=== PATIENT | female | born 1955 | race Caucasian/White ===

== ENCOUNTER 2020-01-07 10:27 | Outpatient (REF) | payer MEDICARE, MEDICAID, SELFPAY ==
[2020-01-07 11:53] LABS: Anion Gap 10 (12-20); Blood Urea Nitrogen 17 mg/dL (9-16); Calcium 10.3 mg/dL (8.4-10.2); Carbon Dioxide 28 mmol/L (22-29); Chloride 106 mmol/L (96-108); Estimated Glomerular Filt Rate > 60; Glucose Random 76 mg/dL (60-115); Potassium 4.9 mmol/l (3.3-5.1); Sodium 139 mmol/L (135-145)
== END 2020-01-07 10:28 | disposition home or self-care (01) ==
LOC: HO.HMGCLDS 10:27
PROVIDERS: PCP Internal Medicine; Visit Provider Internal Medicine
DX: R42 Dizziness and giddiness (principal); K59.01 Slow transit constipation; K58.9 Irritable bowel syndrome, unspecified; F66 Other sexual disorders; G71.00 Muscular dystrophy, unspecified; F31.9 Bipolar disorder, unspecified; E78.9 Disorder of lipoprotein metabolism, unspecified; K21.9 Gastro-esophageal reflux disease without esophagitis
CPT/HCPCS: 80048

== ENCOUNTER → 2020-01-15 11:13 | Outpatient (BNVA) | payer MEDICARE, MEDICAID, SELFPAY | PROVIDERS: PCP Internal Medicine; Visit Provider Anesthesiology | DX: M96.1 Postlaminectomy syndrome, not elsewhere classified (principal); M79.7 Fibromyalgia; M47.26 Other spondylosis with radiculopathy, lumbar region; Z96.82 Presence of neurostimulator | CPT/HCPCS: 99212 ==

== ENCOUNTER 2020-03-19 12:45 | Emergency (ER) | payer MEDICARE, MEDICAID, SELFPAY ==
[2020-03-19 12:57] VITALS: BP 101/63; PULSE 85; RESP 18; TEMP 37.1; O2SAT 96; BMI 24.5
--- NOTE | 2020-03-19 14:06 | ED.DENTAL ---
HPI - Dental/Oral General Chief complaint: Dental/Oral Stated complaint: post op inflammation Time Seen by Provider: 03/19/20 14:06 History of Present Illness HPI Narrative: Complains of right-sided dental pain after dental implant procedure 2 days ago, also complains of body aches for 2 days, no fever no chills no difficulty breathing or swallowing Related Data Home Medications Medication Instructions Recorded Confirmed acyclovir 5 % topical ointment TOPICAL 01/07/20 01/07/20 fenofibrate 160 mg tablet 160 mg PO DAILY 01/07/20 01/07/20 fluocinolone 0.025 % topical TOPICAL 01/07/20 01/07/20 ointment lithium carbonate 300 mg 300 mg PO DAILY 01/07/20 01/07/20 tablet,extended release loratadine 10 mg tablet 10 mg PO DAILY 01/07/20 01/07/20 pantoprazole 40 mg tablet,delayed 40 mg PO DAILY 01/07/20 01/07/20 release pregabalin 300 mg capsule 300 mg PO BID 01/07/20 01/07/20 quetiapine 200 mg tablet 200 mg PO BEDTIME 01/07/20 01/07/20 tizanidine 4 mg tablet 6 mg PO TID 01/07/20 01/07/20 Previous Rx's Medication Instructions Recorded linaclotide 290 mcg capsule 290 mcg PO DAILY 90 Days #90 cap 12/29/19 Allergies Allergy/AdvReac Type Severity Reaction Status Date / Time N.K.D.A. Allergy Unknown none Uncoded 02/09/20 09:48 Review of Systems Review of Systems: Positive for dental pain after dental surgery and body aches Negative for fever chills weakness dizziness, no swelling no shortness of breath no chest pain no nausea no vomiting no skin rash, no cough no runny nose no sore throat PMFSH Past Medical History Source: nursing notes reviewed Medical History (Updated 03/20/20 @ 00:00 by Vianca Stevenson) Bipolar 1 disorder Chronic GERD Chronic vertigo Constipation by delayed colonic transit Fibromyalgia IBS (irritable bowel syndrome) Lipid disorder Muscular dystrophy Other sexual disorders Other spondylosis with radiculopathy, lumbar region Postlaminectomy syndrome, not elsewhere classified Social History Social History Advance Directives: No Advance Directives Information Provided: Yes Physical Exam Vital Signs: Vital Signs: Last Vital Signs Temp 98.7 F 03/19/20 12:57 Pulse 85 03/19/20 12:57 Resp 18 03/19/20 12:57 BP 101/63 03/19/20 12:57 Pulse Ox 96 03/19/20 12:57 Body Mass Index 24.5 Comfortable relax cooperative no acute distress A&O x3 The face has very mild erythema over the right side maxillary area with no swelling Intraoral exam shows the pharynx is clear mucous membranes are moist there is no swelling under the tongue no impairment of breathing and swallowing, the area of the dental work shows no fluctuant abscess on the gun in the area of the right upper premolar that was worked on, there is no intraoral abscess visible, the voice is normal The neck is supple without lymphadenopathy Respiratory no distress, lung sounds are clear full and equal bilaterally The heart rate and rhythm is regular and no murmur Abdomen is soft nontender Skin no rashes Course Course Course Narrative: No sign of any acute abscess or severe infection in the area of the dental work, patient is very comfortable and cooperative The mild body aches were evaluated with a COVID test and physical exam did not show any sign of any active upper respiratory infection or any acute emergent infection MDM - Dental/Oral Lab Data Labs: Lab Results 03/19/20 Range/Units 14:23 Coronavirus (PCR) NEGATIVE (Negative) Influenza Type A (PCR) NEGATIVE (Negative) Influenza Type B (PCR) NEGATIVE (Negative) RSV RNA Qual (PCR) NEGATIVE (Negative) Discharge Plan Discharge Clinical Impression: Pain, dental, Body aches Patient Disposition: Home, Self-Care Additional Instructions: COVID testing was done because of her body aches and it was negative, no sign of any dangerous illness now Continue taking her antibiotic, no sign of any serious dental infection at this time and follow with the dentist Return any time any worse condition or concerns Prescriptions: No Action Linzess 290 mcg capsule 290 mcg PO DAILY 90 Days Qty: 90 RF: 0 pregabalin 300 mg capsule 300 mg PO BID RF: 0 quetiapine 200 mg tablet 200 mg PO BEDTIME RF: 0 lithium carbonate 300 mg tablet extended release 300 mg PO DAILY RF: 0 tizanidine 4 mg tablet 6 mg PO TID RF: 0 fluocinolone 0.025 % ointment topical RF: 0 fenofibrate 160 mg tablet 160 mg PO DAILY RF: 0 acyclovir 5 % ointment topical RF: 0 loratadine 10 mg tablet 10 mg PO DAILY RF: 0 pantoprazole 40 mg tablet,delayed release (DR/EC) 40 mg PO DAILY RF: 0 Interventions: ED Discharge Assessment Last Done: 03/19/20 16:23 Discharge Date/Time: 03/19/20 16:24
[2020-03-19 15:25] LABS: Influenza A PCR NEGATIVE (Negative); Influenza B PCR NEGATIVE (Negative); Resp Syncy Virus RNA Qual PCR NEGATIVE (Negative); SARS COV2 PCR INHOUSE NEGATIVE (Negative)
== END 2020-03-19 16:24 | disposition home or self-care (01) ==
PROVIDERS: Physician Assistant Medical; Emergency Provider Emergency Medicine; PCP Internal Medicine
DX: K08.89 Other specified disorders of teeth and supporting structures (principal); M79.10 Myalgia, unspecified site; Z20.828 Contact with and (suspected) exposure to other viral communicable diseases
CPT/HCPCS: 0241U; 99283

== ENCOUNTER → 2020-04-27 11:41 | Outpatient (BNV) | payer MEDICAID, MEDICARE, SELFPAY | PROVIDERS: PCP Internal Medicine; Visit Provider Internal Medicine Medical Oncology | DX: D72.819 Decreased white blood cell count, unspecified (principal) | CPT/HCPCS: 99213; 99214; 99443 ==

== ENCOUNTER → 2020-05-05 14:49 | Outpatient (BNVA) | payer MEDICARE, MEDICAID, SELFPAY | PROVIDERS: PCP Internal Medicine; Visit Provider Anesthesiology | DX: M79.7 Fibromyalgia (principal); M96.1 Postlaminectomy syndrome, not elsewhere classified; M47.26 Other spondylosis with radiculopathy, lumbar region; Z96.89 Presence of other specified functional implants | CPT/HCPCS: 99212 ==

== ENCOUNTER → 2020-05-31 15:53 | Outpatient (BNVA) | payer MEDICARE, MEDICAID, SELFPAY | PROVIDERS: PCP Internal Medicine; Visit Provider Anesthesiology | DX: M79.7 Fibromyalgia (principal); M96.1 Postlaminectomy syndrome, not elsewhere classified; M47.26 Other spondylosis with radiculopathy, lumbar region; Z96.89 Presence of other specified functional implants; Z79.899 Other long term (current) drug therapy | CPT/HCPCS: Q3014 ==

== ENCOUNTER 2020-07-17 14:09 | Emergency (ER) | payer MEDICARE, MEDICAID, SELFPAY ==
--- NOTE | ~2020-07-17 | CT_ITS ---
EXAMINATION: CT ABDOMEN AND PELVIS WITH CONTRAST CLINICAL INFORMATION: Lower abdomen pain. Clinical concern regarding bowel obstruction. COMPARISON: Portions of a CT performed without IV contrast on 05/07/15 TECHNIQUE: Multidetector volumetric images were obtained from the superior aspect of the liver through the pubic symphysis following administration 85 mL of Omnipaque 350 intravenous contrast. Sagittal and coronal reformatted images were obtained on the technologist's workstation. Oral contrast: No This CT examination was performed using dose optimization techniques as appropriate, variously including the following: *Automated exposure control *Adjustment of mA and/or kV according to patient size (this includes techniques or standardized protocols for targeted exams where dose is matched to indication/reason for exam; i.e. extremities or head) *Use of iterative reconstruction technique DLP: 513 mGy-cm FINDINGS: There is motion artifact which limits evaluation. Digital lap layer: Power generator projects over right mid abdomen with leads projecting over the spine. Bilateral hip replacements. Arthritic changes in the spine. Grossly abnormal interspace at L4/L5. LUNG BASES: No suspicious abnormality in the visualized lower chest LIVER, GALLBLADDER, AND BILIARY TREE: No suspicious liver lesion. There is no large opaque gallstone. No pericholecystic fluid. No definite biliary dilation. PANCREAS: Not optimally evaluated. No definite abnormality. SPLEEN: Normal ADRENAL GLANDS: Limited assessment. No definite abnormality. KIDNEYS AND URETERS: No dilation of the urinary collecting system. Limited assessment. No definite mass. BLADDER: Limited by metallic artifact. The urinary bladder is distended. No suspicious mass GASTROINTESTINAL TRACT: Metallic artifact limits assessment of the rectum. There is a large amount fecal residue. There is fluid distending the ascending, splenic flexure, transverse colon and proximal colon. There are some fluid-filled small bowel loops. There is at least a small segment of relative narrowing in the descending junction with sigmoid region. This may be a transient finding. ABDOMINAL WALL: No significant hernia is appreciated. LYMPH NODES: There are no measurably enlarged abdominal or pelvic lymph nodes. No fringe peroneal fluid demonstrated VASCULAR: There is no abdominal aortic aneurysm. The portal vein enhances. PELVIC VISCERA: Mostly obscured. No definite mass. OSSEOUS STRUCTURES: Extensive metallic artifact from previous bilateral hip replacement. Artifact related to a power generator in the right gluteal soft tissues with leads extending into the spinal canal. Severe abnormality at L4/L5 with grossly irregular endplates intravertebral gas and some sclerosis. There is endplate irregularity at multiple additional levels. Canal contents not well evaluated. There is fusion at L1/L2. When compared to parasagittal MRI 06/27/19 is difficult to assess for stability due to differences between modalities. When compared to parasagittal CT 05/07/15 grossly worsened appearance at L4/L5. CT/CT abdomen pelvis w con IMPRESSION: Limited study. Large amount of fluid within the colon which is abnormal. Etiology uncertain. There is a large amount of fecal residue in the rectal vault and sigmoid. No evidence of a high-grade small bowel obstruction. Severe abnormalities in the spine with gross abnormality at L4/L5. Difficult to assess for comparison since previous MRI but gross worsening at L4/L5 when compared to 05/07/15.
[2020-07-17 14:50] VITALS: BP 130/83; PULSE 81; RESP 16; TEMP 36.7; O2SAT 98; BMI 24.5
[2020-07-17 15:54] LABS: MANUAL DIFF FLAG NO
[2020-07-17 16:03] VITALS: BP 142/90; PULSE 89; RESP 16; O2SAT 97
[2020-07-17 16:03] LABS: Basophils Absolute Auto 0.1 X10*3/uL (0.0-0.2); Basophils Percent Auto 0.6 % (0-2); Eosinophils Absolute Auto 0.1 X10*3/uL (0.0-0.4); Eosinophils Percent Auto 0.6 % (0-4); Hematocrit 29.2 % (37-47); Hemoglobin 8.8 g/dl (12.0-16.0); Imm Gran Abs Auto 0.01 X10*3/uL (0.00-0.03); Imm Gran Pct Auto 0.1 % (0.0-0.4); Lymphocytes Percent Auto 23.8 % (20-40); Mean Corpuscular HGB Conc 30.1 g/dl (31.0-35.0); Mean Corpuscular Hemoglobin 21.6 pg (27.0-33.0); Mean Corpuscular Volume 71.6 fL (80-98); Mean Platelet Volume 9.7 fL (9.4-12.3); Monocytes Absolute Auto 0.8 X10*3/uL (0.1-1.2); Monocytes Percent Auto 10.1 % (2-11); Neutrophils Absolute Auto 5.3 X10*3/uL (2.0-8.3); Neutrophils Percent Auto 64.8 % (45-73); Platelet Count 476 X10*3/uL (160-400); Red Blood Count 4.08 X10*6/uL (4.20-5.50); Red Cell Distribution Width 18.3 % (11.0-16.0); White Blood Count 8.2 X10*3/uL (4.8-10.8)
[2020-07-17 16:06] LABS: Prothrombin Time 11.8 SEC (10.8-13.0)
[2020-07-17] MEDS: Ketorolac Tromethamine 30 MG/ML VIAL IVPUSH (16:07)
[2020-07-17] MEDS: ondansetron HCL 4 MG/2 ML VIAL IVPUSH (16:07)
[2020-07-17] MEDS: 0.9 % Sodium Chloride 1,000 ML 999 ML IVCONT (16:07)
[2020-07-17 16:19] LABS: Alanine Aminotransferase 29 U/L (0-31); Albumin Level 4.1 g/dL (3.5-5.0); Alkaline Phosphatase 81 U/L (39-117); Anion Gap 15 (12-20); Aspartate Amino Transferase 44 U/L (5-31); Bilirubin Total 0.3 mg/dL (0.0-1.0); Blood Urea Nitrogen 5 mg/dL (9-16); Calcium 9.7 mg/dL (8.4-10.2); Carbon Dioxide 23 mmol/L (22-29); Chloride 107 mmol/L (96-108); Creatinine Clr Calc Pharmacy 60.9; Estimated Glomerular Filt Rate > 60; Glucose Random 105 mg/dL (60-115); Potassium 4.5 mmol/L (3.3-5.1); Sodium 140 mmol/L (135-145)
--- NOTE | 2020-07-17 16:28 | ED.ABDPAIN ---
HPI - Abdominal Pain General Chief Complaint: Abdominal Pain Stated Complaint: CONSTIPATION Time Seen by Provider: 07/17/20 15:03 Source: patient Mode of arrival: ambulatory Limitations: no limitations History of Present Illness HPI narrative: 64-year-old female with a past medical history of neutropenia, IBS, constipation by delayed colonic transit, muscular dystrophy, fibromyalgia, spondylolysis with radiculopathy, bipolar 1 disorder, chronic vertigo, chronic GERD and lipid disorder presenting to the ED with complaints of constipation with abdominal pain for the past few days worse today. Patient reports she had surgery to her right ankle and she had some leftover oxycodone at her house and due to suffering from spondylolysis with radiculopathy she was taking her oxycodone at home for pain and she noted she was becoming constipated. She reports she has been taking multiple [id number] medication including milk of magnesium and she went to an urgent care and had a KUB at [facility] and they gave her some medications although no symptomatic relief and she has not had a full bowel movement. She denies any dizziness, headaches, changes in vision, chest pain, shortness of breath, dyspnea on exertion, orthopnea, cough, lower extremity edema, palpitations, back pain, black or bloody stools, nausea/vomiting, vomiting blood or black emesis. Denies any other symptoms complaints or concerns at this time. MD elicited complaint: abdominal pain Pertinent past history: constipation Onset (ago): day(s) Pain Consistency: constant Location: LLQ and suprapubic Severity: moderate Quality: cramping Radiation: none Migration to: no migration Exacerbating factors: bowel movement Relieving factors: bowel movement Associated symptoms: denies other symptoms Related Data Home Medications Medication Instructions Recorded Confirmed acyclovir 5 % topical ointment TOPICAL 01/07/20 01/07/20 fluocinolone 0.025 % topical TOPICAL 01/07/20 01/07/20 ointment lithium carbonate 300 mg 300 mg PO DAILY 01/07/20 01/07/20 tablet,extended release loratadine 10 mg tablet 10 mg PO DAILY 01/07/20 01/07/20 pantoprazole 40 mg tablet,delayed 40 mg PO DAILY 01/07/20 01/07/20 release pregabalin 300 mg capsule 300 mg PO BID 01/07/20 01/07/20 quetiapine 200 mg tablet 200 mg PO BEDTIME 01/07/20 01/07/20 tizanidine 4 mg tablet 6 mg PO TID 01/07/20 01/07/20 Previous Rx's Medication Instructions Recorded fenofibrate 160 mg tablet 160 mg PO DAILY 90 Days #90 tab 04/20/20 linaclotide 290 mcg capsule 290 mcg PO DAILY 90 Days #90 cap 04/23/20 tizanidine 4 mg tablet 4 mg PO Q8H PRN 30 Days #90 tab 04/29/20 Allergies Allergy/AdvReac Type Severity Reaction Status Date / Time N.K.D.A. Allergy Unknown none Uncoded 02/09/20 09:48 Review of Systems Review of Systems Constitutional : No Weight loss, No Fever, No Chills, No Night Sweats, No Fatigue, NoMalaise ENT/Mouth: No ear pain, No sore throat, No Difficulty swallowing Cardiovascular : No Chest Pain, No SOB, No Dyspnea on Exertion, No Orthopnea, NoEdema, No Palpitations Respiratory : No Cough, No Sputum, No Wheezing, No Dyspnea Gastrointestinal : + Abdominal pain, + Constipation, No Nausea, No Vomiting, No Diarrhea, No blood streaked emesis, No coffee-ground emesis, No gross hematemesis, No blood streak stool, No gross hematochezia, No Melena Genitourinary : No irregular bleeding, No Dysuria, No Urinary Frequency, No Hematuria,No Urinary Incontinence, No Urgency, No Flank Pain Musculoskeletal : No joint pain, No Myalgias, No Joint Swelling Skin : No Skin Lesions, No rash Neuro : No Weakness, No Numbness, No Paresthesias, No Loss of Consciousness, NoDizziness, No Headache Psych : No Social Issues, Heme/Lymph: No Bruising, No Bleeding,No Lymphadenopathy Endocrine : No Polyuria, No Polydipsia, No Temperature Intolerance Yes all other systems are reviewed and are negative Physical Exam Vital Signs: Vital Signs: Last Vital Signs Temp 98.0 F 07/17/20 14:50 Pulse 89 07/17/20 16:03 Resp 16 07/17/20 16:03 BP 142/90 H 07/17/20 16:03 Pulse Ox 97 07/17/20 16:03 Body Mass Index 24.5 vital signs have been reviewed as normal and appeared to be correct. Blood pressure normal. Heart rate normal. Respiration rate normal. Temperature normal. Oxygen saturation normal. Appearance: Alert. Oriented X3. No acute distress. Head: Normal external exam. Normocephalic. Eyes: PERRLA. EOMI. Conjunctiva and sclera normal. Eyelids normal. ENT: Pharynx normal. Uvula midline. Moist mucous membranes. No trismus noted. No drooling noted. No muffled voice noted. Neck: Normal inspection. Neck supple. FROM. No adenopathy. No meningeal signs. CVS: Normal heart rate and rhythm. Heart sound normal. No murmurs noted. Pulses normal throughout. Respiratory: No respiratory distress. Painless inspiration. Breath sounds normal. No wheezes/rales/rhonchi noted. Chest nontender. No accessory muscle usage noted or decreased air movement noted. Abdomen: Soft and mild suprapubic/left lower quadrant/right lower quadrant tenderness. Nondistended. No guarding. No rigidity. Bowel sounds normal in all 4 quadrants. No distention noted. No organomegaly noted. No visible injury noted. No rebound tenderness. Negative Rovsing sign. Negative obturator's sign. Negative psoas sign. Negative [place] sign. Rectal Exam: Supervised by SOPHIE Flores. Patient has external hemorrhoids not thrombosed. No active bleeding. Internal exam patient has brown colored stool. Normal rectal tone/normal sphincter tone. Back: No CVA tenderness. Full range of motion noted. Skin: Skin warm and dry. Normal skin color. Normal skin turgor. No rashes/lesions/lacerations noted. Extremities: Extremities exhibit normal range of motion. Extremities nontender. Neuro: Oriented X 3. No motor deficit. No sensory deficit. Reflexes normal. Normal steady gait. Course Course Course Narrative: 17pm - patient noted to be anemic at 8.8/29.9 her last hemoglobin and hematocrit in our system was in 10/21/2019 which was 11.98/39.2. - mild elevation AST at 44 otherwise all other labs are within normal limits. - therefore performed a stool occult which was negative for blood. - patient awaiting CT scan of abdomen and pelvis with IV contrast will re-evaluate. MDM - Abdominal Pain MDM Narrative Medical decision making narrative: 15:20pm - 64-year-old female presenting to the ED with complaints of constipation and lower abdominal pain over the past few days worse today. - On exam patient is alert and oriented x3. Not in any acute distress. Vital signs are stable within normal limits. Lungs clear to auscultation. CV RRR. Patient has mild left lower quadrant/suprapubic abdominal pain. No CVA tenderness is noted. - Plan: Labs, CT scan of abd/pelvis with IV contrast. Provide a L of IV fluids, 30 mg of Toradol and 4 mg of Zofran and re-evaluate. Medical Records Attestation: I reviewed the patient's medical records. Lab Data Attestation: I reviewed the patient's lab results. Result diagrams: 07/17/20 15:51 07/17/20 15:51 Labs: Lab Results 07/17/20 07/17/20 07/17/20 Range/Units 15:51 15:51 15:51 WBC 8.2 (4.8-10.8) X10*3/uL RBC 4.08 L (4.20-5.50) X10*6/uL Hgb 8.8 L (12.0-16.0) g/dl Hct 29.2 L (37-47) % MCV 71.6 L (80-98) fL MCH 21.6 L (27.0-33.0) pg MCHC 30.1 L (31.0-35.0) g/dl RDW 18.3 H (11.0-16.0) % Plt Count 476 H (160-400) X10*3/uL MPV 9.7 (9.4-12.3) fL Immature Gran % (Auto) 0.1 (0.0-0.4) % Neut % (Auto) 64.8 (45-73) % Lymph % (Auto) 23.8 (20-40) % [place] % (Auto) 10.1 (2-11) % Eos % (Auto) 0.6 (0-4) % Baso % (Auto) 0.6 (0-2) % Lymph # (Auto) 2.0 (1.2-4.9) X10*3/uL [place] # (Auto) 0.8 (0.1-1.2) X10*3/uL Eos # (Auto) 0.1 (0.0-0.4) X10*3/uL Baso # (Auto) 0.1 (0.0-0.2) X10*3/uL Abs Immat Gran (auto) 0.01 (0.00-0.03) X10*3/uL Absolute Neuts (auto) 5.3 (2.0-8.3) X10*3/uL Absolute Nucleated RBC 0.000 (0.0-0.012) X10*3/uL Nucleated RBC % (auto) 0.0 (0.0-0.2) /100WBC PT 11.8 (10.8-13.0) SEC INR 1.0 (0.9-1.1) Sodium 140 (135-145) mmol/L Potassium 4.5 (3.3-5.1) mmol/L Chloride 107 (96-108) mmol/L Carbon Dioxide 23 (22-29) mmol/L Anion Gap 15 (12-20) BUN 5 L D (9-16) mg/dL Creatinine 0.79 (0.5-1.4) mg/dL Estim Creat Clear Calc 60.9 Estimated GFR > 60 Random Glucose 105 D (60-115) mg/dL Calcium 9.7 (8.4-10.2) mg/dL Total Bilirubin 0.3 (0.0-1.0) mg/dL AST 44 H (5-31) U/L ALT 29 (0-31) U/L Alkaline Phosphatase 81 (39-117) U/L Total Protein 7.0 (6.5-8.0) g/dL Albumin 4.1 (3.5-5.0) g/dL Discharge Plan Discharge Clinical Impression: Anemia Prescriptions: No Action fenofibrate 160 mg tablet 160 mg PO DAILY 90 Days Qty: 90 RF: 1 Linzess 290 mcg capsule 290 mcg PO DAILY 90 Days Qty: 90 RF: 0 tizanidine 4 mg tablet 4 mg PO Q8H PRN (Reason: muscle spasticity) 30 Days Qty: 90 RF: 5 pregabalin 300 mg capsule 300 mg PO BID RF: 0 quetiapine 200 mg tablet 200 mg PO BEDTIME RF: 0 lithium carbonate 300 mg tablet extended release 300 mg PO DAILY RF: 0 tizanidine 4 mg tablet 6 mg PO TID RF: 0 fluocinolone 0.025 % ointment topical RF: 0 acyclovir 5 % ointment topical RF: 0 loratadine 10 mg tablet 10 mg PO DAILY RF: 0 pantoprazole 40 mg tablet,delayed release (DR/EC) 40 mg PO DAILY RF: 0 PMFSH Past Medical History Attestation statement: The following information was validated with the patient. Medical History Bipolar 1 disorder Chronic GERD Chronic vertigo Constipation by delayed colonic transit Fibromyalgia IBS (irritable bowel syndrome) Lipid disorder Muscular dystrophy Other sexual disorders Other spondylosis with radiculopathy, lumbar region Postlaminectomy syndrome, not elsewhere classified Social History Social History Alcohol intake: never Smoking Status: Never smoker Use of substances other than those prescribed or required for medical reasons: No Advance Directives: No Advance Directives Information Provided: Yes
[2020-07-17 16:57] LABS: Alanine Aminotransferase 31 U/L (0-31); Albumin Level 4.1 g/dL (3.5-5.0); Alkaline Phosphatase 81 U/L (39-117); Aspartate Amino Transferase 43 U/L (5-31); Bilirubin Direct < 0.2 mg/dL (0.0-0.5); Bilirubin Total 0.3 mg/dL (0.0-1.0); Magnesium 2.6 mg/dL (1.6-2.6); Total Protein 6.9 g/dL (6.5-8.0)
[2020-07-17 17:00] LABS: OBS Int Ctl Valid YES; OBS1 NEGATIVE (NEGATIVE)
[2020-07-17] MEDS: iohexoL 350 MG/ML 100 ML INFUS..BTL IV (17:19)
[2020-07-17 18:08] VITALS: BP 131/68; PULSE 71; RESP 14; O2SAT 96
[2020-07-17 20:13] LABS: Glucose Urine UA NEG (NEG); Leukocyte Esterase Urine NEG (NEG); Nitrite Urine NEG (NEG); PH 7.5 (5.0-8.0); Specific Gravity - Urine <= 1.005 (1.005-1.025); Urine Blood NEG (NEG); Urine Ketones NEG (NEG); Urine Protein NEG (NEG-TRACE)
[2020-07-17 20:14] LABS: Appearance Urine CLEAR; Color Urine YELLOW
[2020-07-17 20:25] VITALS: BP 139/59; PULSE 70; RESP 16; O2SAT 97
[2020-07-17] MEDS: Magnesium Citrate 300 ML SOLUTION PO (20:47)
--- NOTE | 2020-07-17 20:54 | PC.NURSE ---
PT MEDICATED WITH SOAP SUDS ENEMA, TOLERATED WELL, SMALL RESULTS APPROX 20 MINUTES AFTER ADMINISTRATION. MEDICATED WITH MAG CITRATE PER MAR AT THIS TIME. PT OFFERS NO COMPLAINTS AT THIS TIME. AWAITING DESIRED EFFECTS OF MEDS.
[2020-07-19 10:59] LABS: Iron 16 mcg/dL (30-160); Percent Iron Saturation 3 % (15-50); Total Iron Binding Capacity 464 mcg/dL (228-428); Unsaturated Iron Binding 448 ug/dL
[2020-07-19 11:54] LABS: Vitamin B12 891 pg/mL (200-900)
== END 2020-07-17 23:24 | disposition home or self-care (01) ==
PROVIDERS: Internal Medicine Medical Oncology; Physician Assistant Medical; Emergency Provider Emergency Medicine; PCP Internal Medicine
DX: D64.9 Anemia, unspecified (principal); K59.00 Constipation, unspecified; R10.30 Lower abdominal pain, unspecified; Z79.899 Other long term (current) drug therapy
CPT/HCPCS: 36415; 74177; 80053; 80076; 81003; 82248; 82272; 82607; 83540; 83735; 85025; 85610; 96361; 96365; 96374; 99284; 99285; J1885; J2405; Q9967

== ENCOUNTER → 2020-07-21 11:19 | Outpatient (BNVA) | payer MEDICARE, MEDICAID, SELFPAY | PROVIDERS: PCP Internal Medicine; Visit Provider Anesthesiology | DX: M79.7 Fibromyalgia (principal); M96.1 Postlaminectomy syndrome, not elsewhere classified; M47.26 Other spondylosis with radiculopathy, lumbar region; Z96.89 Presence of other specified functional implants | CPT/HCPCS: 99212 ==

== ENCOUNTER 2020-10-30 09:13 | Emergency (ER) | payer MEDICARE, MEDICAID, SELFPAY ==
--- NOTE | ~2020-10-30 | US_ITS ---
EXAMINATION: ULTRASOUND EXTREMITY NONVASCULAR. CLINICAL INFORMATION: Posterior ankle pain. COMPARISON: None TECHNIQUE: Long and transverse axial imaging of the posterior ankle and the Achilles tendon was performed. FINDINGS: There is a hypoechoic area within the anterior aspect of the Achilles tendon measuring 0.8 x 0.5 x 0.6 cm suggestive of chronic calcification or enthesophytes along the ankle joint. This could be secondary to old partial tear. A thin sleeve of Achilles tendon is seen posterior to this calcification/osteophyte. US/US extremity nonvascular IMPRESSION: Hypoechoic area within the anterior aspect of the Achilles tendon likely an osteophyte are calcification in a chronic Achilles tendon tear. Acute tear cannot be excluded. Recommend correlation with MRI as an outpatient.
--- NOTE | ~2020-10-30 | XR_ITS ---
EXAMINATION: XR ANKLE, RIGHT CLINICAL INFORMATION: Status post fusion with worsening pain. COMPARISON: None TECHNIQUE: AP, lateral, and mortise views of the right ankle. FINDINGS: There are at least 3 cancellous screws for fusion of the ankle mortise. One of the heads of the screws is similar wording or missing. There is diffuse osteopenia of the ankle. There is partial resection of the distal fibula. There is no perinephric ostial thickening or lytic area cyst to suspect any osteomyelitis. There is however mild soft tissue swelling surrounding the ankle joint. Moderate hypertrophic bony changes are seen along the posterior tibiotalar joint. The subtalar joint is visualized and grossly unremarkable. XR/XR ankle RT min 3V IMPRESSION: Fused ankle mortise with 3 screws with one of the heads of the screws missing. Partial resection of distal fibula. Diffuse osteopenia. No suggestion for osteomyelitis. However there is moderate soft tissue swelling surrounding the right ankle.
[2020-10-30 09:51] VITALS: BP 105/58; PULSE 87; RESP 8; TEMP 36.8; O2SAT 100; BMI 22.3
--- NOTE | 2020-10-30 10:11 | ED_ITS ---
HPI - Extremity Injury (Lower) General Chief Complaint: Extremity Injury, Lower Stated Complaint: ankle discomfort Time Seen by Provider: 10/30/20 09:51 Source: patient Mode of arrival: ambulatory Limitations: no limitations History of Present Illness HPI Narrative: 64-year-old female presenting to the ED with complaints of right ankle pain for the past 2 days after she was in a frog position while gardening outside in her yard. When she got up from the from position to a standing position she felt a pulling sensation to her right ankle and since then she has been having pain to the right posterior aspect of the ankle. She reports she has a history of bilateral ankle fusions and the right ankle was used approximately 6 months ago and she has always had trouble with that right ankle although this pain is different. She denies any other injuries complaints or concerns at this time. MD complaint: ankle injury Onset (ago): day(s) (2 days ) Injury: Right: ankle Place: street/outdoors Severity: moderate Relieving factors: nothing Exacerbating factors: weight bearing, movement and palpation Context: other (While in a frog position while gardening outside in her yard) Associated symptoms: snap/pop sensation Other symptoms: none Related Data Home Medications Medication Instructions Recorded Confirmed acyclovir 5 % topical ointment 5 appl TOPICAL DAILY 01/07/20 10/26/20 fluocinolone 0.025 % topical 0.025 appl TOPICAL NEEDED 01/07/20 10/26/20 ointment lithium carbonate 300 mg 300 mg PO DAILY 01/07/20 10/26/20 tablet,extended release pantoprazole 40 mg tablet,delayed 40 mg PO DAILY 01/07/20 10/26/20 release quetiapine 200 mg tablet 200 mg PO BEDTIME 01/07/20 10/26/20 Previous Rx's Medication Instructions Recorded pregabalin 300 mg capsule 300 mg PO BID 30 Days #60 cap 07/19/20 celecoxib 200 mg capsule (Celebrex) 200 mg PO BID 30 Days #60 cap 07/21/20 ferrous sulfate 325 mg (65 mg 325 mg PO DAILY #60 tab 07/26/20 iron) tablet tizanidine 4 mg tablet 4 mg PO TID PRN #90 tab 08/26/20 fenofibrate 160 mg tablet 160 mg PO DAILY 90 Days #90 tab 09/23/20 linaclotide 290 mcg capsule 290 mcg PO DAILY 90 Days #90 cap 10/25/20 (Linzess) acetaminophen 500 mg tablet 1,000 mg PO QID PRN #14 tab 10/30/20 (Tylenol Extra Strength) ibuprofen 800 mg tablet 800 mg PO Q8H PRN #14 tab 10/30/20 oxycodone 5 mg tablet 5 mg PO BID PRN #10 tab 10/30/20 Allergies Allergy/AdvReac Type Severity Reaction Status Date / Time N.K.D.A. Allergy Unknown none Uncoded 02/09/20 09:48 Review of Systems Review of Systems: Constitutional : No changes in activity, No lethargy, No recent prior head injury, No agitation, No increased fussiness ENT/Mouth : No Ear Pain, No Nasal discharge/drainage Eyes: No Eye Pain, No Swelling, No Redness, No Foreign Body, No Vision Changes Cardiovascular : No Chest Pain, No SOB Respiratory : No Cough Gastrointestinal : No Nausea, No Vomiting, No abdominal Pain Genitourinary : No Dysuria, No Urinary Frequency, No Urinary Incontinence, No Urgency, No Flank Pain Musculoskeletal : + joint pain, No neck stiffness, No back pain/injury Skin : No lacerations Neuro : No unsteady gait, No Paresthesias, No Loss of Consciousness, No altered mental status, No Headache Yes all other systems are reviewed and are negative [facility] Past Medical History Attestation statement: The following information was validated with the patient. Medical History Bipolar 1 disorder Chronic GERD Chronic vertigo Constipation by delayed colonic transit Fibromyalgia IBS (irritable bowel syndrome) Lipid disorder Muscular dystrophy Other sexual disorders Other spondylosis with radiculopathy, lumbar region Postlaminectomy syndrome, not elsewhere classified Surgical History H/O mastectomy History of ankle surgery History of hip surgery Previous back surgery Family History Family History Father Mesothelioma Brother Mesothelioma Paternal Grandfather Mesothelioma Brother Mesothelioma Paternal Grandmother Stomach cancer Paternal Aunt Lung cancer Family/Other Breast cancer Social History Social History Alcohol intake: never Patient Tobacco Use Status: Never used Tobacco Substance Use Type: Marijuana Advance Directives: No Advance Directives Information Provided: Yes Patient : No Physical Exam Vital Signs: Vital Signs: Last Vital Signs Temp 98.3 F 10/30/20 09:51 Pulse 87 10/30/20 09:51 Resp 8 L 10/30/20 09:51 BP 105/58 L 10/30/20 09:51 Pulse Ox 100 10/30/20 09:51 Body Mass Index 22.3 vital signs have been reviewed as normal and appeared to be correct. Blood pressure hypotensive at 105/58 Heart rate normal. Respiration rate normal. Temperature normal. Oxygen saturation normal. Appearance: Alert. Oriented X3. No acute distress. Head: Normal external exam. Normocephalic. Atraumatic. Eyes: PERRLA. EOMI. Conjunctiva and sclera normal. Eyelids normal. ENT: Pharynx normal. Uvula midline. Moist mucous membranes. Neck: Normal inspection. Neck supple. FROM. No adenopathy. No meningeal signs. CVS: Normal heart rate and rhythm. Heart sound normal. Pulses normal throughout. No murmurs/rales/gallops. Respiratory: No respiratory distress. Painless inspiration. Breath sounds normal. No wheezes/rales/rhonchi noted. Chest nontender. No accessory muscle usage noted or decreased air movement noted. Back: Full range of motion noted. No rashes/lesion/induration/fluctuance or signs of infection noted. Skin: Skin warm and dry. Normal skin color. Normal skin turgor. No rashes/lesions/lacerations noted. Extremities: Patient with tenderness to palpation to right posterior aspect of ankle at the insertion of the Achilles tendon and patient has a positive De La Cruz's test possibly consistent with Achilles tendon rupture. Otherwise no other ligamentous laxity noted. patient has full range of motion of the right ankle joint. No signs of infection. No lower extremity edema is noted. No calf tenderness is noted. Otherwise all other Extremities exhibit normal range of motion and nontender. Neuro: Oriented X 3. No motor deficit. No sensory deficit. Reflexes normal. Normal steady gait. No focal neuro deficits noted. Vascular: + radial pulses/+ 2 distal pedal pulses/+2 dorsalis pedis b/l. Normal cap refill. No cyanosis noted to upper extremity nails and lower extremity toes nails. Course Course Course Narrative: 64-year-old female with a past medical history of bilateral ankle fusions her right ankle was few 6 months ago presenting to the ED with complaints of right posterior ankle pain/soft tissue swelling for the past 2 days after she was in her garden in a frog position when she stood back up she felt a crack/pain to her right posterior aspect of her ankle and since then has been having pain. On exam patient has tenderness palpation to the posterior ankle. Possible positive De La Cruz's test consistent with Achilles tendon rupture. Otherwise no other ligamentous laxity noted. Patient has full range of motion of the joint. No lower extremity edema noted. No calf tenderness is noted. Will obtain x-ray and ultrasound of the ankle joint and re-evaluate. Reevaluation(s) Reevaluation #1: - revealed diffuse osteopenia although no evidence of osteomyelitis although patient is noted to have moderate soft tissue swelling surrounding the right ankle. They also noted that the fused ankle is noted to have 3 screws although 1 of the heads of the screws are missing. Also reports that she has a partial resection of distal fibula otherwise no other acute processes. Therefore printed out his results and given to the patient and explained to her that she could possibly have a migrated head of a screw and that she needs to follow back up with her orthopedic surgeon to see if she had a head of a screw on that screw that is missing the head. She reports that she will follow-up with her orthopedic surgeon regarding this. - I also performed an ultrasound of her right ankle to evaluate for possible Gem's attendant rupture and it appears that the patient possibly has a chronic Achilles tendon tear although an acute tear cannot be ruled out and they recommend an outpatient MRI. - therefore I printed out the results and handed to the patient and I spoke to the orthopedic PA Lee and she recommended a non weight-bearing ortho boot and to follow-up in office on Sunday. Therefore will place in a ortho boot I offered crutches although patient reports she already has some at home will DC home with symptomatic treatment and instructed to be nonweightbearing as tolerated and to follow up Orthopedic on Sunday and her other orthopedic surgeon regarding the missing head of the screw. Patient understands agrees with this plan. Time: 12:12 MDM - Extremity Injury (Lower) Medical Records Attestation: I reviewed the patient's medical records. Imaging Data Right ankle x-ray: Attestation: I personally reviewed and interpreted this imaging study as follows: Radiologist's impression: FINDINGS: There are at least 3 cancellous screws for fusion of the ankle mortise. One of the heads of the screws is similar wording or missing. There is diffuse osteopenia of the ankle. There is partial resection of the distal fibula. There is no perinephric ostial thickening or lytic area cyst to suspect any osteomyelitis. There is however mild soft tissue swelling surrounding the ankle joint. Moderate hypertrophic bony changes are seen along the posterior tibiotalar joint. The subtalar joint is visualized and grossly unremarkable.? XR/XR ankle RT min 3V IMPRESSION: Fused ankle mortise with 3 screws with one of the heads of the screws missing. ? Partial resection of distal fibula. ? Diffuse osteopenia. No suggestion for osteomyelitis. However there is moderate soft tissue swelling surrounding the right ankle. Right lower extremity ultrasound: Attestation: I personally reviewed and interpreted this imaging study as follows: Radiologist's impression: FINDINGS: There is a hypoechoic area within the anterior aspect of the Achilles tendon measuring 0.8 x 0.5 x 0.6 cm suggestive of chronic calcification or enthesophytes along the ankle joint. This could be secondary to old partial tear. A thin sleeve of Achilles tendon is seen posterior to this calcification/osteophyte. US/US extremity nonvascular IMPRESSION: Hypoechoic area within the anterior aspect of the Achilles tendon likely an osteophyte are calcification in a chronic Achilles tendon tear. Acute tear cannot be excluded. Recommend correlation with MRI as an outpatient. Discharge Plan Discharge Clinical Impression: Right ankle sprain, Achilles tendon rupture Patient Disposition: Home, Self-Care Instructions: Ankle Sprain (ED), Achilles Tendon Rupture (ED) Prescriptions: New ibuprofen 800 mg tablet 800 mg PO Q8H PRN (Reason: pain) Qty: 14 RF: 0 acetaminophen [Tylenol Extra Strength] 500 mg tablet 1,000 mg PO QID PRN (Reason: fever or pain) Qty: 14 RF: 0 oxycodone 5 mg tablet 5 mg PO BID PRN (Reason: pain) Qty: 10 RF: 0 No Action pregabalin 300 mg capsule 300 mg PO BID 30 Days Qty: 60 RF: 5 tizanidine 4 mg tablet 4 mg PO TID PRN (Reason: for pain) Qty: 90 RF: 12 fenofibrate 160 mg tablet 160 mg PO DAILY 90 Days Qty: 90 RF: 1 Linzess 290 mcg capsule 290 mcg PO DAILY 90 Days Qty: 90 RF: 0 ferrous sulfate 325 mg (65 mg iron) Tablet 325 mg PO DAILY Qty: 60 RF: 4 quetiapine 200 mg tablet 200 mg PO BEDTIME RF: 0 lithium carbonate 300 mg tablet extended release 300 mg PO DAILY RF: 0 fluocinolone 0.025 % ointment 0.025 appl topical NEEDED RF: 0 acyclovir 5 % ointment 5 appl topical DAILY RF: 0 pantoprazole 40 mg tablet,delayed release (DR/EC) 40 mg PO DAILY RF: 0 celecoxib [Celebrex] 200 mg capsule 200 mg PO BID 30 Days Qty: 60 RF: 12 Referrals: Alondra Hess MD [Physician] - 11/01/20 Sarina Devi MD [Primary Care Provider] - 2 days Print Language: Pakistani
== END 2020-10-30 12:47 | disposition home or self-care (01) ==
PROVIDERS: Emergency Provider Emergency Medicine; PCP Internal Medicine
DX: S93.401A Sprain of unspecified ligament of right ankle, initial encounter (principal); S86.011A Strain of right Achilles tendon, initial encounter; X50.1XXA Overexertion from prolonged static or awkward postures, initial encounter; Y93.H2 Activity, gardening and landscaping; Y92.017 Garden or yard in single-family (private) house as the place of occurrence of the external cause; Y99.9 Unspecified external cause status
CPT/HCPCS: 73610; 76882; 99284

== ENCOUNTER → 2020-11-01 10:57 | Outpatient (BNVA) | payer MEDICARE, MEDICAID, SELFPAY | PROVIDERS: PCP Internal Medicine; Visit Provider Physician Assistant | DX: S86.009A Unspecified injury of unspecified Achilles tendon, initial encounter (principal) | CPT/HCPCS: 99202 ==

== ENCOUNTER 2020-11-07 17:02 | Emergency (ER) | payer MEDICARE, MEDICAID, SELFPAY ==
[2020-11-07 17:36] VITALS: BP 111/66; PULSE 80; RESP 16; TEMP 36.6; O2SAT 99; BMI 21.7
[2020-11-07] MEDS: Tetracaine HCl/PF 0.5% Oph Sol 4 ML DROPS 3 DROP EYE-BOTH (19:01)
[2020-11-07] MEDS: Fluorescein Sodium STRIP 1 STRIP EYE-BOTH (19:02)
--- NOTE | 2020-11-07 19:09 | ED.EYEPROB ---
HPI - Eye Problem General Chief complaint: Eye Problems Stated complaint: blurry vision Time Seen by Provider: 11/07/20 18:20 Source: patient Mode of arrival: ambulatory Limitations: no limitations History of Present Illness HPI Narrative: 64-year-old female with a history of bipolar and Sjogren's presents for a ?film over her eye ?since yesterday. Patient reports she has extreme dry eyes, dry gritty feeling in her eyes. Patient has had punctal plug surgery. Patient was using hedge trimmers yesterday and is not sure if she got something in her eye. She does not use contacts or glasses. Her vision is mildly blurry. No visual loss, no eye pain, no fevers, no nausea vomiting. chief complaint: other Onset (ago): day(s) (1) Onset description: gradual Duration: constant Location: both eyes Eye Symptoms: blurry vision Place: home Severity: mild Severity scale (1-10): 3 Context: other Associated symptoms: none Treatments Prior to Arrival: none Related Data Patient tetanus UTD: Yes Home Medications Medication Instructions Recorded Confirmed acyclovir 5 % topical ointment 5 appl TOPICAL DAILY 01/07/20 10/26/20 fluocinolone 0.025 % topical 0.025 appl TOPICAL NEEDED 01/07/20 10/26/20 ointment lithium carbonate 300 mg 300 mg PO DAILY 01/07/20 10/26/20 tablet,extended release pantoprazole 40 mg tablet,delayed 40 mg PO DAILY 01/07/20 10/26/20 release quetiapine 200 mg tablet 200 mg PO BEDTIME 01/07/20 10/26/20 Previous Rx's Medication Instructions Recorded pregabalin 300 mg capsule 300 mg PO BID 30 Days #60 cap 07/19/20 celecoxib 200 mg capsule (Celebrex) 200 mg PO BID 30 Days #60 cap 07/21/20 ferrous sulfate 325 mg (65 mg 325 mg PO DAILY #60 tab 07/26/20 iron) tablet tizanidine 4 mg tablet 4 mg PO TID PRN #90 tab 08/26/20 fenofibrate 160 mg tablet 160 mg PO DAILY 90 Days #90 tab 09/23/20 linaclotide 290 mcg capsule 290 mcg PO DAILY 90 Days #90 cap 10/25/20 (Linzess) acetaminophen 500 mg tablet 1,000 mg PO QID PRN #14 tab 10/30/20 (Tylenol Extra Strength) ibuprofen 800 mg tablet 800 mg PO Q8H PRN #14 tab 10/30/20 oxycodone 5 mg tablet 5 mg PO BID PRN #10 tab 10/30/20 Magic Mouthwash 5 ml PO Q6-8H PRN #240 ml 11/07/20 Diphen/Lido/Antacid 1:1:1 240 mL suspension erythromycin 5 mg/gram (0.5 %) eye 1 appl OPHTHALMIC (EYE) QID 5 Days 11/07/20 ointment #3.5 g Allergies Allergy/AdvReac Type Severity Reaction Status Date / Time N.K.D.A. Allergy Unknown none Uncoded 02/09/20 09:48 Review of Systems Review of Systems: Constitutional : No Weight loss, No Fever, No Chills, No Night Sweats,No Fatigue, No Malaise ENT/Mouth : No Hearing loss, No Ear Pain, No Nasal Congestion, NoSinus Pain, No Hoarseness, No sore throat, No Rhinorrhea, NoSwallowing Difficulty Eyes: +right eye redness, feeling of a film over eyes, eyes feel gritty No Eye Pain, No Swelling, Cardiovascular : No Chest Pain, No SOB, No Dyspnea on Exertion, NoOrthopnea, No Edema, No Palpitations Respiratory : No Cough, No Sputum, No Wheezing, No Smoke Exposure, No Dyspnea Gastrointestinal : No Nausea, No Vomiting, No Diarrhea, NoConstipation, No abdominal Pain, No Hematochezia, No Melena Genitourinary : no irregular bleeding, No Dysuria, No UrinaryFrequency, No Hematuria, No Urinary Incontinence, No Urgency, No FlankPain, No Urinary Flow Changes, No Hesitancy Musculoskeletal : No joint pain, No Myalgias, No Joint Swelling Skin : No Skin Lesions, No rash Neuro : No Weakness, No Numbness, No Paresthesias, No Loss ofConsciousness, No Dizziness, No Headache Psych : mild anxiety, tremors in hands, , No Depression, No SI/HI/AH/VH, No Social Issues, Endocrine : No Polyuria, No Polydipsia, No Temperature Intolerance PMFSH Past Medical History Medical History Bipolar 1 disorder Chronic GERD Chronic vertigo Constipation by delayed colonic transit Fibromyalgia IBS (irritable bowel syndrome) Lipid disorder Muscular dystrophy Other sexual disorders Other spondylosis with radiculopathy, lumbar region Postlaminectomy syndrome, not elsewhere classified Surgical History H/O mastectomy History of ankle surgery History of hip surgery Previous back surgery Family History Family History Father Mesothelioma Brother Mesothelioma Paternal Grandfather Mesothelioma Brother Mesothelioma Paternal Grandmother Stomach cancer Paternal Aunt Lung cancer Family/Other Breast cancer Social History Social History Alcohol intake: never Patient Tobacco Use Status: Never used Tobacco Substance Use Type: Marijuana Advance Directives: No Advance Directives Information Provided: No Patient : No Physical Exam Vital Signs: Vital Signs: Last Vital Signs Temp 98 F 11/07/20 17:36 Pulse 80 11/07/20 17:36 Resp 16 11/07/20 17:36 BP 111/66 11/07/20 17:36 Pulse Ox 99 11/07/20 17:36 Body Mass Index 21.7 Const: General: cooperative, no acute distress, well developed, alert and awake Nutritional Appearance: well nourished Orientation/consciousness: patient oriented x3 Limitations: no limitations HENMT: Head: Yes normal to inspection, Yes normocephalic and Yes atraumatic Ears: hearing grossly normal bilaterally, external ears normal, TM's normal bilaterally and EAC's normal General nose exam: Normal external nose present Face and sinus: Yes normal facial exam and Yes sinuses nontender Mouth: Normal oral and palatal mucosa present Throat: Yes posterior oropharynx normal Eyes: Visual Vilchis: normal visual vilchis by confrontation Alignment and Position: alignment normal Periorbital: periorbital findings normal Eyelids: Yes eyelids normal Conjunctivae: conjunctival abnormal right conjunctival injection diffuse Sclerae: sclerae normal Corneas: corneas normal and fluorescein used Pupils: Equal, round and reactive pupils present EOM: EOMs intact bilaterally Direct Ophthalmoscopy: normal light reflex and no photophobia Neck: Neck: Yes full ROM, Yes no lymphadenopathy and Yes supple Resp: Effort & Inspection: normal respiratory effort and able to speak in complete sentences Auscultation: clear to auscultation bilaterally, no crackles, no rales, no rhonchi and no wheezes Cardio: Rate: regular rate Rhythm: regular rhythm Heart sounds: S1 normal heart sound present and S2 normal heart sound present GI: Inspection: Yes normal to inspection Palpation (GI): Soft to palpation, nontender, no guarding and not rigid Percussion: Yes normal to percussion Auscultation: normal bowel sounds Skin: General skin exam: no rashes or lesions noted Neuro: General: patient oriented x3, tone normal and moves all extremities Cranial nerves: Yes Equal, round and reactive pupils present Extrem: General: Yes normal to inspection and Yes full ROM Psych: Appearance: grossly normal Affect: normal affect Attitude: cooperative Thought process: Normal thought process present Course Course Course Narrative: 64-year-old female with a complaint of ?film across her eyes? and a sensation of gritty dry eyes. Patient also complains she has mild sores. Patient has no fevers, no eye pain, no pain with EOMs, no nausea, no vomiting, no focal deficits, patient's oropharynx is without lesions or sores. Patient has visual acuity of 20/25 in both eyes. Fluorescein stain is unremarkable, no corneal abrasion. Counseled using [id number] eye lubrication, Zaditor eye drops, prescribed erythromycin ointment. Have patient follow-up with a local tennis coach. Gave return precautions such as visual changes, loss of vision. Discharge Plan Discharge Clinical Impression: Dry eye syndrome of both eyes, Aphthous ulcer of mouth Conjunctivitis Qualifiers: Conjunctivitis type: acute Acute conjunctivitis type: unspecified Laterality: left Qualified Code(s): H10.32 - Unspecified acute conjunctivitis, left eye Patient Disposition: Home, Self-Care Instructions: Eye Lubricant (Into the eye), Dry Eye Syndrome (ED) Additional Instructions: Please call [facility] at [phone]. I would like you to be seen this week follow-up appointment. Please buy [id number] Zaditor eye drops. Use these along with [id number] eye lubricant. In addition I am prescribing antibiotic ointment to use on both eyes for the next 5 days. Please use the magic mouthwash for ulcers in her mouth. Swish and spit mouthwash. If you have visual loss, visual changes, headache, fever, neck pain, here we comments are the other, and her speech is slurred, or you have any new or concerning symptoms please return to the emergency room. Prescriptions: New Magic Mouthwash Diphen/Lido/Antacid 1:1:1 240 mL suspension 5 ml PO Q6-8H PRN (Reason: mouth pain) Qty: 240 RF: 0 erythromycin 5 mg/gram (0.5 %) ointment 1 appl ophthalmic (eye) QID 5 Days Qty: 3.5 RF: 0 No Action pregabalin 300 mg capsule 300 mg PO BID 30 Days Qty: 60 RF: 5 tizanidine 4 mg tablet 4 mg PO TID PRN (Reason: for pain) Qty: 90 RF: 12 fenofibrate 160 mg tablet 160 mg PO DAILY 90 Days Qty: 90 RF: 1 Linzess 290 mcg capsule 290 mcg PO DAILY 90 Days Qty: 90 RF: 0 ferrous sulfate 325 mg (65 mg iron) Tablet 325 mg PO DAILY Qty: 60 RF: 4 ibuprofen 800 mg tablet 800 mg PO Q8H PRN (Reason: pain) Qty: 14 RF: 0 acetaminophen [Tylenol Extra Strength] 500 mg tablet 1,000 mg PO QID PRN (Reason: fever or pain) Qty: 14 RF: 0 oxycodone 5 mg tablet 5 mg PO BID PRN (Reason: pain) Qty: 10 RF: 0 quetiapine 200 mg tablet 200 mg PO BEDTIME RF: 0 lithium carbonate 300 mg tablet extended release 300 mg PO DAILY RF: 0 fluocinolone 0.025 % ointment 0.025 appl topical NEEDED RF: 0 acyclovir 5 % ointment 5 appl topical DAILY RF: 0 pantoprazole 40 mg tablet,delayed release (DR/EC) 40 mg PO DAILY RF: 0 celecoxib [Celebrex] 200 mg capsule 200 mg PO BID 30 Days Qty: 60 RF: 12 Referrals: Oliverio Zavala [Physician] - 2 days (dry eyes, Sjogren's) Interventions: ED Discharge Assessment Last Done: 11/07/20 19:24 Discharge Date/Time: 11/07/20 19:25
== END 2020-11-07 19:25 | disposition home or self-care (01) ==
PROVIDERS: Emergency Provider Internal Medicine; PCP Internal Medicine
DX: K12.0 Recurrent oral aphthae (principal); H10.32 Unspecified acute conjunctivitis, left eye; H53.8 Other visual disturbances; Z79.899 Other long term (current) drug therapy
CPT/HCPCS: 99283

== ENCOUNTER 2021-01-06 10:45 | Emergency (ER) | payer MEDICARE, MEDICAID, SELFPAY ==
[2021-01-06 11:12] VITALS: BP 137/76; PULSE 79; RESP 16; TEMP 36.2; O2SAT 100; BMI 22.6
--- NOTE | 2021-01-06 12:10 | ED.GENADULT ---
HPI - General Adult General Chief complaint: General Medical Stated complaint: Constipated Time Seen by Provider: 01/06/21 11:56 Source: patient Mode of arrival: ambulatory Limitations: no limitations History of Present Illness HPI narrative: 65-year-old female with a history of GERD, constipation, irritable bowel syndrome, fibromyalgia, bipolar, anemia who presents to the ER with ongoing constipation for several days. She reports having multiple very small and hard bowel movements over the last few days. She has been taking her previously prescribed Linzess without affect. She used to take Colace, but ran out of it. She has to strain several times before in order to get a small bowel movement now. She is has some generalized abdominal pain and discomfort associated with this and some cramping. She is not nauseous or vomiting. She has no blood in her stool. She has a history requiring fecal disimpaction, and is worried this may be starting to happen again. She reports several changes in her diet and day-to-day activities, and thinks this is contributing to her change in bowel movements. MD complaint: Constipation Location: abdomen and buttocks Radiation: non-radiation Severity: moderate Quality: aching and other (cramping) Pain Consistency: intermittent Relieving factors: other (bowel movement) Exacerbating factors: none Associated symptoms: denies other symptoms Treatments prior to arrival: none Related Data Home Medications Medication Instructions Recorded Confirmed acyclovir 5 % topical ointment 5 appl TOPICAL DAILY 01/07/20 10/26/20 fluocinolone 0.025 % topical 0.025 appl TOPICAL NEEDED 01/07/20 10/26/20 ointment lithium carbonate 300 mg 300 mg PO DAILY 01/07/20 10/26/20 tablet,extended release pantoprazole 40 mg tablet,delayed 40 mg PO DAILY 01/07/20 10/26/20 release quetiapine 200 mg tablet 200 mg PO BEDTIME 01/07/20 10/26/20 Previous Rx's Medication Instructions Recorded pregabalin 300 mg capsule 300 mg PO BID 30 Days #60 cap 07/19/20 celecoxib 200 mg capsule (Celebrex) 200 mg PO BID 30 Days #60 cap 07/21/20 ferrous sulfate 325 mg (65 mg 325 mg PO DAILY #60 tab 07/26/20 iron) tablet tizanidine 4 mg tablet 4 mg PO TID PRN #90 tab 08/26/20 fenofibrate 160 mg tablet 160 mg PO DAILY 90 Days #90 tab 09/23/20 linaclotide 290 mcg capsule 290 mcg PO DAILY 90 Days #90 cap 10/25/20 (Linzess) acetaminophen 500 mg tablet 1,000 mg PO QID PRN #14 tab 10/30/20 (Tylenol Extra Strength) ibuprofen 800 mg tablet 800 mg PO Q8H PRN #14 tab 10/30/20 oxycodone 5 mg tablet 5 mg PO BID PRN #10 tab 10/30/20 Magic Mouthwash 5 ml PO Q6-8H PRN #240 ml 11/07/20 Diphen/Lido/Antacid 1:1:1 240 mL suspension erythromycin 5 mg/gram (0.5 %) eye 1 appl OPHTHALMIC (EYE) QID 5 Days 11/07/20 ointment #3.5 g docusate sodium 100 mg capsule 100 mg PO BID #30 cap 01/06/21 (Colace) polyethylene glycol 3350 17 17 g PO DAILY #238 g 01/06/21 gram/dose oral powder (Miralax) Allergies Allergy/AdvReac Type Severity Reaction Status Date / Time N.K.D.A. Allergy Unknown none Uncoded 02/09/20 09:48 Review of Systems Review of Systems: Constitutional: No Fever, No Chills ENT/Mouth: No sore throat, No Rhinorrhea, No Swallowing Difficulty Cardiovascular: No Chest Pain, No SOB Respiratory: No Cough, No Sputum Gastrointestinal: No Nausea, No Vomiting, No Diarrhea, + abdominal Pain, No Hematochezia, No Melena, +Constipation Genitourinary: No Dysuria, No Urinary Frequency, No Hematuria Musculoskeletal: No joint pain, No Myalgias Skin: No Skin Lesions, No rash Neuro: No Weakness, No Numbness, No Dizziness, No Headache Psych: + Anxiety/Panic, No Depression Endocrine: No Polyuria, No Polydipsia PMFSH Past Medical History Medical History Bipolar 1 disorder Chronic GERD Chronic vertigo Constipation by delayed colonic transit Fibromyalgia IBS (irritable bowel syndrome) Lipid disorder Muscular dystrophy Other sexual disorders Other spondylosis with radiculopathy, lumbar region Postlaminectomy syndrome, not elsewhere classified Surgical History H/O mastectomy History of ankle surgery History of hip surgery Previous back surgery Family History Family History Father Mesothelioma Brother Mesothelioma Paternal Grandfather Mesothelioma Brother Mesothelioma Paternal Grandmother Stomach cancer Paternal Aunt Lung cancer Family/Other Breast cancer Social History Social History Alcohol intake: never Patient Tobacco Use Status: Never used Tobacco Use of substances other than those prescribed or required for medical reasons: No Substance Use Type: Marijuana Advance Directives: No Advance Directives Information Provided: No Physical Exam Vital Signs: Vital Signs: Last Vital Signs Temp 97.2 F 01/06/21 11:12 Pulse 79 01/06/21 11:12 Resp 16 01/06/21 11:12 BP 137/76 01/06/21 11:12 Pulse Ox 100 01/06/21 11:12 Body Mass Index 22.6 Appearance: Alert. Oriented X3. No acute distress. Eyes: Pupils equal, round and reactive to light. ENT: Pharynx normal. Neck: Normal inspection. Neck supple. CVS: Normal heart rate and rhythm. Pulses normal. Respiratory: No respiratory distress. Breath sounds normal. Abdomen: Soft, minimal tenderness to deep palpation of the periumbilical region, no rebound or guarding. normal active +BS x4 Rectal: normal spincter tone, nontender, no stool in rectal vault Skin: Skin warm and dry. Normal skin color. Normal skin turgor. No rashes. Extremities: No lower extremity edema. Neuro: Oriented X 3. No motor deficit. No sensory deficit. Course Course Course Narrative: 65-year-old female with known constipation on Linzess who is presenting to the ER with reports of worsening constipation in the setting of new dietary and lifestyle changes. She is passing small hard bowel movements, no liquid stool or leakage. She has to strain to move her bowels and is worried about a fecal impaction. On exam there is no evidence of fecal impaction; her abdomen is nice and soft without any rebound or guarding. Her bowel sounds are normal. At this time patient does not require imaging of her abdomen, she follows up with Dr. Beltrán however does not appointment till March. She would like to see him sooner to talk about other options. She is agreeable to adding MiraLax daily, as well as Colace. To help clear out her bowels today, we will give her a bottle of magnesium citrate and have her follow-up with GI. She will continue her Metamucil and Linzess. She is stable for discharge with outpatient follow up. Discharge Plan Discharge Clinical Impression: Constipation by delayed colonic transit Patient Disposition: Home, Self-Care Instructions: Constipation (ED), High Fiber Diet (ED) Additional Instructions: Recommend slowly drinking magnesium citrate bottle throughout this afternoon. It will make you have to move your bowels several times. Recommend adding daily MiraLax 17 g every morning, this has been sent to your pharmacy, it can be found [id number] as well. Recommend daily Colace 100 mg 2 times a day. If no affect you can try [id number] rectal suppositories or enemas to help with her constipation. Continue your Linzess and drink plenty of water throughout the day. Follow-up with GI in the next couple of weeks. If you have ongoing symptoms, worsening pain, developed nausea, vomiting or any other concerning symptom come back to the ER for further evaluation. Prescriptions: New polyethylene glycol 3350 [Miralax] 17 gram/dose powder 17 g PO DAILY Qty: 238 RF: 0 docusate sodium [Colace] 100 mg capsule 100 mg PO BID Qty: 30 RF: 0 No Action pregabalin 300 mg capsule 300 mg PO BID 30 Days Qty: 60 RF: 5 tizanidine 4 mg tablet 4 mg PO TID PRN (Reason: for pain) Qty: 90 RF: 12 fenofibrate 160 mg tablet 160 mg PO DAILY 90 Days Qty: 90 RF: 1 Linzess 290 mcg capsule 290 mcg PO DAILY 90 Days Qty: 90 RF: 0 ferrous sulfate 325 mg (65 mg iron) Tablet 325 mg PO DAILY Qty: 60 RF: 4 ibuprofen 800 mg tablet 800 mg PO Q8H PRN (Reason: pain) Qty: 14 RF: 0 acetaminophen [Tylenol Extra Strength] 500 mg tablet 1,000 mg PO QID PRN (Reason: fever or pain) Qty: 14 RF: 0 oxycodone 5 mg tablet 5 mg PO BID PRN (Reason: pain) Qty: 10 RF: 0 Magic Mouthwash Diphen/Lido/Antacid 1:1:1 240 mL suspension 5 ml PO Q6-8H PRN (Reason: mouth pain) Qty: 240 RF: 0 erythromycin 5 mg/gram (0.5 %) ointment 1 appl ophthalmic (eye) QID 5 Days Qty: 3.5 RF: 0 quetiapine 200 mg tablet 200 mg PO BEDTIME RF: 0 lithium carbonate 300 mg tablet extended release 300 mg PO DAILY RF: 0 fluocinolone 0.025 % ointment 0.025 appl topical NEEDED RF: 0 acyclovir 5 % ointment 5 appl topical DAILY RF: 0 pantoprazole 40 mg tablet,delayed release (DR/EC) 40 mg PO DAILY RF: 0 celecoxib [Celebrex] 200 mg capsule 200 mg PO BID 30 Days Qty: 60 RF: 12 Referrals: Bennett Beltrán [Physician] - 1 week (Refractory constipation)
[2021-01-06] MEDS: Magnesium Citrate 300 ML SOLUTION PO (12:38)
[2021-01-06] MEDS: Docusate Sodium 100 MG CAPSULE PO (12:38)
== END 2021-01-06 12:47 | disposition home or self-care (01) ==
PROVIDERS: Emergency Provider Emergency Medicine; PCP Internal Medicine
DX: K59.00 Constipation, unspecified (principal); F12.90 Cannabis use, unspecified, uncomplicated; Z79.899 Other long term (current) drug therapy
CPT/HCPCS: 99284

== ENCOUNTER 2021-01-20 09:43 | Emergency (ER) | payer MEDICARE, MEDICAID, SELFPAY ==
--- NOTE | ~2021-01-20 | XR_ITS ---
EXAMINATION: XR KNEE, RIGHT CLINICAL INFORMATION: Trauma, pain. COMPARISON: No similar priors. TECHNIQUE: Four views of the right knee. FINDINGS: No evidence of acute fractures or malalignment. There are mild to moderate tricompartmental degenerative changes with joint space narrowing, subchondral sclerosis and osteophytosis, more prominent in the medial compartment. There is subtle chondrocalcinosis. No joint effusion or unexpected radiopaque foreign bodies. XR/XR knee RT 4V IMPRESSION: No acute fractures or malalignment. Mild to moderate tricompartmental degenerative osteoarthritis. Mild chondrocalcinosis.
[2021-01-20 09:52] VITALS: BP 118/74; PULSE 81; RESP 18; TEMP 36.8; O2SAT 100; BMI 22.6
--- NOTE | 2021-01-20 10:03 | ED.GENADULT ---
HPI - General Adult General Chief complaint: Extremity Problem Stated complaint: R KNEE INJ Time Seen by Provider: 01/20/21 09:58 Source: patient Limitations: no limitations History of Present Illness HPI narrative: Patient presents to the ER complaining of right-sided knee pain after a fall yesterday when she tripped on her on ties shoes. Pain is diffuse anterior and posterior. Pain is able to ambulate with pain. Patient has longstanding history of spinal stenosis and has a spinal stimulator. Patient denies any nausea vomiting fever chills chest pain shortness breath or other complaints at this time. Symptoms mild to moderate. Pain 08/26. Related Data Home Medications Medication Instructions Recorded Confirmed acyclovir 5 % topical ointment 5 appl TOPICAL DAILY 01/07/20 01/19/21 fluocinolone 0.025 % topical 0.025 appl TOPICAL NEEDED 01/07/20 10/26/20 ointment lithium carbonate 300 mg 300 mg PO DAILY 01/07/20 01/19/21 tablet,extended release pantoprazole 40 mg tablet,delayed 40 mg PO DAILY 01/07/20 01/19/21 release quetiapine 200 mg tablet 200 mg PO BEDTIME 01/07/20 01/19/21 Previous Rx's Medication Instructions Recorded pregabalin 300 mg capsule 300 mg PO BID 30 Days #60 cap 07/19/20 ferrous sulfate 325 mg (65 mg 325 mg PO DAILY #60 tab 07/26/20 iron) tablet tizanidine 4 mg tablet 4 mg PO TID PRN #90 tab 08/26/20 fenofibrate 160 mg tablet 160 mg PO DAILY 90 Days #90 tab 09/23/20 linaclotide 290 mcg capsule 290 mcg PO DAILY 90 Days #90 cap 10/25/20 (Linzess) ibuprofen 800 mg tablet 800 mg PO Q8H PRN #14 tab 10/30/20 erythromycin 5 mg/gram (0.5 %) eye 1 appl OPHTHALMIC (EYE) QID 5 Days 11/07/20 ointment #3.5 g docusate sodium 100 mg capsule 200 mg PO BEDTIME 90 Days #180 cap 01/19/21 (Colace) polyethylene glycol 3350 17 17 g PO DAILY 30 Days #510 g 01/19/21 gram/dose oral powder (Miralax) Allergies Allergy/AdvReac Type Severity Reaction Status Date / Time N.K.D.A. Allergy Unknown none Uncoded 01/19/21 13:23 Review of Systems Constitutional: Constitutional: Denies fever(s) and Denies headache(s) ENT: Denies headache(s) Cardiovascular: Cardiovascular: Denies chest pain and Denies dyspnea Respiratory: Respiratory: Denies dyspnea Gastrointestinal: Gastrointestinal: Denies nausea and Denies vomiting Musculoskeletal: Comments: Right knee pain Neurologic: Denies headache(s) [facility] Past Medical History Medical History Bipolar 1 disorder Chronic GERD Chronic vertigo Constipation by delayed colonic transit Fibromyalgia IBS (irritable bowel syndrome) Lipid disorder Muscular dystrophy Other sexual disorders Other spondylosis with radiculopathy, lumbar region Postlaminectomy syndrome, not elsewhere classified Surgical History H/O mastectomy History of ankle surgery History of hip surgery Previous back surgery Family History Family History Father Mesothelioma Brother Mesothelioma Paternal Grandfather Mesothelioma Brother Mesothelioma Paternal Grandmother Stomach cancer Paternal Aunt Lung cancer Family/Other Breast cancer Other Mental health disorder Substance use disorder Social History Social History Housing: House Alcohol intake: never Patient Tobacco Use Status: Never used Tobacco e-Cigarette/Vaping Use: Currently Using Substance Use Type: Marijuana Advance Directives: No Advance Directives Information Provided: No Patient : No Current occupational status: disabled Physical Exam Vital Signs: Vital Signs: Last Vital Signs Temp 98.3 F 01/20/21 09:52 Pulse 81 01/20/21 09:52 Resp 18 01/20/21 09:52 BP 118/74 01/20/21 09:52 Pulse Ox 100 01/20/21 09:52 Body Mass Index 22.6 vital signs have been reviewed as normal and appeared to be correct. Blood pressure normal. Heart rate normal. Respiration rate normal. Temperature normal. Oxygen saturation normal. Appearance: Alert. Oriented X3. No acute distress. Head: Normal external exam. Normocephalic. Atraumatic. Eyes: PERRLA. EOMI. Conjunctiva and sclera normal. Eyelids normal. ENT: Pharynx normal. Uvula midline. Moist mucous membranes. Neck: Soft full range of motion, no JVD CVS: Heart regular rate and rhythm no murmurs and rubs Respiratory: Breath sounds are clear to auscultation bilaterally. No accessory muscle use noted. Back: Full range of motion noted. Skin: Skin warm and dry. Normal skin color. Normal skin turgor. No rashes/lesions/lacerations noted. Extremities: Diffuse tenderness right knee no effusion noted positive range of motion no erythema Neuro: Oriented X 3. No motor deficit. No sensory deficit. Reflexes normal. Course Course Course Narrative: Right knee contusion Right knee fracture Osteoarthritis Right knee x-ray pending [facility] reviewed patient is on Lyrica. 1-2 prescriptions for oxycodone in the past year Medical Decision Making Imaging Data knee: Radiologist's impression: [place] [id number] XRay Report Signed Patient: Abby Malhotra MR#: [id number] : 1955 Acct:[id number] Age/Sex: 65 / F ADM Date: 01/20/21 Loc: HO.ED Attending Dr: Ordering Physician: Marcelo Grayson Date of Service: 01/20/21 Procedure(s): XR knee RT 4V Accession Number(s): [id number] cc: Marcelo Grayson ~ EXAMINATION: XR KNEE, RIGHT? CLINICAL INFORMATION: Trauma, pain.? COMPARISON: No similar priors.? TECHNIQUE: Four views of the right knee. FINDINGS: No evidence of acute fractures or malalignment. There are mild to moderate tricompartmental degenerative changes with joint space narrowing, subchondral sclerosis and osteophytosis, more prominent in the medial compartment. There is subtle chondrocalcinosis. No joint effusion or unexpected radiopaque foreign bodies.? XR/XR knee RT 4V IMPRESSION: No acute fractures or malalignment. ? Mild to moderate tricompartmental degenerative osteoarthritis. ? Mild chondrocalcinosis. ? Dictated By: Ana Luna Signed By: <Electronically signed by Ana? Cheryl in OV> 01/20/21 1042 DD/ 1002 TD/TT:? Router Operator Radial: Discharge Plan Discharge Clinical Impression: Acute pain of right knee Knee osteoarthritis Qualifiers: Osteoarthritis type: post-traumatic Laterality: right Qualified Code(s): M17.31 - Unilateral post-traumatic osteoarthritis, right knee Patient Disposition: Home, Self-Care Instructions: Knee Pain (ED) Additional Instructions: X-rays negative for any acute injury Right knee does have signs of osteoarthritis Follow-up with orthopedics if symptoms worsen. Prescriptions: No Action pregabalin 300 mg capsule 300 mg PO BID 30 Days Qty: 60 RF: 5 tizanidine 4 mg tablet 4 mg PO TID PRN (Reason: for pain) Qty: 90 RF: 12 fenofibrate 160 mg tablet 160 mg PO DAILY 90 Days Qty: 90 RF: 1 Linzess 290 mcg capsule 290 mcg PO DAILY 90 Days Qty: 90 RF: 0 ferrous sulfate 325 mg (65 mg iron) Tablet 325 mg PO DAILY Qty: 60 RF: 4 ibuprofen 800 mg tablet 800 mg PO Q8H PRN (Reason: pain) Qty: 14 RF: 0 erythromycin 5 mg/gram (0.5 %) ointment 1 appl ophthalmic (eye) QID 5 Days Qty: 3.5 RF: 0 quetiapine 200 mg tablet 200 mg PO BEDTIME RF: 0 lithium carbonate 300 mg tablet extended release 300 mg PO DAILY RF: 0 fluocinolone 0.025 % ointment 0.025 appl topical NEEDED RF: 0 acyclovir 5 % ointment 5 appl topical DAILY RF: 0 pantoprazole 40 mg tablet,delayed release (DR/EC) 40 mg PO DAILY RF: 0 polyethylene glycol 3350 [Miralax] 17 gram/dose powder 17 g PO DAILY 30 Days Qty: 510 RF: 4 docusate sodium [Colace] 100 mg capsule 200 mg PO BEDTIME 90 Days Qty: 180 RF: 3 Referrals: Malcom Carrillo MD [Physician] - 2 days
== END 2021-01-20 11:02 | disposition home or self-care (01) ==
PROVIDERS: Emergency Provider Emergency Medicine; PCP Internal Medicine
DX: M17.31 Unilateral post-traumatic osteoarthritis, right knee (principal); S89.91XS Unspecified injury of right lower leg, sequela; W01.0XXS Fall on same level from slipping, tripping and stumbling without subsequent striking against object, sequela
CPT/HCPCS: 73564; 99283

== ENCOUNTER 2021-04-11 09:49 | Emergency (ER) | payer MEDICARE, MEDICAID, SELFPAY ==
--- NOTE | ~2021-04-11 | CT_ITS ---
EXAMINATION: CT ABDOMEN AND PELVIS WITHOUT CONTRAST CLINICAL INFORMATION: Right flank pain COMPARISON: None TECHNIQUE: Multidetector volumetric imaging was performed from the superior aspect of the liver through the pubic symphysis. Sagittal and coronal reformatted images were obtained on the technologist's workstation. This CT examination was performed using dose optimization techniques as appropriate, variously including the following: *Automated exposure control *Adjustment of mA and/or kV according to patient size (this includes techniques or standardized protocols for targeted exams where dose is matched to indication/reason for exam; i.e. extremities or head) *Use of iterative reconstruction technique DLP: 431 mGy-cm FINDINGS: LUNG BASES: The lung bases are clear. The heart size is normal. LIVER, GALLBLADDER, AND BILIARY TREE: The liver is normal in size, shape, and attenuation. No focal hepatic lesion or biliary ductal dilatation is present. The gallbladder is contracted and appears unremarkable. PANCREAS: Unremarkable. SPLEEN: Unremarkable. ADRENAL GLANDS: Unremarkable. KIDNEYS AND URETERS: The kidneys are normal in size, shape, and attenuation. No hydronephrosis, hydroureter, or calculi seen. No perinephric stranding. BLADDER: Unremarkable. GASTROINTESTINAL TRACT: There is scattered stool in the colon without any significant distention. The small bowel loops are normal caliber. Appendix is normal caliber. No inflammatory process of free air seen. There is no free fluid. ABDOMINAL WALL: No significant hernia is appreciated. LYMPH NODES: Normal. VASCULAR: Unremarkable. PELVIC VISCERA: Imaging to the pelvis is limited secondary to beam hardening artifact from bilateral hip prosthesis. There is no free fluid.. OSSEOUS STRUCTURES: Bilateral hip prosthesis are noted. There are degenerative disc changes with vacuum disc phenomena L5-S1 and L4-L5 disc level. There is grade 1 anterolisthesis L4 over L5 and grade 1 retrolisthesis L3 over L4 and L2 over L3. CT/CT abdomen pelvis wo con IMPRESSION: No acute intra-abdominal process seen. Mild constipation. Normal appendix. No inflammatory process seen in the right lower quadrant. No radiopaque urolith or hydroureteronephrosis. Fleischner guidelines were followed.
[2021-04-11 10:19] VITALS: BP 116/77; PULSE 81; RESP 17; TEMP 36.8; O2SAT 99; BMI 24.5
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
[2021-04-11 12:13] VITALS: BP 131/78; PULSE 76; RESP 16; TEMP 36.8; O2SAT 98
[2021-04-11] MEDS: Ketorolac Tromethamine 60 MG/2 ML VIAL IM (13:06)
[2021-04-11 13:16] LABS: Appearance Urine CLEAR; Color Urine YELLOW; Glucose Urine UA NEG (NEG); Leukocyte Esterase Urine NEG (NEG); Nitrite Urine NEG (NEG); Specific Gravity - Urine <= 1.005 (1.005-1.025); Urine Blood NEG (NEG); Urine Ketones NEG (NEG); Urine Protein NEG (NEG-TRACE)
== END 2021-04-11 14:11 | disposition home or self-care (01) ==
PROVIDERS: Emergency Provider Emergency Medicine; PCP Internal Medicine
DX: G89.29 Other chronic pain (principal); R10.9 Unspecified abdominal pain
CPT/HCPCS: 74176; 81003; 96372; 99284; J1885

== ENCOUNTER 2021-04-13 13:51 | Outpatient (REF) | payer MEDICARE, MEDICAID, SELFPAY ==
[2021-04-13 14:06] LABS: MANUAL DIFF FLAG NO
[2021-04-13 14:20] LABS: Basophils Percent Auto 0.5 % (0-2); Eosinophils Absolute Auto 0.2 X10*3/uL (0.0-0.4); Eosinophils Percent Auto 2.4 % (0-4); Hemoglobin 12.1 g/dl (12.0-16.0); Imm Gran Abs Auto 0.03 X10*3/uL (0.00-0.03); Imm Gran Pct Auto 0.5 % (0.0-0.4); Lymphocytes Absolute Auto 1.9 X10*3/uL (1.2-4.9); Lymphocytes Percent Auto 30.4 % (20-40); Mean Corpuscular HGB Conc 31.8 g/dl (31.0-35.0); Mean Corpuscular Hemoglobin 28.8 pg (27.0-33.0); Mean Corpuscular Volume 90.5 fL (80.0-98.0); Mean Platelet Volume 9.9 fL (9.4-12.3); Monocytes Absolute Auto 0.5 X10*3/uL (0.1-1.2); Monocytes Percent Auto 8.3 % (2-11); Neutrophils Absolute Auto 3.7 x10*3/uL (2.0-8.3); Neutrophils Percent Auto 57.9 % (45-73); Platelet Count 406 X10*3/uL (160-400); Red Cell Distribution Width 14.2 % (11.0-16.0); White Blood Count 6.3 X10*3/uL (4.8-10.8)
[2021-04-13 14:51] LABS: Iron 75 mcg/dL (30-160); Percent Iron Saturation 16 % (15-50); Total Iron Binding Capacity 476 mcg/dL (228-428); Unsaturated Iron Binding 401 ug/dL
[2021-04-13 15:12] LABS: Ferritin 75 ng/mL (10-250)
[2021-04-13 15:28] LABS: Folate 9.5 ng/mL (> or = 4.0); Vitamin B12 > 2000 pg/mL (200-900)
[2021-04-14 14:16] LABS: Immunoglobulin A 156 mg/dL (70-320)
[2021-04-15 10:25] LABS: Gliadin Deamidated IgA Ab <1.0 U/mL; Gliadin Deamidated IgG Ab <1.0 U/mL; Transglutaminase Ab IgG <1.0 U/mL; Transglutaminase IgA <1.0 U/mL
[2021-04-17 14:46] LABS: Endomysial IgA Antibody Negative (Negative)
== END 2021-04-13 13:52 | disposition home or self-care (01) ==
LOC: HO.LAB 13:51
PROVIDERS: PCP Internal Medicine; Visit Provider Internal Medicine
DX: D50.9 Iron deficiency anemia, unspecified (principal)
CPT/HCPCS: 36415; 82607; 82728; 82746; 82784; 83540; 85025; 86231; 86258; 86364

== ENCOUNTER 2021-06-17 08:56 | Day surgery (SDC) | payer MEDICARE, MEDICAID, SELFPAY ==
[2021-06-13 11:45] VITALS: BMI 21.7
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
[2021-06-17 09:11] VITALS: BP 125/75; PULSE 77; RESP 20; TEMP 36.6; O2SAT 98; BMI 23.6
[2021-06-17] MEDS: Lactated Ringers 1,000 ML 100 ML IVCONT (09:37)
[2021-06-17 09:49] VITALS: PULSE 76; RESP 16; O2SAT 95
[2021-06-17] MEDS: Albuterol Sulfate (0.083%) 2.5 MG/3 ML VIAL.NEB INHALE (09:49)
[2021-06-17 11:33] VITALS: BP 106/53; PULSE 88; RESP 19; TEMP 36.8; O2SAT 100
--- NOTE | 2021-06-17 11:34 | PM.OP ---
Brief Operative Note Date of Service: 06/17/21 Pre-op diagnosis: Dysphagia, Anemia Post-op diagnosis: other (Hiatal hernia, R/O celiac disease, R/O EoE, Diverticulosis) Procedure: EGD with bx and Balloon dilation of EG Junction with an 18 to 19mm balloon Colonoscopy to the cecum Surgeon: Bennett Beltrán Anesthesia: MAC Was an Industrial Nurse used for this Procedure?: No Estimated blood loss (mL): 2.0 Pathology: other (A. Descending duodenum B. Esophagus at 25cm) Condition: stable Disposition: PACU
[2021-06-17 11:48] VITALS: BP 107/55; PULSE 75; RESP 20; TEMP 36.9; O2SAT 99
--- NOTE | 2021-06-17 12:53 | OP_ITS ---
SURGEON: Bennett Beltrán MD INDICATIONS: The patient presents for evaluation of intermittent dysphagia, constipation, and anemia. Full consent has been obtained from her for both procedures, including risks of bleeding and perforation. PREOPERATIVE DIAGNOSIS: POSTOPERATIVE DIAGNOSIS: Anemia and dysphagia, rule out celiac disease, small hiatal hernia, rule out eosinophilic esophagitis, status post balloon dilation of gastroesophageal junction, diverticulosis, internal hemorrhoids. PROCEDURE PERFORMED: Esophagogastroduodenoscopy with balloon dilation of gastroesophageal junction and biopsies, and colonoscopy to the cecum. ESTIMATED BLOOD LOSS: COMPLICATIONS: ANESTHESIA: Monitored anesthesia care. ASSISTANTS: SPECIMENS: PREOPERATIVE DIAGNOSES: Anemia and dysphagia. DESCRIPTION OF PROCEDURE: The patient was placed in the left lateral decubitus position. The Olympus video gastroscope was passed in the posterior oropharynx and upper esophagus under direct vision. The scope was passed slowly to the distal esophagus. The gastroesophageal junction appeared at 35 cm. There was no sign of any esophagitis nor mass. There was no definitive stricture nor ring. The scope easily entered into the stomach. There was a small hiatal hernia. The scope was advanced to the pylorus and the duodenum was cannulated to the descending portion. The duodenum including the bulb appeared normal without mass or ulceration. Biopsies were obtained from the 2nd and 3rd portions of the duodenum. The scope was withdrawn back to the stomach. The gastric antrum and body appeared normal with good peristalsis. The scope was retroflexed visualizing the proximal stomach carefully, which appeared normal, without any sign of mass or ulceration. The scope was straightened and withdrawn back to the esophagus. Given her symptomatology, I did use a [employer] incremental balloon to dilate the gastroesophageal junction from 18 mm to 19 mm at the recommended pressure for between 30 and 60 seconds each. Post dilation, there was really no disruption noted and there was no heme. The esophageal mucosa otherwise appeared normal. Biopsies were obtained at 25 cm. There was no evidence of any proximal esophageal rings. Scope was withdrawn from the patient. She was turned around for colonoscopy. The digital rectal exam revealed some small external hemorrhoids. The Olympus video pediatric colonoscope was entered into the rectum advanced to the cecum with the assistance of abdominal wall pressure. Once in the cecum, I did identify normal-appearing cecal pouch with appendiceal orifice and a normal-appearing ileocecal valve. There was transillumination of light deep in the right lower quadrant. The scope was slowly withdrawn assessing all mucosal surfaces carefully. Preparation was excellent. I did not visualize any sign of polyps, colitis, or angiodysplasia. There was a mild amount of sigmoid diverticulosis. In the rectum, scope was retroflexed visualizing internal hemorrhoids, but no other pathology. The rectal mucosa appeared normal. The scope was straightened and withdrawn the patient. She tolerated the procedures well and was returned to recovery area in stable condition. IMPRESSION: 1. Small hiatal hernia. 2. Rule out eosinophilic esophagitis. 3. Rule out celiac disease. 4. Status post balloon dilation of gastroesophageal junction. 5. Diverticulosis. 6. Internal and external hemorrhoids. PLAN: The results of the pathology will be checked. Her most recent laboratories revealed a normal iron profile and a normal CBC with a hemoglobin of 12.1 and normal MCV. Her ferritin was 75 and the iron was 75 with an iron saturation of 16%. B12 and folate levels were normal and celiac disease laboratories were negative as well. She was advised that she could resume iron in regard to the previous anemia. She was advised not to use any aspirin and NSAIDs for least a week. She will continue her bowel regimen of the MiraLAX and Colace. I would recommend a repeat colonoscopy in 10 years for further screening given the negative exam today, negative colonoscopies in the past, and no family history of colon cancer. She will see me on a p.r.n. basis. MD FAITH Mcleod/KAVEH / [id number] RAMSES
== END 2021-06-17 12:22 | disposition home or self-care (01) ==
PROVIDERS: PCP Internal Medicine; Visit Provider Internal Medicine
PROC: 0DJD8ZZ Inspection of Lower Intestinal Tract, Via Natural or Artificial Opening Endoscopic (ICD-10-PCS; CPT 45378; principal; 2021-06-17 10:00)
PROC: (CPT 43249; 2021-06-17 10:00)
DX: D50.9 Iron deficiency anemia, unspecified (principal); R13.19 Other dysphagia; K44.9 Diaphragmatic hernia without obstruction or gangrene; K64.4 Residual hemorrhoidal skin tags; K64.8 Other hemorrhoids; K57.30 Diverticulosis of large intestine without perforation or abscess without bleeding
CPT/HCPCS: 43249; 43239; 45378; 88305; 94640; C1726; J2250

== ENCOUNTER 2021-08-20 08:53 | Emergency (ER) | payer MEDICARE, MEDICAID, SELFPAY ==
[2021-08-20 08:59] VITALS: BP 159/78; PULSE 92; RESP 18; TEMP 36.6; O2SAT 98; BMI 23.6
--- NOTE | 2021-08-20 09:16 | ED_ITS ---
HPI - General Adult General Chief complaint: General Medical Stated complaint: possible sinus infection Time Seen by Provider: 08/20/21 09:16 Source: patient Mode of arrival: ambulatory Limitations: no limitations History of Present Illness HPI narrative: 65 y/o female with history of fibromyalgia, bipolar, muscular dystrophy, IBS, anemia, constipation, GERD, vertigo, seasonal allergies presents to the ER with 2 weeks of worsening sinus pain and pressure, mostly in the right maxially sinus. She has been using a Neti pot which helps. She started having yellow nasal discharge and increased congested a couple of days ago. She also developed body aches and fatigue. She denies SOB or chest pain. No fever or chills. She take Clairitin for her allergies and spends 3-4 hours per day outside working in her yard. MD complaint: sinus pain Onset (ago): week(s) (2) Location: head and face Radiation: non-radiation Severity: moderate Severity scale (1-10): 5 Quality: aching Pain Consistency: constant Relieving factors: other (sinus irrigation ) Exacerbating factors: other (being outside) Associated symptoms: headaches and malaise Treatments prior to arrival: none Related Data Home Medications Medication Instructions Recorded Confirmed acyclovir 5 % topical ointment 5 appl TOPICAL DAILY 01/07/20 04/29/21 fluocinolone 0.025 % topical 0.025 appl TOPICAL NEEDED 01/07/20 04/29/21 ointment lithium carbonate 300 mg 300 mg PO DAILY 01/07/20 06/13/21 tablet,extended release pantoprazole 40 mg tablet,delayed 40 mg PO DAILY 01/07/20 04/29/21 release quetiapine 200 mg tablet (Seroquel) 200 mg PO BEDTIME 01/07/20 06/13/21 pregabalin 300 mg capsule (Lyrica) 300 mg PO BID 04/29/21 04/29/21 Previous Rx's Medication Instructions Recorded ferrous sulfate 325 mg (65 mg 325 mg PO DAILY #60 tab 07/26/20 iron) tablet erythromycin 5 mg/gram (0.5 %) eye 1 appl OPHTHALMIC (EYE) QID 5 Days 11/07/20 ointment #3.5 g polyethylene glycol 3350 17 17 g PO DAILY 30 Days #510 g 01/19/21 gram/dose oral powder (Miralax) fenofibrate 160 mg tablet 160 mg PO DAILY 90 Days #90 tab 03/15/21 tizanidine 4 mg tablet 4 mg PO TID PRN #90 tab 05/02/21 linaclotide 290 mcg capsule 290 mcg PO DAILY 90 Days #90 cap 06/03/21 (Linzess) amoxicillin 875 mg-potassium 1 tab PO Q12H #14 tab 08/20/21 clavulanate 125 mg tablet cetirizine 10 mg tablet (Zyrtec) 10 mg PO DAILY #30 tab 08/20/21 fluticasone propionate 50 1 spray INTRANASAL BID #16 g 08/20/21 mcg/actuation nasal spray,suspension (Flonase Allergy Relief) Allergies Allergy/AdvReac Type Severity Reaction Status Date / Time No Known Allergies Allergy Verified 06/13/21 11:24 Review of Systems Review of Systems: Constitutional: No Fever, No Chills ENT/Mouth: + sore throat, + Rhinorrhea, No Swallowing Difficulty, +sinus pain, +Nasal congestion, No Otalgia Eyes: No Eye Pain, No Swelling, + Redness Cardiovascular: No Chest Pain, No SOB, No Orthopnea, No Edema Respiratory: No Cough, No Sputum, No Wheezing, No dyspnea Gastrointestinal: No Nausea, No Vomiting, No Diarrhea, No abdominal Pain Musculoskeletal: No joint pain, + Myalgias Skin: No Skin Lesions, No rash Neuro: No Weakness, No Numbness, No Dizziness, + Headache Heme/Lymph: No Bruising, No Lymphadenopathy PMFSH Past Medical History Medical History (Updated 08/20/21 @ 10:20 by CHARLES Yates) Bipolar 1 disorder Chronic GERD Chronic vertigo Constipation by delayed colonic transit Fibromyalgia IBS (irritable bowel syndrome) Lipid disorder Muscular dystrophy Other sexual disorders Other spondylosis with radiculopathy, lumbar region Postlaminectomy syndrome, not elsewhere classified Status post insertion of nerve stimulator Surgical History (Updated 06/13/21 @ 11:48 by Dyana Brenner RN) H/O colonoscopy H/O mastectomy History of ankle surgery History of hip surgery Previous back surgery Family History Family History Father Mesothelioma Brother Mesothelioma Paternal Grandfather Mesothelioma Brother Mesothelioma Paternal Grandmother Stomach cancer Paternal Aunt Lung cancer Family/Other Breast cancer Other Mental health disorder Substance use disorder Social History Social History (Updated 04/29/21 @ 13:22 by Aspen Luo CMA) Household Members: Family Housing: House Are you a primary patient care provider to a significant other at home: Yes (mother) Do you presently have visiting nurse or other home services: No Alcohol intake: never Patient Tobacco Use Status: Current everyday Tobacco user Tobacco use type: Smokeless Tobacco e-Cigarette/Vaping Use: Currently Using Substance Use Type: Marijuana Advance Directives: No Advance Directives Information Provided: No service: No Current occupational status: disabled Physical Exam ED Vital Signs: Vital Signs - 24 hr 08/20/21 08:59 Temperature 98 F Pulse Rate 92 Respiratory Rate 18 Blood Pressure 159/78 H Pulse Oximetry 98 BMI result Body Mass Index 23.6 Appearance: Alert. Oriented X3. No acute distress. Eyes: Pupils equal, round and reactive to light. ENT: Pharynx normal. Nasal turbinates with erythema, normal TMs bilaterally. Neck: Normal inspection. Neck supple. No LAD. CVS: Normal heart rate and rhythm. Pulses normal. Respiratory: No respiratory distress. Breath sounds normal. Abdomen: Soft and nontender. +BS x4 Skin: Skin warm and dry. Normal skin color. Normal skin turgor. No rashes. Extremities: No lower extremity edema. Neuro: Oriented X 3. Grossly normal, nonfocal Course Course Course Narrative: 65 y/o female presenting with 2 weeks of worsening allergy symptoms along with a few days of increased sinus pressure and nasal discharge. She also developed myalgias and fatigue. VS normal, lungs are clear. Sinus pressure & tenderness present in right maxillary area. Will r/o COVID and Flu. Reevaluation(s) Reevaluation #1: Flu and COVID negative. Will treat for sinus infection and seasonal allergies. Stable for discharge home with outpatient follow up. Medical Decision Making Lab Data Labs: Lab Results 08/20/21 08/20/21 Range/Units 09:30 09:30 COVID-19 ([facility]) Negative (Negative) COVID-19 Clin Com See Note Influenza Type A ([facility]) Negative (Negative) Influenza Type B ([facility]) Negative (Negative) Influenza A & B Note See Note Discharge Plan Discharge Clinical Impression: Seasonal allergic rhinitis, Acute infection of sinus Patient Disposition: Home, Self-Care Instructions: Sinusitis (ED), Allergic Rhinitis (DC) Additional Instructions: You are negative for COVID and Flu. Take the prescribed antibiotic as directed for sinus infection. Take the prescribed allergy medications. Continue to use your Netti pot. Follow up with your doctor as needed. If you develop new or worsening symptoms call 911 or come back to the ER for further evaluation. Prescriptions: New amoxicillin-pot clavulanate 875-125 mg tablet 1 tab PO Q12H Qty: 14 0RF fluticasone propionate [Flonase Allergy Relief] 50 mcg/actuation spray,suspension 1 spray intranasal BID Qty: 16 0RF Rx Instructions: administer into each nostril cetirizine [Zyrtec] 10 mg tablet 10 mg PO DAILY Qty: 30 0RF No Action fenofibrate 160 mg tablet 160 mg PO DAILY 90 Days Qty: 90 1RF tizanidine 4 mg tablet 4 mg PO TID PRN (Reason: for pain) Qty: 90 12RF Linzess 290 mcg capsule 290 mcg PO DAILY 90 Days Qty: 90 0RF ferrous sulfate 325 mg (65 mg iron) Tablet 325 mg PO DAILY Qty: 60 4RF pregabalin [Lyrica] 300 mg capsule 300 mg PO BID 0RF erythromycin 5 mg/gram (0.5 %) ointment 1 appl ophthalmic (eye) QID 5 Days Qty: 3.5 0RF Rx Instructions: Apply half an inch appointment into both eyes 4 times a day quetiapine [Seroquel] 200 mg tablet 200 mg PO BEDTIME 0RF lithium carbonate 300 mg tablet extended release 300 mg PO DAILY 0RF fluocinolone 0.025 % ointment 0.025 appl topical NEEDED 0RF acyclovir 5 % ointment 5 appl topical DAILY 0RF pantoprazole 40 mg tablet,delayed release (DR/EC) 40 mg PO DAILY 0RF polyethylene glycol 3350 [Miralax] 17 gram/dose powder 17 g PO DAILY 30 Days Qty: 510 4RF Referrals: Sarina Devi MD [Primary Care Provider] -
[2021-08-20 09:54] LABS: COVID-19 Test Negative (Negative); IDNOW Serial# 9DB6401D; Influenza A Negative (Negative); Influenza B2 Negative (Negative)
== END 2021-08-20 10:39 | disposition home or self-care (01) ==
PROVIDERS: Physician Assistant; Emergency Provider Student in an Organized Health Care Education/Training Program; PCP Internal Medicine
DX: J01.00 Acute maxillary sinusitis, unspecified (principal); J30.2 Other seasonal allergic rhinitis; Z20.822 Contact with and (suspected) exposure to COVID-19; F17.200 Nicotine dependence, unspecified, uncomplicated
CPT/HCPCS: 87502; 87635; 99283

== ENCOUNTER 2021-09-13 09:50 | Emergency (ER) | payer MEDICARE, MEDICAID, SELFPAY ==
[2021-09-13 09:53] VITALS: BP 125/75; PULSE 78; RESP 18; TEMP 36.1; O2SAT 100; BMI 23.6
[2021-09-13 10:08] LABS: MANUAL DIFF FLAG NO
[2021-09-13 10:12] LABS: Basophils Absolute Auto 0.1 X10*3/uL (0.0-0.2); Eosinophils Absolute Auto 0.2 X10*3/uL (0.0-0.4); Hematocrit 38.4 % (37.0-47.0); Hemoglobin 12.3 g/dl (12.0-16.0); Imm Gran Abs Auto 0.02 X10*3/uL (0.00-0.03); Imm Gran Pct Auto 0.4 % (0.0-0.4); Lymphocytes Absolute Auto 1.9 X10*3/uL (1.2-4.9); Lymphocytes Percent Auto 39.2 % (20-40); Mean Corpuscular Hemoglobin 28.5 pg (27.0-33.0); Mean Corpuscular Volume 89.1 fL (80.0-98.0); Mean Platelet Volume 9.6 fL (9.4-12.3); Monocytes Absolute Auto 0.6 X10*3/uL (0.1-1.2); Monocytes Percent Auto 11.7 % (2-11); Neutrophils Absolute Auto 2.1 x10*3/uL (2.0-8.3); Neutrophils Percent Auto 43.7 % (45-73); Platelet Count 390 X10*3/uL (160-400); Red Blood Count 4.31 X10*6/uL (4.20-5.50); Red Cell Distribution Width 14.6 % (11.0-16.0); White Blood Count 4.8 X10*3/uL (4.8-10.8)
[2021-09-13 10:13] LABS: Appearance Urine CLEAR; Color Urine YELLOW; Glucose Urine UA NEG (NEG); Leukocyte Esterase Urine NEG (NEG); Nitrite Urine NEG (NEG); Specific Gravity - Urine <= 1.005 (1.005-1.025); Urine Blood NEG (NEG); Urine Ketones NEG (NEG); Urine Protein NEG (NEG-TRACE)
[2021-09-13 10:28] LABS: Anion Gap 12 (12-20); Blood Urea Nitrogen 20 mg/dL (9-16); Carbon Dioxide 26 mmol/L (22-29); Chloride 106 mmol/L (96-108); Creatinine Clr Calc Pharmacy 40.2; Estimated Glomerular Filt Rate 51; Glucose Random 107 mg/dL (60-115); Potassium 4.6 mmol/L (3.3-5.1); Sodium 139 mmol/L (135-145)
== END 2021-09-13 15:45 | disposition left against medical advice (07) ==
PROVIDERS: Emergency Provider Emergency Medicine; PCP Internal Medicine
DX: R10.9 Unspecified abdominal pain (principal)
CPT/HCPCS: 36415; 80048; 81003; 85025; 99282; 99283

== ENCOUNTER 2021-09-15 09:28 | Emergency (ER) | payer MEDICARE, MEDICAID, SELFPAY ==
[2021-09-15 09:36] VITALS: BP 147/81; PULSE 84; RESP 14; TEMP 36.1; O2SAT 99; BMI 23.6
[2021-09-15 13:56] VITALS: BP 136/71; PULSE 70; RESP 14; TEMP 36.7; O2SAT 96
--- NOTE | 2021-09-15 13:56 | ED_ITS ---
HPI - General Adult General Chief complaint: Abdominal Pain Stated complaint: abd pain Time Seen by Provider: 09/15/21 13:56 Source: patient Mode of arrival: ambulatory Limitations: no limitations History of Present Illness HPI narrative: Patient is a 65 year old female presenting to the emergency department today with right sided back pain. Patient states that she has chronic back pain and has been having an increased amount on the right side of her back. Patient states that she does not currently have an orthopedic provider and nothing has changed since she was evaluated for this 2 days ago. Patient denies any dizziness, lightheadedness, abdominal pain, nausea, vomiting, fever, chills, blurry vision, double vision, loss of vision, chest pain, difficulty breathing, shortness of breath, night sweats, pain with urination, increased urinary frequency, increased urinary urgency, blood in her urine or stool, syncope or a near syncopal episode, recent trauma or falls, bowel incontinence, bladder incontinence, bowel retention, bladder retention, or any other complaints at this time. Onset (ago): day(s) Location: back Severity: mild Severity scale (1-10): 1 Quality: dull Pain Consistency: constant Relieving factors: none Exacerbating factors: none Associated symptoms: denies other symptoms Treatments prior to arrival: none Related Data Home Medications Medication Instructions Recorded Confirmed acyclovir 5 % topical ointment 5 appl topical DAILY 01/07/20 04/29/21 fluocinolone 0.025 % topical 0.025 appl topical NEEDED 01/07/20 04/29/21 ointment lithium carbonate 300 mg 300 mg PO DAILY 01/07/20 06/13/21 tablet,extended release pantoprazole 40 mg tablet,delayed 40 mg PO DAILY 01/07/20 04/29/21 release quetiapine 200 mg tablet (Seroquel) 200 mg PO BEDTIME 01/07/20 06/13/21 pregabalin 300 mg capsule (Lyrica) 300 mg PO BID 04/29/21 04/29/21 Previous Rx's Medication Instructions Recorded erythromycin 5 mg/gram (0.5 %) eye 1 appl ophthalmic (eye) QID 5 days 11/07/20 ointment #3.5 grams polyethylene glycol 3350 17 17 g PO DAILY 30 days #510 grams 01/19/21 gram/dose oral powder (Miralax) fenofibrate 160 mg tablet 160 mg PO DAILY 90 days #90 tabs 03/15/21 tizanidine 4 mg tablet 4 mg PO TID PRN for pain #90 tabs 05/02/21 linaclotide 290 mcg capsule 290 mcg PO DAILY 90 days #90 caps 06/03/21 (Linzess) amoxicillin 875 mg-potassium 1 tab PO Q12H #14 tabs 08/20/21 clavulanate 125 mg tablet cetirizine 10 mg tablet (Zyrtec) 10 mg PO DAILY #30 tabs 08/20/21 fluticasone propionate 50 1 spray intranasal BID #16 grams 08/20/21 mcg/actuation nasal spray,suspension (Flonase Allergy Relief) ferrous sulfate 325 mg (65 mg 325 mg PO DAILY #60 tabs 09/05/21 iron) tablet Allergies Allergy/AdvReac Type Severity Reaction Status Date / Time No Known Allergies Allergy Verified 06/13/21 11:24 Review of Systems Constitutional: Constitutional: Reports no additional constitutional complaints, Denies chills, Denies fever(s) and Denies night sweats Eyes: Eyes: Reports no additional eye complaints, Denies blurry vision, Denies change in vision, Denies diplopia, Denies eye discharge, Denies loss of vision and Denies eye pain ENT: Denies dizziness Cardiovascular: Cardiovascular: Reports no additional cardiovascular complaints, Denies chest pain, Denies lightheadedness, Denies Loss of Consciousness and Denies dyspnea Respiratory: Respiratory: Reports no additional respiratory complaints and Denies dyspnea Gastrointestinal: Gastrointestinal: Reports no additional gastrointestinal complaints, Denies abdominal pain, Denies melena, Denies hematochezia, Denies change in bowel habits and Denies change in stool character Genitourinary: Genitourinary: Denies hematuria, Denies urinary frequency, Denies dysuria, Denies urinary incontinence, Denies urinary hesitancy and Denies urinary urgency Musculoskeletal: Musculoskeletal: Reports no additional musculoskeletal complaints, Reports back pain, Denies numbness and Denies tingling Neurologic: Denies dizziness, Denies loss of vision, Denies numbness and Denies tingling Psychiatric: Psychiatric: Reports no additional psychiatric complaints Endocrine: Endocrine: Reports no additional endocrine complaints Hematologic/Lymphatic: Hematologic/Lymphatic: Reports no additional hematologic/lymphatic complaints Allergic/Immunologic: Allergic/Immunologic: Reports no additional allergic/immunologic complaints PMFSH Past Medical History Attestation statement: The following information was validated with the patient. Source: old records reviewed Medical History Bipolar 1 disorder Chronic GERD Chronic vertigo Constipation by delayed colonic transit Fibromyalgia IBS (irritable bowel syndrome) Lipid disorder Muscular dystrophy Other sexual disorders Other spondylosis with radiculopathy, lumbar region Postlaminectomy syndrome, not elsewhere classified Status post insertion of nerve stimulator Surgical History H/O colonoscopy H/O mastectomy History of ankle surgery History of hip surgery Previous back surgery Family History Family History Father Mesothelioma Brother Mesothelioma Paternal Grandfather Mesothelioma Brother Mesothelioma Paternal Grandmother Stomach cancer Paternal Aunt Lung cancer Family/Other Breast cancer Other Mental health disorder Substance use disorder Social History Social History Household Members: Family Housing: House Are you a primary rn intensive care unit to a significant other at home: Yes (mother) Do you presently have visiting nurse or other home services: No Alcohol intake: never Patient Tobacco Use Status: Current everyday Tobacco user Tobacco use type: Smokeless Tobacco e-Cigarette/Vaping Use: Currently Using Substance Use Type: Marijuana Advance Directives: No Advance Directives Information Provided: Yes Patient : No service: No Current occupational status: disabled Physical Exam ED Vital Signs: Vital Signs - 24 hr 09/15/21 09:36 09/15/21 13:56 Temperature 96.9 F 98.0 F Pulse Rate 84 70 Respiratory Rate 14 14 Blood Pressure 147/81 H 136/71 Pulse Oximetry 99 96 Oxygen Delivery Method Room Air Room Air BMI result Body Mass Index 23.6 Const General: cooperative, no acute distress, alert and awake Nutritional Appearance: well nourished Orientation/consciousness: patient oriented x3 Limitations: no limitations HENMT Head: Yes normal to inspection and Yes atraumatic Ears: hearing grossly normal bilaterally and external ears normal General nose exam: Normal external nose present, no nasal discharge noted and no epistaxis Face and sinus: Yes normal facial exam, No abrasion and No laceration Mouth: Normal oral and palatal mucosa present, no drooling and no muffled voice Eyes General: appearance normal, both eyes and all related structures Periorbital: periorbital findings normal Eyelids: Yes eyelids normal Conjunctivae: conjunctivae normal Pupils: Equal, round and reactive pupils present EOM: EOMs intact bilaterally Neck Neck: Yes normal visual inspection, Yes full ROM and Yes no lymphadenopathy Chest Chest palpation & inspection: normal inspection of the chest Resp Effort & Inspection: normal respiratory effort and able to speak in complete sentences Auscultation: clear to auscultation bilaterally Cardio Rate: regular rate Rhythm: regular rhythm GI Inspection: Yes normal to inspection General: Yes no CVA tenderness Back/Spine/Pelvis Back: no CVA tenderness Cervical Spine: normal cervical lordosis and cervical ROM normal Thoracic/Lumbar Spine: thoracic and lumbar spine normal to inspection and thoraco-lumbar ROM normal Pelvis: no pain with anterior-posterior compression Neuro General: patient oriented x3 and moves all extremities Cranial nerves: Yes Equal, round and reactive pupils present Cognition (Neuro): normal cognition Motor exam (neuro): 5/5 motor strength present throughout Sensory Exam: Normal double simultaneous stimulation for sensation Coordination: [id number] test normal Extrem General: Yes normal to inspection, Yes full ROM and Yes capillary refill normal Psych Appearance: grossly normal Mental Status: mental status grossly normal Affect: normal affect Attitude: cooperative Thought process: Normal thought process present Thought content: Normal thought content present Insight: Good insight present (Psych) Medical Decision Making MDM Narrative Medical decision making narrative: Patient is a 65 year old female presenting to the emergency department today with right sided low black pain. Patient's physical exam was unremarkable. Patient's urine showed no acute process. Patient stated that she no longer wanted to wait to have her x-ray done. I explained my physical exam findings as well as all test results to the patient. I answered all questions asked by the patient. I stressed the importance of the patient taking her medication as prescribed. I stressed the importance of the patient following up with her primary care provider and an orthopedic provider. I stressed the importance of the patient returning to the emergency department immediately if her symptoms were to worsen or if she were to develop any dizziness, shortness of breath, difficulty breathing, chest pain, blurry vision, loss of vision, nausea, vomiting, abdominal pain, fever, chills, back pain, or any other complaints. Patient verbalized agreement and understanding with this treatment plan and discharge. Differential Diagnosis Differential Diagnosis: low back pain Medical Records Medical records reviewed: Yes I reviewed the patient's medical records. Lab Data Lab results reviewed: Yes I reviewed the patient's lab results. Labs: Lab Results 09/15/21 Range/Units 14:15 Urine Color YELLOW Urine Appearance CLEAR Urine pH 6.5 (5.0-8.0) Ur Specific [place] 1.010 (1.005-1.025) Urine Protein NEG (NEG-TRACE) MG/DL Urine Glucose (UA) NEG (NEG) MG/DL Urine Ketones NEG (NEG) MG/DL Urine Blood NEG (NEG) Urine Nitrite NEG (NEG) Ur Leukocyte Esterase NEG (NEG) Discharge Plan Discharge Clinical Impression: Back pain Patient Disposition: Home, Self-Care Instructions: Chronic Back Pain (DC) Additional Instructions: Follow up with your primary care provider and an orthopedic provider. Return to the emergency department immediately if your symptoms worsen or if you develop any dizziness, shortness of breath, difficulty breathing, chest pain, blurry vision, loss of vision, nausea, vomiting, abdominal pain, fever, chills, back pain, or any other complaints. Prescriptions: No Action fenofibrate 160 mg tablet 160 mg PO DAILY 90 Days Qty: 90 1RF tizanidine 4 mg tablet 4 mg PO TID PRN (Reason: for pain) Qty: 90 12RF Linzess 290 mcg capsule 290 mcg PO DAILY 90 Days Qty: 90 0RF pregabalin [Lyrica] 300 mg capsule 300 mg PO BID ferrous sulfate 325 mg (65 mg iron) Tablet 325 mg PO DAILY Qty: 60 4RF erythromycin 5 mg/gram (0.5 %) ointment 1 appl ophthalmic (eye) QID 5 Days Qty: 3.5 0RF Rx Instructions: Apply half an inch appointment into both eyes 4 times a day amoxicillin-pot clavulanate 875-125 mg tablet 1 tab PO Q12H Qty: 14 0RF fluticasone propionate [Flonase Allergy Relief] 50 mcg/actuation spray,suspension 1 spray intranasal BID Qty: 16 0RF Rx Instructions: administer into each nostril cetirizine [Zyrtec] 10 mg tablet 10 mg PO DAILY Qty: 30 0RF quetiapine [Seroquel] 200 mg tablet 200 mg PO BEDTIME lithium carbonate 300 mg tablet extended release 300 mg PO DAILY fluocinolone 0.025 % ointment 0.025 appl topical NEEDED acyclovir 5 % ointment 5 appl topical DAILY pantoprazole 40 mg tablet,delayed release (DR/EC) 40 mg PO DAILY polyethylene glycol 3350 [Miralax] 17 gram/dose powder 17 g PO DAILY 30 Days Qty: 510 4RF Referrals: [facility] [place] [facility] [Provider Group] Sarina Devi MD [Primary Care Provider] - Interventions: ED Discharge Assessment Last Done: 09/15/21 15:45 Discharge Date/Time: 09/15/21 16:09 Print Language: Azeri
[2021-09-15 14:21] LABS: Appearance Urine CLEAR; Color Urine YELLOW; Glucose Urine UA NEG (NEG); Leukocyte Esterase Urine NEG (NEG); Nitrite Urine NEG (NEG); PH 6.5 (5.0-8.0); Urine Blood NEG (NEG); Urine Ketones NEG (NEG); Urine Protein NEG (NEG-TRACE)
== END 2021-09-15 16:09 | disposition home or self-care (01) ==
PROVIDERS: Physician Assistant Medical; Emergency Provider Emergency Medicine; PCP Internal Medicine
DX: M54.50 Low back pain, unspecified (principal)
CPT/HCPCS: 81003; 99282; 99284

== ENCOUNTER → 2021-10-03 09:03 | Outpatient (BNVA) | payer MEDICARE, MEDICAID, SELFPAY | PROVIDERS: PCP Internal Medicine; Visit Provider Anesthesiology | DX: M79.7 Fibromyalgia (principal); M96.1 Postlaminectomy syndrome, not elsewhere classified; M47.26 Other spondylosis with radiculopathy, lumbar region; G58.8 Other specified mononeuropathies; Z96.89 Presence of other specified functional implants | CPT/HCPCS: 99212 ==

== ENCOUNTER 2021-10-06 09:51 | Day surgery (SDC) | payer MEDICARE, MEDICAID, SELFPAY ==
--- NOTE | 2021-10-05 09:21 | P.CONAN_ITS ---
Documented by User: Carrie Roberto NP 10/05/21 09:23 HPI - Anesthesia Eval Consult details Narrative: 65yo F for Right Subcostal Nerve Block Rib 12 s/p colo and EGD 06/2021 with [facility] Active Problems Active Problems: All Active Problems (Updated 10/03/21 @ 09:30 by Alphonso Conteh MD) Intercostal neuralgia (Acute) Back pain (Acute) Fibroma (Acute) S/P insertion of spinal cord stimulator (Acute) Puncture wound (Acute) Neutropenia (Acute) Hospital discharge follow-up (Acute) Anemia (Acute) Achilles tendon injury (Acute) Hospital discharge follow-up (Acute) IBS (irritable bowel syndrome) (Acute) Other spondylosis with radiculopathy, lumbar region (Acute) Postlaminectomy syndrome, not elsewhere classified (Acute) Fibromyalgia (Acute) Other sexual disorders (Acute) Bipolar 1 disorder (Acute) Muscular dystrophy (Acute) Chronic vertigo (Acute) Chronic GERD (Acute) Lipid disorder (Acute) Constipation by delayed colonic transit (Acute) Past Medical History Medical History Bipolar 1 disorder Chronic GERD Chronic vertigo Constipation by delayed colonic transit Fibromyalgia IBS (irritable bowel syndrome) Lipid disorder Muscular dystrophy Other sexual disorders Other spondylosis with radiculopathy, lumbar region Postlaminectomy syndrome, not elsewhere classified Status post insertion of nerve stimulator Family History Family History Father Mesothelioma Brother Mesothelioma Paternal Grandfather Mesothelioma Brother Mesothelioma Paternal Grandmother Stomach cancer Paternal Aunt Lung cancer Family/Other Breast cancer Other Mental health disorder Substance use disorder Family history of problems with anesthesia: No Surgical History Surgical History H/O colonoscopy H/O mastectomy History of ankle surgery History of hip surgery Previous back surgery History of Problems with Anesthesia: No Social History Social History Household Members: Family Housing: House Are you a primary wound care technician to a significant other at home: Yes (mother) Do you presently have visiting nurse or other home services: No Alcohol intake: never Patient Tobacco Use Status: Current everyday Tobacco user Tobacco use type: Smokeless Tobacco e-Cigarette/Vaping Use: Currently Using Substance Use Type: Marijuana service: No Current occupational status: disabled Cognitive needs: No Hearing needs: No Vision needs: No Meds Allergies Allergy/AdvReac Type Severity Reaction Status Date / Time No Known Allergies Allergy Verified 10/03/21 09:16 Home Medications Medication Instructions Recorded Confirmed Last Taken Type acyclovir 5 % topical ointment 5 appl topical DAILY 01/07/20 04/29/21 Unknown History lithium carbonate 300 mg 300 mg PO DAILY 01/07/20 06/13/21 Unknown History tablet,extended release quetiapine 200 mg tablet (Seroquel) 200 mg PO BEDTIME 01/07/20 06/13/21 Unknown History pregabalin 300 mg capsule (Lyrica) 300 mg PO BID 04/29/21 04/29/21 06/17/21 History Exam Exam Date and Time: October 05, [id number] Pertinent Lab Results Pertinent Lab Results: Laboratory Tests 09/13/21 09/13/21 10:02 10:02 WBC 4.8 Hgb 12.3 Hct 38.4 Plt Count 390 Sodium 139 Potassium 4.6 Chloride 106 Carbon Dioxide 26 BUN 20 H Creatinine 1.08 Assessment and Plan Assessment Anesthesia Assessment: Chart Reviewed Final Anesthetic Review Family History of Problems with Anesthesia: No History of Problems with Anesthesia: No Documented by User: Grayson James MD 10/06/21 16:29 [facility] Past Medical History Medical History Bipolar 1 disorder Chronic GERD Chronic vertigo Constipation by delayed colonic transit Fibromyalgia IBS (irritable bowel syndrome) Lipid disorder Muscular dystrophy Other sexual disorders Other spondylosis with radiculopathy, lumbar region Postlaminectomy syndrome, not elsewhere classified Status post insertion of nerve stimulator Functional capacity: independent ambulation Family History Family History Father Mesothelioma Brother Mesothelioma Paternal Grandfather Mesothelioma Brother Mesothelioma Paternal Grandmother Stomach cancer Paternal Aunt Lung cancer Family/Other Breast cancer Other Mental health disorder Substance use disorder Surgical History Surgical History H/O colonoscopy H/O mastectomy History of ankle surgery History of hip surgery Previous back surgery Social History Social History Household Members: Family Housing: House Are you a primary wound care technician to a significant other at home: Yes (mother) Do you presently have visiting nurse or other home services: No Alcohol intake: never Patient Tobacco Use Status: Current everyday Tobacco user Tobacco use type: Smokeless Tobacco e-Cigarette/Vaping Use: Currently Using Substance Use Type: Marijuana service: No Current occupational status: disabled Cognitive needs: No Hearing needs: No Vision needs: No Meds Allergies Allergy/AdvReac Type Severity Reaction Status Date / Time No Known Allergies Allergy Verified 10/03/21 09:16 Home Medications Medication Instructions Recorded Confirmed Last Taken Type acyclovir 5 % topical ointment 5 appl topical DAILY 01/07/20 04/29/21 Unknown History lithium carbonate 300 mg 300 mg PO DAILY 01/07/20 06/13/21 Unknown History tablet,extended release quetiapine 200 mg tablet (Seroquel) 200 mg PO BEDTIME 01/07/20 06/13/21 Unknown History pregabalin 300 mg capsule (Lyrica) 300 mg PO BID 04/29/21 04/29/21 06/17/21 History Exam Airway Mallampati Class: II TM Dist: >3cm Neck ROM: Full Denture: Upper and Lower Loose/Missing/Broken Teeth: Yes Heart: S1,S2 Lungs: b/l breath sounds Assessment and Plan Assessment Anesthesia Assessment: Anesthesia Plan Discussed Final Anesthetic Review NPO: Yes ASA Class: II Final Preanesthetic Review: Meds/Allgs Chart Reviewed, Consent Obtained/Reviewed and Anes Risks/Benef Reviewed Patient Risk: Intermediate Procedure Risk: Intermediate Anesthetic Plan Anesthetic Plan: MAC: Disposition: Standard PACU
[2021-10-06] VITALS (9 sets, daily range): BP systolic 82–121; BP diastolic 38–82; PULSE 54–76; RESP 10–16; TEMP 36.3–36.4; O2SAT 95–97; BMI 24.5
--- NOTE | ~2021-10-06 | FL_ITS ---
EXAMINATION: XR FLUOROSCOPY WITH IMAGES CLINICAL INFORMATION: Right 12th rib nerve block. Right flank pain. COMPARISON: None. TECHNIQUE: Fluoroscopy performed by Dr. Alphonso Conteh. Fluoroscopy time: 0.4 minutes. Cumulative Dose: 7.70 mGy. DAP: 2.09 Gy-cm2. Images: 1. FINDINGS: There is spinal needle overlying the lower aspect mid right rib with contrast seen extending vertically and along the lower rib margin. No visible vascular communication. Spinal stimulator leads are also seen overlying the thoracic and upper lumbar spine. FL/FL guidance in OR IMPRESSION: Fluoroscopy for pain management procedure.
[2021-10-06] MEDS: Lactated Ringers 1,000 ML 100 ML IVCONT (10:36)
--- NOTE | 2021-10-06 11:40 | MHC.SHP ---
Pre-Procedural Eval Section A Date of Service: 10/06/21 The patient is an INPATIENT: No Changes since office visit: Yes Patient answered all questions The History & Physical has been completed within 30 days and I have reviewed it.: No Section B Chief Complaint: mononeuropathies Details of Present Illness: intercostal neuralgia Relevant Family History (Specify if Yes): No Relevant Social History: None Present Medications: see Short Stay Collaborative assessment Medical History: No relevant PMH History of Previous Operations: No relevant previous surgery Allergies: Allergies Allergy/AdvReac Type Severity Reaction Status Date / Time No Known Allergies Allergy Verified 10/03/21 09:16 Review of Systems Sugical H&P ROS: Negative: Constitution, Cardiovascular, Respiratory, Neurological, Psychiatric, Hem-Onc, Allergic/Immunologic, Gastrointestinal, Genitourinary, Musculoskeletal, Integumentary, Endocrine and Eyes/Ears/Nose/Throat Exam Surgical H&P Exam: Normal: HEENT, Normal: Heart, Normal: Lungs, Normal: Extremities, Normal: Abdomen, Normal: Skin and Normal: Neurological Plan Diagnosis/Plan: Unchanged I have reviewed the history and physical and performed a pertinent physical examination on my patient. No changes have occurred unless specified.
--- NOTE | 2021-10-06 12:18 | P.BOP_ITS ---
Brief Operative Note Date of Service: 10/06/21 Pre-op diagnosis: intercostal neuralgia Post-op diagnosis: same Procedure: intercostal Rib 12 right nerve block Implants: none Surgeon: Alphonso Conteh MD Anesthesia: MAC Was an Heat Treating Bluer used for this Procedure?: No Estimated blood loss (mL): 0 Pathology: none sent Condition: stable Disposition: PACU
--- NOTE | 2021-10-06 12:20 | W.PM.OPN ---
Operative Note Operative Note Date of Service: 10/06/21 Narrative: Right rib 12 therapeutic intercostal nerve block. The patient came to the operating room after obtaining informed consent. Risks benefits and alternatives were described and explained to the patient. She was position in the operating room prone on the operating table. Time-out was performed delineating correct site and side of the procedure name end of reverse of the patient risk of fire need of antibiotics patient's allergies. Her midback and lower back were prepped with ChloraPrep and draped with utility towels. After that C-arm was brought over operating field and picture of 12th rib was demonstrated on the screen. 2& 1/2 inches below the silhouette of the lower margin of the 12th rib injection of the local anesthetic was performed raising the skin wheal. After that 22 gauge 3 and half Rupesh keep point needle was inserted through the skin wheal and advanced to were the lower margin of the 12th Rib. contrast was injected and demonstrated intrapleural spread of the contrast. The needle withdrawn and redirected 1 cm more lateral on the rib margin. The needle went into the lower margin of the rib and injection of the contrast demonstrated intercostal spread of the contrast in the sulcus of the 12th Rib. After that injection of the treatment solution containing ropivacaine 0.5% 3 cc and Kenalog 40 mg was injected into the needle. Upon completion of the injection needle was withdrawn sterile dressing was applied. The patient tolerated procedure well. She was awaken taking outside of the operating room to recovery room she recovered uneventfully. She will be under observation for little bit longer time to rule out possible pneumothorax.
== END 2021-10-06 14:57 | disposition home or self-care (01) ==
PROVIDERS: PCP Internal Medicine; Visit Provider Anesthesiology
PROC: (CPT 64420; principal; 2021-10-06 11:30)
DX: G58.8 Other specified mononeuropathies (principal)
CPT/HCPCS: 64420; J2250; J2795; J3010; J3300; Q9967

== ENCOUNTER 2021-11-22 12:19 | Emergency (ER) | payer MEDICARE, MEDICAID, SELFPAY ==
--- NOTE | ~2021-11-22 | CT_ITS ---
EXAMINATION: CT ABDOMEN AND PELVIS WITH CONTRAST CLINICAL INFORMATION: Lower abdominal pain. Rule out diverticulitis. COMPARISON: CT abdomen and pelvis 04/11/2021 TECHNIQUE: Multidetector volumetric images were obtained from the superior aspect of the liver through the pubic symphysis following administration 85 mL of Omnipaque 350 intravenous contrast. Sagittal and coronal reformatted images were obtained on the technologist's workstation. Oral contrast: No This CT examination was performed using dose optimization techniques as appropriate, variously including the following: *Automated exposure control *Adjustment of mA and/or kV according to patient size (this includes techniques or standardized protocols for targeted exams where dose is matched to indication/reason for exam; i.e. extremities or head) *Use of iterative reconstruction technique DLP: 520 mGy-cm FINDINGS: LUNG BASES: Minimal subsegmental atelectasis in the right lung base. Respiratory motion artifact. LIVER, GALLBLADDER, AND BILIARY TREE: The liver is normal in size, shape, and attenuation. No focal hepatic lesion or biliary ductal dilatation is present. The gallbladder is unremarkable with no evidence of radiopaque gallstones, gallbladder wall thickening, or obvious pericholecystic inflammatory changes. PANCREAS: Unremarkable. SPLEEN: Unremarkable. ADRENAL GLANDS: Unremarkable. KIDNEYS AND URETERS: The kidneys are normal in size, shape, and attenuation. No hydronephrosis, hydroureter, or calculi seen. No perinephric stranding. BLADDER: Somewhat limited assessment due to streak artifact from the patient's total hip arthroplasties. No gross bladder wall thickening. GASTROINTESTINAL TRACT: No dilated bowel loops. No bowel wall thickening. Moderate amount of formed stool seen within the nondilated colon. Normal appendix. No ascites or free air. ABDOMINAL WALL: No significant hernia is appreciated. LYMPH NODES: No lymphadenopathy. VASCULAR: Mildly tortuous abdominal aorta. Mild atherosclerotic vascular calcifications. No abdominal aortic aneurysm. PELVIC VISCERA: Uterus is not identified, presumably post hysterectomy. No free pelvic fluid. OSSEOUS STRUCTURES: No acute fracture or suspicious osseous lesion. Severe multilevel degenerative disc disease. Acquired ankylosis of the L1-L2 vertebral bodies. Spinal stimulator leads ascend into the lower thoracic spine. CT/CT abdomen pelvis w IV con IMPRESSION: 1. No evidence of acute colitis or other acute intra-abdominal process. 2. Moderate amount of formed stool throughout the colon. Correlate clinically with signs or symptoms of constipation.
[2021-11-22 12:50] VITALS: BP 111/78; PULSE 75; RESP 18; TEMP 36.2; O2SAT 94; BMI 24.5
--- NOTE | 2021-11-22 16:26 | ED_ITS ---
HPI - Abdominal Pain General Chief Complaint: Abdominal Pain Stated Complaint: Abd pain Time Seen by Provider: 11/22/21 16:24 Source: patient Mode of arrival: ambulatory Limitations: no limitations History of Present Illness HPI narrative: 65 year old female with history of fibromyalgia, bipolar d/o, muscular dystr ophy, IBS, anemia, constipation, GERD, vertigo, Sjogren's, seasonal allergies presents to the emergency department with complaints of 4 days of progressively worsening constant non radiating suprapubic discomfort. Unable to identify what makes this pain better or worse. Patient tells me that it feels like a dull aching pain, she tells me that she has had this in the past and has been evaluated for this here at this hospital she tells me last time she had this she was severely constipated. She reports that she recently had a regular colonoscopy without any acute findings however states that she has not had a Pap smear in quite some time. Patient tells me that she is on a half T bowel nunu men which she takes daily, she tells me that she is on Linzess, Colace, amongst other medications. She tells me other than the suprapubic discomfort she has no other complaints. Patient denies changes in urination, fevers, chills, chest pain, shortness of breath, nausea, vomiting. MD elicited complaint: abdominal pain Pertinent past history: constipation Onset (ago): day(s) (4) Pain Consistency: constant Location: suprapubic Quality: fullness and dull Radiation: none Migration to: no migration Exacerbating factors: nothing Relieving factors: nothing Associated symptoms: denies other symptoms Related Data Home Medications Medication Instructions Recorded Confirmed acyclovir 5 % topical ointment 5 appl topical DAILY 01/07/20 11/08/21 lithium carbonate 300 mg 300 mg PO DAILY 01/07/20 11/08/21 tablet,extended release quetiapine 200 mg tablet (Seroquel) 200 mg PO BEDTIME 01/07/20 11/08/21 Previous Rx's Medication Instructions Recorded fenofibrate 160 mg tablet 160 mg PO DAILY 90 days #90 tabs 03/15/21 tizanidine 4 mg tablet 4 mg PO TID PRN for pain #90 tabs 05/02/21 linaclotide 290 mcg capsule 290 mcg PO DAILY 90 days #90 caps 06/03/21 (Linzess) ferrous sulfate 325 mg (65 mg 325 mg PO DAILY #60 tabs 09/05/21 iron) tablet pregabalin 300 mg capsule (Lyrica) 300 mg PO BID 30 days #60 caps 10/05/21 bisacodyl 10 mg rectal suppository 10 mg [place] DAILY PRN constipation 1 11/22/21 (Dulcolax (bisacodyl)) day #12 ea Allergies Allergy/AdvReac Type Severity Reaction Status Date / Time No Known Allergies Allergy Verified 11/22/21 12:50 Review of Systems Review of Systems Constitutional : No Weight loss, No Fever, No Chills, No Fatigue, No Malaise ENT/Mouth : No sore throat, No Rhinorrhea Eyes: No Eye Pain, No Swelling, No Redness Cardiovascular : No Chest Pain, No SOB, No Dyspnea on Exertion, No Orthopnea, No Edema, No Palpitations Respiratory : No Cough, No Sputum, No Wheezing Gastrointestinal : No Nausea, No Vomiting, No Diarrhea, No Constipation, + abdominal Pain, No Hematochezia, No Melena Genitourinary : No Dysuria, No Urinary Frequency, No Hematuria, Musculoskeletal : No joint pain, No Myalgias, No Joint Swelling Skin : No Skin Lesions, No rash Neuro : No Weakness, No Numbness, No Dizziness, No Headache Psych : No Anxiety/Panic, No Depression All other systems reviewed and are negative Yes all other systems are reviewed and are negative [facility] Past Medical History Attestation statement: The following information was validated with the patient. Source: old records reviewed and nursing notes reviewed Medical History Bipolar 1 disorder Chronic GERD Chronic vertigo Constipation by delayed colonic transit Fibromyalgia IBS (irritable bowel syndrome) Lipid disorder Muscular 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 Other sexual disorders Other spondylosis with radiculopathy, lumbar region Postlaminectomy syndrome, not elsewhere classified Status post insertion of nerve stimulator Surgical History H/O colonoscopy H/O mastectomy History of ankle surgery History of hip surgery Previous back surgery Family History Family History Father Mesothelioma Brother Mesothelioma Paternal Grandfather Mesothelioma Brother Mesothelioma Paternal Grandmother Stomach cancer Paternal Aunt Lung cancer Family/Other Breast cancer Other Mental health disorder Substance use disorder Social History Social History Household Members: Family Housing: House Are you a primary career resource specialist to a significant other at home: Yes (mother) Do you presently have visiting nurse or other home services: No Alcohol intake: never Patient Tobacco Use Status: Never used Tobacco Tobacco use type: Smokeless Tobacco e-Cigarette/Vaping Use: Currently Using Use of substances other than those prescribed or required for medical reasons: Yes Substance Use Type: Marijuana Advance Directives: No Advance Directives Information Provided: No service: No Current occupational status: disabled Cognitive needs: No Hearing needs: No Vision needs: No Physical Exam ED Vital Signs: Vital Signs - 24 hr 11/22/21 12:50 11/22/21 16:56 11/22/21 19:46 Temperature 97.2 F 98.5 F Pulse Rate 75 76 82 Respiratory Rate 18 16 16 Blood Pressure 111/78 115/67 111/73 Pulse Oximetry 94 98 98 Oxygen Delivery Method Room Air Room Air Room Air BMI result Body Mass Index 24.5 Vital signs stable Appearance: Alert.? Oriented X3.? No acute distress.? Head: Normocephalic, atraumatic, no step-offs or deformities Eyes: Pupils equal, round and reactive to light.? Neck: Normal inspection.? Neck supple.? CVS: Normal heart rate and rhythm.? Pulses normal.? Respiratory: No respiratory distress.? Breath sounds normal.? Abdomen: Soft and nontender.? Skin: Skin warm and dry.? Normal skin color.? Normal skin turgor.? Extremities: No lower extremity edema.? No calf ttp. 5/5 strength to bilateral upper and lower extremities Back: No midline tenderness, no C-spine tenderness, full range of motion, no CVA tenderness bilaterally Neuro: Oriented X 3.? No motor deficit.? No sensory deficit. CN 2-12 intact Course Reevaluation(s) Reevaluation #1: CBC appears to be around patient's baseline. Chemistry with no acute electrolyte abnormalities requiring intervention. Transaminases within patient's baseline. Lipase within normal limits. Urine clean. Time: 17:30 Reevaluation #2: CT scan with constipation. Will give her Dulcolax. Advised to follow-up with PCP and GI. Advised to return with any new or worsening symptoms, outlined these on her discharge. I feel comfortable with discharge home at this time. Patient was able to eat while in the emergency department, tolerating p.o., fee ls slightly better than she did when she arrived, still complaining of some slight suprapubic discomfort however improved from when patient 1st arrived. Time: 20:15 MDM - Abdominal Pain MDM Narrative Medical decision making narrative: 1626 66 yo female presents with suprapubic discomfort x4 days, contributes it to likely constipation. No other medical complaints at this time. Patient appears comfortable. PE benign. Likely constipation, no signs of acute abdomen, AAA, appendicitis, cholecystitis, diverticulitis, unlikely that this is ovarian torsion or small- bowel or large-bowel obstruction. Will rule out obstructing mass. Plan labs, urine, CT of the abdomen and pelvis Medical Records Attestation: I reviewed the patient's medical records. Lab Data Attestation: I reviewed the patient's lab results. Result diagrams: 11/22/21 16:52 11/22/21 17:46 Labs: Lab Results 11/22/21 11/22/21 11/22/21 Range/Units 16:52 17:46 17:46 WBC 6.9 (4.8-10.8) X10*3/uL RBC 4.41 (4.20-5.50) X10*6/uL Hgb 12.5 (12.0-16.0) g/dl Hct 39.6 (37.0-47.0) % MCV 89.8 (80.0-98.0) fL MCH 28.3 (27.0-33.0) pg MCHC 31.6 (31.0-35.0) g/dl RDW 14.7 (11.0-16.0) % Plt Count 414 H (160-400) X10*3/uL MPV 9.8 (9.4-12.3) fL Immature Gran % (Auto) 0.3 (0.0-0.4) % Neut % (Auto) 51.3 (45-73) % Lymph % (Auto) 34.8 (20-40) % [place] % (Auto) 9.9 (2-11) % Eos % (Auto) 2.8 (0-4) % Baso % (Auto) 0.9 (0-2) % Lymph # (Auto) 2.4 (1.2-4.9) X10*3/uL [place] # (Auto) 0.7 (0.1-1.2) X10*3/uL Eos # (Auto) 0.2 (0.0-0.4) X10*3/uL Baso # (Auto) 0.1 (0.0-0.2) X10*3/uL Abs Immat Gran (auto) 0.02 (0.00-0.03) X10*3/uL Absolute Neuts (auto) 3.5 (2.0-8.3) x10*3/uL Absolute Nucleated RBC 0.000 (0.0-0.012) X10*3/uL Nucleated RBC % (auto) 0.0 (0.0-0.2) /100WBC Sodium 141 (135-145) mmol/L Potassium 4.7 (3.3-5.1) mmol/L Chloride 106 (96-108) mmol/L Carbon Dioxide 27 (22-29) mmol/L Anion Gap 13 (12-20) BUN 15 (9-16) mg/dL Creatinine 0.93 (0.5-1.4) mg/dL Estim Creat Clear Calc 50.4 Estimated GFR > 60 Random Glucose 84 (60-115) mg/dL Calcium 9.9 (8.4-10.2) mg/dL Total Bilirubin 0.2 (0.0-1.0) mg/dL AST 55 H (5-31) U/L ALT 40 H (0-31) U/L Alkaline Phosphatase 59 (39-117) U/L Total Protein 6.9 (6.5-8.0) g/dL Albumin 4.1 (3.5-5.0) g/dL Lipase 32 (8-78) U/L Urine Color Yellow Urine Appearance Clear Urine pH 7.0 (5.0-9.0) Ur Specific [place] <= 1.005 (1.005-1.025) Urine Protein Negative (Neg-Trace) mg/dL Urine Glucose (UA) Negative (Negative) mg/dL Urine Ketones Negative (Negative) mg/dL Urine Blood Negative (Negative) Urine Nitrite Negative (Negative) Ur Leukocyte Esterase Negative (Negative) Critical Care Time Critical Care Time Critical Care Time: No Discharge Plan Discharge Clinical Impression: Suprapubic abdominal pain, Constipation Patient Disposition: Home, Self-Care Instructions: Constipation (ED) Additional Instructions: Take your medications as prescribed. If you were prescribed antibiotics today, it is important that you take your medication to their entirety, do not skip any doses, do not finish them early. Follow-up with your primary care provider this week. Follow-up with gastroenterology. Return to the emergency department with new or worsening symptoms. Such as fevers, chills, chest pain, shortness of breath, nausea, vomiting, dizziness, headache, vision changes, lethargy In case of emergency call 911 CT/CT abdomen pelvis w IV con IMPRESSION: ? 1. No evidence of acute colitis or other acute intra-abdominal process. 2. Moderate amount of formed stool throughout the colon. Correlate clinically with signs or symptoms of constipation. Prescriptions: New bisacodyl [Dulcolax (bisacodyl)] 10 mg suppository 10 mg [place] DAILY PRN (Reason: constipation) 1 Days Qty: 12 0RF No Action fenofibrate 160 mg tablet 160 mg PO DAILY 90 Days Qty: 90 1RF tizanidine 4 mg tablet 4 mg PO TID PRN (Reason: for pain) Qty: 90 12RF Linzess 290 mcg capsule 290 mcg PO DAILY 90 Days Qty: 90 0RF pregabalin [Lyrica] 300 mg capsule 300 mg PO BID 30 Days Qty: 60 5RF ferrous sulfate 325 mg (65 mg iron) Tablet 325 mg PO DAILY Qty: 60 4RF quetiapine [Seroquel] 200 mg tablet 200 mg PO BEDTIME lithium carbonate 300 mg tablet extended release 300 mg PO DAILY acyclovir 5 % ointment 5 appl topical DAILY Referrals: Zoe Levy MD [Physician] - 1 week Stand Alone Forms: Work/School Release Interventions: ED Discharge Assessment Last Done: 11/22/21 20:45 Discharge Date/Time: 11/22/21 20:46
[2021-11-22 16:56] VITALS: BP 115/67; PULSE 76; RESP 16; O2SAT 98
[2021-11-22 17:00] LABS: MANUAL DIFF FLAG NO
[2021-11-22 17:02] LABS: Basophils Absolute Auto 0.1 X10*3/uL (0.0-0.2); Basophils Percent Auto 0.9 % (0-2); Eosinophils Absolute Auto 0.2 X10*3/uL (0.0-0.4); Eosinophils Percent Auto 2.8 % (0-4); Hematocrit 39.6 % (37.0-47.0); Hemoglobin 12.5 g/dl (12.0-16.0); Imm Gran Abs Auto 0.02 X10*3/uL (0.00-0.03); Imm Gran Pct Auto 0.3 % (0.0-0.4); Lymphocytes Absolute Auto 2.4 X10*3/uL (1.2-4.9); Lymphocytes Percent Auto 34.8 % (20-40); Mean Corpuscular HGB Conc 31.6 g/dl (31.0-35.0); Mean Corpuscular Hemoglobin 28.3 pg (27.0-33.0); Mean Corpuscular Volume 89.8 fL (80.0-98.0); Mean Platelet Volume 9.8 fL (9.4-12.3); Monocytes Absolute Auto 0.7 X10*3/uL (0.1-1.2); Monocytes Percent Auto 9.9 % (2-11); Neutrophils Absolute Auto 3.5 x10*3/uL (2.0-8.3); Neutrophils Percent Auto 51.3 % (45-73); Platelet Count 414 X10*3/uL (160-400); Red Blood Count 4.41 X10*6/uL (4.20-5.50); Red Cell Distribution Width 14.7 % (11.0-16.0); White Blood Count 6.9 X10*3/uL (4.8-10.8)
[2021-11-22 17:53] LABS: Appearance Urine Clear; Color Urine Yellow; Glucose Urine UA Negative (Negative); Leukocyte Esterase Urine Negative (Negative); Nitrite Urine Negative (Negative); Specific Gravity - Urine <= 1.005 (1.005-1.025); Urine Blood Negative (Negative); Urine Ketones Negative (Negative); Urine Protein Negative (Neg-Trace)
[2021-11-22] MEDS: Ketorolac Tromethamine 15 MG/ML VIAL 30 MG IVPUSH (18:01)
[2021-11-22 18:11] LABS: Alanine Aminotransferase 40 U/L (0-31); Albumin Level 4.1 g/dL (3.5-5.0); Alkaline Phosphatase 59 U/L (39-117); Anion Gap 13 (12-20); Aspartate Amino Transferase 55 U/L (5-31); Bilirubin Total 0.2 mg/dL (0.0-1.0); Blood Urea Nitrogen 15 mg/dL (9-16); Calcium 9.9 mg/dL (8.4-10.2); Carbon Dioxide 27 mmol/L (22-29); Chloride 106 mmol/L (96-108); Creatinine Clr Calc Pharmacy 50.4; Estimated Glomerular Filt Rate > 60; Glucose Random 84 mg/dL (60-115); Lipase 32 U/L (8-78); Potassium 4.7 mmol/L (3.3-5.1); Sodium 141 mmol/L (135-145); Total Protein 6.9 g/dL (6.5-8.0)
[2021-11-22] MEDS: iohexoL 350 MG/ML 100 ML INFUS..BTL IV (18:24)
[2021-11-22] MEDS: Simethicone 80 MG TAB.CHEW 160 MG PO (19:12)
--- NOTE | 2021-11-22 19:41 | PC.NURSE ---
Report taken from Ellen BARRIOS, assumed care of pt. First contact with pt, sitting up in bed A&Ox3 skin pwd respirations even unlabored. Reports some pain relief from previously administered toradol, current pain scale 7/10. Medicated with simethicone PO per MD order by Ashley BARRIOS. Awaiting CT results, aware of plan of care.
[2021-11-22 19:46] VITALS: BP 111/73; PULSE 82; RESP 16; TEMP 36.9; O2SAT 98
[2021-11-22] MEDS: bisacodyL 5 MG TABLET.DR 10 MG PO (19:58)
--- NOTE | 2021-11-22 20:45 | PC.NURSE ---
pt a&o, no sob or chest pain. Review discharge instructions and pt verbalized understanding.
== END 2021-11-22 20:46 | disposition home or self-care (01) ==
PROVIDERS: Emergency Provider Emergency Medicine; PCP Internal Medicine
DX: K59.00 Constipation, unspecified (principal); R10.9 Unspecified abdominal pain; Z79.899 Other long term (current) drug therapy
CPT/HCPCS: 36415; 51798; 74177; 80053; 81003; 83690; 85025; 96374; 99284; J1885; Q9967

== ENCOUNTER 2022-02-03 08:21 | Outpatient (REF) | payer MEDICARE, MEDICAID, SELFPAY ==
[2022-02-03 11:59] LABS: Cholesterol 206 mg/dL; HDL Cholesterol 83 mg/dL; LDL Cholesterol Calculated 110 mg/dl; Triglycerides 66 mg/dL
[2022-02-03 12:20] LABS: Lithium 0.59 mmol/L (0.60-1.20)
== END 2022-02-03 08:22 | disposition home or self-care (01) ==
LOC: HO.HMGCLDS 08:21
PROVIDERS: PCP Internal Medicine; Visit Provider Internal Medicine
DX: F31.9 Bipolar disorder, unspecified (principal); E78.9 Disorder of lipoprotein metabolism, unspecified
CPT/HCPCS: 36415; 80061; 80178

== ENCOUNTER 2022-03-24 13:39 | Emergency (ER) | payer OTHER, SELFPAY ==
--- NOTE | ~2022-03-24 | XR_ITS ---
EXAMINATION: CR X-RAY THORACIC AND LUMBAR SPINE CLINICAL INFORMATION: Back pain status post injury. COMPARISON: CT scan of the abdomen and pelvis dated 11/22/2021. TECHNIQUE: 3 views each of the thoracic and lumbar spine were obtained. FINDINGS: Mild thoracolumbar dextro scoliosis is seen with apex at T11-12. Mild to moderate multilevel degenerative changes are seen in the thoracic spine, most pronounced inferiorly. Severe degenerative changes are again seen in the lumbar spine. There is partial osseous fusion of L1 and L2. Grade 1 anterolisthesis of L4 is seen with severe endplate degenerative changes at L4-5. No overt fracture. The soft tissues are unremarkable. Spinal simulation leads are seen terminating at the level of T7. XR/XR thoracic spine 3V IMPRESSION: Thoracolumbar multilevel degenerative changes as detailed above similar to the previous CT scan. No definitive acute abnormality.
--- NOTE | ~2022-03-24 | XR_ITS ---
EXAMINATION: CR X-RAY THORACIC AND LUMBAR SPINE CLINICAL INFORMATION: Back pain status post injury. COMPARISON: CT scan of the abdomen and pelvis dated 11/22/2021. TECHNIQUE: 3 views each of the thoracic and lumbar spine were obtained. FINDINGS: Mild thoracolumbar dextro scoliosis is seen with apex at T11-12. Mild to moderate multilevel degenerative changes are seen in the thoracic spine, most pronounced inferiorly. Severe degenerative changes are again seen in the lumbar spine. There is partial osseous fusion of L1 and L2. Grade 1 anterolisthesis of L4 is seen with severe endplate degenerative changes at L4-5. No overt fracture. The soft tissues are unremarkable. Spinal simulation leads are seen terminating at the level of T7. XR/XR lumbar spine 2-3V IMPRESSION: Thoracolumbar multilevel degenerative changes as detailed above similar to the previous CT scan. No definitive acute abnormality.
[2022-03-24 15:08] VITALS: BP 148/88; PULSE 84; RESP 20; TEMP 36.1; O2SAT 97; BMI 25.4
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
--- OUTSIDE RECORDS SUMMARY | 2022-03-24 15:56 | XMS_ITS ---
:1955 Author Organization [facility] Address [address] [place] [address] Care Team Providers Name Role Phone Bennett Beltrán Unavailable Unavailable PROBLEMS Type Condition ICD9-CM Code [id number] Onset Condition SNOMED Code Code Dates Status Problem Dysphagia R13.10 Active 85168649 Problem Diverticulosis of K57.30 Active 73 1629341 colon Problem Esophageal R13.19 Active 98837019 dysphagia Problem Constipation, K59.00 Active 553427 08 unspecified constipation type Problem Iron deficiency D50.9 Active 8752 2001 anemia, unspecified iron deficiency anemia type ALLERGIES No Known Allergies ENCOUNTERS Encounter Location Date Diagnosis [address] [facility] [address] [place] [address] [facility] [address] [place] [address] Jun, Diverticulosis of colon [place], [place] [id number] K57.30 ; E xternal hemorrhoid K64.4 ; Internal hemorrhoid K64.8 ; Dysphagia R13.10 ; Hiatal hernia K44.9 and Anemia D64.[address] [facility] [address] [place] [address] [facility], Iron def iciency anemia, [facility] [address] [place], [place]specifie [place] iron deficiency [address] anemia type D50. 9 ; Constipation, un specified constipation typ e K59.00 and Esophageal d ysphagia R13.19 IMMUNIZATIONS Vaccine Route Administration Date Status Influenza Unknown Jan 05, 2021 Administered SOCIAL HISTORY Qualifiers Date Never Smoker REASON FOR REFERRAL FUNCTIONAL STATUS PLAN OF CARE Activity Details Pending Test IRON + IBC (FE) Pending Test VITAMIN B12 AND FOLATE Pending Test CBC w DIFF Pending Test CELIAC PANEL #10 Future/Pending Procedure COLONOSCOPY 20210413 Future/Pending Procedure UPPER GI ENDOSCOPY [place] DILATION OF ESOPH 20210413 VITAL SIGNS Weight 123 lbs 2021-04-13 Height 63 in 2021-04-13 BMI 21.79 kg/m2 2021-04-13 Temperature 97.9 degrees Fahrenheit 2021-04-13 Blood pressure systolic 000 mm Hg 2021-04-13 Blood pressure diastolic 00 mm Hg 2021-04-13 MEDICATIONS Medication Instructions Dosage Frequency Start End Duration Statu s Date Date [place] Orally Once a 1 capsule at 24h Mar, day(s) Act luisito Carbonate 300 day bedtime 2021 MG Fenofibrate 160 Orally Once a 1 tablet 24h Mar, day(s) Active MG day 2021 QUEtiapine 30 Active Fumarate 200 MG B12 Folate as directed Mar, Active 800-800 MCG 2021 Linzess 290 MCG Orally Once a 1 capsule at 24h Mar, da y(s) Active day least 30 2021 minutes before the first meal of the day on an empty stomach MiraLax 17 as directed Mar, Active GM/SCOOP 2021 Ferrous Sulfate Orally Once a 1 tablet 24h Mar, day(s) Active 325 (65 Fe) MG day 2021 Docusate Sodium Orally Once a 1 capsule as 24h Mar, da y(s) Active 250 MG day needed 2021 PROCEDURES Procedure Date Ordered Result Body Site BP SCR NOT PRFRM REC REASON NOS Apr 13, 2021 ENDOSCOPIC ULTRASOUND EXAM June 17, 2021 TOBACCO NON-USER Apr 13, 2021 ESOPH ENDOSCOPY, DILATION June 17, 2021 DOC MEDS VERIFIED W/PT OR RE Apr 13, 2021 RCMND FLW-UP 10 YRS DOCD June 17, 2021 COLORECTAL CA SCREEN DOC REV Apr 13, 2021 INTRVL 3+YRS PTS CLNSCP DOCD June 17, 2021 DIAGNOSTIC COLONOSCOPY June 17, 2021 RESULTS Name Result Date Reference Range Pathology 2021-06-17 Complete Blood Count Auto Diff 2021-04-13 White Blood Count 6.3 4.8-10.8 Red Blood Count 4.20 4.20-5.50 Hemoglobin 12.1 12.0-16.0 Hematocrit 38.0 37.0-47.0 Mean Corpuscular Volume 90.5 80.0-98. 0 Mean Corpuscular Hemoglobin 28.8 27.0 -33.0 Mean Corpuscular HGB Conc 31.8 31.0-3 5.0 Red Cell Distribution Width 14.2 11.0 -16.0 Platelet Count 406 160-400 Mean Platelet Volume 9.9 9.4-12.3 Neutrophils Percent Auto 57.9 45-73 Imm Gran Pct Auto 0.5 0.0-0.4 Lymphocytes Percent Auto 30.4 20-40 Monocytes Percent Auto 8.3 2-11 Eosinophils Percent Auto 2.4 0-4 Basophils Percent Auto 0.5 0-2 NRBC Pct Auto 0.0 0.0-0.2 Neutrophils Absolute Auto 3.7 2.0-8. 3 Imm Gran Abs Auto 0.03 0.00-0.03 Lymphocytes Absolute Auto 1.9 1.2-4. 9 Monocytes Absolute Auto 0.5 0.1-1.2 Eosinophils Absolute Auto 0.2 0.0-0. 4 Basophils Absolute Auto 0.0 0.0-0.2 NRBC Abs Auto 0.000 0.0-0.012 IRON PROFILE 2021-04-13 Iron 75 30-160 Total Iron Binding Capacity 476 228- 428 Percent Iron Saturation 16 15-50 Unsaturated Iron Binding 401 Vitamin B12 and Folate 2021-04-13 Vitamin B12 > 2000 200-900 Folate 9.5 > or = 4.0 Immunoglobulin A 2021-04-13 Immunoglobulin A 156 70-320 Transglutaminase Ab IgG 2021-04-13 Transglutaminase Ab IgG <1.0 Transglutaminase IgA 2021-04-13 Transglutaminase IgA <1.0 Gliadin Ab Panel 2021-04-13 Gliadin Deamidated IgA Ab <1.0 Gliadin Deamidated IgG Ab <1.0 Endomysial IgA rflx Titer 2021-04-13 Endomysial IgA Antibody Negative Negative Endomysial Titer TNP Ferritin 2021-04-13 Ferritin 75 10-[address] scan moderate constipation , fe def anemia, esophageal dysphagia, fe def anemia, esophageal dysphagia, Medications/results, Patient presents today for constipation, Patient presents today for constipation, constipation Insurance Providers [facility] Patient Patient Patient Patient Patient Subscriber Subscriber Subscriber Group Insurance Plan Plan Plan Plan ID Relationship Address Phone Name Date of ID Name Date of No Type Insurance Insurance Insurance Coverage to Subscriber Address Phone Name Dates MEDICAID [id number] MEDICAID self [place] [id number] OF [facility] [id number] [facility] [id number] MEDICARE [id number] MEDICARE self [place] [id number] [place] [address] [place] [address]
== END 2022-03-24 17:35 | disposition home or self-care (01) ==
PROVIDERS: Emergency Provider Emergency Medicine; PCP Internal Medicine
DX: M54.50 Low back pain, unspecified (principal); M54.6 Pain in thoracic spine
CPT/HCPCS: 72072; 72100; 99282; 99283

== ENCOUNTER 2022-05-09 09:47 | Outpatient (REF) | payer MEDICARE, SELFPAY ==
--- NOTE | ~2022-05-09 | US_ITS ---
EXAMINATION: US CHEST CLINICAL INFORMATION: 66-year-old female. 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 COMPARISON: CT abdomen 11/21/2021, radiographs thoracic spine 03/24/2022 TECHNIQUE: Real-time linear grayscale imaging of the area of clinical concern right chest is performed by salesperson art objects. Grayscale imaging and color Doppler are performed. FINDINGS: The submitted images demonstrate no skin thickening, edema tracking in soft tissue planes, or hyperemia. There is no cystic or solid soft tissue mass demonstrated. The chest wall soft tissues and anterior rib contours are unremarkable. US/US chest IMPRESSION: -Unremarkable examination. -Patient should be managed based on the clinical impression. If clinically indicated, further assessment may be performed with computed tomography and/or MRI. -No prior mammography noted in imaging history. Recommend annual bilateral mammography.
== END 2022-05-09 09:48 | disposition home or self-care (01) ==
LOC: HO.US 09:47
PROVIDERS: PCP Internal Medicine; Visit Provider Internal Medicine
DX: Q67.8 Other congenital deformities of chest (principal); N63.15 Unspecified lump in the right breast, overlapping quadrants
CPT/HCPCS: 76604

== ENCOUNTER 2022-11-24 12:13 | Outpatient (AMB) | payer MEDICARE, MEDICAID, SELFPAY ==
[2022-11-24 12:16] VITALS: BP 122/82; PULSE 72; O2SAT 93; BMI 23.1
--- NOTE | 2022-11-24 12:16 | MHC.PC.OV ---
Vital Signs 11/24/22 12:16 Height 5 ft 1 in Weight 122 lb 2 oz BMI 23.1 BP 122/82 Blood Pressure Location Rt brachial Position Sitting Pulse 72 Pulse Source Pulse Oximeter Pulse Oximetry (%) 93 Oxygen Delivery Method Room Air Intake Visit Reasons: Annual PE Allergies No Known Allergies Allergy (Verified 11/24/22 12:17) Medication List - Last Reconciled 11/24/22 by Sarina Devi MD acetaminophen 650 mg (2 x 325 mg) PO Q6H PRN albuterol sulfate 90 mcg/actuation (ProAir HFA) 1 inh inhalation QID PRN 30 days bisacodyl (Dulcolax (bisacodyl)) 10 mg MO DAILY PRN 1 day fenofibrate 160 mg PO DAILY 90 days ferrous sulfate 325 mg PO DAILY linaclotide (Linzess) 290 mcg PO DAILY 90 days lithium carbonate ER 300 mg PO DAILY pregabalin (Lyrica) 300 mg PO BID 30 days quetiapine (Seroquel) 200 mg PO BEDTIME Tobacco use date assessed: 11/24/22 Fall risk assessment: 2 + Falls in past year Last assessed Fall Risk: 11/24/22 Dental Screening Dental Screen Date: 11/24/22 Did you have a dental problem in the last 6 months where you did not have access to dental care?: No HPI Annual PE HPI Details Patient is a 67-year-old female came in today for physical examination Colonoscopy was in [address] Farfan [facility] She is no longer having Pap smear Patient have a history of bilateral mastectomy secondary to gender identity disorder LFTs are stable Patient have Sjogren syndrome with myopathy Muscular dystrophy and fibromyalgia She has appointment coming up with the general warehouse worker meanwhile she is having a flare-up of her symptoms having severe sore muscles I have sent prednisone 10 mg tablets patient is to take 1 daily for 5 days and then 5 mg. Her CPKs were 364 in October Her balance is not stable due to bilateral ankle fusion as well as back pain She is on high-dose Lyrica through [facility]. Her hemoglobin is within normal limit now patient will stop taking iron supplement She have a history of severe constipation which is managed with the help of Linzess Patient is to return in 4 months, lab needs to be done before visit we will be monitoring liver enzymes CBC as well as sugar. 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, lumbar region Postlaminectomy syndrome, not elsewhere classified Fibromyalgia Other sexual disorders Bipolar 1 disorder IBS (irritable bowel syndrome) Muscular dystrophy Chronic vertigo Chronic GERD Lipid disorder Constipation by delayed colonic transit Surgical History H/O colonoscopy Status post insertion of nerve stimulator Previous back surgery History of ankle surgery H/O mastectomy History of hip surgery Family History Father Mesothelioma Brother Mesothelioma Paternal Grandfather Mesothelioma Brother Mesothelioma Paternal Grandmother Stomach cancer Paternal Aunt Lung cancer Family/Other Breast cancer Other Mental health disorder Substance use disorder Social History Household Members: Family Housing: House Are you a primary wild animal caretaker to a significant other at home: Yes (mother) Do you presently have visiting nurse or other home services: No Alcohol intake: never Patient Tobacco Use Status: Never used Tobacco Tobacco use type: Smokeless Tobacco e-Cigarette/Vaping Use: Currently Using Substance Use Type: Marijuana service: No Current occupational status: disabled Cognitive needs: No Hearing needs: No Vision needs: No Questionnaire PHQ-9 Over the last 2 weeks, how often have you been bothered by any of the following problems? 1. Little interest or pleasure in doing things: not at all 2. Feeling down, depressed, or hopeless: not at all 3. Trouble falling or staying asleep, or sleeping too much: more than half the days 4. Feeling tired or having little energy: not at all 5. Poor appetite or overeating: not at all 6. Feeling bad about yourself - or that you are a failure or have let yourself or your family down: not at all 7. Trouble concentrating on things, such as reading the newspaper or watching television: nearly every day 8. Moving or speaking so slowly that other people could have noticed. Or the opposite - being so fidgety or restless that you have been moving around a lot more than usual: not at all 9. Thoughts that you would be better off or of hurting yourself in some way: not at all Total score: 5 Depression Screening Interpretation: Negative 78702 - PHQ-9 Billing: Yes Source: Developed by Drs. Bennett Bhagat, Alannah Steve, Terence Donato and colleagues, with an educational alejandro from [employer]. Thrive Questionnaire Date Thrive assessed: 11/24/22 I am a: Patient What is your living situation today?: I have a steady place to live Within the past 12 months, did the food you bought not last and you didn't have the money to get more?: Often true Within the past 12 months, did you worry whether your food would run out before you got money to buy more?: Often true Do you have trouble paying for medicines?: Yes Do you have trouble getting transportation to medical appointments?: No Do you have trouble paying your heating and electricity bill?: Yes Do you have trouble taking care of your child, family member or friend?: No Do you have trouble with day-to-day activities such as bathing, preparing meals, shopping, managing finances, etc.?: No Are you currently unemployed and looking for a job?: No Are you interested in more education?: No Please select the resources that you would like help with: Food AUDIT C Alcohol Use Questionnaire (AUDIT-C) 1. How often do you have a drink containing alcohol?: Never 3. How often do you have six or more drinks on one occasion?: Never Total Score: 0 Score Reviewed/Action Taken: Yes KAUR-7 AMB Questionnaire KAUR-7 Date KAUR - 7 assessed: 11/24/22 Feeling nervous, anxious, or on edge: 3 = Nearly every day Not being able to stop or control worryin = More than half the days Worrying too much about different things: 2 = More than half the days Trouble relaxin = More than half the days Being so restless that it is hard to sit still: 2 = More than half the days Becoming easily annoyed or irritable: 2 = More than half the days Feeling afraid as if something awful might happen: 2 = More than half the days Total KAUR-7 score (0-4 normal; 5-9 mild; 10-14 moderate; 15-21 severe): 15 Source: Developed by Drs. Bennett Bhagat, Alannah Steve, Terence Donato and colleagues, with an educational alejandro from [employer]. KAUR-7 Assessment Billing KAUR-7 Assessment Tool: KAUR-7 Assessment 87060 Review of Systems Const Denies chills, Denies fever(s) and Denies headache(s) Eyes Denies blurry vision ENT Denies headache(s), Denies nasal discharge, Denies nasal obstruction, Denies odynophagia and Denies sinus pain Card Denies chest pain at rest and Denies chest pain with activity Resp Denies cough and Denies hemoptysis GI Denies diarrhea, Denies odynophagia, Denies vomiting and Denies hematemesis Reports as per HPI Skin/Breast Reports as per HPI Neuro Denies Neuro-related abnormal movements, Denies Abnormal speech present and Denies headache(s) Psych Denies mood swings and Denies paranoia Endo Reports as per HPI Manuel/Lymph Reports as per HPI Aller/Immun Reports as per HPI Physical exam (Primary Care) Vital Signs: Last Vital Signs Pulse 72 11/24/22 12:16 BP 122/82 11/24/22 12:16 Pulse Ox 93 11/24/22 12:16 Oxygen Delivery Method Room Air 11/24/22 12:16 BMI result Body Mass Index 23.1 Tobacco/Smoking Status: Tobacco use Status Tobacco use date assessed 11/24/22 11/24/22 12:18 Patient Tobacco Use Status Never used Tobacco 11/24/22 12:18 Tobacco use type Smokeless Tobacco 11/24/22 12:18 e-Cigarette/Vaping Use Currently Using 11/24/22 12:18 Depression Screening Interpretation: Negative Thrive Assessment: Date of Thrive Assessment Date Thrive assessed 06/21/22 11/24/22 12:18 Const General: cooperative, comfortable and no acute distress Orientation/consciousness: patient oriented x3 HENMT Head: Yes normocephalic and Yes atraumatic Eyes General: appearance normal, both eyes and all related structures Pupils: Equal, round and reactive pupils present EOM: EOMs intact bilaterally Neck Neck: Yes supple and No lymphadenopathy Thyroid: Thyroid normal Lymphatic: no lymphadenopathy noted Chest Other: History of bilateral mastectomy Resp Effort & Inspection: normal respiratory effort and able to speak in complete sentences Auscultation: clear to auscultation bilaterally Cardio Heart sounds: S1 normal heart sound present and S2 normal heart sound present GI Palpation (GI): Soft to palpation and nontender Auscultation: normal bowel sounds General: Yes no CVA tenderness Back/Spine/Pelvis Back: no CVA tenderness Skin General skin exam: elasticity normal and turgor normal Neuro Other: failed Romberg, unable to perform tandom walk General: patient oriented x3 Cranial nerves: Yes Equal, round and reactive pupils present Speech: No Abnormal speech present Extrem General: Yes normal exam except as noted and No edema Assessment and Plan Assessment & Plan (1) Encounter for general adult medical examination with abnormal findings: Code(s): Z00.01 - Encounter for general adult medical examination with abnormal findings (2) Sjogren syndrome with myopathy: Code(s): M35.03 - Sjogren syndrome with myopathy (3) Fibromyalgia: Code(s): M79.7 - Fibromyalgia (4) Muscular dystrophy: Code(s): G71.00 - Muscular dystrophy, unspecified (5) Chronic GERD: Code(s): K21.9 - Gastro-esophageal reflux disease without esophagitis (6) Lipid disorder: Code(s): E78.9 - Disorder of lipoprotein metabolism, unspecified (7) Constipation by delayed colonic transit: Code(s): K59.01 - Slow transit constipation (8) Bipolar 1 disorder: Code(s): F31.9 - Bipolar disorder, unspecified (9) Other sexual disorders: Code(s): F66 - Other sexual disorders (10) S/P insertion of spinal cord stimulator: Code(s): Z96.89 - Presence of other specified functional implants (11) IBS (irritable bowel syndrome): Code(s): K58.9 - Irritable bowel syndrome without diarrhea Qualifiers: Irritable bowel syndrome type: with constipation Qualified Code(s): K58.1 - Irritable bowel syndrome with constipation (12) Other spondylosis with radiculopathy, lumbar region: Code(s): M47.26 - Other spondylosis with radiculopathy, lumbar region (13) Postlaminectomy syndrome, not elsewhere classified: Code(s): M96.1 - Postlaminectomy syndrome, not elsewhere classified (14) Elevated blood sugar: Code(s): R73.9 - Hyperglycemia, unspecified (15) Chronic vertigo: Comment: stable Code(s): R42 - Dizziness and giddiness Plan Patient is a 67-year-old female came in today for physical examination Colonoscopy was in [address] Farfan [facility] She is no longer having Pap smear Patient have a history of bilateral mastectomy secondary to gender identity disorder LFTs are stable Patient have Sjogren syndrome with myopathy Muscular dystrophy and fibromyalgia She has appointment coming up with the general warehouse worker meanwhile she is having a flare-up of her symptoms having severe sore muscles I have sent prednisone 10 mg tablets patient is to take 1 daily for 5 days and then 5 mg. Her CPKs were 364 in October Her balance is not stable due to bilateral ankle fusion as well as back pain She is on high-dose Lyrica through [facility]. Her hemoglobin is within normal limit now patient will stop taking iron supplement She have a history of severe constipation which is managed with the help of Linzess Patient is to return in 4 months, lab needs to be done before visit we will be monitoring liver enzymes CBC as well as sugar. Her friend sugar was 200 in October Orders: Orders Complete Blood Count Auto Diff Today E78.9 - Disorder of lipoprotein metabolism, unspecified, F31.9 - Bipolar disorder, unspecified, G71.00 - Muscular dystrophy, unspecified, K21.9 - Gastro-esophageal reflux disease without esophagitis, K58.9 - Irritable bowel syndrome without diarrhea, K59.01 - Slow transit constipation, M79.7 - Fibromyalgia, R73.9 - Hyperglycemia, unspecified Hemoglobin A1c Today E78.9 - Disorder of lipoprotein metabolism, unspecified, F31.9 - Bipolar disorder, unspecified, G71.00 - Muscular dystrophy, unspecified, K21.9 - Gastro-esophageal reflux disease without esophagitis, K58.9 - Irritable bowel syndrome without diarrhea, K59.01 - Slow transit constipation, M79.7 - Fibromyalgia, R73.9 - Hyperglycemia, unspecified Comprehensive Met. Panel Today E78.9 - Disorder of lipoprotein metabolism, unspecified, F31.9 - Bipolar disorder, unspecified, G71.00 - Muscular dystrophy, unspecified, K21.9 - Gastro-esophageal reflux disease without esophagitis, K58.9 - Irritable bowel syndrome without diarrhea, K59.01 - Slow transit constipation, M79.7 - Fibromyalgia, R73.9 - Hyperglycemia, unspecified Coding Level of Care Code Est Pt Prev Care >65y(20229) Diagnoses Encounter for general adult medical examination with abnormal findings Z00.01 Sjogren syndrome with myopathy M35.03 Fibromyalgia M79.7 Muscular dystrophy G71.00 Chronic GERD K21.9 Lipid disorder E78.9 Constipation by delayed colonic transit K59.01 Bipolar 1 disorder F31.9 Other sexual disorders F66 S/P insertion of spinal cord stimulator Z96.89 Irritable bowel syndrome with constipation K58.1 Irritable bowel syndrome type: with constipation Other spondylosis with radiculopathy, lumbar region M47.26 Postlaminectomy syndrome, not elsewhere classified M96.1 Elevated blood sugar R73.9 Chronic vertigo R42 Additional Codes KAUR-7 Assessment Billing - KAUR-7 Assessment Tool: KAUR-7 Assessment [id number] ([id number])
== END 2022-11-24 12:37 | disposition home or self-care (01) ==
PROVIDERS: Visit Provider Internal Medicine
DX: Z00.00 Encounter for general adult medical examination without abnormal findings (principal); K21.9 Gastro-esophageal reflux disease without esophagitis; F31.9 Bipolar disorder, unspecified; F66 Other sexual disorders; M35.03 Sjogren syndrome with myopathy; G71.00 Muscular dystrophy, unspecified; K58.1 Irritable bowel syndrome with constipation; M79.7 Fibromyalgia; E78.9 Disorder of lipoprotein metabolism, unspecified; K59.01 Slow transit constipation; Z96.89 Presence of other specified functional implants; M47.26 Other spondylosis with radiculopathy, lumbar region
CPT/HCPCS: 99397

== ENCOUNTER 2022-12-04 09:24 | Outpatient (AMB) | payer MEDICARE, MEDICAID, SELFPAY ==
--- NOTE | 2022-12-04 10:17 | A.OFFVIS_ITS ---
Intake Vital Signs 12/04/22 10:41 Height 5 ft 1 in Weight 121 lb BMI 22.9 BP 130/78 Blood Pressure Location Rt brachial Position Sitting Respiration 14 Pulse 83 Pulse Source Pulse Oximeter Pulse Oximetry (%) 96 Oxygen Delivery Method Room Air Intake Visit Reasons: MEDICATION DISCUSSION Allergies No Known Allergies Allergy (Verified 12/04/22 10:40) HPI MEDICATION DISCUSSION HPI Details HAL white is in my office today with complains on new pain in the right flank with radiation into the upper right abdomen with sensations of burning pins the needles and tingling in that area. She reports that this pain started in March when she was knocked out by her sister's dog. She reports most sensitive point on palpation in the projection of the right 12th rib. She is postlaminectomy syndrome patient who is suffering from lower back pain. She was inserted with spinal cord stimulation name [employer] machine and she reports excellent pain relieve of her previous pain. However pain as above is a new pain and it is not being covered by her machine. She has negative about opioid medications the give her severe constipation. Prior: She has multiple surgeries in the past including surgery in the back and she is negative about another surgery in her back. She is suffering from fibromyalgia She reports multiple areas of pain, with her lower back being the most troublesome. She sees rheumatology currently who has prescribed her Naproxen and Lyrica, both of which provide some relief. She has also been using some CBD tincture which is also helpful. History of severe canal stenosis at L3/4, for which she had a decompression by Dr. Orta in May 2017. She received relief following surgery and completed recommended PTl HPI Comments History of Present Illness Details Juan is in my office today with complains on mostly axial pain in the lower back. She reports that [employer] [facility] is still working for her and alleviate pain in bilateral lower extremities however she reports that pain in the axial lower back is getting stronger. We decided that I will refer this patient for evaluation by [employer] specialist who may introduce DT M protocol in her spinal cord stimulator. She is welcome to come back with the results she needs to make an appointment. She also asks me to refill the pregabalin 300 mg b.i.d. prescription for her. She is postlaminectomy syndrome patient who is suffering from lower back pain. She was inserted with spinal cord stimulation name [employer] machine and she reports excellent pain relieve of her previous pain. However pain as above is a new pain and it is not being covered by her machine. She has negative about opioid medications the give her severe constipation. Prior: She has multiple surgeries in the past including surgery in the back and she is negative about another surgery in her back. She is suffering from fibromyalgia She reports multiple areas of pain, with her lower back being the most troublesome. She sees rheumatology currently who has prescribed her Naproxen and Lyrica, both of which provide some relief. She has also been using some CBD tincture which is also helpful. History of severe canal stenosis at L3/4, for which she had a decomp ression by Dr. Orta in May 2017. 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, lumbar region Postlaminectomy syndrome, not elsewhere classified Fibromyalgia Other sexual disorders Bipolar 1 disorder IBS (irritable bowel syndrome) Muscular dystrophy Chronic vertigo Chronic GERD Lipid disorder Constipation by delayed colonic transit Surgical History H/O colonoscopy Status post insertion of nerve stimulator Previous back surgery History of ankle surgery H/O mastectomy History of hip surgery Family History Father Mesothelioma Brother Mesothelioma Paternal Grandfather Mesothelioma Brother Mesothelioma Paternal Grandmother Stomach cancer Paternal Aunt Lung cancer Family/Other Breast cancer Other Mental health disorder Substance use disorder Social History Household Members: Family Housing: House Are you a primary managed care specialist to a significant other at home: Yes (mother) Do you presently have visiting nurse or other home services: No Alcohol intake: never Patient Tobacco Use Status: Never used Tobacco Tobacco use type: Smokeless Tobacco e-Cigarette/Vaping Use: Currently Using Substance Use Type: Marijuana service: No Current occupational status: disabled Cognitive needs: No Hearing needs: No Vision needs: No Review of Systems Const All systems reviewed & are unremarkable except as noted in HPI and below Eyes Denies photophobia Neuro Denies Sensory deficit (Neuro) Physical Exam Vital Signs: Last Vital Signs Pulse 83 12/04/22 10:41 Resp 14 12/04/22 10:41 BP 130/78 12/04/22 10:41 Pulse Ox 96 12/04/22 10:41 Oxygen Delivery Method Room Air 12/04/22 10:41 BMI result Body Mass Index 22.9 Const General: comfortable, no acute distress, well developed, alert, awake and Physically active Eyes Direct Ophthalmoscopy: No photophobia Chest Chest palpation & inspection: normal inspection of the chest Resp Effort & Inspection: normal respiratory effort, able to speak in complete sentences, normal respiratory pattern, no audible wheezes and no cough Cardio Jugular venous distension: no JVD GI Inspection: Yes normal to inspection General: Yes no CVA tenderness Back/Spine/Pelvis Other: Palpation of the right 12th rib approximately on posterior axillary line causes severe pain with radiation of the pain along side the rib and into the anterior right abdomen. Back: no CVA tenderness Cervical Spine: cervical ROM normal Thoracic/Lumbar Spine: Thoracic/lumbar spine scar(s) Neuro Sensory Exam: No Sensory deficit (Neuro) Psych Appearance: grossly normal Mental Status: mental status grossly normal Speech and movement: Normal speech and movement present Assessment & Plan Assessment & Plan (1) Fibromyalgia: Code(s): M79.7 - Fibromyalgia (2) Postlaminectomy syndrome, not elsewhere classified: Code(s): M96.1 - Postlaminectomy syndrome, not elsewhere classified (3) Other spondylosis with radiculopathy, lumbar region: Code(s): M47.26 - Other spondylosis with radiculopathy, lumbar region (4) S/P insertion of spinal cord stimulator: Code(s): Z96.89 - Presence of other specified functional implants (5) Intercostal neuralgia: Code(s): 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 as below. I will refer her to [employer] rep to introduce DT José Miguel on her spinal cord stimulator. That might help her axial pain. The device continues to work and helps her with the pain radiating down to bilateral lower extremities. Medications: Refilled pregabalin (Lyrica) 300 mg PO BID 60 caps 5RF 30 days Coding Level of Care Code Est Pt Level 4 (30729) Diagnoses Fibromyalgia M79.7 Postlaminectomy syndrome, not elsewhere classified M96.1 Other spondylosis with radiculopathy, lumbar region M47.26 S/P insertion of spinal cord stimulator Z96.89 Intercostal neuralgia G58.8
[2022-12-04 10:41] VITALS: BP 130/78; PULSE 83; RESP 14; O2SAT 96; BMI 22.9
== END 2022-12-04 10:36 | disposition home or self-care (01) ==
PROVIDERS: PCP Internal Medicine; Visit Provider Anesthesiology
DX: M79.7 Fibromyalgia (principal); M96.1 Postlaminectomy syndrome, not elsewhere classified; M47.26 Other spondylosis with radiculopathy, lumbar region; Z96.89 Presence of other specified functional implants; G58.8 Other specified mononeuropathies
CPT/HCPCS: 99214

== ENCOUNTER → 2022-12-04 09:24 | Outpatient (BNVA) | payer MEDICARE, MEDICAID, SELFPAY | PROVIDERS: PCP Internal Medicine; Visit Provider Anesthesiology | DX: M79.7 Fibromyalgia (principal); M96.1 Postlaminectomy syndrome, not elsewhere classified; M47.26 Other spondylosis with radiculopathy, lumbar region; G58.8 Other specified mononeuropathies; Z96.89 Presence of other specified functional implants | CPT/HCPCS: 99212 ==

== ENCOUNTER → 2022-12-05 10:11 | Outpatient (BNVA) | payer MEDICARE, MEDICAID, SELFPAY | PROVIDERS: PCP Internal Medicine; Visit Provider Anesthesiology | DX: Z45.42 Encounter for adjustment and management of neurostimulator (principal) | CPT/HCPCS: 99211 ==

== ENCOUNTER 2023-01-18 12:41 | Outpatient (AMB) | payer MEDICARE, MEDICAID, SELFPAY ==
--- NOTE | 2023-01-18 12:45 | A.OFFVIS_ITS ---
Intake Vital Signs 01/18/23 12:49 Height 5 ft 1 in Weight 126 lb 1.671 oz BMI 23.8 BP 100/82 Blood Pressure Location Rt brachial Position Sitting Pulse 91 Pulse Source Pulse Oximeter Temp 97.2 F Temp Source Skin Pulse Oximetry (%) 96 Oxygen Delivery Method Room Air Intake Visit Reasons: Polymyositis Intake Note: New patient referred to us by Dr. Cade for polymyositis. [place] [facility]. Geological Sample Tester Required: No Accompanied by: Self / Same As Patient Allergies No Known Allergies Allergy (Verified 12/05/22 10:25) HPI HPI Comments History of Present Illness Details Abby is a 67yoF, who presents today for evaluation and treatment of Polymyositis. Per patient, she was diagnosed over 8 years ago due to increase muscle weakness, excessive fatigue and elevated CK and aldolase. She was successfully treatment with prednisone and has not had a recurrence. However, in recent months she has been feeling more weakness and tired and her CK is trending up so she wanted to get checked out before it worsened. She has had right ankle fusion surgery in 2020 and the right ankle was done over 7years ago. The patient has had multiple surgeries - see PMSH section, and has a spinal cord stimulator, secondary to chronic sciatica and lower extremity pain and weakness. Prior to the [employer] spinal cord stimulator, this progressed to to a stage where she could not walk and had frequent falls. Though she is now able to walk and the stimulator has relieved the pain in the bilateral lower extremities, she continues with chronic pain in the lower back that is worsening. She takes pregabalin 300 mg b.i.d and Naproxen prn which she states is effective. She reports being diagnosed with Sjogren's 20 years ago and suffers from dry eyes and dry mouth. She has had an eye test at the hospital many years ago, I think it was this one , that confirmed the dry eye syndrome. She uses eye drops multiple times per day. However, Abby denies episodes of red burning eyes needing steroids to treat, episodes of mouth sores or ulcers, nose bleed, ring ing in the ear. She denies fevers, excessive fatigue, unexplained weight-loss or weight-gain. The patient denies Raynaud's phenomenon, butterfly rash on face or other rashes; denies photosensitivity - getting sick or developing a rash from being out in the sun; denies blood or froth in urine; patient denies hx of SOB, chest pain. She denies a hx of Carditis or Pleuritis and DVT/PE. She denies t hinning hair or hair loss. She does not experience from unexplained abdominal pain. She denies blood or mucous in stool, nausea, vomiting and diarrhea , difficulty swallowing. She gets occasional heartburn and takes Omeprazole an average of 2 times per month. She endorses joint and muscle stiffness that last throughout the day. She reports she has not been following up with her eye doctor, rheumatology and others because it gets overwhelming to do, It just gets to be too much I just wanted a break . Malignancy: denies personal cancer hx. 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, lumbar region Postlaminectomy syndrome, not elsewhere classified Fibromyalgia Other sexual disorders Bipolar 1 disorder IBS (irritable bowel syndrome) Muscular dystrophy Chronic vertigo Chronic GERD Lipid disorder Constipation by delayed colonic transit Surgical History H/O colonoscopy Status post insertion of nerve stimulator Previous back surgery History of ankle surgery H/O mastectomy History of hip surgery Family History (Updated 01/18/23 @ 12:53 by TROY Lee) Father Mesothelioma Brother Mesothelioma Paternal Grandfather Mesothelioma Brother Mesothelioma Paternal Grandmother Stomach cancer Paternal Aunt Lung cancer Family/Other Breast cancer Other Mental health disorder Osteoarthritis Substance use disorder Social History Household Members: Family Housing: House Are you a primary student career development specialist to a significant other at home: Yes (mother) Do you presently have visiting nurse or other home services: No Alcohol intake: never Patient Tobacco Use Status: Never used Tobacco Tobacco use type: Smokeless Tobacco e-Cigarette/Vaping Use: Currently Using Substance Use Type: Marijuana service: No Current occupational status: disabled Cognitive needs: No Hearing needs: No Vision needs: No Female Reproductive History Menstrual Total pregnancies: 0 Review of Systems Const All systems reviewed & are unremarkable except as noted in HPI and below Physical Exam Vital Signs: Last Vital Signs Temp 97.2 F 01/18/23 12:49 Pulse 91 01/18/23 12:49 BP 100/82 01/18/23 12:49 Pulse Ox 96 01/18/23 12:49 Oxygen Delivery Method Room Air 01/18/23 12:49 BMI result Body Mass Index 23.8 APPEARANCE: Patient in no acute distress EYES no redness, pupils equal and reactive to light, eyelids normal EARS:? External ear normal, canal clear and tympanic membrane normal. NOSE/SINUS:? Airflow through both nares, no nasal discharge, no bleeding THROAT:? Oral mucosa dry, no ulcerations NECK:? No thyromegaly or masses, no adenopathy, trachea midline. HEART:? Regulrar rhythm, S1-S2 heard, no murmurs, rubs or gallops. LUNG:? Clear to percussion and auscultation ABD:? Normal bowel sounds, no organomegaly, masses or tenderness. EXTREMITIES:? No edema, no calf tenderness, normal peripheral pulses. NEURO:? Oriented and alert x3.? No focal weakness.? Reflexes symmetric. Walks with a Crutch on left. Spinal cord stimulator. SKIN:? There are no skin lesions evident. No objective signs of Raynaud's phenomenon. JOINT EXAM: Cervical Spine:.? Full range of motion without pain; no tenderness. Thoracic Spine:.? No tenderness on palpation. Per 03/24/22 Xray Mild thoracolumbar dextroscoliosis Lumbar Spine:.? no tenderness. Chest Wall:.? No tenderness, swelling, increased warmth or erythema. Hands:.? Normal pain-free range of motion without tenderness, swelling, increased warmth or erythema. 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 She does report breaking the left fifth digit Wrists:.? Normal pain-free range of motion without tenderness, swelling, increased warmth or erythema. Elbows:. Normal pain-free range of motion without tenderness, swelling, increased warmth or erythema. Shoulders:.?? Full range of motion without pain. No tenderness, weakness, swelling, increased warmth or erythema. Hips:.? Full range of motion without pain. Hip bursa:.? No tenderness. Knees:.?? Normal pain-free range of motion without tenderness, swelling, increased warmth or erythema.? There is no effusion or crepitation Ankles:.? Normal pain-free range of motion without tenderness, swelling, increased warmth or erythema. Feet:.? Normal pain-free range of motion without tenderness, swelling, increased warmth or erythema. Tender points:? No tenderness to digital palpation at the occiput, trapezius, second rib, lateral epicondyle, knees, greater trochanter and gluteal area bilaterally. Strength 5/5 shoulder abductors, elbow flexors, elbow extensors, wrist extensors, finger flexors, hand intrinsics, hip flexors, knee extensors, dorsiflexors, great toe extensor, and plantar flexors.? ? Results Reviewed Results Reviewed: Laboratory Tests 11/07/22 01/19/23 01/19/23 08:45 10:40 10:40 Chloride 108 109 H Anion Gap 14 9 L Random Glucose 200 H 79 Calcium 10.6 H D 9.8 D AST 48 H 47 H ALT 35 H 29 Total Creatine Kinase 364 H 267 H EXAMINATION: US CHEST CLINICAL INFORMATION: 66-year-old female. 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 COMPARISON: CT abdomen 11/21/2021, radiographs thoracic spine 03/24/2022 TECHNIQUE: Real-time linear grayscale imaging of the area of clinical concern right chest is performed by nursing professor. Grayscale imaging and color Doppler are performed. FINDINGS: The submitted images demonstrate no skin thickening, edema tracking in soft tissue planes, or hyperemia. There is no cystic or solid soft tissue mass demonstrated. The chest wall soft tissues and anterior rib contours are unremarkable. US/US chest IMPRESSION: -Unremarkable examination. EXAMINATION: CR X-RAY THORACIC AND LUMBAR SPINE CLINICAL INFORMATION: Back pain status post injury. COMPARISON: CT scan of the abdomen and pelvis dated 11/22/2021. TECHNIQUE: 3 views each of the thoracic and lumbar spine were obtained. FINDINGS: Mild thoracolumbar dextro scoliosis is seen with apex at T11-12. Mild to moderate multilevel degenerative changes are seen in the thoracic spine, most pronounced inferiorly. Severe degenerative changes are again seen in the lumbar spine. There is partial osseous fusion of L1 and L2. Grade 1 anterolisthesis of L4 is seen with severe endplate degenerative changes at L4-5. No overt fracture. The soft tissues are unremarkable. Spinal simulation leads are seen terminating at the level of T7. MR#: [id number] : 1955 Acct:[id number] Age/Sex: 65 / F ADM Date: 01/20/21 Loc: HO.ED Ordering Physician: Marcelo Grayson Date of Service: 01/20/21 Procedure(s): XR knee RT 4V Accession Number(s): [id number] cc: Marcelo Grayson ~ EXAMINATION: XR KNEE, RIGHT CLINICAL INFORMATION: Trauma, pain. COMPARISON: No similar priors. TECHNIQUE: Four views of the right knee. FINDINGS: No evidence of acute fractures or malalignment. There are mild to moderate tricompartmental degenerative changes with joint space narrowing, subchondral sclerosis and osteophytosis, more prominent in the medial compartment. There is subtle chondrocalcinosis. No joint effusion or unexpected radiopaque foreign bodies. Assessment & Plan Assessment & Plan (1) Polymyositis with myopathy: Code(s): M33.22 - Polymyositis with myopathy (2) Primary osteoarthritis involving multiple joints: Code(s): M15.9 - Polyosteoarthritis, unspecified (3) Osteoarthritis, hand: Code(s): M19.049 - Primary osteoarthritis, unspecified hand Qualifiers: Laterality: bilateral Osteoarthritis type: primary Qualified Code(s): M19.041 - Primary osteoarthritis, right hand; M19.042 - Primary osteoarthritis, left hand (4) Osteoporosis screening: Code(s): Z13.820 - Encounter for screening for osteoporosis (5) Osteoporosis: Code(s): M81.0 - Age-related osteoporosis without current pathological fracture Qualifiers: Osteoporosis type: age-related Presence of current pathological fracture: without current pathological fracture Qualified Code(s): M81.0 - Age- related osteoporosis without current pathological fracture Plan #Polymyositis: Ms. Mora 67 yo F has been treated for Polymtositis over 10 years ago and now reports increased weakness and elevated CK. In reviewing her history, I think it is reasonable to say that muscle denervation is compounding the polymositis. Per patient should was unable to walk for long time after her back surgery and so without the stimulator she cannot walk. Polymyositis is active when CK is at least 5 times the normal limits, there is muscle weakness in the shoulders and hips, difficult to raise the arms over the head, hard to get up from a sitting position or climb stairs, difficulty swallowing. Though she denied tenderness to palpation and exhibited no weakness during the muscle strength test part of the exam, I did observe that it was hard to rise from sitting which she attributes to her thiugh muscles feeling fatigued. This could also be compounded by her ankle fusions. Additionally, her strength is 5/5 against provider resistance for all muscles groups. I did not see labs for myositis or CK for that period of onset (Mar 2011) but the patient stipulated that the CK was significantly elevated. In reviewing the labs from October 2022, I can see that the CK is 364 and patient can corroborate that with a period if increase weakness. I have reviewed multiple laboratory reports starting from 2009 and have not identified an elevated CK. The aldoloase was elevated at 8.8 in 03/30/2011 at the approximate time of first diagnosis inferred from patient. Additionally, all subsequent aldolase results were WNL. March 2011 and February 2018 also showed rheumatology lab results were WNL Recent labs shows that the CK is trending down 364 (10/2022) to 267 (01/19/2023). She was given a 10 day Prednisone taper on 11/29/2022 per PCP starting at 10 mg QD x 7 days then 5 mg QD x 7 days which might account for the decrease in the CK. I will order a Myositis Panel and other autoimmune labs, CK and Aldolase. I will give her another Prednisone taper and recheck CK in 1 month. Patient agrees with treatment plan. #Sjogren's Syndrome: Patient did endorse dry eyes and dry mouth and dry oral mucosa observed on PE. She also suffers from chronic constipation which can also be a factor with sjogren's. What was also significant in my review of her Historical records, was Body scan done 05/29/2011 and the findings were suggestive of Sjogren's Syndrome given that there was a slight uptake of contrast within the bilateral parotid, submandibular and lacrimal glands (reported by Alexandrea Márquez M.D). She currently does not take medications for dry mouth by uses eye drops twice per day. She has not seen the eye MD in over 1 year and will be scheduling an appointment. Reiterated to patient to use biotene, and to keep dental appointments. She says she does drink adequate water. There was no adenopathy on exam. According to the [employer], patient's with Sjogren's has a slight increased risk of Lymphoma - symptoms such painless swollen glands, usually in neck, armpit or groin - none observed on PE. #Degenerative Disc Disease. I have reviewed A 2019 MRI of Lumbar spine. There was disc bulge, severe central canal stenosis and severe foraminal narrowing at several levels L3/L4/L5/S1. She also had significant compression of the exiting C5 nerve root. The C5 nerve root compression would no doubt cause weakness and pain in shoulders and weakness in the upper extremities. The patient has been suffering from DDD for a long time and it has a significant role in her pain and her weakness. She has had laminectomy decompression surgery and do not desire repeat surgery. She will continue to see pain management for injections. The spine stimulator does provide relief. She will also continue with Lyrica and ibuprofen. #Osteoarthritis Multiple sites: She has boutonniere deformity of fingers as highlighted in PE section. This is usually a symptom of RA but there is no other evidence of RA. Patient has no complaint's of hand pain. She also have OA of her knee per xray. I will obtain OA of the hands to observe for RA symptoms. #Osteoporosis: Given her history on Prednisone, ankle fracture in 2021 and ankle fusion surgery, history of GERD, former smoker with sever DDD, will obtain a Bone Density. If indicated will start treatment for osteoporosis. 1 month follow-up Orders: Orders Other Ref Test - Misc 01/19/23 M33.20 - Polymyositis, organ involvement unspecified Aldolase 01/19/23 M33.20 - Polymyositis, organ involvement unspecified Complete Blood Count Auto Diff 01/19/23 M33.20 - Polymyositis, organ involvement unspecified Complement C3 01/19/23 M33.20 - Polymyositis, organ involvement unspecified Creatine Kinase Total 01/19/23 M33.20 - Polymyositis, organ involvement unspecified C Reactive Protein 01/19/23 M33.20 - Polymyositis, organ involvement unspecified Rheumatoid Factor 01/19/23 M19.049 - Primary osteoarthritis, unspecified hand XR DEXA axial skeleton 01/18/23 M3. - Polymyositis with myopathy, M81.0 - Age-related osteoporosis without current pathological fracture Anti Extractable Nuclear Ag 01/19/23.20 - Polymyositis, organ involvement unspecified Comprehensive Met. Panel 01/19/23. - Polymyositis, organ involvement unspecified Complement C4 01/19/23. - Polymyositis, organ involvement unspecified Erythrocyte Sedimentation Rate 01/19/23. - Polymyositis, organ involvement unspecified Immunoglobulins,IgG IgA IgM 01/19/23. - Polymyositis, organ involvement unspecified PTHI 01/19/23. - Polymyositis, organ involvement unspecified Protein Electrophoresis, Serum 01/19/23. - Polymyositis, organ involvement unspecified Protein Electrophoresis,Ran Ur Today M3. - Polymyositis, organ involvement unspecified TSH reflex Free T4 01/19/23. - Polymyositis, organ involvement unspecified XR hand RT min 3V Today M19.049 - Primary osteoarthritis, unspecified hand XR hand LT min 3V Today M19.049 - Primary osteoarthritis, unspecified hand, M33.20 - Polymyositis, organ involvement unspecified Cyclic Citrullinated Peptide 01/19/23 M19.049 - Primary osteoarthritis, unspecified hand Vitamin D 1,25 dihydroxy 01/19/23 Z13.820 - Encounter for screening for osteoporosis FARIBA Reflex Titer and Pattern 01/19/23. - Polymyositis, organ involvement unspecified Coding Level of Care Code New Pt Level 5 (85795) Diagnoses Polymyositis with myopathy . Primary osteoarthritis involving multiple joints M15.9 Primary osteoarthritis of both hands M19.041; M19.042 Laterality: bilateral Osteoarthritis type: primary Osteoporosis screening Z13.820 Age-related osteoporosis without current pathological fracture M81.0 Osteoporosis type: age-related Presence of current pathological fracture: without current pathological fracture
[2023-01-18 12:49] VITALS: BP 100/82; PULSE 91; TEMP 36.2; O2SAT 96; BMI 23.8
== END 2023-01-18 14:05 | disposition home or self-care (01) ==
PROVIDERS: PCP Internal Medicine; Visit Provider Nurse Practitioner Family
DX: M33.22 Polymyositis with myopathy (principal); M19.041 Primary osteoarthritis, right hand; M19.042 Primary osteoarthritis, left hand; M81.0 Age-related osteoporosis without current pathological fracture; M35.00 Sjogren syndrome, unspecified
CPT/HCPCS: 99204

== ENCOUNTER → 2023-01-18 12:41 | Outpatient (BNVA) | payer MEDICARE, MEDICAID, SELFPAY | PROVIDERS: PCP Internal Medicine; Visit Provider Nurse Practitioner Family | DX: M33.22 Polymyositis with myopathy (principal); M79.7 Fibromyalgia; M81.0 Age-related osteoporosis without current pathological fracture; M19.042 Primary osteoarthritis, left hand; M19.041 Primary osteoarthritis, right hand; M96.1 Postlaminectomy syndrome, not elsewhere classified; G71.00 Muscular dystrophy, unspecified; Z96.82 Presence of neurostimulator; Z90.13 Acquired absence of bilateral breasts and nipples | CPT/HCPCS: 99202 ==

== ENCOUNTER 2023-01-19 10:29 | Outpatient (REF) | payer MEDICARE, MEDICAID, SELFPAY ==
[2023-01-19 13:14] LABS: MANUAL DIFF FLAG NO
[2023-01-19 13:30] LABS: Basophils Percent Auto 0.8 % (0-2); Eosinophils Absolute Auto 0.2 X10*3/uL (0.0-0.4); Hemoglobin 13.7 g/dl (12.0-16.0); Imm Gran Abs Auto 0.01 X10*3/uL (0.00-0.03); Imm Gran Pct Auto 0.2 % (0.0-0.4); Lymphocytes Absolute Auto 1.4 X10*3/uL (1.2-4.9); Lymphocytes Percent Auto 28.2 % (20-40); Mean Corpuscular HGB Conc 31.9 g/dl (31.0-35.0); Mean Corpuscular Volume 91.1 fL (80.0-98.0); Mean Platelet Volume 10.5 fL (9.4-12.3); Monocytes Absolute Auto 0.5 X10*3/uL (0.1-1.2); Monocytes Percent Auto 9.3 % (2-11); Neutrophils Absolute Auto 2.9 x10*3/uL (2.0-8.3); Neutrophils Percent Auto 58.5 % (45-73); Platelet Count 374 X10*3/uL (160-400); Red Blood Count 4.72 X10*6/uL (4.20-5.50); Red Cell Distribution Width 12.9 % (11.0-16.0); White Blood Count 4.9 X10*3/uL (4.8-10.8)
[2023-01-19 13:51] LABS: Alanine Aminotransferase 29 U/L (0-31); Alkaline Phosphatase 60 U/L (39-117); Anion Gap 9 (12-20); Aspartate Amino Transferase 47 U/L (5-31); Bilirubin Total 0.3 mg/dL (0.0-1.0); Blood Urea Nitrogen 13 mg/dL (9-16); C Reactive Protein 0.14 mg/dL (< or = 0.50); Calcium 9.8 mg/dL (8.4-10.2); Carbon Dioxide 25 mmol/L (22-29); Chloride 109 mmol/L (96-108); Estimated Glomerular Filt Rate > 60; Glucose Random 79 mg/dL (60-115); Potassium 3.8 mmol/L (3.3-5.1); Sodium 139 mmol/L (135-145)
[2023-01-19 13:55] LABS: Rheumatoid Factor < 13.0 IU/mL (<15.0)
[2023-01-19 14:03] LABS: Erythrocyte Sedimentation Rate 8 MM/HR (0-20)
[2023-01-19 14:12] LABS: TSH reflex Free T4 3.37 uIU/mL (0.32-4.0)
[2023-01-22 11:48] LABS: Complement C3 131 mg/dL (83-193)
[2023-01-22 12:33] LABS: Cyclic Citrullinated Peptide <16 UNITS
[2023-01-22 12:52] LABS: Calcium (PTHI) 9.9 mg/dL (8.6-10.4); PTHI 25 pg/mL (16-77)
[2023-01-22 21:23] LABS: IgA 169 mg/dL (70-320); IgG 1018 mg/dL (600-1540); IgM 148 mg/dL (50-300)
[2023-01-22 22:54] LABS: Prot Elec - Alpha1 0.4 g/dL (0.2-0.3); Prot Elec - Alpha2 0.6 g/dL (0.5-0.9); Prot Elec - Beta 1 0.5 g/dL (0.4-0.6); Prot Elec - Beta 2 0.3 g/dL (0.2-0.5); Prot Elec - Gamma 0.9 g/dL (0.8-1.7); Prot Elec - Total Protein 6.6 g/dL (6.1-8.1)
[2023-01-23 12:18] LABS: VITAMIN D (1,25 OH) D3 26 pg/mL; Vit D (1,25-Dihydroxy) Total 26 pg/mL (18-72); Vitamin D (1,25 OH) D2 <8 pg/mL
[2023-01-24 11:14] LABS: Aldolase 3.7 U/L (<=8.1)
[2023-01-25 11:29] LABS: SM/Ribonucleoprotein Ab <1.0 NEG AI (<1.0 NEG); Smith Protein <1.0 NEG AI (<1.0 NEG)
[2023-01-25 12:03] LABS: Anti Nuclear Antibody Pattern Nuclear, Homogeneous; Anti Nuclear Antibody Screen POSITIVE (NEGATIVE)
== END 2023-01-19 10:30 | disposition home or self-care (01) ==
LOC: HO.HMGCLDS 10:29
PROVIDERS: PCP Internal Medicine; Visit Provider Nurse Practitioner Family
DX: Z13.820 Encounter for screening for osteoporosis (principal); M19.049 Primary osteoarthritis, unspecified hand; M33.20 Polymyositis, organ involvement unspecified; E55.9 Vitamin D deficiency, unspecified
CPT/HCPCS: 80053; 82085; 82550; 82652; 82784; 83516; 83520; 83970; 84165; 84182; 84443; 85025; 85652; 86038; 86039; 86140; 86160; 86200; 86235; 86431

== ENCOUNTER 2023-01-22 10:46 | Outpatient (REF) | payer MEDICARE, MEDICAID, SELFPAY ==
--- NOTE | ~2023-01-22 | XR_ITS ---
EXAMINATION: XR hand LT min 3V, XR hand RT min 3V CLINICAL INFORMATION: Osteoarthritis COMPARISON: Hand radiographs 03/30/2011 TECHNIQUE: 3 views of the bilateral hands FINDINGS: RIGHT HAND: No acute fracture or dislocation. 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 Mild ulnar subluxation of the third middle phalanx with respect to the proximal phalanx. Degenerative changes of the hand and wrist progressed from prior worst involving the first carpometacarpal joint with advanced loss of joint space and bony remodeling of the trapezium. Osteopenia. Similar punctate metallic density foreign body in the soft tissues dorsal to the third PIP joint. No cortical erosion. LEFT HAND: No fracture or dislocation. Negative ulnar variance. Degenerative changes of the hand and wrist worse involving the first carpal metacarpal joint where there is complete loss of joint space bony remodeling of the trapezium with findings overall only minimally progressed from remote priors. Osteopenia. No cortical erosion. Soft tissues are unremarkable. XR/XR hand LT min 3V IMPRESSION: RIGHT HAND: 1. Degenerative changes of the hand and wrist progressed from prior worst involving first carpometacarpal joint with advanced loss of joint space and bony remodeling of the trapezium. 2. Osteopenia. 3. Similar punctate metallic density foreign body in the soft tissues dorsal to the third PIP joint. LEFT HAND: 1. Degenerative changes of the hand and wrist worse involving the first carpometacarpal joint where there is complete loss of joint space and bony remodeling of the trapezium with findings overall only minimally progressed from remote priors. 2. Negative ulnar variance. 3. Osteopenia.
--- NOTE | ~2023-01-22 | XR_ITS ---
EXAMINATION: XR hand LT min 3V, XR hand RT min 3V CLINICAL INFORMATION: Osteoarthritis COMPARISON: Hand radiographs 03/30/2011 TECHNIQUE: 3 views of the bilateral hands FINDINGS: RIGHT HAND: No acute fracture or dislocation. 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 Mild ulnar subluxation of the third middle phalanx with respect to the proximal phalanx. Degenerative changes of the hand and wrist progressed from prior worst involving the first carpometacarpal joint with advanced loss of joint space and bony remodeling of the trapezium. Osteopenia. Similar punctate metallic density foreign body in the soft tissues dorsal to the third PIP joint. No cortical erosion. LEFT HAND: No fracture or dislocation. Negative ulnar variance. Degenerative changes of the hand and wrist worse involving the first carpal metacarpal joint where there is complete loss of joint space bony remodeling of the trapezium with findings overall only minimally progressed from remote priors. Osteopenia. No cortical erosion. Soft tissues are unremarkable. XR/XR hand RT min 3V IMPRESSION: RIGHT HAND: 1. Degenerative changes of the hand and wrist progressed from prior worst involving first carpometacarpal joint with advanced loss of joint space and bony remodeling of the trapezium. 2. Osteopenia. 3. Similar punctate metallic density foreign body in the soft tissues dorsal to the third PIP joint. LEFT HAND: 1. Degenerative changes of the hand and wrist worse involving the first carpometacarpal joint where there is complete loss of joint space and bony remodeling of the trapezium with findings overall only minimally progressed from remote priors. 2. Negative ulnar variance. 3. Osteopenia.
--- NOTE | ~2023-01-22 | XR_ITS ---
EXAMINATION: XR CHEST CLINICAL INFORMATION: Possible myositis, organ involvement. Increased muscle weakness. COMPARISON: Thoracic spine 03/24/2022 radiographs. TECHNIQUE: 2 views of the chest were obtained. FINDINGS: There is no gross pneumothorax. Heart size is normal. Tips of electronic stimulator leads project over the [id number] thoracic spine with inferior aspect below the lower margin of the image. Degenerative changes in the thoracic spine were better characterized on exam of 03/24/2022. No pleural effusion. No focal consolidation to suggest pneumonia. XR/XR chest 2V IMPRESSION: No evidence of pneumonia.
[2023-01-25 09:09] LABS: PEU-Protein Creat Ratio Rand NOTE (0.024-0.184); PEU-Rand. Prot/Creat Ratio NOTE mg/g creat (24-184); PEU-Random Ur. Gamma Globulin 0 %; PEU-Random Urine A1 Globulin 0 %; PEU-Random Urine A2 Globulin 0 %; PEU-Random Urine Albumin 0 %; PEU-Random Urine Beta Globulin 0 %; PEU-Random Urine Creatinine 43 mg/dL (20-275); PEU-Random Urine Protein <4 mg/dL (5-24)
== END 2023-01-22 10:47 | disposition home or self-care (01) ==
LOC: HO.HMGCX 10:46
PROVIDERS: PCP Internal Medicine; Visit Provider Nurse Practitioner Family
DX: M33.20 Polymyositis, organ involvement unspecified (principal); M19.049 Primary osteoarthritis, unspecified hand
CPT/HCPCS: 71046; 73130; 82570; 84156; 84166

== ENCOUNTER 2023-02-15 10:36 | Outpatient (REF) | payer MEDICARE, MEDICAID, SELFPAY ==
[2023-02-15 13:18] LABS: MANUAL DIFF FLAG NO
[2023-02-15 13:28] LABS: Basophils Absolute Auto 0.1 X10*3/uL (0.0-0.2); Basophils Percent Auto 1.2 % (0-2); Eosinophils Absolute Auto 0.1 X10*3/uL (0.0-0.4); Hematocrit 40.9 % (37.0-47.0); Hemoglobin 13.1 g/dl (12.0-16.0); Imm Gran Abs Auto 0.02 X10*3/uL (0.00-0.03); Imm Gran Pct Auto 0.5 % (0.0-0.4); Lymphocytes Percent Auto 24.9 % (20-40); Mean Corpuscular Hemoglobin 29.1 pg (27.0-33.0); Mean Corpuscular Volume 90.9 fL (80.0-98.0); Mean Platelet Volume 10.4 fL (9.4-12.3); Monocytes Absolute Auto 0.4 X10*3/uL (0.1-1.2); Neutrophils Absolute Auto 2.6 x10*3/uL (2.0-8.3); Neutrophils Percent Auto 62.4 % (45-73); Platelet Count 366 X10*3/uL (160-400); Red Cell Distribution Width 13.8 % (11.0-16.0); White Blood Count 4.1 X10*3/uL (4.8-10.8)
[2023-02-15 13:42] LABS: Estimated Average Glucose 114 mg/dL; Hemoglobin A1c % 5.6 % (<6.0)
[2023-02-15 14:00] LABS: Alanine Aminotransferase 20 U/L (0-31); Albumin Level 4.1 g/dL (3.5-5.0); Alkaline Phosphatase 54 U/L (39-117); Anion Gap 11 (12-20); Aspartate Amino Transferase 36 U/L (5-31); Bilirubin Total 0.4 mg/dL (0.0-1.0); Blood Urea Nitrogen 20 mg/dL (9-16); Carbon Dioxide 24 mmol/L (22-29); Chloride 108 mmol/L (96-108); Estimated Glomerular Filt Rate > 60; Glucose Random 103 mg/dL (60-115); Potassium 3.8 mmol/L (3.3-5.1); Sodium 139 mmol/L (135-145)
[2023-02-15 14:53] LABS: Lithium 0.34 mmol/L (0.60-1.20)
[2023-02-15 15:19] LABS: Carbamazepine Tegretol < 2.0 mcg/mL (5.0-12.0)
== END 2023-02-15 10:37 | disposition home or self-care (01) ==
LOC: HO.HMGCLDS 10:36
PROVIDERS: Absent Provider Registered Nurse Psychiatric/Mental Health, Adult; PCP Internal Medicine; Visit Provider Internal Medicine
DX: F31.9 Bipolar disorder, unspecified (principal); K58.9 Irritable bowel syndrome, unspecified; M79.7 Fibromyalgia; G71.00 Muscular dystrophy, unspecified; K21.9 Gastro-esophageal reflux disease without esophagitis; E78.9 Disorder of lipoprotein metabolism, unspecified; K59.01 Slow transit constipation; R73.9 Hyperglycemia, unspecified; Z79.899 Other long term (current) drug therapy
CPT/HCPCS: 36415; 80053; 80156; 80178; 83036; 85025

== ENCOUNTER 2023-02-22 | Outpatient (REF) | payer MEDICARE, MEDICAID, SELFPAY | END 2023-02-22 00:01 | disposition home or self-care (01) | LOC: CF | PROVIDERS: PCP Internal Medicine; Visit Provider Nurse Practitioner Family | DX: M33.22 Polymyositis with myopathy (principal); M81.0 Age-related osteoporosis without current pathological fracture; M15.9 Polyosteoarthritis, unspecified; E55.9 Vitamin D deficiency, unspecified; Z79.899 Other long term (current) drug therapy | CPT/HCPCS: 99212 ==

== ENCOUNTER 2023-02-22 12:19 | Outpatient (AMB) | payer MEDICARE, MEDICAID, SELFPAY ==
[2023-02-22 12:37] VITALS: BP 112/62; PULSE 81; RESP 15; TEMP 36.5; O2SAT 96; BMI 23.8
--- NOTE | 2023-02-22 12:37 | MHC.OFFVIS ---
Intake Vital Signs 02/22/23 12:37 Height 5 ft 1 in Weight 126 lb BMI 23.8 BP 112/62 Blood Pressure Location Rt brachial Position Sitting Respiration 15 Pulse 81 Pulse Source Pulse Oximeter Temp 97.7 F Temp Source Tympanic Pulse Oximetry (%) 96 Oxygen Delivery Method Room Air Intake Visit Reasons: Polymiositis Allergies No Known Allergies Allergy (Verified 02/22/23 12:41) Medication List - Last Reconciled 02/22/23 by Ashley Lcuiano RN fenofibrate 160 mg PO DAILY 90 days linaclotide (Linzess) 290 mcg PO DAILY 90 days lithium carbonate ER 300 mg PO DAILY lurasidone 80 mg PO DAILY prazosin 1 mg PO DAILY prednisone 5 mg PO DIRECTED pregabalin (Lyrica) 300 mg PO BID 30 days quetiapine (Seroquel) 400 mg PO BEDTIME HPI HPI Comments History of Present Illness Details Mrs. Reyes is here for follow-up for her polymyositis. She reports she is doing well, she still has weakness but the stiffness has improved and is not as bad as it was prior to the prednisone. She is currently on prednisone 5 mg per day Prior visit: Abby is a 67yoF, who presents today for evaluation and treatment of Polymyositis. Per patient, she was diagnosed over 8 years ago due to increase muscle weakness, excessive fatigue and elevated CK and aldolase. She was successfully treatment with prednisone and has not had a recurrence. However, in recent months she has been feeling more weakness and tired and her CK is trending up so she wanted to get checked out before it worsened. She has had right ankle fusion surgery in 2020 and the right ankle was done over 7years ago. The patient has had multiple surgeries - see [facility] section, and has a spinal cord stimulator, secondary to chronic sciatica and lower extremity pain and weakness. Prior to the [employer] spinal cord stimulator, this progressed to to a stage where she could not walk and had frequent falls. Though she is now able to walk and the stimulator has relieved the pain in the bilateral lower extremities, she continues with chronic pain in the lower back that is worsening. She takes pregabalin 300 mg b.i.d and Naproxen prn which she states is effective. She reports being diagnosed with Sjogren's 20 years ago and suffers from dry eyes and dry mouth. She has had an eye test at the hospital many years ago, I think it was this one , that confirmed the dry eye syndrome. She uses eye drops multiple times per day. However, Abby denies episodes of red burning eyes needing steroids to treat, episodes of mouth sores or ulcers, nose bleed, ringing in the ear. She denies fevers, excessive fatigue, unexplained weight-loss or weight-gain. The patient denies Raynaud's phenomenon, butterfly rash on face or other rashes; denies photosensitivity - getting sick or developing a rash from being out in the sun; denies blood or froth in urine; patient denies hx of SOB, chest pain. She denies a hx of Carditis or Pleuritis and DVT/PE. She denies thinning hair or hair loss. She does not experience from unexplained abdominal pain. She denies blood or mucous in stool, nausea, vomiting and diarrhea , difficulty swallowing. She gets occasional heartburn and takes Omeprazole an average of 2 times per month. She endorses joint and muscle stiffness that last throughout the day. She reports she has not been following up with her eye doctor, rheumatology and others because it gets overwhelming to do, It just gets to be too much I just wanted a break . Malignancy: denies personal cancer hx. 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, lumbar region Postlaminectomy syndrome, not elsewhere classified Fibromyalgia Other sexual disorders Bipolar 1 disorder IBS (irritable bowel syndrome) Muscular dystrophy Chronic vertigo Chronic GERD Lipid disorder Constipation by delayed colonic transit Surgical History H/O colonoscopy Status post insertion of nerve stimulator Previous back surgery History of ankle surgery H/O mastectomy History of hip surgery Family History Father Mesothelioma Brother Mesothelioma Paternal Grandfather Mesothelioma Brother Mesothelioma Paternal Grandmother Stomach cancer Paternal Aunt Lung cancer Family/Other Breast cancer Other Mental health disorder Osteoarthritis Substance use disorder Social History Household Members: Family Housing: House Are you a primary child caregiver to a significant other at home: Yes (mother) Do you presently have visiting nurse or other home services: No Alcohol intake: never Patient Tobacco Use Status: Never used Tobacco Tobacco use type: Smokeless Tobacco e-Cigarette/Vaping Use: Currently Using Substance Use Type: Marijuana service: No Current occupational status: disabled Cognitive needs: No Hearing needs: No Vision needs: No Review of Systems Const All systems reviewed & are unremarkable except as noted in HPI and below Physical Exam Vital Signs: Last Vital Signs Temp 97.7 F 02/22/23 12:37 Pulse 81 02/22/23 12:37 Resp 15 02/22/23 12:37 BP 112/62 02/22/23 12:37 Pulse Ox 96 02/22/23 12:37 Oxygen Delivery Method Room Air 02/22/23 12:37 BMI result Body Mass Index 23.8 Vital signs reviewed. Constitutional: Pleasant, Well appearing. No acute distress. Well-developed and well-nourished. HEENT: Normocephalic and atraumatic. External auditory canals without erythema or edema bilaterally. Dry mucous membranes. No pharyngeal erythema or exudates. Skin: Warm and dry. No rashes or lesions noted. Neck: Full and painless range of motion. No cervical lymphadenopathy. Cardio: Regular rate and rhythm. No murmurs, gallops, or rubs. No lower extremity edema. No JVD. Pulmonary: No respiratory distress. No accessory muscle usage. Musculoskeletal: Normal range of motion with some limitation in joints throughout the body. Uses crutch on the right - bilateral ankle fusion Neuro: Alert and oriented x4. Cranial nerves 2-12 grossly intact. No focal deficits appreciated. Results Reviewed Results Reviewed: Laboratory Tests 11/07/22 01/19/23 08:45 10:40 Total Creatine Kinase 364 H 267 H Laboratory Tests 01/19/23 01/19/23 01/19/23 10:40 10:40 10:40 WBC Immature Gran % (Auto) Lymph # (Auto) ESR 8 Calcium AST ALT Alkaline Phosphatase 1,25 Dihydroxy Vit D 26 Rheumatoid Factor < 13.0 Cycl Citrul Peptide IgG <16 FARIBA Screen POSITIVE A FARIBA Titer 1:160 H 02/15/23 02/15/23 02/15/23 10:45 10:45 10:45 WBC 4.1 L Immature Gran % (Auto) 0.5 H Lymph # (Auto) 1.0 L ESR Calcium 10.0 AST 36 H ALT 20 Alkaline Phosphatase 54 1,25 Dihydroxy Vit D Rheumatoid Factor Cycl Citrul Peptide IgG FARIBA Screen FARIBA Titer EXAMINATION: XR CHEST CLINICAL INFORMATION: Possible myositis, organ involvement. Increased muscle weakness. COMPARISON: Thoracic spine 03/24/2022 radiographs. TECHNIQUE: 2 views of the chest were obtained. FINDINGS: There is no gross pneumothorax. Heart size is normal. Tips of electronic stimulator leads project over the [id number]-da-ubdam thoracic spine with inferior aspect below the lower margin of the image. Degenerative changes in the thoracic spine were better characterized on exam of 03/24/2022. No pleural effusion. No focal consolidation to suggest pneumonia. XR/XR chest 2V IMPRESSION: No evidence of pneumonia. XR/XR hand RT min 3V IMPRESSION: RIGHT HAND: 1. Degenerative changes of the hand and wrist progressed from prior worst involving first carpometacarpal joint with advanced loss of joint space and bony remodeling of the trapezium. 2. Osteopenia. 3. Similar punctate metallic density foreign body in the soft tissues dorsal to the third PIP joint. LEFT HAND: 1. Degenerative changes of the hand and wrist worse involving the first carpometacarpal joint where there is complete loss of joint space and bony remodeling of the trapezium with findings overall only minimally progressed from remote priors. 2. Negative ulnar variance. 3. Osteopenia Assessment & Plan Assessment & Plan (1) Polymyositis with myopathy: Code(s): M33.22 - Polymyositis with myopathy (2) Primary osteoarthritis involving multiple joints: Code(s): M15.9 - Polyosteoarthritis, unspecified (3) Osteoporosis: Code(s): M81.0 - Age-related osteoporosis without current pathological fracture Qualifiers: Osteoporosis type: age-related Presence of current pathological fracture: without current pathological fracture Qualified Code(s): M81.0 - Age-related osteoporosis without current pathological fracture (4) Hypovitaminosis D: Code(s): E55.9 - Vitamin D deficiency, unspecified Plan #Polymyositis: Ms. Mora 67 yo F has been treated for Polymtositis over 10 years ago and and recently reports increased weakness and elevated CK. At last visit we had obtain updated CK which had improved from 360 to 267. Patient had been started on a course of prednisone and is now on on prednisone 5 mg daily. She will continue this for 1 more month at which time we will update her CK. The patient is encouraged to do mild weight-training activities (such as 3lb weights) to keep her muscles from atrophy. She is also encouraged to walking. The lab results does show positive ANA1:160 but negative CHAVA. CCP and rheumatoid factor also negative as was the Myositis Panel. #Osteoarthritis Multiple sites: Hand OA per Xray with Osteopenia. Osteopenia can be due to an underlying inflammatory cause such as RA. However, at this time patient has no complaint's of hand pain and no joint swelling, warmth or redness on PE. She also have OA of her knee and ankles per xray. #Osteoporosis/Low Vitamin D: Given her history on Prednisone, ankle fracture in 2021 and ankle fusion surgery, history of GERD, former smoker with sever DDD, will obtain a Bone Density, scheduled for April 02. Osteopenia also noted on hand Xray. Will start vitamin D supplements 1 month follow-up Orders: Orders Creatine Kinase Total 1 Month M33.22 - Polymyositis with myopathy Complete Blood Count no Diff 1 Month M33.22 - Polymyositis with myopathy Aldolase 1 Month M33.22 - Polymyositis with myopathy C Reactive Protein 1 Month M33.22 - Polymyositis with myopathy Comprehensive Met. Panel 1 Month M33.22 - Polymyositis with myopathy Erythrocyte Sedimentation Rate 1 Month M33.22 - Polymyositis with myopathy Medications: New cholecalciferol (vitamin D3) 25 mcg PO DAILY 90 tabs 0RF Coding Level of Care Code Est Pt Level 3 (57460) Diagnoses Polymyositis with myopathy M33.22 Primary osteoarthritis involving multiple joints M15.9 Age-related osteoporosis without current pathological fracture M81.0 Osteoporosis type: age-related Presence of current pathological fracture: without current pathological fracture Hypovitaminosis D E55.9
== END 2023-02-22 13:06 | disposition home or self-care (01) ==
PROVIDERS: PCP Internal Medicine; Visit Provider Nurse Practitioner Family
DX: M33.22 Polymyositis with myopathy (principal); M15.9 Polyosteoarthritis, unspecified; M81.0 Age-related osteoporosis without current pathological fracture; E55.9 Vitamin D deficiency, unspecified
CPT/HCPCS: 99213

== ENCOUNTER 2023-03-13 12:06 | Outpatient (REF) | payer MEDICARE, MEDICAID, SELFPAY ==
[2023-03-13 13:16] LABS: Hematocrit 42.2 % (37.0-47.0); Hemoglobin 13.2 g/dl (12.0-16.0); Mean Corpuscular HGB Conc 31.3 g/dl (31.0-35.0); Mean Corpuscular Hemoglobin 28.9 pg (27.0-33.0); Mean Corpuscular Volume 92.5 fL (80.0-98.0); Mean Platelet Volume 10.1 fL (9.4-12.3); Platelet Count 419 X10*3/uL (160-400); Red Blood Count 4.56 X10*6/uL (4.20-5.50); Red Cell Distribution Width 14.1 % (11.0-16.0); White Blood Count 5.1 X10*3/uL (4.8-10.8)
[2023-03-13 13:54] LABS: Erythrocyte Sedimentation Rate 28 MM/HR (0-20)
[2023-03-13 14:04] LABS: Alanine Aminotransferase 17 U/L (0-31); Albumin Level 4.3 g/dL (3.5-5.0); Alkaline Phosphatase 47 U/L (39-117); Anion Gap 11 (12-20); Aspartate Amino Transferase 31 U/L (5-31); Bilirubin Total 0.3 mg/dL (0.0-1.0); Blood Urea Nitrogen 18 mg/dL (9-16); Calcium 10.2 mg/dL (8.4-10.2); Carbon Dioxide 26 mmol/L (22-29); Chloride 107 mmol/L (96-108); Estimated Glomerular Filt Rate 58; Glucose Random 93 mg/dL (60-115); Potassium 3.9 mmol/L (3.3-5.1); Sodium 140 mmol/L (135-145); Total Protein 7.2 g/dL (6.5-8.0)
[2023-03-16 14:38] LABS: Aldolase 3.5 U/L (<=8.1)
== END 2023-03-13 12:07 | disposition home or self-care (01) ==
LOC: HO.HMGCLDS 12:06
PROVIDERS: PCP Internal Medicine; Visit Provider Nurse Practitioner Family
DX: M33.22 Polymyositis with myopathy (principal)
CPT/HCPCS: 36415; 80053; 82085; 82550; 85027; 85652; 86140

== ENCOUNTER 2023-03-23 10:28 | Outpatient (AMB) | payer MEDICARE, MEDICAID, SELFPAY ==
--- NOTE | 2023-03-23 10:32 | MHC.PC.OV ---
Vital Signs 03/23/23 10:33 Height 5 ft 1 in Weight 126 lb 2 oz BMI 23.8 BP 120/72 Blood Pressure Location Rt brachial Position Sitting Pulse 88 Pulse Source Pulse Oximeter Pulse Oximetry (%) 98 Oxygen Delivery Method Room Air Intake Visit Reasons: 4 Month follow up Allergies No Known Allergies Allergy (Verified 03/23/23 10:34) Medication List - Last Reconciled 03/23/23 by Sarina Devi MD cholecalciferol (vitamin D3) 25 mcg PO DAILY fenofibrate 160 mg PO DAILY 90 days linaclotide (Linzess) 290 mcg PO DAILY 90 days lithium carbonate ER 300 mg PO DAILY lurasidone 80 mg PO DAILY prazosin 1 mg PO DAILY prednisone 5 mg PO DIRECTED pregabalin (Lyrica) 300 mg PO BID 30 days quetiapine (Seroquel) 400 mg PO BEDTIME Tobacco use date assessed: 03/23/23 Fall risk assessment: No Falls in past year Last assessed Fall Risk: 03/23/23 Dental Screening Dental Screen Date: 03/23/23 Did you have a dental visit in the last 12 months?: Yes Did you have a dental problem in the last 6 months where you did not have access to dental care?: No Was dental information given to patient?: Patient has dentist HPI 4 Month follow up HPI Details Patient is 66-year-old female came in today for regular follow-up Patient has seen gastroenterology she has been having problem with choking feeling She had EGD and colonoscopy done but go back for follow-up. I would strongly recommend that she do that as she continued to have the symptoms. Patient has Sjogren syndrome She is bipolar and is on lithium, patient has an appointment coming up with a new psychiatrist that she would like to talk about getting of the lithium she tells me Patient says that she has been living in a basement for years and she has started to feel shortness of breath. I wanted to do a pulmonary function test which patient has declined. I have placed a referral for her to see a early breastfeeding care specialist. It has been happening for months and is getting worse gradually. Lab order placed to be done fasting Patient have a lipid disorder she is taking fenofirate 160 mg daily As well as iron supplement for anemia. Chronic constipation treated with Linzess through PCP office even though patient is seeing Gastroenterology. 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, lumbar region Postlaminectomy syndrome, not elsewhere classified Fibromyalgia Other sexual disorders Bipolar 1 disorder IBS (irritable bowel syndrome) Muscular dystrophy Chronic vertigo Chronic GERD Lipid disorder Constipation by delayed colonic transit Surgical History H/O colonoscopy Status post insertion of nerve stimulator Previous back surgery History of ankle surgery H/O mastectomy History of hip surgery Family History Father Mesothelioma Brother Mesothelioma Paternal Grandfather Mesothelioma Brother Mesothelioma Paternal Grandmother Stomach cancer Paternal Aunt Lung cancer Family/Other Breast cancer Other Mental health disorder Osteoarthritis Substance use disorder Social History Household Members: Family Housing: House Are you a 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 1. Little interest or pleasure in doing things: not at all 2. Feeling down, depressed, or hopeless: several days 3. Trouble falling or staying asleep, or sleeping too much: nearly every day 4. Feeling tired or having little energy: not at all 5. Poor appetite or overeating: not at all 6. Feeling bad about yourself - or that you are a failure or have let yourself or your family down: nearly every day 7. Trouble concentrating on things, such as reading the newspaper or watching television: not at all 8. Moving or speaking so slowly that other people could have noticed. Or the opposite - being so fidgety or restless that you have been moving around a lot more than usual: not at all 9. Thoughts that you would be better off or of hurting yourself in some way: not at all Total score: 7 Depression Screening Interpretation: Negative Depression Screening Done: Yes 30409 - PHQ-9 Billing: Yes Source: Developed by Drs. Bennett Bhagat, Alannah Steve, eTrence Donato and colleagues, with an educational alejandro from [employer]. Thrive Questionnaire Date Thrive assessed: 12/20/22 I am a: Patient What is your living situation today?: I have a steady place to live Within the past 12 months, did the food you bought not last and you didn't have the money to get more?: Often true Within the past 12 months, did you worry whether your food would run out before you got money to buy more?: Often true Do you have trouble paying for medicines?: Yes Do you have trouble getting transportation to medical appointments?: No Do you have trouble paying your heating and electricity bill?: Yes Do you have trouble taking care of your child, family member or friend?: No Do you have trouble with day-to-day activities such as bathing, preparing meals, shopping, managing finances, etc.?: No Are you currently unemployed and looking for a job?: Yes Are you interested in more education?: No Please select the resources that you would like help with: None Currently or been in a relationship where the following occur: no concerns reported AUDIT C Alcohol Use Questionnaire (AUDIT-C) 1. How often do you have a drink containing alcohol?: Never 3. How often do you have six or more drinks on one occasion?: Never Total Score: 0 Score Reviewed/Action Taken: Yes KAUR-7 AMB Questionnaire KAUR-7 Date KAUR - 7 assessed: 03/23/23 Feeling nervous, anxious, or on edge: 3 = Nearly every day Not being able to stop or control worryin = Nearly every day Worrying too much about different things: 3 = Nearly every day Trouble relaxin = Nearly every day Being so restless that it is hard to sit still: 1 = Several days Becoming easily annoyed or irritable: 1 = Several days Feeling afraid as if something awful might happen: 3 = Nearly every day Total KAUR-7 score (0-4 normal; 5-9 mild; 10-14 moderate; 15-21 severe): 17 Source: Developed by Drs. Bennett Bhagat, Alannah Steve, Terence Donato and colleagues, with an educational alejandro from [employer]. KAUR-7 Assessment Billing KAUR-7 Assessment Tool: KAUR-7 Assessment 43618 Review of Systems Const Denies chills and Denies fever(s) ENT Denies epistaxis and Denies nasal discharge Card Denies chest pain Resp Denies chest congestion, Denies cough and Denies hemoptysis GI Denies diarrhea and Denies nausea Skin/Breast Denies rash Neuro Reports no additional complaints Psych Reports no additional complaints Endo Reports no additional complaints Physical exam (Primary Care) Vital Signs: Last Vital Signs Pulse 88 03/23/23 10:33 BP 120/72 03/23/23 10:33 Pulse Ox 98 03/23/23 10:33 Oxygen Delivery Method Room Air 03/23/23 10:33 BMI result Body Mass Index 23.8 Tobacco/Smoking Status: Tobacco use Status Tobacco use date assessed 03/23/23 03/23/23 10:35 Patient Tobacco Use Status Never used Tobacco 03/23/23 10:35 Tobacco use type Smokeless Tobacco 03/23/23 10:35 e-Cigarette/Vaping Use Currently Using 03/23/23 10:35 PHQ-9: PHQ-9 Score PHQ-9: Total score 7 03/23/23 10:56 Depression Screening Interpretation: Negative Thrive Assessment: Date of Thrive Assessment Date Thrive assessed 12/20/22 03/23/23 10:56 Currently or been in a relationship where the following occur: no concerns reported Const General: cooperative, comfortable and no acute distress Orientation/consciousness: patient oriented x3 HENMT Head: Yes normocephalic Eyes General: appearance normal, both eyes and all related structures Neck Neck: Yes supple Resp Effort & Inspection: normal respiratory effort, no cough and no stridor Cardio Rhythm: regular rhythm Heart sounds: S1 normal heart sound present and S2 normal heart sound present Skin General skin exam: turgor normal Neuro General: patient oriented x3, tone normal and moves all extremities Extrem Right lower extremity: no edema Left lower extremity: no edema Immunizations pneumoc 20-jaime conj-dip cr(PF) 0.5 mL IM syringe Performing Provider: Sarina Devi MD [place] [facility] [place] [facility] Administered by: Nancy Renteria CMA on 03/23/23 10:55 Dose Route Admin Location Dispensed Lot Number Expiration Date 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 0.5 mL IM Right Deltoid 0.5 mL [id number] 05/16/24 [employer]YETH/PFIZER VIS Given Date VIS Provided VIS Publication Date 03/23/23 Single Vaccine 21 Eligibility Eligibility Date Funding Source Not [facility] Eligible 03/23/23 Private Assessment and Plan Assessment & Plan (1) Lipid disorder: Code(s): E78.9 - Disorder of lipoprotein metabolism, unspecified (2) Constipation by delayed colonic transit: Code(s): K59.01 - Slow transit constipation (3) IBS (irritable bowel syndrome): Code(s): K58.9 - Irritable bowel syndrome without diarrhea Qualifiers: Irritable bowel syndrome type: with constipation Qualified Code(s): K58.1 - Irritable bowel syndrome with constipation (4) Chronic GERD: Code(s): K21.9 - Gastro-esophageal reflux disease without esophagitis (5) Primary osteoarthritis involving multiple joints: Code(s): M15.9 - Polyosteoarthritis, unspecified (6) Polymyositis with myopathy: Code(s): M33.22 - Polymyositis with myopathy (7) Sjogren syndrome with myopathy: Code(s): M35.03 - Sjogren syndrome with myopathy (8) Fibromyalgia: Code(s): M79.7 - Fibromyalgia (9) Other sexual disorders: Code(s): F66 - Other sexual disorders (10) Bipolar 1 disorder: Code(s): F31.9 - Bipolar disorder, unspecified (11) Neutropenia: Code(s): D70.9 - Neutropenia, unspecified Qualifiers: Neutropenia type: unspecified Qualified Code(s): D70.9 - Neutropenia, unspecified Plan Patient is 67-year-old female who is taking care of her 90+ year old mother at home came in today for her regular follow-up appointment Patient have a history of Sjogren's, fibromyalgia, myopathy, neutropenia, sexual orientation disorder, chronic constipation, lipid disorder, impaired fasting sugar multiple joint osteoarthritis, and IBS Complaining of dyspepsia patient have a history of chronic GERD as well, she was on pantoprazole 40 mg and then she stopped taking it when she felt better. She tells me that she takes it only if needed now. I have reduced the dose to 20 mg pantoprazole and refill sent. She takes Linzess for chronic constipation and has been doing well Prevnar 20 vaccine administered today Patient is also due for shingles vaccine that she will consult with pharmacy. Follow-up in July Orders: Orders Pneumococcal 20 Immunization Today Z23 - Encounter for immunization Medications: New pantoprazole 20 mg PO DAILY 90 tabs 0RF Coding Level of Care Code Est Pt Level 4 (43397) Diagnoses Lipid disorder E78.9 Constipation by delayed colonic transit K59.01 Irritable bowel syndrome with constipation K58.1 Irritable bowel syndrome type: with constipation Chronic GERD K21.9 Primary osteoarthritis involving multiple joints M15.9 Polymyositis with myopathy M33.22 Sjogren syndrome with myopathy M35.03 Fibromyalgia M79.7 Other sexual disorders F66 Bipolar 1 disorder F31.9 Neutropenia, unspecified type D70.9 Neutropenia type: unspecified Additional Codes KAUR-7 Assessment Billing - KAUR-7 Assessment Tool: KAUR-7 Assessment [id number] ([id number])
[2023-03-23 10:33] VITALS: BP 120/72; PULSE 88; O2SAT 98; BMI 23.8
== END 2023-03-23 14:14 | disposition home or self-care (01) ==
PROVIDERS: PCP Internal Medicine; Visit Provider Internal Medicine
DX: M33.22 Polymyositis with myopathy (principal); F31.9 Bipolar disorder, unspecified; D70.9 Neutropenia, unspecified; Z23 Encounter for immunization; M35.03 Sjogren syndrome with myopathy; E78.9 Disorder of lipoprotein metabolism, unspecified; K59.01 Slow transit constipation; K58.1 Irritable bowel syndrome with constipation; K21.9 Gastro-esophageal reflux disease without esophagitis; M15.9 Polyosteoarthritis, unspecified; M79.7 Fibromyalgia; F66 Other sexual disorders
CPT/HCPCS: 90471; 90677; 99214

== ENCOUNTER 2023-03-29 10:44 | Outpatient (REF) | payer MEDICARE, MEDICAID, SELFPAY ==
--- NOTE | ~2023-03-29 | MM_ITS ---
EXAMINATION: BONE DENSITOMETRY CLINICAL INDICATION: Screening for osteoporosis. COMPARISON: Previous BD dated 01/17/2018 and baseline BD dated 06/07/2010. TECHNIQUE: Using a [employer] DXA System (software version: 13.1) manufactured by [employer], dual-energy x-ray absorptiometry was performed of the lumbar spine. The images are of good technical quality. Summary results are attached. FINDINGS: AP SPINE L1-L2 (excluding L3 and L4): The data of L1-L4 has been changed to exclude the L3 and L4 vertebral bodies, because degenerative sclerosis at these levels may cause overestimation of lumbar spine density. Current: BMD 1.278 g/cm2, Z-score 3.0, T-score 0.9, normal, 3.4% decrease from previous, 30.1% decrease from baseline (<5% change is not significant). Prior: BMD 1.236 g/cm2. Baseline: BMD 1.829 g/cm2. IDENTIFIED RISK FACTORS: Early menopause, glucocorticoids (chronic), history of fracture (adult), secondary osteoporosis. HISTORY OF FRACTURE: Hip, forearm, wrist, other fractures. MEDICATIONS: Vitamin D. MM/XR DEXA axial skeleton IMPRESSION: 1. DIAGNOSIS: Normal bone density based on the lowest T-score value of 0.9 in the lumbar spine applying World Health Organization criteria. 2. 10-YEAR FRACTURE RISK PREDICTION, FRAX: Not performed in this patient without a femoral neck BMD measurement. 3. Treatment Recommendations: NOF guidelines recommend consideration for treatment in postmenopausal women and men age 50 and older presenting with the following: -A hip or vertebral (clinical or morphometric) fracture. -T-score less than or equal to -2.5 at the femoral neck or spine after appropriate evaluation to exclude secondary causes. -Low bone mass at the hip or spine and a 10-year fracture probability by FRAX of greater than or equal to 3% for hip fracture or greater than or equal to 20% for major osteoporotic fracture based on the [place] adapted WHO algorithm. 4. Other Recommendations: All treatment decisions require clinical judgment and consideration of individual patient factors, including patient preferences, comorbidities, previous drug use, risk factors not captured in the FRAX model (e.g. frailty, falls, vitamin D deficiency, increased bone turnover, interval significant decline in bone density) and possible under or overestimation of fracture risk by FRAX. FUTURE SCAN RECOMMENDATION: People with diagnosed cases of osteoporosis or at high risk for fracture should have regular bone mineral density tests. For patients eligible for Medicare, routine testing is allowed once every 2 years. The testing frequency can be increased to one year for patients who have rapidly progressing disease, those who are receiving or discontinuing medical therapy to restore bone mass, or have additional risk factors.
== END 2023-03-29 10:45 | disposition home or self-care (01) ==
LOC: HO.MAMMO 10:44
PROVIDERS: PCP Internal Medicine; Visit Provider Nurse Practitioner Family
DX: Z13.820 Encounter for screening for osteoporosis (principal); M81.0 Age-related osteoporosis without current pathological fracture; M33.22 Polymyositis with myopathy; Z78.0 Asymptomatic menopausal state
CPT/HCPCS: 77080

== ENCOUNTER 2023-04-17 12:22 | Outpatient (AMB) | payer MEDICARE, MEDICAID, SELFPAY ==
--- NOTE | 2023-04-17 12:40 | MHC.OFFVIS ---
Intake Vital Signs 04/17/23 12:41 Height 5 ft 1 in Weight 125 lb 0.034 oz BMI 23.6 BP 110/70 Blood Pressure Location Lt brachial Position Sitting Pulse 79 Pulse Source Pulse Oximeter Temp 97 F Temp Source Skin Pulse Oximetry (%) 97 Oxygen Delivery Method Room Air Intake Visit Reasons: Polymyositis, Osteoporosis Intake Note: Patient last seen 02/22/23, presents today for follow up and test results. 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 Reyes is here for follow-up for her polymyositis. She reports she is doing well, she still has some weakness but the stiffness has improved and is not as bad. She completed the prednisone course. She denies difficulty with swallowing or breathing. But does have a rash between her left thumb and middle finger at the webbing. She thinks ot may be due to washing dishes. She has not used a medication for the rash. Prior visit: Abby is a 67yoF, who presents today for evaluation and treatment of Polymyositis. Per patient, she was diagnosed over 8 years ago due to increase muscle weakness, excessive fatigue and elevated CK and aldolase. She was successfully treatment with prednisone and has not had a recurrence. However, in recent months she has been feeling more weakness and tired and her CK is trending up so she wanted to get checked out before it worsened. She has had right ankle fusion surgery in 2020 and the right ankle was done over 7years ago. The patient has had multiple surgeries - see [facility] section, and has a spinal cord stimulator, secondary to chronic sciatica and lower extremity pain and weakness. Prior to the [employer] SCS spinal cord stimulator, this progressed to to a stage where she could not walk and had frequent falls. Though she is now able to walk and the stimulator has relieved the pain in the bilateral lower extremities, she continues with chronic pain in the lower back that is worsening. She takes pregabalin 300 mg b.i.d and Naproxen prn which she states is effective. She reports being diagnosed with Sjogren's 20 years ago and suffers from dry eyes and dry mouth. She has had an eye test at the hospital many years ago, I think it was this one , that confirmed the dry eye syndrome. She uses eye drops multiple times per day. However, Abby denies episodes of red burning eyes needing steroids to treat, episodes of mouth sores or ulcers, nose bleed, ringing in the ear. She denies fevers, excessive fatigue, unexplained weight-loss or weight-gain. The patient denies Raynaud's phenomenon, butterfly rash on face or other rashes; denies photosensitivity - getting sick or developing a rash from being out in the sun; denies blood or froth in urine; patient denies hx of SOB, chest pain. She denies a hx of Carditis or Pleuritis and DVT/PE. She denies thinning hair or hair loss. She does not experience from unexplained abdominal pain. She denies blood or mucous in stool, nausea, vomiting and diarrhea , difficulty swallowing. She gets occasional heartburn and takes Omeprazole an average of 2 times per month. She endorses joint and muscle stiffness that last throughout the day. She reports she has not been following up with her eye doctor, rheumatology and others because it gets overwhelming to do, It just gets to be too much I just wanted a break . Malignancy: denies personal cancer hx. 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, lumbar region Postlaminectomy syndrome, not elsewhere classified Fibromyalgia Other sexual disorders Bipolar 1 disorder IBS (irritable bowel syndrome) Muscular dystrophy Chronic vertigo Chronic GERD Lipid disorder Constipation by delayed colonic transit Surgical History H/O colonoscopy Status post insertion of nerve stimulator Previous back surgery History of ankle surgery H/O mastectomy History of hip surgery Family History Father Mesothelioma Brother Mesothelioma Paternal Grandfather Mesothelioma Brother Mesothelioma Paternal Grandmother Stomach cancer Paternal Aunt Lung cancer Family/Other Breast cancer Other Mental health disorder Osteoarthritis Substance use disorder Social History Household Members: Family Housing: House Are you a primary career technical counselor to a significant other at home: Yes (mother) Do you presently have visiting nurse or other home services: No Alcohol intake: never Patient Tobacco Use Status: Never used Tobacco Tobacco use type: Smokeless Tobacco e-Cigarette/Vaping Use: Currently Using Substance Use Type: Marijuana service: No Current occupational status: disabled Cognitive needs: No Hearing needs: No Vision needs: No Review of Systems Const All systems reviewed & are unremarkable except as noted in HPI and below Physical Exam Vital Signs: Last Vital Signs Temp 97 F 04/17/23 12:41 Pulse 79 04/17/23 12:41 BP 110/70 04/17/23 12:41 Pulse Ox 97 04/17/23 12:41 Oxygen Delivery Method Room Air 04/17/23 12:41 BMI result Body Mass Index 23.6 Vital signs reviewed. Constitutional: Pleasant, Well appearing. No acute distress. Well-developed and well-nourished. HEENT: Normocephalic and atraumatic. External auditory canals without erythema or edema bilaterally. Dry mucous membranes. No pharyngeal erythema or exudates. Skin: Warm and dry. No rashes or lesions noted. Neck: Full and painless range of motion. No cervical lymphadenopathy. Cardio: Regular rate and rhythm. No murmurs, gallops, or rubs. No lower extremity edema. No JVD. Pulmonary: No respiratory distress. No accessory muscle usage. Lungs CTA Musculoskeletal: Normal range of motion with some limitation in joints throughout the body. Uses crutch on the right - bilateral ankle fusion. Upper extremity 4/5, lower extremity 5/5. Neuro: Alert and oriented x4. Cranial nerves 2-12 grossly intact. No focal deficits appreciated. Results Reviewed Results Reviewed: Ordering Physician: Natividad Baldwin Date of Service: 03/29/23 cc: Sarina Devi MD; Natividad Baldwin~ EXAMINATION: BONE DENSITOMETRY CLINICAL INDICATION: Screening for osteoporosis. COMPARISON: Previous BD dated 01/17/2018 and baseline BD dated 06/07/2010. TECHNIQUE: Using a [employer] DXA System (software version: 13.1) manufactured by [employer], dual-energy x-ray absorptiometry was performed of the lumbar spine. The images are of good technical quality. Summary results are attached. FINDINGS: AP SPINE L1-L2 (excluding L3 and L4): The data of L1-L4 has been changed to exclude the L3 and L4 vertebral bodies, because degenerative sclerosis at these levels may cause overestimation of lumbar spine density. Current: BMD 1.278 g/cm2, Z-score 3.0, T-score 0.9, normal, 3.4% decrease from previous, 30.1% decrease from baseline (<5% change is not significant). Prior: BMD 1.236 g/cm2. Baseline: BMD 1.829 g/cm2. IDENTIFIED RISK FACTORS: Early menopause, glucocorticoids (chronic), history of fracture (adult), secondary osteoporosis. HISTORY OF FRACTURE: Hip, forearm, wrist, other fractures. MEDICATIONS: Vitamin D. MM/XR DEXA axial skeleton IMPRESSION: 1. DIAGNOSIS: Normal bone density based on the lowest T-score value of 0.9 in the lumbar spine applying World Health Organization criteria. 2. 10-YEAR FRACTURE RISK PREDICTION, FRAX: Not performed in this patient without a femoral neck BMD measurement. 3. Treatment Recommendations: NOF guidelines recommend consideration for treatment in postmenopausal women and men age 50 and older presenting with the following: -A hip or vertebral (clinical or morphometric) fracture. -T-score less than or equal to -2.5 at the femoral neck or spine after appropriate evaluation to exclude secondary causes. -Low bone mass at the hip or spine and a 10-year fracture probability by FRAX of greater than or equal to 3% for hip fracture or greater than or equal to 20% for major osteoporotic fracture based on the [place] adapted WHO algorithm. 4. Other Recommendations: All treatment decisions require clinical judgment and consideration of individual patient factors, including patient preferences, comorbidities, previous drug use, risk factors not captured in the FRAX model (e.g. frailty, falls, vitamin D deficiency, increased bone turnover, interval significant decline in bone density) and possible under or overestimation of fracture risk by FRAX. FUTURE SCAN RECOMMENDATION: People with diagnosed cases of osteoporosis or at high risk for fracture should have regular bone mineral density tests. For patients eligible for Medicare, routine testing is allowed once every 2 years. The testing frequency can be increased to one year for patients who have rapidly progressing disease, those who are receiving or discontinuing medical therapy to restore bone mass, or have additional risk factors. Laboratory Tests 03/13/23 12:10 ESR 28 H BUN 18 H Creatinine 0.96 Estimated GFR 58 Calcium 10.2 AST 31 ALT 17 Alkaline Phosphatase 47 Total Creatine Kinase 135 C-Reactive Protein 0.10 Aldolase 3.5 Assessment & Plan Assessment & Plan (1) Polymyositis with myopathy: Code(s): M33.22 - Polymyositis with myopathy (2) Primary osteoarthritis involving multiple joints: Code(s): M15.9 - Polyosteoarthritis, unspecified (3) Rash and other nonspecific skin eruption: Code(s): R21 - Rash and other nonspecific skin eruption Plan #Polymyositis/Rash: Ms. Mora 67 yo F has been treated for Polymtositis over 10 years ago. Her recent flare appears to be resolved and she is s/p Prednisone. Her CK is normalized as of 02/2023 to 135 down from 267 (02/15/2023). She does report occasional bouts of weakness but that is the nature of the disease. She will continue this for 1 more month at which time we will update her CK. The patient is encouraged to do mild weight-training activities (such as 3lb weights) to keep her muscles from atrophy. She is also encouraged to walking which she reports doing. Patient knows to call the office if she has a flare. I did give her emergency Prednisone to keep on hand. I also prescribed Triamcinalone 0.1% cream to apply BID PRN for the hand rash. There is no gottron's papules, heliotrope/shawl rash or power plant mechanic's hands or other rash on PE. The lab results does show positive ANA1:160 but negative CHAVA. CCP and rheumatoid factor also negative as was the Myositis Panel. Given that the antibodies for Myositis was negative, it is likely that this was medication induced such as stain - she has been on fenofibrate for years now. #Osteoarthritis Multiple sites: Hand OA per Xray with Osteopenia. Osteopenia can be due to an underlying inflammatory cause such as RA. However, at this time patient continues without complaint's of chronic hand pain, joint swelling, warmth or redness and none on PE. She also have OA of her knee and ankles per xray. #Osteoporosis Screening:: Normal bone Density as 04/02/2022. History on Prednisone, ankle fracture in 2021 and ankle fusion surgery, history of GERD, former smoker with sever DDD. 4 month follow-up with follow-up labs for CK and Inflamamtory markers. Orders: Orders Creatine Kinase Total 4 Months M306.07 - Polymyositis with myopathy C Reactive Protein 4 Months . - Polymyositis with myopathy Aldolase 4 Months . - Polymyositis with myopathy Erythrocyte Sedimentation Rate 4 Months . - Polymyositis with myopathy Medications: New triamcinolone acetonide 0.1% Apply to affected areas on hands twice per day 1 appl topical BID PRN 30 grams 0RF rash R21 - Rash and other nonspecific skin eruption Changed From prednisone 3 tablets per day x 7 days. tablets per day x 14 days, 1 tablet per day until next visit 5 mg PO DIRECTED 90 tabs 0RF M33.22 - Polymyositis with myopathy To prednisone orally as directed; 3 tablets per day x 7 days. tablets per day x 14 days, 1 tablet per day until next visit 90 tabs 0RF M33.22 - Polymyositis with myopathy Coding Level of Care Code Tele Est Pt Level 3 (68655) Diagnoses Polymyositis with myopathy M33.22 Primary osteoarthritis involving multiple joints M15.9 Rash and other nonspecific skin eruption R21
[2023-04-17 12:41] VITALS: BP 110/70; PULSE 79; TEMP 36.1; O2SAT 97; BMI 23.6
== END 2023-04-17 13:19 | disposition home or self-care (01) ==
PROVIDERS: PCP Internal Medicine; Visit Provider Nurse Practitioner Family
DX: M33.22 Polymyositis with myopathy (principal); M15.9 Polyosteoarthritis, unspecified; R21 Rash and other nonspecific skin eruption
CPT/HCPCS: 99214

== ENCOUNTER → 2023-04-17 12:22 | Outpatient (BNVA) | payer MEDICARE, MEDICAID, SELFPAY | PROVIDERS: PCP Internal Medicine; Visit Provider Nurse Practitioner Family | DX: M33.22 Polymyositis with myopathy (principal); M15.9 Polyosteoarthritis, unspecified; R21 Rash and other nonspecific skin eruption; Z79.52 Long term (current) use of systemic steroids | CPT/HCPCS: 99212 ==

== ENCOUNTER 2023-07-16 10:02 | Outpatient (AMB) | payer MEDICARE, MEDICAID, SELFPAY ==
--- NOTE | 2023-07-16 10:08 | A.OFFVIS_ITS ---
Vital Signs 07/16/23 10:15 Height 5 ft 1 in Weight 118 lb 6 oz BMI 22.4 BP 122/60 Blood Pressure Location Lt brachial Position Sitting Respiration 16 Pulse 92 Pulse Source Pulse Oximeter Pulse Oximetry (%) 96 Oxygen Delivery Method Room Air Intake Visit Reasons: medication review Intake Note: Patient comes in for medication review. Reports pain 09/25. Allergies No Known Allergies Allergy (Verified 07/16/23 10:13) HPI Comments Details: Juan is in my office today with complains on mostly axial pain in the lower back. She reports that [employer] SCS is still working for her and alleviate pain in bilateral lower extremities however she reports that pain in the axial lower back is getting stronger. She had DTM protocol introduced and now she reports very good help from SCS. She also is on prescription of pregabalin/Lyrica, she denies side effects of Lyrica she denies complications. No edema, she reports depression very well controlled on antidepressive medications she denies dizziness drowsiness sleepiness. She is postlaminectomy syndrome patient who is suffering from lower back pain. She was inserted with spinal cord stimulation name [employer] machine and she reports excellent pain relieve of her previous pain. However pain as above is a new pain and it is not being covered by her machine. She has negative about opioid medications the give her severe constipation. Prior: She has multiple surgeries in the past including surgery in the back and she is negative about another surgery in her back. She is suffering from fibromyalgia She reports multiple areas of pain, with her lower back being the most troublesome. She sees rheumatology currently who has prescribed her Naproxen and Lyrica, both of which provide some relief. She has also been using some CBD tincture which is also helpful. History of severe canal stenosis at L3/4, for which she had a decompression by Dr. Orta in May 2017. 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, lumbar region Postlaminectomy syndrome, not elsewhere classified Fibromyalgia Other sexual disorders Bipolar 1 disorder IBS (irritable bowel syndrome) Muscular dystrophy Chronic vertigo Chronic GERD Lipid disorder Constipation by delayed colonic transit Surgical History H/O colonoscopy Status post insertion of nerve stimulator Previous back surgery History of ankle surgery H/O mastectomy History of hip surgery Family History Father Mesothelioma Brother Mesothelioma Paternal Grandfather Mesothelioma Brother Mesothelioma Paternal Grandmother Stomach cancer Paternal Aunt Lung cancer Family/Other Breast cancer Other Mental health disorder Osteoarthritis Substance use disorder Social History Household Members: Family Housing: House Are you a primary resident care manager rn to a significant other at home: Yes (mother) Do you presently have visiting nurse or other home services: No Alcohol intake: never Patient Tobacco Use Status: Never used Tobacco Tobacco use type: Smokeless Tobacco e-Cigarette/Vaping Use: Currently Using Substance Use Type: Marijuana service: No Current occupational status: disabled Cognitive needs: No Hearing needs: No Vision needs: No Review of Systems Const All systems reviewed & are unremarkable except as noted in HPI and below Eyes Denies photophobia Neuro Denies Sensory deficit (Neuro) Physical Exam Vital signs reviewed. Constitutional: Pleasant, Well appearing. No acute distress. Well-developed and well-nourished. HEENT: Normocephalic and atraumatic. External auditory canals without erythema or edema bilaterally. Dry mucous membranes. No pharyngeal erythema or exudates. Skin: Warm and dry. No rashes or lesions noted. Neck: Full and painless range of motion. No cervical lymphadenopathy. Cardio: Regular rate and rhythm. No murmurs, gallops, or rubs. No lower extremity edema. No JVD. Pulmonary: No respiratory distress. No accessory muscle usage. Lungs CTA Musculoskeletal: Normal range of motion with some limitation in joints throughout the body. Uses crutch on the right - bilateral ankle fusion. Upper extremity 4/5, lower extremity 5/5. Neuro: Alert and oriented x4. Cranial nerves 2-12 grossly intact. No focal deficits appreciated. Const General: comfortable, no acute distress, well developed, alert, awake and Physically active Eyes Direct Ophthalmoscopy: No photophobia Chest Chest palpation & inspection: normal inspection of the chest Resp Effort & Inspection: normal respiratory effort, able to speak in complete sentences, normal respiratory pattern, no audible wheezes and no cough Cardio Jugular venous distension: no JVD GI Inspection: Yes normal to inspection General: Yes no CVA tenderness Back/Spine/Pelvis Other: Palpation of the right 12th rib approximately on posterior axillary line causes severe pain with radiation of the pain along side the rib and into the anterior right abdomen. Back: no CVA tenderness Cervical Spine: cervical ROM normal Thoracic/Lumbar Spine: Thoracic/lumbar spine scar(s) Neuro Sensory Exam: No Sensory deficit (Neuro) Psych Appearance: grossly normal Mental Status: mental status grossly normal Speech and movement: Normal speech and movement present Assessment & Plan Assessment & Plan (1) Fibromyalgia: Code(s): M79.7 - Fibromyalgia Category: Medical (2) Postlaminectomy syndrome, not elsewhere classified: Code(s): M96.1 - Postlaminectomy syndrome, not elsewhere classified Category: Medical (3) Other spondylosis with radiculopathy, lumbar region: Code(s): M47.26 - Other spondylosis with radiculopathy, lumbar region Category: Medical (4) S/P insertion of spinal cord stimulator: Code(s): Z96.89 - Presence of other specified functional implants Category: Surgical (5) Intercostal neuralgia: Code(s): 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 as below. She reports no side effects. She will schedule appointment in 6 months to refill her pregabalin. She reports [employer] spinal cord stimulator works very well for the pain radiating to bilateral lower extremities, she reports that axial low back pain is not covered as good as pain in bilateral lower extremities. However she reports that [employer] spinal cord stimulator is the best thing which ever happened for her lower back pain treatment. The device continues to work and helps her with the pain radiating down to bilateral lower extremities. Medications: Refilled pregabalin (Lyrica) 300 mg PO BID 30 days 60 caps 5RF Coding Level of Care Code Est Pt Level 3 (43547) Diagnoses Fibromyalgia M79.7 Postlaminectomy syndrome, not elsewhere classified M96.1 Other spondylosis with radiculopathy, lumbar region M47.26 S/P insertion of spinal cord stimulator Z96.89 Intercostal neuralgia G58.8
[2023-07-16 10:15] VITALS: BP 122/60; PULSE 92; RESP 16; O2SAT 96; BMI 22.4
== END 2023-07-16 10:17 | disposition home or self-care (01) ==
PROVIDERS: PCP Internal Medicine; Visit Provider Anesthesiology
DX: M79.7 Fibromyalgia (principal); M96.1 Postlaminectomy syndrome, not elsewhere classified; M47.26 Other spondylosis with radiculopathy, lumbar region; Z96.89 Presence of other specified functional implants; G58.8 Other specified mononeuropathies
CPT/HCPCS: 99213

== ENCOUNTER → 2023-07-16 10:02 | Outpatient (BNVA) | payer MEDICARE, MEDICAID, SELFPAY | PROVIDERS: PCP Internal Medicine; Visit Provider Anesthesiology | DX: M79.7 Fibromyalgia (principal); M96.1 Postlaminectomy syndrome, not elsewhere classified; M47.26 Other spondylosis with radiculopathy, lumbar region; G58.8 Other specified mononeuropathies; Z96.89 Presence of other specified functional implants | CPT/HCPCS: 99212 ==

== ENCOUNTER 2023-07-30 10:41 | Outpatient (REF) | payer MEDICARE, MEDICAID, SELFPAY ==
[2023-07-30 14:25] LABS: C Reactive Protein 0.18 mg/dL (< or = 0.50)
[2023-07-30 14:29] LABS: Erythrocyte Sedimentation Rate 14 MM/HR (0-20)
[2023-08-03 23:33] LABS: Aldolase 4.4 U/L (<=8.1)
== END 2023-07-30 10:42 | disposition home or self-care (01) ==
LOC: HO.HMGCLDS 10:41
PROVIDERS: PCP Internal Medicine; Visit Provider Nurse Practitioner Family
DX: M33.22 Polymyositis with myopathy (principal)
CPT/HCPCS: 36415; 82085; 82550; 85652; 86140

== ENCOUNTER 2023-08-01 11:33 | Outpatient (AMB) | payer MEDICARE, MEDICAID, SELFPAY ==
[2023-08-01 11:35] VITALS: BP 118/66; PULSE 85; O2SAT 99; BMI 22.4
--- NOTE | 2023-08-01 11:35 | MHC.PC.OV ---
Vital Signs 08/01/23 11:35 Height 5 ft 1 in Weight 118 lb 8 oz BMI 22.4 BP 118/66 Blood Pressure Location Rt brachial Position Sitting Pulse 85 Pulse Source Pulse Oximeter Pulse Oximetry (%) 99 Oxygen Delivery Method Room Air Intake Visit Reasons: 8 Months F/U Allergies No Known Allergies Allergy (Verified 08/01/23 11:40) Medication List - Last Reconciled 08/01/23 by Sarina Devi MD aripiprazole 5 mg PO DAILY buspirone 5 mg PO TID cholecalciferol (vitamin D3) 25 mcg PO DAILY fenofibrate 160 mg PO DAILY 90 days linaclotide (Linzess) 290 mcg PO DAILY 90 days lithium carbonate ER 450 mg PO DAILY lurasidone 80 mg PO DAILY pantoprazole 20 mg PO DAILY prazosin 1 mg PO DAILY pregabalin (Lyrica) 300 mg PO BID 30 days quetiapine 400 mg PO BEDTIME Tobacco use date assessed: 08/01/23 Fall risk assessment: No Falls in past year Last assessed Fall Risk: 08/01/23 Dental Screening Dental Screen Date: 08/01/23 Did you have a dental visit in the last 12 months?: Yes Did you have a dental problem in the last 6 months where you did not have access to dental care?: No Was dental information given to patient?: Patient has dentist HPI 8 Months F/U HPI Details Patient is 66-year-old female came in today for regular follow-up Patient has seen gastroenterology she has been having problem with choking feeling She had EGD and colonoscopy done but go back for follow-up. I would strongly recommend that she do that as she continued to have the symptoms. Patient is 67-year-old female with a history of Sjogren syndrome, polymyositis, lipid disorder, bipolar disorder, chronic constipation, chronic GERD, multiple joint arthritis, myopathy, neutropenia, intercostal neuralgia and chronic back pain along with fibromyalgia and other sexual identity disorder. Patient came in today for follow-up appointment She is seeing psychiatrist and is taking lithium doing well Complaining of intercostal pain today which flares up every now and then. Patient says that it is not that bad and she can bear with it. Last visit she was complaining of shortness a breath I did place a referral for her to see radiologic electronic specialist but patient says that she never got appointment. She says that she does not have any shortness a breath anymore. Lab order placed to be done fasting before next visit in November Patient have a lipid disorder she is taking fenofirate 160 mg daily As well as iron supplement for anemia. Chronic constipation treated with Linzess through PCP office even though patient is seeing Gastroenterology. 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, lumbar region Postlaminectomy syndrome, not elsewhere classified Fibromyalgia Other sexual disorders Bipolar 1 disorder IBS (irritable bowel syndrome) Muscular dystrophy Chronic vertigo Chronic GERD Lipid disorder Constipation by delayed colonic transit Surgical History H/O colonoscopy Status post insertion of nerve stimulator Previous back surgery History of ankle surgery H/O mastectomy History of hip surgery Family History Father Mesothelioma Brother Mesothelioma Paternal Grandfather Mesothelioma Brother Mesothelioma Paternal Grandmother Stomach cancer Paternal Aunt Lung cancer Family/Other Breast cancer Other Mental health disorder Osteoarthritis Substance use disorder Social History Household Members: Family Housing: House Are you a primary healthcare insurance sales agent to a significant other at home: Yes (mother) Do you presently have visiting nurse or other home services: No Alcohol intake: never Patient Tobacco Use Status: Never used Tobacco Tobacco use type: Smokeless Tobacco e-Cigarette/Vaping Use: Currently Using Substance Use Type: Marijuana service: No Current occupational status: disabled Cognitive needs: No Hearing needs: No Vision needs: No Questionnaire Thrive Questionnaire Date Thrive assessed: 12/20/22 AUDIT C Alcohol Use Questionnaire (AUDIT-C) 1. How often do you have a drink containing alcohol?: Never 3. How often do you have six or more drinks on one occasion?: Never Total Score: 0 Score Reviewed/Action Taken: Yes KAUR-7 AMB Questionnaire KAUR-7 Date KAUR - 7 assessed: 03/23/23 Source: Developed by Drs. Bennett Bhagat, Alannah Steve, Terence Donato and colleagues, with an educational alejandro from [employer]. Review of Systems Const Denies chills and Denies fever(s) ENT Denies epistaxis and Denies nasal discharge Resp Denies chest congestion, Denies cough and Denies hemoptysis GI Denies diarrhea and Denies nausea Skin/Breast Denies rash Neuro Reports no additional complaints Psych Reports no additional complaints Endo Reports no additional complaints Physical exam (Primary Care) Vital Signs: Last Vital Signs Pulse 85 08/01/23 11:35 BP 118/66 08/01/23 11:35 Pulse Ox 99 08/01/23 11:35 Oxygen Delivery Method Room Air 08/01/23 11:35 BMI result Body Mass Index 22.4 Tobacco/Smoking Status: Tobacco use Status Tobacco use date assessed 08/01/23 08/01/23 11:41 Patient Tobacco Use Status Never used Tobacco 08/01/23 11:36 Tobacco use type Smokeless Tobacco 08/01/23 11:36 e-Cigarette/Vaping Use Currently Using 08/01/23 11:36 Thrive Assessment: Date of Thrive Assessment Date Thrive assessed 12/20/22 08/01/23 11:36 Const General: cooperative, comfortable and no acute distress Orientation/consciousness: patient oriented x3 HENMT Head: Yes normocephalic Eyes General: appearance normal, both eyes and all related structures Neck Neck: Yes supple Chest Chest/axillae images: 1. Pain with pressure over intercostal joint Resp Effort & Inspection: normal respiratory effort, no cough and no stridor Cardio Rhythm: regular rhythm Heart sounds: S1 normal heart sound present and S2 normal heart sound present Skin General skin exam: turgor normal Neuro General: patient oriented x3, tone normal and moves all extremities Extrem Right lower extremity: no edema Left lower extremity: no edema Assessment and Plan Assessment & Plan (1) Constipation by delayed colonic transit: Code(s): K59.01 - Slow transit constipation (2) Lipid disorder: Code(s): E78.9 - Disorder of lipoprotein metabolism, unspecified (3) Chronic GERD: Code(s): K21.9 - Gastro-esophageal reflux disease without esophagitis (4) IBS (irritable bowel syndrome): Code(s): K58.9 - Irritable bowel syndrome without diarrhea Qualifiers: Irritable bowel syndrome type: with constipation Qualified Code(s): K58.1 - Irritable bowel syndrome with constipation (5) Bipolar 1 disorder: Code(s): F31.9 - Bipolar disorder, unspecified (6) Neutropenia: Code(s): D70.9 - Neutropenia, unspecified Qualifiers: Neutropenia type: unspecified Qualified Code(s): D70.9 - Neutropenia, unspecified (7) Anemia: Code(s): D64.9 - Anemia, unspecified Qualifiers: Anemia type: other cause Other causes of anemia: chronic disease, other Qualified Code(s): D63.8 - Anemia in other chronic diseases classified elsewhere (8) Intercostal neuralgia: Code(s): G58.8 - Other specified mononeuropathies (9) Polymyositis with myopathy: Code(s): M33.22 - Polymyositis with myopathy (10) Primary osteoarthritis involving multiple joints: Code(s): M15.9 - Polyosteoarthritis, unspecified Plan Patient is 66-year-old female came in today for regular follow-up Patient has seen gastroenterology she has been having problem with choking feeling She had EGD and colonoscopy done but go back for follow-up. I would strongly recommend that she do that as she continued to have the symptoms. Patient is 67-year-old female with a history of Sjogren syndrome, polymyositis, lipid disorder, bipolar disorder, chronic constipation, chronic GERD, multiple joint arthritis, myopathy, neutropenia, intercostal neuralgia and chronic back pain along with fibromyalgia and other sexual identity disorder. Patient came in today for follow-up appointment She is seeing psychiatrist and is taking lithium doing well Complaining of intercostal pain today which flares up every now and then. Patient says that it is not that bad and she can bear with it. Last visit she was complaining of shortness a breath I did place a referral for her to see radiologic electronic specialist but patient says that she never got appointment. She says that she does not have any shortness a breath anymore. Lab order placed to be done fasting before next visit in November Patient have a lipid disorder she is taking fenofirate 160 mg daily As well as iron supplement for anemia. Chronic constipation treated with Linzess through PCP office even though patient is seeing Gastroenterology. Patient is to return in November for follow-up Orders: Orders Comprehensive Elizabeth. Panel Fast 3 Months D64.9 - Anemia, unspecified, D70.9 - Neutropenia, unspecified, E78.9 - Disorder of lipoprotein metabolism, unspecified, F31.9 - Bipolar disorder, unspecified, G58.8 - Other specified mononeuropathies, K21.9 - Gastro-esophageal reflux disease without esophagitis, K58.1 - Irritable bowel syndrome with constipation, K59.01 - Slow transit constipation, M15.9 - Polyosteoarthritis, unspecified, M33.22 - Polymyositis with myopathy Lipid Panel 3 Months D64.9 - Anemia, unspecified, D70.9 - Neutropenia, unspecified, E78.9 - Disorder of lipoprotein metabolism, unspecified, F31.9 - Bipolar disorder, unspecified, G58.8 - Other specified mononeuropathies, K21.9 - Gastro-esophageal reflux disease without esophagitis, K58.1 - Irritable bowel syndrome with constipation, K59.01 - Slow transit constipation, M15.9 - Polyosteoarthritis, unspecified, M33.22 - Polymyositis with myopathy TSH reflex Free T4 3 Months D64.9 - Anemia, unspecified, D70.9 - Neutropenia, unspecified, E78.9 - Disorder of lipoprotein metabolism, unspecified, F31.9 - Bipolar disorder, unspecified, G58.8 - Other specified mononeuropathies, K21.9 - Gastro-esophageal reflux disease without esophagitis, K58.1 - Irritable bowel syndrome with constipation, K59.01 - Slow transit constipation, M15.9 - Polyosteoarthritis, unspecified, M33.22 - Polymyositis with myopathy Complete Blood Count Auto Diff 3 Months D64.9 - Anemia, unspecified, D70.9 - Neutropenia, unspecified, E78.9 - Disorder of lipoprotein metabolism, unspecified, F31.9 - Bipolar disorder, unspecified, G58.8 - Other specified mononeuropathies, K21.9 - Gastro-esophageal reflux disease without esophagitis, K58.1 - Irritable bowel syndrome with constipation, K59.01 - Slow transit constipation, M15.9 - Polyosteoarthritis, unspecified, M33.22 - Polymyositis with myopathy Vitamin D 25-OH (D2 and D3) 3 Months D64.9 - Anemia, unspecified, D70.9 - Neutropenia, unspecified, E78.9 - Disorder of lipoprotein metabolism, unspecified, F31.9 - Bipolar disorder, unspecified, G58.8 - Other specified mononeuropathies, K21.9 - Gastro-esophageal reflux disease without esophagitis, K58.1 - Irritable bowel syndrome with constipation, K59.01 - Slow transit constipation, M15.9 - Polyosteoarthritis, unspecified, M33.22 - Polymyositis with myopathy Vitamin B12 3 Months D64.9 - Anemia, unspecified, D70.9 - Neutropenia, unspecified, E78.9 - Disorder of lipoprotein metabolism, unspecified, F31.9 - Bipolar disorder, unspecified, G58.8 - Other specified mononeuropathies, K21.9 - Gastro-esophageal reflux disease without esophagitis, K58.1 - Irritable bowel syndrome with constipation, K59.01 - Slow transit constipation, M15.9 - Polyosteoarthritis, unspecified, M33.22 - Polymyositis with myopathy Coding Level of Care Code Est Pt Level 4 (33550) Diagnoses Constipation by delayed colonic transit K59.01 Lipid disorder E78.9 Chronic GERD K21.9 Irritable bowel syndrome with constipation K58.1 Irritable bowel syndrome type: with constipation Bipolar 1 disorder F31.9 Neutropenia, unspecified type D70.9 Neutropenia type: unspecified Anemia in other chronic diseases classified elsewhere D63.8 Anemia type: other cause Other causes of anemia: chronic disease, other Intercostal neuralgia G58.8 Polymyositis with myopathy M33.22 Primary osteoarthritis involving multiple joints M15.9
== END 2023-08-01 12:21 | disposition home or self-care (01) ==
PROVIDERS: PCP Internal Medicine; Visit Provider Internal Medicine
DX: K59.01 Slow transit constipation (principal); F31.9 Bipolar disorder, unspecified; D70.9 Neutropenia, unspecified; M33.22 Polymyositis with myopathy; E78.9 Disorder of lipoprotein metabolism, unspecified; K21.9 Gastro-esophageal reflux disease without esophagitis; K58.1 Irritable bowel syndrome with constipation; D63.8 Anemia in other chronic diseases classified elsewhere; G58.8 Other specified mononeuropathies; M15.9 Polyosteoarthritis, unspecified
CPT/HCPCS: 99214

== ENCOUNTER 2023-08-16 12:21 | Outpatient (AMB) | payer MEDICARE, MEDICAID, SELFPAY ==
--- NOTE | 2023-08-16 12:26 | MHC.OFFVIS ---
Vital Signs 08/16/23 12:33 Height 5 ft 1 in Weight 116 lb 2.938 oz BMI 22.0 BP 120/78 Blood Pressure Location Rt brachial Position Sitting Pulse 79 Pulse Oximetry (%) 98 Intake Visit Reasons: Polymyositis/Rash/CM Intake Note: Established patient, last seen 04/17/23, presents today for test results review. Interactive Account Manager Required: No Accompanied by: Self / Same As Patient Allergies No Known Allergies Allergy (Verified 08/16/23 12:27) HPI Comments Details: Mrs. Reyes is here for follow-up for her polymyositis. She reports she is doing well, she still has some weakness but the stiffness has improved and is not as bad. She completed the prednisone course. She denies difficulty with swallowing or breathing. But does have a rash between her left thumb and middle finger at the webbing. She thinks ot may be due to washing dishes. She has not used a medication for the rash. Prior visit: Abby is a 67yoF, who presents today for evaluation and treatment of Polymyositis. Per patient, she was diagnosed over 8 years ago due to increase muscle weakness, excessive fatigue and elevated CK and aldolase. She was successfully treatment with prednisone and has not had a recurrence. However, in recent months she has been feeling more weakness and tired and her CK is trending up so she wanted to get checked out before it worsened. She has had right ankle fusion surgery in 2020 and the right ankle was done over 7years ago. The patient has had multiple surgeries - see [facility] section, and has a spinal cord stimulator, secondary to chronic sciatica and lower extremity pain and weakness. Prior to the [employer] spinal cord stimulator, this progressed to to a stage where she could not walk and had frequent falls. Though she is now able to walk and the stimulator has relieved the pain in the bilateral lower extremities, she continues with chronic pain in the lower back that is worsening. She takes pregabalin 300 mg b.i.d and Naproxen prn which she states is effective. She reports being diagnosed with Sjogren's 20 years ago and suffers from dry eyes and dry mouth. She has had an eye test at the hospital many years ago, I think it was this one , that confirmed the dry eye syndrome. She uses eye drops multiple times per day. However, Abby denies episodes of red burning eyes needing steroids to treat, episodes of mouth sores or ulcers, nose bleed, ringing in the ear. She denies fevers, excessive fatigue, unexplained weight-loss or weight-gain. The patient denies Raynaud's phenomenon, butterfly rash on face or other rashes; denies photosensitivity - getting sick or developing a rash from being out in the sun; denies blood or froth in urine; patient denies hx of SOB, chest pain. She denies a hx of Carditis or Pleuritis and DVT/PE. She denies thinning hair or hair loss. She does not experience from unexplained abdominal pain. She denies blood or mucous in stool, nausea, vomiting and diarrhea , difficulty swallowing. She gets occasional heartburn and takes Omeprazole an average of 2 times per month. She endorses joint and muscle stiffness that last throughout the day. She reports she has not been following up with her eye doctor, rheumatology and others because it gets overwhelming to do, It just gets to be too much I just wanted a break . Malignancy: denies personal cancer hx. 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, lumbar region Postlaminectomy syndrome, not elsewhere classified Fibromyalgia Other sexual disorders Bipolar 1 disorder IBS (irritable bowel syndrome) Muscular dystrophy Chronic vertigo Chronic GERD Lipid disorder Constipation by delayed colonic transit Surgical History H/O colonoscopy Status post insertion of nerve stimulator Previous back surgery History of ankle surgery H/O mastectomy History of hip surgery Family History Father Mesothelioma Brother Mesothelioma Paternal Grandfather Mesothelioma Brother Mesothelioma Paternal Grandmother Stomach cancer Paternal Aunt Lung cancer Family/Other Breast cancer Other Mental health disorder Osteoarthritis Substance use disorder Social History Household Members: Family Housing: House Are you a primary critical care cns to a significant other at home: Yes (mother) Do you presently have visiting nurse or other home services: No Alcohol intake: never Patient Tobacco Use Status: Never used Tobacco Tobacco use type: Smokeless Tobacco e-Cigarette/Vaping Use: Currently Using Substance Use Type: Marijuana service: No Current occupational status: disabled Cognitive needs: No Hearing needs: No Vision needs: No Review of Systems Const All systems reviewed & are unremarkable except as noted in HPI and below Eyes Denies photophobia Neuro Denies Sensory deficit (Neuro) Physical Exam Vital Signs: Last Vital Signs Pulse 79 08/16/23 12:33 BP 120/78 08/16/23 12:33 Pulse Ox 98 08/16/23 12:33 BMI result Body Mass Index 22.0 Vital signs reviewed. Constitutional: Pleasant, Well appearing. No acute distress. Well-developed and well-nourished. HEENT: Normocephalic and atraumatic. External auditory canals without erythema or edema bilaterally. Dry mucous membranes. No pharyngeal erythema or exudates. Skin: Warm and dry. No rashes or lesions noted. Neck: Full and painless range of motion. No cervical lymphadenopathy. Cardio: Regular rate and rhythm. No murmurs, gallops, or rubs. No lower extremity edema. No JVD. Pulmonary: No respiratory distress. No accessory muscle usage. Lungs CTA Musculoskeletal: Normal range of motion with some limitation in joints throughout the body. Uses crutch on the right - bilateral ankle fusion. Upper extremity 4/5, lower extremity 5/5. Neuro: Alert and oriented x4. Cranial nerves 2-12 grossly intact. Neuro soine stimulator sets off when she raises her hands Const General: comfortable, no acute distress, well developed, alert, awake and Physically active Eyes Direct Ophthalmoscopy: No photophobia Chest Chest palpation & inspection: normal inspection of the chest Resp Effort & Inspection: normal respiratory effort, able to speak in complete sentences, normal respiratory pattern, no audible wheezes and no cough Cardio Jugular venous distension: no JVD GI Inspection: Yes normal to inspection General: Yes no CVA tenderness Back/Spine/Pelvis Other: Palpation of the right 12th rib approximately on posterior axillary line causes severe pain with radiation of the pain along side the rib and into the anterior right abdomen. Back: no CVA tenderness Cervical Spine: cervical ROM normal Thoracic/Lumbar Spine: Thoracic/lumbar spine scar(s) Neuro Sensory Exam: No Sensory deficit (Neuro) Psych Appearance: grossly normal Mental Status: mental status grossly normal Speech and movement: Normal speech and movement present Results Reviewed Results Reviewed: Laboratory Tests 07/30/23 11:50 ESR 14 Total Creatine Kinase 137 C-Reactive Protein 0.18 Aldolase 4.4 Assessment & Plan Assessment & Plan (1) Polymyositis with myopathy: Code(s): M33.22 - Polymyositis with myopathy Category: Medical (2) Primary osteoarthritis involving multiple joints: Code(s): M15.9 - Polyosteoarthritis, unspecified Category: Medical (3) Rash and other nonspecific skin eruption: Code(s): R21 - Rash and other nonspecific skin eruption Category: Medical (4) Polymyositis: Code(s): M33.20 - Polymyositis, organ involvement unspecified Category: Medical Plan #Polymyositis/Rash: Ms. Mora 67 yo F has been treated for Polymtositis over 10 years ago. Her recent flare appears to be resolved and she is s/p Prednisone. Her CK remains normalized as of 02/2023 to 135 down from 267 (02/15/2023) and on 07/31/2024 labs. She does report occasional bouts of weakness but that is the nature of the disease. The patient is continues with mild exercise with stationary bike, but she has not done any weight-training activities (such as 3lb weights) to keep her muscles from atrophy. She is also encouraged to walking which she reports doing. Patient knows to call the office if she has a flare. I did replace her emergency Prednisone to keep on hand. 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 #Rash: DERM determined eczema. She uses Clobetasol 2 weeks on 5 days off. The lab results does show positive ANA1:160 but negative CHAVA. CCP and rheumatoid factor also negative as was the Myositis Panel. Given that the antibodies for Myositis was negative, not statin induced at this point - she has been on fenofibrate for years now. #Osteoarthritis Multiple sites: Hand OA per Xray with Osteopenia. Osteopenia can be due to an underlying inflammatory cause such as RA. However, at this time patient continues without complaint's of chronic hand pain, joint swelling, warmth or redness and none on PE. She also have OA of her knee and ankles per xray. She uses a crutch. She has a spine stimulator. #Osteoporosis Screening:: Normal bone Density as 04/02/2022. History on Prednisone, ankle fracture in 2021 and ankle fusion surgery, history of GERD, former smoker with sever DDD. 6 month follow-up with follow-up labs for CK and Inflammatory markers. Orders: Orders Erythrocyte Sedimentation Rate Today M33.20 - Polymyositis, organ involvement unspecified C Reactive Protein Today M33.20 - Polymyositis, organ involvement unspecified Aldolase Today M33.20 - Polymyositis, organ involvement unspecified Complete Blood Count Auto Diff Today M33.20 - Polymyositis, organ involvement unspecified Comprehensive Met. Panel Today M33.20 - Polymyositis, organ involvement unspecified Creatine Kinase Total Today M33.20 - Polymyositis, organ involvement unspecified Medications: Changed From prednisone orally as directed; 3 tablets per day x 7 days. tablets per day x 14 days, 1 tablet per day until next visit 90 tabs 0RF M33.22 - Polymyositis with myopathy To prednisone orally; orally as directed PRN; 3 tablets per day x 7 days. 2 tablets per day x 14 days, 1 tablets per day x 14 days 75 tabs 0RF Flare M33.22 - Polymyositis with myopathy Coding Level of Care Code Est Pt Level 3 (54126) Complex EM visit Add On G2211 Diagnoses Polymyositis with myopathy M33.22 Primary osteoarthritis involving multiple joints M15.9 Rash and other nonspecific skin eruption R21 Polymyositis M33.20
[2023-08-16 12:33] VITALS: BP 120/78; PULSE 79; O2SAT 98; BMI 22.0
== END 2023-08-16 13:00 | disposition home or self-care (01) ==
PROVIDERS: PCP Internal Medicine; Visit Provider Nurse Practitioner Family
DX: M33.22 Polymyositis with myopathy (principal); M15.9 Polyosteoarthritis, unspecified; R21 Rash and other nonspecific skin eruption; M33.20 Polymyositis, organ involvement unspecified
CPT/HCPCS: 99213; G2211

== ENCOUNTER → 2023-08-16 12:21 | Outpatient (BNVA) | payer MEDICARE, MEDICAID, SELFPAY | PROVIDERS: PCP Internal Medicine; Visit Provider Nurse Practitioner Family | DX: M33.22 Polymyositis with myopathy (principal); R21 Rash and other nonspecific skin eruption; M15.9 Polyosteoarthritis, unspecified | CPT/HCPCS: 99212 ==

== ENCOUNTER 2023-09-26 08:45 | Outpatient (AMB) | payer MEDICARE, MEDICAID, SELFPAY ==
--- NOTE | 2023-09-26 08:48 | A.OFFPC_ITS ---
Vital Signs 3 09/26/23 08:50 BP 110/74 Blood Pressure Location Rt brachial Position Sitting Pulse 92 Pulse Source Pulse Oximeter Pulse Oximetry (%) 98 Oxygen Delivery Method Room Air Intake Visit Reasons: Lump on Chest Allergies No Known Allergies Allergy (Verified 08/16/23 12:27) Medication List - Last Reconciled 09/26/23 by Sarina Devi MD aripiprazole 5 mg PO DAILY buspirone 10 mg PO TID cholecalciferol (vitamin D3) 25 mcg PO DAILY fenofibrate 160 mg PO DAILY 90 days linaclotide (Linzess) 290 mcg PO DAILY 90 days lithium carbonate ER 450 mg PO DAILY lurasidone 120 mg PO DAILY pantoprazole 20 mg PO DAILY prazosin 1 mg PO DAILY prednisone orally; orally as directed PRN; 3 tablets per day x 7 days. 2 tablets per day x 14 days, 1 tablets per day x 14 days pregabalin (Lyrica) 300 mg PO BID 30 days quetiapine 400 mg PO BEDTIME Tobacco use date assessed: 08/01/23 Dental Screening Dental Screen Date: 08/01/23 HPI Lump on Chest 2 HPI0 Details 67-year-old came today to be evaluated p ainful on her chest patient have a history of mastectomy It has been present since July of this year, patient says that it is getting better However still feels it and it is annoying There is no pain with deep breath It only hurts when she touched the area On examination she has small cyst lateral to sternum left side between 3 and 4th rib I am treating her with 4 days of antibiotic to see if that resolves the pain Patient says that it does not bother too much and she does not need anything for pain She will get back to me after 4 days to update me. 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, lumbar region Postlaminectomy syndrome, not elsewhere classified Fibromyalgia Other sexual disorders Bipolar 1 disorder IBS (irritable bowel syndrome) Muscular dystrophy Chronic vertigo Chronic GERD Lipid disorder Constipation by delayed colonic transit Surgical History H/O colonoscopy Status post insertion of nerve stimulator Previous back surgery History of ankle surgery H/O mastectomy History of hip surgery Family History Father Mesothelioma Brother Mesothelioma Paternal Grandfather Mesothelioma Brother Mesothelioma Paternal Grandmother Stomach cancer Paternal Aunt Lung cancer Family/Other Breast cancer Other Mental health disorder Osteoarthritis Substance use disorder Social History Household Members: Family Housing: House Are you a primary career services manager to a significant other at home: Yes (mother) Do you presently have visiting nurse or other home services: No Alcohol intake: never Patient Tobacco Use Status: Never used Tobacco Tobacco use type: Smokeless Tobacco e-Cigarette/Vaping Use: Currently Using Substance Use Type: Marijuana service: No Current occupational status: disabled Cognitive needs: No Hearing needs: No Vision needs: No Questionnaire Thrive Questionnaire Date Thrive assessed: 12/20/22 KAUR-7 AMB Questionnaire KAUR-7 Date KAUR - 7 assessed: 03/23/23 Source: Developed by Drs. Bennett Bhagat, Alannah Steve, Terence Donato and colleagues, with an educational alejandro from [employer]. Review of Systems Const All systems reviewed & are unremarkable except as noted in HPI and below Physical exam (Primary Care) Vital Signs: Last Vital Signs Pulse 92 09/26/23 08:50 BP 110/74 09/26/23 08:50 Pulse Ox 98 09/26/23 08:50 Oxygen Delivery Method Room Air 09/26/23 08:50 Tobacco/Smoking Status: Tobacco use Status Tobacco use date assessed 08/01/23 09/26/23 08:51 Patient Tobacco Use Status Never used Tobacco 09/26/23 08:51 Tobacco use type Smokeless Tobacco 09/26/23 08:51 e-Cigarette/Vaping Use Currently Using 09/26/23 08:51 Thrive Assessment: Date of Thrive Assessment Date Thrive assessed 12/20/22 09/26/23 08:51 Const General: no acute distress Orientation/consciousness: patient oriented x3 Eyes General: appearance normal, both eyes and all related structures Chest Chest/axillae images: 2 1. With soft area lateral to sternum left side between 3rd and 4th rib, sore to pressure. No signs of infection on overlying skin. Resp Effort & Inspection: normal respiratory effort and able to speak in complete sentences Auscultation: clear to auscultation bilaterally Neuro General: patient oriented x3 Psych Mental Status: mental status grossly normal Assessment and Plan Assessment & Plan (1) Inflamed epidermoid cyst of skin: Code(s): L72.3 - Sebaceous cyst Plan 67-year-old came today to be evaluated painful on her chest patient have a history of mastectomy It has been present since July of this year, patient says that it is getting better However still feels it and it is annoying There is no pain with deep breath It only hurts when she touched the area On examination she has small cyst lateral to sternum left side between 3 and 4th rib I am treating her with 4 days of antibiotic to see if that resolves the pain Patient says that it does not bother too much and she does not need anything for pain She will get back to me after 4 days to update me. Medications: New 2 amoxicillin 500 mg PO Q12H 8 caps 0RF 4 days Coding Level of Care Code Est Pt Level 3 (73066) Diagnoses Inflamed epidermoid cyst of skin L72.3
[2023-09-26 08:50] VITALS: BP 110/74; PULSE 92; O2SAT 98
== END 2023-09-26 17:43 | disposition home or self-care (01) ==
PROVIDERS: PCP Internal Medicine; Visit Provider Internal Medicine
DX: L72.3 Sebaceous cyst (principal)
CPT/HCPCS: 99213

== ENCOUNTER 2023-10-23 11:13 | Outpatient (AMB) | payer MEDICARE, MEDICAID, SELFPAY ==
--- NOTE | 2023-10-23 11:16 | A.OFFVIS_ITS ---
Intake Visit Reasons: Sebaceous cyst Intake Note: Patient is seen in office for evaluation and treatment of a sebaceous cyst. Pt c/o: upper chest, toward the right breast, had bilateral mastectomy in the past, onset one month, area is tender, denies discharge, redness, hot to touch, admits to tender and some increase in size Licensed Practical Vocational Nurse Required: No Accompanied by: Self / Same As Patient Allergies No Known Allergies Allergy (Verified 10/23/23 11:23) Medication List - Last Reconciled 10/23/23 by Carlos Pham MD buspirone 10 mg PO TID cholecalciferol (vitamin D3) 25 mcg PO DAILY fenofibrate 160 mg PO DAILY 90 days linaclotide (Linzess) 290 mcg PO DAILY 90 days lithium carbonate ER 450 mg PO DAILY lurasidone 120 mg PO DAILY pantoprazole 20 mg PO DAILY prazosin 1 mg PO DAILY pregabalin (Lyrica) 300 mg PO BID 30 days quetiapine 400 mg PO BEDTIME HPI Comments Details: 67-year-old female patient presenting for evaluation of a chest lump on the left side. She has a prior history of bilateral mastectomies and denies any problems following the surgery. She now feels a lump below the skin which has gradually increased in size. She only notes discomfort when the lesion is palpated. She denies any overlying skin changes or discharge. 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, lumbar region Postlaminectomy syndrome, not elsewhere classified Fibromyalgia Other sexual disorders Bipolar 1 disorder IBS (irritable bowel syndrome) Muscular dystrophy Chronic vertigo Chronic GERD Lipid disorder Constipation by delayed colonic transit Surgical History H/O colonoscopy Status post insertion of nerve stimulator Previous back surgery History of ankle surgery H/O mastectomy History of hip surgery Family History Father Mesothelioma Brother Mesothelioma Paternal Grandfather Mesothelioma Brother Mesothelioma Paternal Grandmother Stomach cancer Paternal Aunt Lung cancer Family/Other Breast cancer Other Mental health disorder Osteoarthritis Substance use disorder Social History Household Members: Family Housing: House Are you a primary acute care nurse practitioner to a significant other at home: Yes (mother) Do you presently have visiting nurse or other home services: No Alcohol intake: never Patient Tobacco Use Status: Never used Tobacco Tobacco use type: Smokeless Tobacco e-Cigarette/Vaping Use: Currently Using Substance Use Type: Marijuana service: No Current occupational status: disabled Cognitive needs: No Hearing needs: No Vision needs: No Review of Systems Const All systems reviewed & are unremarkable except as noted in HPI and below Denies chills, Denies fever(s), Denies headache(s), Denies poor appetite and Denies weakness ENT Denies headache(s) Card Denies chest pain, Denies irregular heart rhythm, Denies palpitations and Denies dyspnea Resp Denies cough, Denies excessive phlegm production and Denies dyspnea GI Denies abdominal pain, Denies bloating, Denies change in bowel habits, Denies constipation, Denies heartburn, Denies diarrhea, Denies nausea and Denies vomiting Denies urinary frequency Musc Denies back pain, Denies muscle weakness and Denies numbness Skin/Breast Reports as per HPI, Denies changing lesions and Denies unusual bruising Neuro Denies headache(s), Denies numbness, Denies paresthesias and Denies weakness Psych Denies anxiety and Denies depression Endo Denies palpitations Manuel/Lymph Denies lymphadenopathy Physical Exam Const General: cooperative and no acute distress Nutritional Appearance: well nourished Orientation/consciousness: patient oriented x3 Limitations: no limitations HEENT Head: Yes normocephalic and Yes atraumatic Ears: hearing grossly normal bilaterally Chest Other: Palpable lesion noted in left chest as noted below. Chest/axillae images: 2 1. Palpable subcutaneous lump, proximally 1.5 cm in diameter, mobile within the tissue without fixation to skin or chest wall. No overlying skin changes appreciated. Lesion deeper to skin therefore not epidermal inclusion cyst. Patient underwent bilateral mastectomies with nipple reconstruction. Resp Effort & Inspection: normal respiratory effort, no audible wheezes, no cough and no respiratory distress Cardio Jugular venous distension: no JVD GI Inspection: Yes normal to inspection Skin Other: Warm, dry, no rash Neuro General: patient oriented x3 Extrem General: Yes no clubbing, cyanosis or edema Assessment & Plan Assessment & Plan (1) Inflamed epidermoid cyst of skin: Code(s): L72.3 - Sebaceous cyst Category: Medical Plan 67-year-old female patient presenting with a palpable lump in the left chest not clearly an epidermal inclusion cyst. Lesion may be a cystic lesion therefore I recommended further evaluation with ultrasound of the breast. She will return following the study to review the results and discuss treatment options. Orders: Orders 2 US breast LT limited Today L72.3 - Sebaceous cyst Coding Level of Care Code New Pt Level 4 (71483) Diagnoses Inflamed epidermoid cyst of skin L72.3
== END 2023-10-23 11:29 | disposition home or self-care (01) ==
PROVIDERS: PCP Internal Medicine; Visit Provider Surgery
DX: L72.3 Sebaceous cyst (principal)
CPT/HCPCS: 99203

== ENCOUNTER → 2023-10-23 11:13 | Outpatient (BNVA) | payer MEDICARE, MEDICAID, SELFPAY | PROVIDERS: PCP Internal Medicine; Visit Provider Surgery | DX: L72.3 Sebaceous cyst (principal) | CPT/HCPCS: 99202 ==

== ENCOUNTER 2023-11-13 13:44 | Outpatient (REF) | payer MEDICARE, MEDICAID, SELFPAY ==
--- NOTE | ~2023-11-13 | US_ITS ---
EXAMINATION: US CHEST CLINICAL INFORMATION: Chest lump, previous bilateral mastectomy, lump left chest, mid chest left midclavicular region. Patient states she no longer feels the lump. COMPARISON: Ultrasound chest 05/09/2022. TECHNIQUE: Targeted ultrasound images were obtained by the software engineer backend of the area of concern as indicated by the patient in the mid chest, left mid clavicular line. Radiologist was not in attendance. Images were later provided for interpretation. FINDINGS: No discrete mass or fluid collection identified in the area of concern indicated by the patient in the mid left chest, midclavicular region. US/US chest IMPRESSION: 1. No discrete mass or fluid collection identified in the area of concern indicated by the patient in the mid left chest, midclavicular region. 2. Decisions regarding further imaging, treatment or biopsy should be based on the clinical exam, as not all abnormalities are detectable on ultrasound studies. Electronically signed by: Saba Duran MD 11/21/2023 06:02 AM EDT
== END 2023-11-13 13:45 | disposition home or self-care (01) ==
LOC: HO.HMGCX 13:44
PROVIDERS: PCP Internal Medicine; Visit Provider Surgery
DX: Q67.8 Other congenital deformities of chest (principal)
CPT/HCPCS: 76604

== ENCOUNTER 2023-12-05 11:17 | Outpatient (AMB) | payer MEDICARE, MEDICAID, SELFPAY ==
[2023-12-05 11:20] VITALS: BP 108/72; PULSE 96; O2SAT 100; BMI 21.6
--- NOTE | 2023-12-05 11:20 | A.OFFPC_ITS ---
Vital Signs 12/05/23 11:20 Height 5 ft 1 in Weight 114 lb 2 oz BMI 21.6 BP 108/72 Blood Pressure Location Rt brachial Position Sitting Pulse 96 Pulse Source Pulse Oximeter Pulse Oximetry (%) 100 Oxygen Delivery Method Room Air Intake Visit Reasons: Annual PE Allergies No Known Allergies Allergy (Verified 12/05/23 11:20) Medication List - Last Reconciled 12/05/23 by Sarina Devi MD buspirone 10 mg PO TID cholecalciferol (vitamin D3) 25 mcg PO DAILY fenofibrate 160 mg PO DAILY 90 days linaclotide (Linzess) 290 mcg PO DAILY 90 days lithium carbonate ER 450 mg PO DAILY lurasidone 120 mg PO DAILY pantoprazole 20 mg PO DAILY prazosin 1 mg PO DAILY pregabalin (Lyrica) 300 mg PO BID 30 days quetiapine 400 mg PO BEDTIME Tobacco use date assessed: 12/05/23 Fall risk assessment: No Falls in past year Last assessed Fall Risk: 12/05/23 Dental Screening Dental Screen Date: 12/05/23 Did you have a dental visit in the last 12 months?: Yes Did you have a dental problem in the last 6 months where you did not have access to dental care?: No Was dental information given to patient?: Patient has dentist HPI Annual PE HPI Details Physical exam appointment Patient have history of bilateral mastectomy Do not want OBGYN appointment Colonoscopy was [address] 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, lumbar region Postlaminectomy syndrome, not elsewhere classified Fibromyalgia Other sexual disorders Bipolar 1 disorder IBS (irritable bowel syndrome) Muscular dystrophy Chronic vertigo Chronic GERD Lipid disorder Constipation by delayed colonic transit Surgical History H/O colonoscopy Status post insertion of nerve stimulator Previous back surgery History of ankle surgery H/O mastectomy History of hip surgery Family History Father Mesothelioma Brother Mesothelioma Paternal Grandfather Mesothelioma Brother Mesothelioma Paternal Grandmother Stomach cancer Paternal Aunt Lung cancer Family/Other Breast cancer Other Mental health disorder Osteoarthritis Substance use disorder Social History Household Members: Family Housing: House Are you a primary acute care clinical nurse specialist to a significant other at home: Yes (mother) Do you presently have visiting nurse or other home services: No Alcohol intake: never Patient Tobacco Use Status: Never used Tobacco Tobacco use type: Smokeless Tobacco e-Cigarette/Vaping Use: Currently Using Substance Use Type: Marijuana service: No Current occupational status: disabled Current occupational exposures/hazards: No Cognitive needs: No Hearing needs: No Vision needs: No Questionnaire Thrive Questionnaire Date Thrive assessed: 12/05/23 I am a: Patient What is your living situation today?: I have a steady place to live Within the past 12 months, did the food you bought not last and you didn't have the money to get more?: Never true Within the past 12 months, did you worry whether your food would run out before you got money to buy more?: Never true Do you have trouble paying for medicines?: No Do you have trouble getting transportation to medical appointments?: No Do you have trouble paying your heating and electricity bill?: No Do you have trouble taking care of your child, family member or friend?: No Do you have trouble with day-to-day activities such as bathing, preparing meals, shopping, managing finances, etc.?: No Are you currently unemployed and looking for a job?: No Are you interested in more education?: No Please select the resources that you would like help with: None Currently or been in a relationship where the following occur: No concerns reported THRIVE Score: 0 AUDIT C Alcohol Use Questionnaire (AUDIT-C) 1. How often do you have a drink containing alcohol?: Never 3. How often do you have six or more drinks on one occasion?: Never Total Score: 0 Score Reviewed/Action Taken: Yes KAUR-7 AMB Questionnaire KAUR-7 Date KAUR - 7 assessed: 03/23/23 Source: Developed by Drs. Bennett Bhagat, Alannah Steve, Terence Donato and colleagues, with an educational alejandro from [employer]. Review of Systems Const Denies chills, Denies fever(s) and Denies headache(s) Eyes Denies blurry vision ENT Denies headache(s), Denies nasal discharge, Denies nasal obstruction and Denies sinus pain Card Denies chest pain at rest and Denies chest pain with activity Resp Denies cough and Denies hemoptysis GI Denies diarrhea, Denies vomiting and Denies hematemesis Reports as per HPI Musc Denies abnormal gait Skin/Breast Reports as per HPI Neuro Denies Neuro-related abnormal movements, Denies Abnormal speech present, Denies abnormal gait and Denies headache(s) Psych Denies mood swings and Denies paranoia Endo Reports as per HPI Manuel/Lymph Reports as per HPI Aller/Immun Reports as per HPI Physical exam (Primary Care) Vital Signs: Last Vital Signs Pulse 96 12/05/23 11:20 BP 108/72 12/05/23 11:20 Pulse Ox 100 12/05/23 11:20 Oxygen Delivery Method Room Air 12/05/23 11:20 BMI result Body Mass Index 21.6 Tobacco/Smoking Status: Tobacco use Status Tobacco use date assessed 12/05/23 12/05/23 11:23 Patient Tobacco Use Status Never used Tobacco 12/05/23 11:23 Tobacco use type Smokeless Tobacco 12/05/23 11:23 e-Cigarette/Vaping Use Currently Using 12/05/23 11:23 Thrive Assessment: Date of Thrive Assessment Date Thrive assessed 12/05/23 12/05/23 11:23 Currently or been in a relationship where the following occur: No concerns reported Const General: cooperative, comfortable and no acute distress Orientation/consciousness: patient oriented x3 HENMT Head: Yes normocephalic and Yes atraumatic Eyes General: appearance normal, both eyes and all related structures Pupils: Equal, round and reactive pupils present EOM: EOMs intact bilaterally Neck Neck: Yes supple and No lymphadenopathy Thyroid: Thyroid normal Lymphatic: no lymphadenopathy noted Resp Effort & Inspection: normal respiratory effort and able to speak in complete sentences Auscultation: clear to auscultation bilaterally Cardio Heart sounds: S1 normal heart sound present and S2 normal heart sound present GI Palpation (GI): Soft to palpation and nontender Auscultation: normal bowel sounds General: Yes no CVA tenderness Back/Spine/Pelvis Back: no CVA tenderness Skin General skin exam: elasticity normal and turgor normal Neuro General: patient oriented x3 and gait normal Cranial nerves: Yes Equal, round and reactive pupils present Speech: No Abnormal speech present Coordination: Romberg test negative Extrem General: Yes normal exam except as noted and No edema Assessment and Plan Assessment & Plan (1) Encounter for general adult medical examination with abnormal findings: Code(s): Z00.01 - Encounter for general adult medical examination with abnormal findings (2) Sjogren syndrome with myopathy: Code(s): M35.03 - Sjogren syndrome with myopathy (3) Constipation by delayed colonic transit: Code(s): K59.01 - Slow transit constipation (4) Lipid disorder: Code(s): E78.9 - Disorder of lipoprotein metabolism, unspecified (5) Chronic GERD: Code(s): K21.9 - Gastro-esophageal reflux disease without esophagitis (6) Muscular dystrophy: Code(s): G71.00 - Muscular dystrophy, unspecified (7) Bipolar 1 disorder: Code(s): F31.9 - Bipolar disorder, unspecified (8) Fibromyalgia: Code(s): M79.7 - Fibromyalgia (9) IBS (irritable bowel syndrome): Code(s): K58.9 - Irritable bowel syndrome without diarrhea Qualifiers: Irritable bowel syndrome type: with constipation Qualified Code(s): K58.1 - Irritable bowel syndrome with constipation Plan Physical exam appointment Patient have history of bilateral mastectomy Do not want OBGYN appointment Colonoscopy was [address] Beltrán Medications from PCP office are Fenofibrate Pantoprazole Linzess Due for labs order placed Follow-up 6 months History of ankle surgery, patient was not able to perform tandem walk Orders: Orders Comprehensive Given. Panel Fast Today E78.9 - Disorder of lipoprotein metabolism, unspecified, F31.9 - Bipolar disorder, unspecified, G71.00 - Muscular dystrophy, unspecified, K21.9 - Gastro-esophageal reflux disease without esophagitis, K58.1 - Irritable bowel syndrome with constipation, M35.03 - Sjogren syndrome with myopathy, M79.7 - Fibromyalgia, Z00.01 - Encounter for g eral adult medical examination with abnormal findings Lipid Panel Today E78.9 - Disorder of lipoprotein metabolism, unspecified, F31.9 - Bipolar disorder, unspecified, G71.00 - Muscular dystrophy, unspecified, K21.9 - Gastro-esophageal reflux disease without esophagitis, K58.1 - Irritable bowel syndrome with constipation, M35.03 - Sjogren syndrome with myopathy, M79.7 - Fibromyalgia, Z00.01 - Encounter for general adult medical examination with abnormal findings TSH reflex Free T4 Today E78.9 - Disorder of lipoprotein metabolism, unspecif ied, F31.9 - Bipolar disorder, unspecified, G71.00 - Muscular dystrophy, unspecified, K21.9 - Gastro-esophageal reflux disease without esophagitis, K58.1 - Irritable bowel syndrome with constipation, M35.03 - Sjogren syndrome with myopathy, M79.7 - Fibromyalgia, Z00.01 - Encounter for general adult medical examination with abnormal findings Complete Blood Count Auto Diff Today E78.9 - Disorder of lipoprotein metabolism, unspecified, F31.9 - Bipolar disorder, unspecified, G71.00 - Muscular dystrophy, unspecified, K21.9 - Gastro-esophageal reflux disease without esophagitis, K58.1 - Irritable bowel syndrome with constipation, M35.03 - Sjogren syndrome with myopathy, M79.7 - Fibromyalgia, Z00.01 - Encounter for general adult medical examination with abnormal findings Vitamin D 25-OH (D2 and D3) Today E78.9 - Disorder of lipoprotein metabolism, unspecified, F31.9 - Bipolar disorder, unspecified, G71.00 - Muscular dystrophy, unspecified, K21.9 - Gastro-esophageal reflux disease without esophagitis, K58.1 - Irritable bowel syndrome with constipation, M35.03 - Sjogren syndrome with myopathy, M79.7 - Fibromyalgia, Z00.01 - Encounter for general adult medical examination with abnormal findings Coding Level of Care Code Est Pt Level 3 (90887) Est Pt Prev Care >65y(61245) Diagnoses Encounter for general adult medical examination with abnormal findings Z00.01 Sjogren syndrome with myopathy M35.03 Constipation by delayed colonic transit K59.01 Lipid disorder E78.9 Chronic GERD K21.9 Muscular dystrophy G71.00 Bipolar 1 disorder F31.9 Fibromyalgia M79.7 Irritable bowel syndrome with constipation K58.1 Irritable bowel syndrome type: with constipation
== END 2023-12-05 12:10 | disposition home or self-care (01) ==
PROVIDERS: PCP Internal Medicine; Visit Provider Internal Medicine
DX: Z00.00 Encounter for general adult medical examination without abnormal findings (principal); M35.03 Sjogren syndrome with myopathy; G71.00 Muscular dystrophy, unspecified; F31.9 Bipolar disorder, unspecified; K59.01 Slow transit constipation; E78.9 Disorder of lipoprotein metabolism, unspecified; K21.9 Gastro-esophageal reflux disease without esophagitis; M79.7 Fibromyalgia; K58.1 Irritable bowel syndrome with constipation

== ENCOUNTER → 2023-12-05 11:17 | Outpatient (BNVA) | payer MEDICARE, MEDICAID, SELFPAY | PROVIDERS: PCP Internal Medicine; Visit Provider Internal Medicine ==

== ENCOUNTER 2024-01-14 09:40 | Outpatient (AMB) | payer MEDICARE, MEDICAID, SELFPAY ==
--- NOTE | 2024-01-14 09:47 | A.OFFVIS_ITS ---
Vital Signs 01/14/24 09:52 Height 5 ft 1 in Weight 113 lb BMI 21.3 BP 132/80 Blood Pressure Location Lt brachial Position Sitting Respiration 16 Pulse 97 Pulse Source Pulse Oximeter Pulse Oximetry (%) 99 Oxygen Delivery Method Room Air Intake Visit Reasons: medication review Intake Note: Patient comes in for medication review. Reports pain 5/10. Allergies No Known Allergies Allergy (Verified 01/14/24 09:53) HPI Comments Details: Juan is in my office today with complains on generalized pain in all over the body. She had DTM protocol introduced and now she reports very good help from SCS. She states Thanks g-d I have that device . Her spinal cord stimulator is [employer] on DTM protocol. She also is on prescription of pregabalin/Lyrica, she denies side effects of Lyrica she denies complications. No edema, she reports depression very well controlled on antidepressive medications she denies dizziness drowsiness sleepiness. History of post laminectomy syndrome. he has negative about opioid medications the give her severe constipation. Prior: She has multiple surgeries in the past including surgery in the back and she is negative about another surgery in her back. She is suffering from fibromyalgia She reports multiple areas of pain, with her lower back being the most troublesome. She sees rheumatology currently who has prescribed her Naproxen and Lyrica, both of which provide some relief. She has also been using some CBD tincture which is also helpful. History of severe canal stenosis at L3/4, for which she had a decompression by Dr. Orta in May 2017. 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, lumbar region Postlaminectomy syndrome, not elsewhere classified Fibromyalgia Other sexual disorders Bipolar 1 disorder IBS (irritable bowel syndrome) Muscular dystrophy Chronic vertigo Chronic GERD Lipid disorder Constipation by delayed colonic transit Surgical History H/O colonoscopy Status post insertion of nerve stimulator Previous back surgery History of ankle surgery H/O mastectomy History of hip surgery Family History Father Mesothelioma Brother Mesothelioma Paternal Grandfather Mesothelioma Brother Mesothelioma Paternal Grandmother Stomach cancer Paternal Aunt Lung cancer Family/Other Breast cancer Other Mental health disorder Osteoarthritis Substance use disorder Social History Household Members: Family Housing: House Are you a primary summer child caregiver to a significant other at home: Yes (mother) Do you presently have visiting nurse or other home services: No Alcohol intake: never Patient Tobacco Use Status: Never used Tobacco Tobacco use type: Smokeless Tobacco e-Cigarette/Vaping Use: Currently Using Substance Use Type: Marijuana service: No Current occupational status: disabled Current occupational exposures/hazards: No Cognitive needs: No Hearing needs: No Vision needs: No Review of Systems Const All systems reviewed & are unremarkable except as noted in HPI and below Eyes Denies photophobia Neuro Denies Sensory deficit (Neuro) Physical Exam Vital Signs: Last Vital Signs Pulse 97 01/14/24 09:52 Resp 16 01/14/24 09:52 BP 132/80 01/14/24 09:52 Pulse Ox 99 01/14/24 09:52 Oxygen Delivery Method Room Air 01/14/24 09:52 BMI result Body Mass Index 21.3 Vital signs reviewed. Constitutional: Pleasant, Well appearing. No acute distress. Well-developed and well-nourished. HEENT: Normocephalic and atraumatic. External auditory canals without erythema or edema bilaterally. Dry mucous membranes. No pharyngeal erythema or exudates. Skin: Warm and dry. No rashes or lesions noted. Neck: Full and painless range of motion. No cervical lymphadenopathy. Cardio: Regular rate and rhythm. No murmurs, gallops, or rubs. No lower extremity edema. No JVD. Pulmonary: No respiratory distress. No accessory muscle usage. Lungs CTA Musculoskeletal: Normal range of motion with some limitation in joints throughout the body. Uses crutch on the right - bilateral ankle fusion. Upper extremity 4/5, lower extremity 5/5. Neuro: Alert and oriented x4. Cranial nerves 2-12 grossly intact. No focal deficits appreciated. Const General: comfortable, no acute distress, well developed, alert, awake and Physically active Eyes Direct Ophthalmoscopy: No photophobia Chest Chest palpation & inspection: normal inspection of the chest Resp Effort & Inspection: normal respiratory effort, able to speak in complete sentences, normal respiratory pattern, no audible wheezes and no cough Cardio Jugular venous distension: no JVD GI Inspection: Yes normal to inspection Neuro Sensory Exam: No Sensory deficit (Neuro) Psych Appearance: grossly normal Mental Status: mental status grossly normal Speech and movement: Normal speech and movement present Assessment & Plan Assessment & Plan (1) Fibromyalgia: Code(s): M79.7 - Fibromyalgia Category: Medical (2) Postlaminectomy syndrome, not elsewhere classified: Code(s): M96.1 - Postlaminectomy syndrome, not elsewhere classified Category: Medical (3) Other spondylosis with radiculopathy, lumbar region: Code(s): M47.26 - Other spondylosis with radiculopathy, lumbar region Category: Medical (4) S/P insertion of spinal cord stimulator: Code(s): Z96.89 - Presence of other specified functional implants Category: Surgical (5) Intercostal neuralgia: 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 See as below. She is very happy with her [employer] [facility] with DTM protocol. Next appointment as needed. Medications: Refilled pregabalin (Lyrica) 300 mg PO BID 60 caps 5RF 30 days Coding Level of Care Code Est Pt Level 3 (62611) Diagnoses Fibromyalgia M79.7 Postlaminectomy syndrome, not elsewhere classified M96.1 Other spondylosis with radiculopathy, lumbar region M47.26 S/P insertion of spinal cord stimulator Z96.89 Intercostal neuralgia G58.8
[2024-01-14 09:52] VITALS: BP 132/80; PULSE 97; RESP 16; O2SAT 99; BMI 21.3
== END 2024-01-14 09:58 | disposition home or self-care (01) ==
PROVIDERS: PCP Internal Medicine; Visit Provider Anesthesiology
DX: M79.7 Fibromyalgia (principal); M96.1 Postlaminectomy syndrome, not elsewhere classified; M47.26 Other spondylosis with radiculopathy, lumbar region; Z96.89 Presence of other specified functional implants; G58.8 Other specified mononeuropathies
CPT/HCPCS: 99213

== ENCOUNTER → 2024-01-14 09:40 | Outpatient (BNVA) | payer MEDICARE, MEDICAID, SELFPAY | PROVIDERS: PCP Internal Medicine; Visit Provider Anesthesiology | DX: M79.7 Fibromyalgia (principal); M96.1 Postlaminectomy syndrome, not elsewhere classified; M47.26 Other spondylosis with radiculopathy, lumbar region; G58.8 Other specified mononeuropathies; Z96.82 Presence of neurostimulator; Z79.899 Other long term (current) drug therapy | CPT/HCPCS: 99212 ==

== ENCOUNTER 2024-02-12 12:15 | Outpatient (AMB) | payer MEDICARE, MEDICAID, SELFPAY ==
--- NOTE | 2024-02-12 12:36 | MHC.OFFVIS ---
Vital Signs 02/12/24 12:37 Height 5 ft 1 in Weight 111 lb 12.39 oz BMI 21.1 BP 128/74 Blood Pressure Location Lt brachial Position Sitting Pulse 84 Pulse Source Pulse Oximeter Pulse Oximetry (%) 100 Oxygen Delivery Method Room Air Intake Visit Reasons: PM/CM APT Intake Note: Patient presents today for follow up on polymyositis with myopathy, and osteoarthritis. She was last seen in the office by Natividad Baldwin on 08/16/23. Allergies No Known Allergies Allergy (Verified 02/12/24 12:39) Medication List - Last Reconciled 02/12/24 by Abena Kelley MD buspirone 10 mg PO TID cholecalciferol (vitamin D3) 25 mcg PO DAILY fenofibrate 160 mg PO DAILY 90 days linaclotide (Linzess) 290 mcg PO DAILY 90 days lithium carbonate ER 450 mg PO DAILY lurasidone 120 mg PO DAILY pantoprazole 20 mg PO DAILY prazosin 1 mg PO DAILY pregabalin (Lyrica) 300 mg PO BID 30 days quetiapine 400 mg PO BEDTIME HPI Comments Details: Patient is a 68-year-old female with bipolar 1 disorder, IBS with constipation, chronic back pain status post laminectomy & spinal cord stimulator, who presents for follow-up of polymyositis and Sjogren's syndrome. Interval History: Last seen 08/16/2023 with Natividad Baldwin. At that time she was tapered off prednisone and her flare of myositis was determined to be resolved with a normalized CK. Today she is reporting worsening muscle weakness involving her lower and upper extremities particularly her shoulders and her thighs. Denies prolonged morning stiffness, night sweats, fever, lymphadenopathy Rheumatologic History: Patient presented 01/2023 to establish care at [facility]. Polymyositis: She states that she was diagnosed back in 2014 after presenting with progressive muscle weakness, fatigue and elevated CK and aldolase. There was no muscle biopsy at that time. She was successfully treated with prednisone. Has not been on any steroids sparing agents mostly due to the patient's reluctance of the side effects. She was lost to follow-up for several years prior to establishing care here at [facility]. At that time she was given a prednisone taper due to worsening muscle weakness and mildly elevated CK. Sjogren's syndrome: Diagnosed based on dry eyes and dry mouth. 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, lumbar region Postlaminectomy syndrome, not elsewhere classified Fibromyalgia Other sexual disorders Bipolar 1 disorder IBS (irritable bowel syndrome) Muscular dystrophy Chronic vertigo Chronic GERD Lipid disorder Constipation by delayed colonic transit Surgical History H/O colonoscopy Status post insertion of nerve stimulator Previous back surgery History of ankle surgery H/O mastectomy History of hip surgery Family History Father Mesothelioma Brother Mesothelioma Paternal Grandfather Mesothelioma Brother Mesothelioma Paternal Grandmother Stomach cancer Paternal Aunt Lung cancer Family/Other Breast cancer Other Mental health disorder Osteoarthritis Substance use disorder Social History Household Members: Family Housing: House Are you a primary child care director to a significant other at home: Yes (mother) Do you presently have visiting nurse or other home services: No Alcohol intake: never Patient Tobacco Use Status: Never used Tobacco Tobacco use type: Smokeless Tobacco e-Cigarette/Vaping Use: Currently Using Substance Use Type: Marijuana service: No Current occupational status: disabled Current occupational exposures/hazards: No Cognitive needs: No Hearing needs: No Vision needs: No Review of Systems Const Details: Review of Systems Constitutional: Denies fever, chills, weight loss ENT: Denies vision changes, eye pain or eye redness, dental caries, dry mouth GI: Denies nausea, vomiting, diarrhea, abdominal pain, change in BM Pulm: Denies SOB, DAVIS, hemoptysis, wheezing Cards: Denies chest pain, palpitations Skin: Denies Raynaud's, rash, nail changes, photosensitivity, TEACHER ADVISOR: Denies headaches, weakness, paresthesias, recurrent falls MSK: as per HPI All other systems reviewed and are unremarkable except noted above Physical Exam Vital Signs: Last Vital Signs Pulse 84 02/12/24 12:37 BP 128/74 02/12/24 12:37 Pulse Ox 100 02/12/24 12:37 Oxygen Delivery Method Room Air 02/12/24 12:37 BMI result Body Mass Index 21.1 Physical Examination CONSTITUITIONAL Patient alert and cooperative. Well appearing and in no apparent painful distress CHEST/RESPIRATORY SYSTEM Normal respiratory effort and able to speak in complete sentences. ?Clear to auscultation bilaterally. ?No crackles, rales, rhonchi, wheezes heard. CARDIAC SYSTEM Regular rate and rhythm. ?S1 and S2 heard no murmurs. ?Radial pulses intact bilaterally MSK Hands: ?No synovitis noted to the MCPs, PIPs or DIPs. ?No tenderness to palpation of these joints. Wrists: ?Full range of motion at the wrists without pain. ?No tenderness to palpation or synovitis noted to the wrists. Elbows: Full range of motion without pain. No tenderness, weakness, swelling, increased warmth or erythema. Shoulders: Full range of motion without pain. No tenderness, weakness, swelling, increased warmth or erythema. Hips: Full range of motion without pain. Knees: ?Full range of motion. ?No tenderness, swelling, increased warmth or erythema.?No effusion or crepitations Ankles: Minimal range of motion due to fusion Feet: ?Negative squeeze test. ?No tenderness to palpation or swelling of the MTPs. SKIN Skin intact without rashes. Right Left Neck flexion Shoulder abduction 4 4 Shoulder adduction 4 4 Elbow flexion 5 5 Elbow extension 5 5 Wrist flexion 5 5 Wrist extension 5 5 Drying Tumbler Operator strength 5 5 Hip flexion 4 4 Knee flexion 5 5 Knee extension 5 5 Ankle dorsiflexion 5 5 Ankle plantarflexion 5 5 Results Reviewed Results Reviewed: Laboratory Tests 01/19/23 03/13/23 07/30/23 10:40 12:10 11:50 Sodium 140 Potassium 3.9 Chloride 107 Carbon Dioxide 26 BUN 18 H Creatinine 0.96 Calcium 10.2 Total Bilirubin 0.3 AST 31 ALT 17 Alkaline Phosphatase 47 Total Creatine Kinase 135 137 C-Reactive Protein 0.10 0.18 Aldolase 3.5 4.4 FARIBA Screen POSITIVE A FARIBA Titer 1:160 H Sm (Hughes) Antibody <1.0 NEG SM/ASSOCIATE MERCHANDISE PLANNER IgG Antibody <1.0 NEG Complement C3 131 Complement C4 24 DEXA 03/2023 FINDINGS: AP SPINE L1-L2 (excluding L3 and L4): The data of L1-L4 has been changed to exclude the L3 and L4 vertebral bodies, because degenerative sclerosis at these levels may cause overestimation of lumbar spine density. Current: BMD 1.278 g/cm2, Z-score 3.0, T-score 0.9, normal, 3.4% decrease from previous, 30.1% decrease from baseline (<5% change is not significant). Prior: BMD 1.236 g/cm2. Baseline: BMD 1.829 g/cm2. Assessment & Plan Assessment & Plan (1) Polymyositis: Code(s): M33.20 - Polymyositis, organ involvement unspecified Category: Medical Plan: #Polymyositis Patient with polymyositis diagnosed around 2014 Patient ideally needs to be on steroid sparing medications. I have discussed this with the patient and she is amenable to this. Ideally I would have like to start her on Plaquenil, as this would be beneficial for both her Sjogren's as well as possibly her myositis. However given the interaction with quetiapine which is a chronic medication for this patient I opted to do methotrexate. I discussed the risks and benefits of methotrexate and patient is agreeable to trying it. I will also start her on a low-dose prednisone 5 mg with a goal of stopping it over the course of the next 3 months. I also think that the patient needs some form of physical therapy however she is currently taking care of her 92-year-old mother and she finds it very difficult to leave her as she has dementia and can be aggressive at times. I gave her a printout of exercises for her to do at home. We will reassess in 3 months (2) Sjogren syndrome with myopathy: Code(s): M35.03 - Sjogren syndrome with myopathy Category: Medical Plan: #Sjogrens Conservatively managing her dry eyes and dry mouth at this time. We will check Sjogren's labs today Plan I spent 30 minutes reviewing the record and labs, seeing the patient, discussing the treatment plan and documenting in the medical record ? Orders: Orders Complement C3 Today M33.20 - Polymyositis, organ involvement unspecified, M35.03 - Sjogren syndrome with myopathy Complement C4 Today M33.20 - Polymyositis, organ involvement unspecified, M35.03 - Sjogren syndrome with myopathy Complete Blood Count Auto Diff Today M33.20 - Polymyositis, organ involvement unspecified, M35.03 - Sjogren syndrome with myopathy C Reactive Protein Today M33.20 - Polymyositis, organ involvement unspecified, M35.03 - Sjogren syndrome with myopathy Erythrocyte Sedimentation Rate Today M33.20 - Polymyositis, organ involvement unspecified, M35.03 - Sjogren syndrome with myopathy Rheumatoid Factor Today M33.20 - Polymyositis, organ involvement unspecified, M35.03 - Sjogren syndrome with myopathy Sjogren's Antibodies Today M33.20 - Polymyositis, organ involvement unspecified, M35.03 - Sjogren syndrome with myopathy Comprehensive Met. Panel Today M33.20 - Polymyositis, organ involvement unspecified, M35.03 - Sjogren syndrome with myopathy Creatine Kinase Total Today M33.20 - Polymyositis, organ involvement unspecified, M35.03 - Sjogren syndrome with myopathy Aldolase Today M3.20 - Polymyositis, organ involvement unspecified, M35.03 - Sjogren syndrome with myopathy Protein Electrophoresis, Serum Today M33.20 - Polymyositis, organ involvement unspecified, M35.03 - Sjogren syndrome with myopathy Immunofixation Pnl, Serum Today M33.20 - Polymyositis, organ involvement unspecified, M35.03 - Sjogren syndrome with myopathy PT Evaluation and Treatment Today M3.20 - Polymyositis, organ involvement unspecified Prom[employer] TPMT Enzyme Today M3. - Polymyositis, organ involvement unspecified Medications: New methotrexate sodium 15 mg (6 x 2.5 mg) PO QWEEK 90 days 78 tabs 1RF M33.20 - Polymyositis, organ involvement unspecified folic acid 1 mg PO DAILY 90 tabs 1RF M33.20 - Polymyositis, organ involvement unspecified prednisone 5 mg PO DAILY 90 tabs 0RF M3.20 - Polymyositis, organ involvement unspecified Coding Level of Care Code Est Pt Level 4 (52113) Diagnoses Polymyositis . Sjogren syndrome with myopathy M35.
[2024-02-12 12:37] VITALS: BP 128/74; PULSE 84; O2SAT 100; BMI 21.1
== END 2024-02-12 13:19 | disposition home or self-care (01) ==
PROVIDERS: PCP Internal Medicine; Visit Provider Student in an Organized Health Care Education/Training Program
DX: M33.20 Polymyositis, organ involvement unspecified (principal); M35.03 Sjogren syndrome with myopathy
CPT/HCPCS: 99214

== ENCOUNTER 2024-02-12 12:15 | Outpatient (REF) | payer MEDICARE, MEDICAID, SELFPAY ==
[2024-02-12 16:38] LABS: Basophils Absolute Auto 0.1 X10*3/uL (0.0-0.2); Basophils Percent Auto 0.9 % (0-2); Eosinophils Absolute Auto 0.1 X10*3/uL (0.0-0.4); Eosinophils Percent Auto 1.6 % (0-4); Hematocrit 40.4 % (37.0-47.0); Hemoglobin 12.9 g/dl (12.0-16.0); Imm Gran Abs Auto 0.01 X10*3/uL (0.00-0.03); Imm Gran Pct Auto 0.2 % (0.0-0.4); Lymphocytes Absolute Auto 1.6 X10*3/uL (1.2-4.9); Lymphocytes Percent Auto 24.7 % (20-40); MANUAL DIFF FLAG NO; Mean Corpuscular HGB Conc 31.9 g/dl (31.0-35.0); Mean Corpuscular Hemoglobin 28.5 pg (27.0-33.0); Mean Corpuscular Volume 89.2 fL (80.0-98.0); Mean Platelet Volume 10.2 fL (9.4-12.3); Monocytes Absolute Auto 0.5 X10*3/uL (0.1-1.2); Monocytes Percent Auto 8.4 % (2-11); Neutrophils Absolute Auto 4.1 x10*3/uL (2.0-8.3); Neutrophils Percent Auto 64.2 % (45-73); Platelet Count 484 X10*3/uL (160-400); Red Blood Count 4.53 X10*6/uL (4.20-5.50); Red Cell Distribution Width 13.8 % (11.0-16.0); White Blood Count 6.4 X10*3/uL (4.8-10.8)
[2024-02-12 16:45] LABS: Rheumatoid Factor < 13.0 IU/mL (<15.0)
[2024-02-12 16:51] LABS: Alanine Aminotransferase 25 U/L (0-31); Albumin Level 4.1 g/dL (3.5-5.0); Alkaline Phosphatase 55 U/L (39-117); Anion Gap 9 (12-20); Aspartate Amino Transferase 38 U/L (5-31); Bilirubin Total 0.3 mg/dL (0.0-1.0); Blood Urea Nitrogen 11 mg/dL (9-16); C Reactive Protein 0.26 mg/dL (< or = 0.50); Carbon Dioxide 25 mmol/L (22-29); Chloride 106 mmol/L (96-108); Estimated Glomerular Filt Rate > 60; Glucose Random 81 mg/dL (60-115); Potassium 3.9 mmol/L (3.3-5.1); Sodium 136 mmol/L (135-145); Total Protein 7.2 g/dL (6.5-8.0)
[2024-02-12 18:25] LABS: Erythrocyte Sedimentation Rate 19 MM/HR (0-20)
[2024-02-13 10:28] LABS: Complement C3 151 mg/dL (83-193)
[2024-02-15 10:49] LABS: Prot Elec - Albumin 4.1 g/dL (3.8-4.8); Prot Elec - Alpha1 0.4 g/dL (0.2-0.3); Prot Elec - Alpha2 0.7 g/dL (0.5-0.9); Prot Elec - Beta 1 0.5 g/dL (0.4-0.6); Prot Elec - Beta 2 0.4 g/dL (0.2-0.5)
[2024-02-15 21:19] LABS: Antibody to SS-A Antigen <1.0 NEG AI (<1.0 NEG); Antibody to SS-B Antigen <1.0 NEG AI (<1.0 NEG)
[2024-02-18 06:13] LABS: Aldolase 4.1 U/L (<=8.1)
[2024-02-18 20:03] LABS: IgA 171 mg/dL (70-320); IgG 1075 mg/dL (600-1540); IgM 161 mg/dL (50-300)
== END 2024-02-12 12:16 | disposition home or self-care (01) ==
LOC: HO.HMGCLDS 12:15
PROVIDERS: PCP Internal Medicine; Visit Provider Student in an Organized Health Care Education/Training Program
DX: M33.20 Polymyositis, organ involvement unspecified (principal); M35.03 Sjogren syndrome with myopathy
CPT/HCPCS: 36415; 80053; 82085; 82550; 82784; 84165; 85025; 85652; 86140; 86160; 86235; 86334; 86431; 99212

== ENCOUNTER 2024-02-20 10:47 | Outpatient (AMB) | payer MEDICARE, MEDICAID, SELFPAY ==
--- NOTE | 2024-02-20 10:52 | MHC.PC.OV ---
Vital Signs 02/20/24 10:56 Height 5 ft 1 in Weight 113 lb 4 oz BMI 21.4 BP 126/72 Blood Pressure Location Rt brachial Position Sitting Pulse 95 Pulse Source Pulse Oximeter Pulse Oximetry (%) 97 Oxygen Delivery Method Room Air Intake Visit Reasons: Pressure on bladder Allergies No Known Allergies Allergy (Verified 02/12/24 12:39) Medication List - Last Reconciled 02/20/24 by Sarina Devi MD buspirone 10 mg PO TID cholecalciferol (vitamin D3) 25 mcg PO DAILY fenofibrate 160 mg PO DAILY 90 days folic acid 1 mg PO DAILY linaclotide (Linzess) 290 mcg PO DAILY 90 days lithium carbonate ER 450 mg PO DAILY lurasidone 120 mg PO DAILY methotrexate sodium 15 mg (6 x 2.5 mg) PO QWEEK 90 days pantoprazole 20 mg PO DAILY prazosin 1 mg PO DAILY prednisone 5 mg PO DAILY pregabalin (Lyrica) 300 mg PO BID 30 days quetiapine 400 mg PO BEDTIME Tobacco use date assessed: 12/05/23 Dental Screening Dental Screen Date: 12/05/23 HPI Pressure on bladder HPI Details Chief Complaint The patient complains of bladder issues accompanied by suprapubic pressure over a three-week duration. Assessment and Plan 68-year-old female with a history of hemorrhoids, presenting with bladder issues and suprapubic pressure. The patient reports the presence of blood in her bowel movements, likely related to her known hemorrhoids. She denies any concurrent fever, chills, back pain, or nausea. The suprapubic pressure has been present for three weeks, previously improving but persisting at the time of the visit. Differential diagnoses considered include urinary tract infection and recurrence of hemorrhoidal bleeding. Probable diagnosis of urinary tract infection is considered due to presenting symptoms, while hemorrhoidal flare-up is consistent with rectal bleeding reported on tissue paper. 1. Suprapubic Pressure Urinalysis to be conducted to evaluate for urinary tract infection as a differential diagnosis due to the suprapubic pressure felt. If infection is confirmed, appropriate antibiotic therapy will be initiated based on sensitivity results. Observation of the pressure's progression and any accompanying symptoms was recommended for potential further evaluation. UA does not show any sign of infection other than 1+ blood 2. Hemorrhoids Continue to monitor hemorrhoids, especially considering the noted rectal bleeding. Recommendations for management such as avoiding straining during bowel movements and increasing dietary fiber intake to be considered if not already implemented. Problem List - Hemorrhoids - Suprapubic pressure Patient Instructions - Attempt to provide a urine sample for diagnostic testing as discussed. - Monitor the bleeding from hemorrhoids and report worsening or persistence. - Return for further evaluation if the suprapubic pressure intensifies or if new symptoms arise. Antibiotic sent finish the course, push more fluids - Maintain regular follow-up appointments to ensure ongoing monitoring and management of conditions. 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, lumbar region Postlaminectomy syndrome, not elsewhere classified Fibromyalgia Other sexual disorders Bipolar 1 disorder IBS (irritable bowel syndrome) Muscular dystrophy Chronic vertigo Chronic GERD Lipid disorder Constipation by delayed colonic transit Surgical History H/O colonoscopy Status post insertion of nerve stimulator Previous back surgery History of ankle surgery H/O mastectomy History of hip surgery Family History Father Mesothelioma Brother Mesothelioma Paternal Grandfather Mesothelioma Brother Mesothelioma Paternal Grandmother Stomach cancer Paternal Aunt Lung cancer Family/Other Breast cancer Other Mental health disorder Osteoarthritis Substance use disorder Social History Household Members: Family Housing: House Are you a primary child care provider to a significant other at home: Yes (mother) Do you presently have visiting nurse or other home services: No Alcohol intake: never Patient Tobacco Use Status: Never used Tobacco Tobacco use type: Smokeless Tobacco e-Cigarette/Vaping Use: Currently Using Substance Use Type: Marijuana service: No Current occupational status: disabled Current occupational exposures/hazards: No Cognitive needs: No Hearing needs: No Vision needs: No Questionnaire PHQ-9 Over the last 2 weeks, how often have you been bothered by any of the following problems? 1. Little interest or pleasure in doing things: more than half the days 2. Feeling down, depressed, or hopeless: more than half the days 3. Trouble falling or staying asleep, or sleeping too much: more than half the days 4. Feeling tired or having little energy: more than half the days 5. Poor appetite or overeating: not at all 6. Feeling bad about yourself - or that you are a failure or have let yourself or your family down: several days 7. Trouble concentrating on things, such as reading the newspaper or watching television: several days 8. Moving or speaking so slowly that other people could have noticed. Or the opposite - being so fidgety or restless that you have been moving around a lot more than usual: more than half the days 9. Thoughts that you would be better off or of hurting yourself in some way: not at all Total score: 12 Depression Screening Interpretation: Positive Depression Screening Follow-up: Existing condition and In treatment Depression Screening Done: Yes 40531 - PHQ-9 Billing: Yes Source: Developed by Drs. Bennett Bhagat, Alannah Steve, Terence Donato and colleagues, with an educational alejandro from [employer]. Thrive Questionnaire Date Thrive assessed: 12/05/23 I am a: Patient What is your living situation today?: I have a steady place to live Within the past 12 months, did the food you bought not last and you didn't have the money to get more?: Sometimes True Within the past 12 months, did you worry whether your food would run out before you got money to buy more?: Sometimes True Do you have trouble paying for medicines?: Yes Do you have trouble getting transportation to medical appointments?: No Do you have trouble paying your heating and electricity bill?: No Do you have trouble taking care of your child, family member or friend?: No Do you have trouble with day-to-day activities such as bathing, preparing meals, shopping, managing finances, etc.?: Yes Are you currently unemployed and looking for a job?: No Are you interested in more education?: No Please select the resources that you would like help with: None Currently or been in a relationship where the following occur: I choose not to answer THRIVE Score: 2 AUDIT C Alcohol Use Questionnaire (AUDIT-C) 1. How often do you have a drink containing alcohol?: Never Total Score: 0 KAUR-7 AMB Questionnaire KAUR-7 Date KAUR - 7 assessed: 03/23/23 Feeling nervous, anxious, or on edge: 3 = Nearly every day Not being able to stop or control worryin = Nearly every day Worrying too much about different things: 3 = Nearly every day Trouble relaxin = Nearly every day Being so restless that it is hard to sit still: 2 = More than half the days Becoming easily annoyed or irritable: 2 = More than half the days Feeling afraid as if something awful might happen: 2 = More than half the days Total KAUR-7 score (0-4 normal; 5-9 mild; 10-14 moderate; 15-21 severe): 18 Source: Developed by Drs. Bennett Bhagat, Alannah Steve, Terence Donato and colleagues, with an educational alejandro from [employer]. Review of Systems Const All systems reviewed & are unremarkable except as noted in HPI and below Physical exam (Primary Care) Vital Signs: Last Vital Signs Pulse 95 02/20/24 10:56 BP 126/72 02/20/24 10:56 Pulse Ox 97 02/20/24 10:56 Oxygen Delivery Method Room Air 02/20/24 10:56 BMI result Body Mass Index 21.4 Tobacco/Smoking Status: Tobacco use Status Tobacco use date assessed 12/05/23 02/20/24 10:52 Patient Tobacco Use Status Never used Tobacco 02/20/24 10:52 Tobacco use type Smokeless Tobacco 02/20/24 10:52 e-Cigarette/Vaping Use Currently Using 02/20/24 10:52 PHQ-9: PHQ-9 Score PHQ-9: Total score 12 02/20/24 10:52 Depression Screening Interpretation: Positive Depression Screening Follow-up: Existing condition and In treatment Thrive Assessment: Date of Thrive Assessment Date Thrive assessed 12/05/23 02/20/24 10:52 Currently or been in a relationship where the following occur: I choose not to answer Const General: no acute distress Orientation/consciousness: patient oriented x3 Eyes General: appearance normal, both eyes and all related structures Resp Effort & Inspection: normal respiratory effort and able to speak in complete sentences Other: Exam benign General: Yes no CVA tenderness Back/Spine/Pelvis Back: no CVA tenderness Neuro General: patient oriented x3 Psych Mental Status: mental status grossly normal Coding Level of Care Code Est Pt Level 3 (59864) Diagnoses Other microscopic hematuria R31.29 Hematuria type: other microscopic Grade I hemorrhoids K64.0 Hemorrhoid type: first degree Additional Codes PHQ-9 - 31565 - PHQ-9 Billing: Yes ([id number]) Assessment & Plan Assessment & Plan (1) Hematuria: Code(s): R31.9 - Hematuria, unspecified Category: Medical Qualifiers: Hematuria type: other microscopic Qualified Code(s): R31.29 - Other microscopic hematuria (2) Hemorrhoids: Code(s): K64.9 - Unspecified hemorrhoids Category: Medical Qualifiers: Hemorrhoid type: first degree Qualified Code(s): K64.0 - First degree hemorrhoids Plan Chief Complaint The patient complains of bladder issues accompanied by suprapubic pressure over a three-week duration. Assessment and Plan 68-year-old female with a history of hemorrhoids, presenting with bladder issues and suprapubic pressure. The patient reports the presence of blood in her bowel movements, likely related to her known hemorrhoids. She denies any concurrent fever, chills, back pain, or nausea. The suprapubic pressure has been present for three weeks, previously improving but persisting at the time of the visit. Differential diagnoses considered include urinary tract infection and recurrence of hemorrhoidal bleeding. Probable diagnosis of urinary tract infection is considered due to presenting symptoms, while hemorrhoidal flare-up is consistent with rectal bleeding reported on tissue paper. 1. Suprapubic Pressure Urinalysis to be conducted to evaluate for urinary tract infection as a differential diagnosis due to the suprapubic pressure felt. If infection is confirmed, appropriate antibiotic therapy will be initiated based on sensitivity results. Observation of the pressure's progression and any accompanying symptoms was recommended for potential further evaluation. UA does not show any sign of infection other than 1+ blood 2. Hemorrhoids Continue to monitor hemorrhoids, especially considering the noted rectal bleeding. Recommendations for management such as avoiding straining during bowel movements and increasing dietary fiber intake to be considered if not already implemented. Problem List - Hemorrhoids - Suprapubic pressure Patient Instructions - Attempt to provide a urine sample for diagnostic testing as discussed. - Monitor the bleeding from hemorrhoids and report worsening or persistence. - Return for further evaluation if the suprapubic pressure intensifies or if new symptoms arise. Antibiotic sent finish the course, push more fluids - Maintain regular follow-up appointments to ensure ongoing monitoring and management of conditions. Medications: New nitrofurantoin monohyd/m-cryst 100 mg (Macrobid) must administer with a meal/food 100 mg PO Q12H 3 days 6 caps 0RF
[2024-02-20 10:56] VITALS: BP 126/72; PULSE 95; O2SAT 97; BMI 21.4
== END 2024-02-20 13:56 | disposition home or self-care (01) ==
PROVIDERS: PCP Internal Medicine; Visit Provider Internal Medicine
DX: R31.29 Other microscopic hematuria (principal); K64.0 First degree hemorrhoids

== ENCOUNTER → 2024-02-20 10:47 | Outpatient (BNVA) | payer MEDICARE, MEDICAID, SELFPAY | PROVIDERS: PCP Internal Medicine; Visit Provider Internal Medicine | DX: R31.29 Other microscopic hematuria (principal); K64.0 First degree hemorrhoids | CPT/HCPCS: 96127; 99212 ==

== ENCOUNTER 2024-02-29 10:16 | Outpatient (AMB) | payer MEDICARE, MEDICAID, SELFPAY ==
--- NOTE | 2024-02-29 10:20 | A.OFFPC_ITS ---
Vital Signs 02/29/24 10:21 Height 5 ft 1 in Weight 111 lb 8 oz BMI 21.1 BP 120/78 Blood Pressure Location Rt brachial Position Sitting Pulse 88 Pulse Source Pulse Oximeter Pulse Oximetry (%) 98 Oxygen Delivery Method Room Air Intake Visit Reasons: Pressure on bladder Allergies No Known Allergies Allergy (Verified 02/29/24 10:24) Medication List - Last Reconciled 02/29/24 by Sarina Devi MD buspirone 10 mg PO TID cholecalciferol (vitamin D3) 25 mcg PO DAILY fenofibrate 160 mg PO DAILY 90 days folic acid 1 mg PO DAILY linaclotide (Linzess) 290 mcg PO DAILY 90 days lithium carbonate ER 450 mg PO DAILY lurasidone 120 mg PO DAILY methotrexate sodium 15 mg (6 x 2.5 mg) PO QWEEK 90 days pantoprazole 20 mg PO DAILY prazosin 1 mg PO DAILY prednisone 5 mg PO DAILY pregabalin (Lyrica) 300 mg PO BID 30 days quetiapine 400 mg PO BEDTIME Tobacco use date assessed: 02/29/24 Fall risk assessment: No Falls in past year Last assessed Fall Risk: 02/29/24 Dental Screening Dental Screen Date: 12/05/23 HPI Pressure on bladder HPI Details Chief Complaint Suprapubic discomfort Assessment and Plan 68-year-old female with a history of ant ibiotic treatment for a urinary tract infection presenting with persistent bladder pain and unresolved abdominal symptoms. The patient reports that the symptoms resumed after initial improvement post-antibiotic therapy. The lack of additional systemic symptoms such as fever or chills suggests that the urinary tract infection may not have been fully resolved. Consideration for incomplete treatment of urinary infection remains primary, and the necessity for further urinalysis is indicated. The absence of significant pain during palpation suggests that an immediate acute abdomen is unlikely. 1. History Of Antibiotic Use For Uti The patient previously received antibiotics for a urinary tract infection, which temporarily alleviated symptoms. It is essential to verify the resolution of infection via urinalysis before considering further antibiotic therapy. If results indicate persistent infection, consider culture sensitivity to guide specific antibiotic treatment. 2. Bladder Pain The patient continues to report bladder pain despite a course of antibiotics. Further evaluation with urinalysis is warranted to reassess for persistent or recurrent urinary tract infection. Encourage adequate hydration to aid in urine production for testing. Monitor for additional symptoms such as fever or back pain which may indicate progression or complications requiring immediate intervention. Diagnostic results: UA came back normal Problem List - Bladder Pain - History of Antibiotic Use for UTI Patient Instructions - Increase fluid intake to ensure adequa te urine production for laboratory testing. - Report any new symptoms such as fever, chills, or back pain immediately, as these may require additional medical attention. 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, lumbar region Postlaminectomy syndrome, not elsewhere classified Fibromyalgia Other sexual disorders Bipolar 1 disorder IBS (irritable bowel syndrome) Muscular dystrophy Chronic vertigo Chronic GERD Lipid disorder Constipation by delayed colonic transit Surgical History H/O colonoscopy Status post insertion of nerve stimulator Previous back surgery History of ankle surgery H/O mastectomy History of hip surgery Family History Father Mesothelioma Brother Mesothelioma Paternal Grandfather Mesothelioma Brother Mesothelioma Paternal Grandmother Stomach cancer Paternal Aunt Lung cancer Family/Other Breast cancer Other Mental health disorder Osteoarthritis Substance use disorder Social History Household Members: Family Housing: House Are you a primary day care center director to a significant other at home: Yes (mother) Do you presently have visiting nurse or other home services: No Alcohol intake: never Patient Tobacco Use Status: Never used Tobacco Tobacco use type: Smokeless Tobacco e-Cigarette/Vaping Use: Currently Using Substance Use Type: Marijuana service: No Current occupational status: disabled Current occupational exposures/hazards: No Cognitive needs: No Hearing needs: No Vision needs: No Questionnaire Thrive Questionnaire Date Thrive assessed: 02/20/24 I am a: Patient What is your living situation today?: I have a steady place to live Within the past 12 months, did the food you bought not last and you didn't have the money to get more?: Sometimes True Within the past 12 months, did you worry whether your food would run out before you got money to buy more?: Sometimes True Do you have trouble paying for medicines?: Yes Do you have trouble getting transportation to medical appointments?: No Do you have trouble paying your heating and electricity bill?: No Do you have trouble taking care of your child, family member or friend?: No Do you have trouble with day-to-day activities such as bathing, preparing meals, shopping, managing finances, etc.?: Yes Are you currently unemployed and looking for a job?: No Are you interested in more education?: No Please select the resources that you would like help with: None Currently or been in a relationship where the following occur: I choose not to answer THRIVE Score: 2 KAUR-7 AMB Questionnaire KAUR-7 Date KAUR - 7 assessed: 03/23/23 Source: Developed by Drs. Bennett Bhagat, Alannah Steve, Terence Donato and colleagues, with an educational alejandro from [employer]. Review of Systems Const All systems reviewed & are unremarkable except as noted in HPI and below Physical exam (Primary Care) Vital Signs: Last Vital Signs Pulse 88 02/29/24 10:21 BP 120/78 02/29/24 10:21 Pulse Ox 98 02/29/24 10:21 Oxygen Delivery Method Room Air 02/29/24 10:21 BMI result Body Mass Index 21.1 Tobacco/Smoking Status: Tobacco use Status Tobacco use date assessed 02/29/24 02/29/24 10:25 Patient Tobacco Use Status Never used Tobacco 02/29/24 10:25 Tobacco use type Smokeless Tobacco 02/29/24 10:25 e-Cigarette/Vaping Use Currently Using 02/29/24 10:25 Thrive Assessment: Date of Thrive Assessment Date Thrive assessed 02/20/24 02/29/24 10:25 Currently or been in a relationship where the following occur: I choose not to answer Const General: no acute distress Orientation/consciousness: patient oriented x3 Eyes General: appearance normal, both eyes and all related structures Resp Effort & Inspection: normal respiratory effort and able to speak in complete sentences GI Other: Abdominal exam is benign Neuro General: patient oriented x3 Psych Mental Status: mental status grossly normal Coding Level of Care Code Est Pt Level 3 (34718) Diagnoses Suprapubic discomfort R10.2 Assessment & Plan Assessment & Plan (1) Suprapubic discomfort: Code(s): R10.2 - Pelvic and perineal pain Category: Medical Plan Chief Complaint Suprapubic discomfort Assessment and Plan 68-year-old female with a history of antibiotic treatment for a urinary tract infection presenting with persistent bladder pain and unresolved abdominal symptoms. The patient reports that the symptoms resumed after initial improvement post-antibiotic therapy. The lack of additional systemic symptoms such as fever or chills suggests that the urinary tract infection may not have been fully resolved. Consideration for incomplete treatment of urinary infection remains primary, and the necessity for further urinalysis is indicated. The absence of significant pain during palpation suggests that an immediate acute abdomen is unlikely. 1. History Of Antibiotic Use For Uti The patient previously received antibiotics for a urinary tract infection, which temporarily alleviated symptoms. It is essential to verify the resolution of infection via urinalysis before considering further antibiotic therapy. If results indicate persistent infection, consider culture sensitivity to guide specific antibiotic treatment. 2. Bladder Pain The patient continues to report bladder pain despite a course of antibiotics. Further evaluation with urinalysis is warranted to reassess for persistent or recurrent urinary tract infection. Encourage adequate hydration to aid in urine production for testing. Monitor for additional symptoms such as fever or back pain which may indicate progression or complications requiring immediate intervention. Diagnostic results: UA came back normal Problem List - Bladder Pain - History of Antibiotic Use for UTI Patient Instructions - Increase fluid intake to ensure adequate urine production for laboratory testing. - Report any new symptoms such as fever, chills, or back pain immediately, as these may require additional medical attention. Symptoms get worse come to lab for repeat urine test order placed Orders: Orders UA CC w/rflx Micro + Cult Today R10.2 - Pelvic and perineal pain
[2024-02-29 10:21] VITALS: BP 120/78; PULSE 88; O2SAT 98; BMI 21.1
== END 2024-02-29 11:15 | disposition home or self-care (01) ==
PROVIDERS: PCP Internal Medicine; Visit Provider Internal Medicine
DX: R10.2 Pelvic and perineal pain (principal)

== ENCOUNTER → 2024-02-29 10:16 | Outpatient (BNVA) | payer MEDICARE, MEDICAID, SELFPAY | PROVIDERS: PCP Internal Medicine; Visit Provider Internal Medicine | DX: R10.2 Pelvic and perineal pain (principal); R39.89 Other symptoms and signs involving the genitourinary system; Z87.440 Personal history of urinary (tract) infections | CPT/HCPCS: 99212 ==

== ENCOUNTER 2024-05-13 12:20 | Outpatient (REF) | payer MEDICARE, MEDICAID, SELFPAY ==
[2024-05-13 16:10] LABS: MANUAL DIFF FLAG NO
[2024-05-13 16:17] LABS: Basophils Percent Auto 0.5 % (0-2); Eosinophils Percent Auto 0.7 % (0-4); Hemoglobin 11.6 g/dl (12.0-16.0); Imm Gran Abs Auto 0.02 X10*3/uL (0.00-0.03); Imm Gran Pct Auto 0.4 % (0.0-0.4); Lymphocytes Absolute Auto 0.4 X10*3/uL (1.2-4.9); Lymphocytes Percent Auto 7.7 % (20-40); Mean Corpuscular HGB Conc 32.2 g/dl (31.0-35.0); Mean Corpuscular Hemoglobin 28.6 pg (27.0-33.0); Mean Corpuscular Volume 88.7 fL (80.0-98.0); Mean Platelet Volume 10.2 fL (9.4-12.3); Monocytes Absolute Auto 0.1 X10*3/uL (0.1-1.2); Monocytes Percent Auto 1.6 % (2-11); Neutrophils Percent Auto 89.1 % (45-73); Platelet Count 496 X10*3/uL (160-400); Red Blood Count 4.06 X10*6/uL (4.20-5.50); Red Cell Distribution Width 15.5 % (11.0-16.0); White Blood Count 5.6 X10*3/uL (4.8-10.8)
[2024-05-13 16:53] LABS: Erythrocyte Sedimentation Rate 39 MM/HR (0-20)
[2024-05-13 17:04] LABS: Alanine Aminotransferase 31 U/L (0-31); Albumin Level 3.8 g/dL (3.5-5.0); Alkaline Phosphatase 54 U/L (39-117); Anion Gap 11 (12-20); Aspartate Amino Transferase 46 U/L (5-31); Bilirubin Total 0.5 mg/dL (0.0-1.0); Blood Urea Nitrogen 13 mg/dL (9-16); C Reactive Protein 2.97 mg/dL (< or = 0.50); Calcium 10.2 mg/dL (8.4-10.2); Carbon Dioxide 24 mmol/L (22-29); Chloride 108 mmol/L (96-108); Estimated Glomerular Filt Rate > 60; Glucose Random 99 mg/dL (60-115); Sodium 139 mmol/L (135-145); Total Protein 7.4 g/dL (6.5-8.0)
--- OUTSIDE RECORDS SUMMARY | 2024-05-13 17:09 | XMS_ITS ---
Author Organization [facility] Address [address] [place] [address] Care Team Providers Care Baler Name Role Phone Marito MONTALVO, [facility] Primary Care Provider Bennett Peoples [phone] REASON FOR VISIT needs r/f on linzess/ please resend MEDICATIONS Medication SIG (Take, Route, Fr equency, Duration) Notes Start Date End Date Status Linzess 290 MCG TAKE 1 CAPSULE BY [facility] AT LEAST 30 MINUTES BEFORE FIRST MEAL OF THE DAY ON AN EMPTY STOMACH Orally Once a day for 30 days Active Encounters Encounter Location Date Provider Diagnosis [facility] [address] [place] [phone] 02/05/2024 Bennett Beltrán PLAN OF TREATMENT Medication Medication Name Sig Start Date Stop Date Notes Linzess 290 MCG TAKE 1 CAPSULE BY [facility] AT LEAST 30 MINUTES BEFORE FIRST MEAL OF THE DAY ON AN EMPTY STOMACH Orally Once a day for 30 days Next Appt Details Provider Name:Bennett Beltrán , 07/01/2024 02:20:00 PM, [address] [place] [address], [address], [place], [address],
--- OUTSIDE RECORDS SUMMARY | 2024-05-13 17:09 | XMS_ITS ---
Author Organization [facility] Address [address] [place] [address] Care Team Providers Care Ruby On Rails Consultant Name Role Phone Marito MONTALVO, [facility] Primary Care Provider Bennett Peoples [phone] REASON FOR VISIT not feeling well Encounters Encounter Location Date Provider Diagnosis [facility] [address] [place] [address] 03/03/2024 Bennett Beltrán PLAN OF TREATMENT Next Appt Details Provider Name:Bennett Beltrán , 07/01/2024 02:20:00 PM, [address], [address], [place], [address],
--- OUTSIDE RECORDS SUMMARY | 2024-05-13 17:09 | XMS_ITS | Patient Health Record ---
Author Organization [facility] Address [address] [place] [address] Care Team Providers Care Waste Paper Hammermill Operator Name Role Phone Marito MONTALVO, Asma Primary Care Provider Bennett Peoples [phone] ALLERGIES No Known Allergies REASON FOR REFERRAL No Information MEDICATIONS Medication SIG (Take, Route, Frequency, Duration) Notes Start Date End Date Status B12 Folate 800-800 MCG as directed Orally 04/13/19 Active Ferrous Sulfate 325 (65 Fe) MG 1 tablet Orally Once a day for 30 day(s) 04/13/2021 Active [place] Carbonate 300 MG 1 capsule at be dtime Orally Once a day for 30 day(s) 04/13/2021 Active Fenofibrate 160 MG 1 tablet Orally Once a day for 30 day(s) 04/13/2021 Active Linzess 290 MCG TAKE 1 CAPSULE BY [facility] AT LEAST 30 MINUTES BEFORE FIRST MEAL OF THE DAY ON AN EMPTY STOMACH Orally Once a day for 30 days Active Docusate Sodium 250 MG 1 capsule as need ed Orally Once a day for 30 day(s) 04/13/2021 Active MiraLax 17 GM/SCOOP as directed Orally 04/13/2021 Active QUEtiapine Fumarate 200 MG Oral for 30 Active IMMUNIZATIONS Vaccine Route Administration Date Status Comme nts Influenza Unknown 01/05/2021 Administered SOCIAL HISTORY Tobacco Use: Social History Observation Description Date Details (start date - stop date) Never Smoker NA - NA Sex Assigned At : Social History Observation Description Sex Assigned At Unknown Tobacco Use/Smoking Question Answer Notes Patient is a nonsmoker Alcohol Screen Question Answer Notes Did you have a drink containing alcohol in the p ast year? No Points 0 Interpretation Negative PROBLEMS Problem Type ICD Code Onset Dates Problem Status W/U Status Risk SNOMED Code Notes Problem Dysphagia (R13.10) Active confirmed Dysphagia (19700640) Problem Constipation, unspecified constipation type (K59.00) Active confirmed 86564212 Problem Iron deficiency anemia, unspecified iron deficiency anemia type (D50.9) Active confirmed 07834790 Problem Diverticulosis of colon (K57.30) Active confirmed Diverticulosi s of colon (785292835) Problem Esophageal dysphagia (R13.19) Active confirmed 71338217 Encounters Encounter Location Date Provider Diagnosis [facility] [address] [place] [address] 02/05/2024 Bennett Beltrán [facility] [address] [place] [address] 03/03/2024 Bennett Beltrán PLAN OF TREATMENT Pending Test Test Name Order Date IRON + IBC (FE) 04/13/2021 VITAMIN B12 AND FOLATE 04/13/2021 CBC w DIFF 04/13/2021 CELIAC PANEL #10 04/13/2021 Future Test Test Name Order Date UPPER GI ENDOSCOPY BALLOOON DILATION OF ESOPH 04/13/2021 COLONOSCOPY 04/13/2021 Next Appt Details Provider Name:Bennett Beltrán , 07/01/2024 02:20:00 PM, [address], [address], [place], [address], Insurance Providers Payer Name Payer Address Payer Phone Subscriber Number Group Number Insured Name Patient Relationship to Insured Coverage Start Date Coverage End Date MEDICARE OF [place] [address] [place] [address] [phone] [id number] CAROLYN BARNES Self - patient is the insured MEDICAID OF [facility] [address] [place] [address] [id number] CAROLYN BARNES Self - patient is the insured MEDICAL (GENERAL) HISTORY Medical History History ICD Code Spinal stenosis Spinal cord stimulator-Dr Claus Aranda's Reportedly negative colonosc opy with Dr. Foster in approx 2016 and reportedly negative colonoscopy on [place] in approx 2004 Hyperlipidemia Gender identitiy change from female to m kim Denies ID,DM,CVA,Lung disease,renal dise ase Muscular weakness Bipolar/Depression Chronic constipation Iron deficiency anemia in July of 2020--s ees Dr. Cade Surgical History Surgery Date(Month/Year) spinal cord simulator 2019 right and left ankel fusions 2018 right and left hip 2010 decompressure back surgery 2019 bilateral mastectomy surgery for gender identitiy change purposes 2007
--- OUTSIDE RECORDS SUMMARY | 2024-05-13 17:09 | XMS_ITS | Clinical Summary ---
Author Organization [facility] Address [address] [place] [address] Care Team Providers Care Offset Press Operator Apprentice Name Role Phone Unavailable Primary Care Provider [...]
[2024-05-14 09:16] LABS: HBS Num1 1.67 mIU/mL (0-7.99); HBc Num1 0.12 S/CO (0.00-0.79); Hepatitis A Antibody IgM 0.15 Index (0-0.79); Hepatitis B Core Antibody Nonreactive (Nonreactive); Hepatitis B Surface Antigen Negative (Negative); ~HepC Num1 0.26 S/CO (0.00-0.79); ~Hepatitis A Antibody IgM Nonreactive (Nonreactive); ~Hepatitis B Surface Antibody NONREACTIVE (Nonreactive); ~Hepatitis C Antibody Nonreactive (Nonreactive)
[2024-05-19 01:39] LABS: Aldolase 4.2 U/L (<=8.1)
== END 2024-05-13 12:21 | disposition home or self-care (01) ==
LOC: HO.HMGCLDS 12:20
PROVIDERS: PCP Internal Medicine; Visit Provider Student in an Organized Health Care Education/Training Program
DX: M35.03 Sjogren syndrome with myopathy (principal); M33.20 Polymyositis, organ involvement unspecified; Z51.81 Encounter for therapeutic drug level monitoring; Z79.624 Long term (current) use of inhibitors of nucleotide synthesis; G89.29 Other chronic pain; Z98.890 Other specified postprocedural states; Z96.82 Presence of neurostimulator; Z11.59 Encounter for screening for other viral diseases; Z72.89 Other problems related to lifestyle
CPT/HCPCS: 36415; 80053; 82085; 82550; 85025; 85652; 86140; 86704; 86706; 86709; 86803; 87340; 99212

== ENCOUNTER 2024-05-13 12:20 | Outpatient (AMB) | payer MEDICARE, MEDICAID, SELFPAY ==
--- NOTE | 2024-05-13 12:52 | A.OFFVIS_ITS ---
Vital Signs 05/13/24 12:54 Height 5 ft 1 in Weight 106 lb 7.732 oz BMI 20.1 BP 120/72 Blood Pressure Location Rt brachial Position Sitting Pulse 90 Pulse Source Pulse Oximeter Pulse Oximetry (%) 98 Oxygen Delivery Method Room Air Intake Visit Reasons: follow up Intake Note: Patient presents for follow up. Allergies No Known Allergies Allergy (Verified 05/13/24 12:54) Medication List - Last Reconciled 05/13/24 by Abena Kelley MD buspirone 10 mg PO TID cholecalciferol (vitamin D3) 25 mcg PO DAILY fenofibrate 160 mg PO DAILY 90 days folic acid 1 mg PO DAILY linaclotide (Linzess) 290 mcg PO DAILY 90 days lithium carbonate ER 450 mg PO DAILY lurasidone 120 mg PO DAILY methotrexate sodium 15 mg (6 x 2.5 mg) PO QWEEK 90 days pantoprazole 20 mg PO DAILY prazosin 1 mg PO DAILY prednisone 5 mg PO DAILY pregabalin (Lyrica) 300 mg PO BID 30 days quetiapine 400 mg PO BEDTIME HPI Comments Details: Patient is a 68-year-old female with bipolar 1 disorder, IBS with constipation, chronic back pain status post laminectomy & spinal cord stimulator, who presents for follow-up of polymyositis and Sjogren's syndrome. Interval History: Last seen 02/12/2024 with me. At that time she was complaining of return of her muscle weakness shoulders and her legs. Plan was to restart her on low-dose of Prednisone and methotrexate. She started methotrexate in January and has been on the medication for the past 4 months. Has not reported any significant improvement in her symptoms. She does note that taking the Prednisone does help her. Rheumatologic History: Patient presented 01/2023 to establish care at [facility]. Polymyositis: She states that she was diagnosed back in 2014 after presenting with progressive muscle weakness, fatigue and elevated CK and aldolase. There was no muscle biopsy at that time. She was successfully treated with pred nisone. Has not been on any steroids sparing agents mostly due to the patient's reluctance of the side effects. She was lost to follow-up for several years prior to establishing care here at [facility]. At that time she was given a prednisone taper due to worsening muscle weakness and mildly elevated CK. Sjogren's syndrome: Diagnosed based on dry eyes and dry mouth. 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, lumbar region Postlaminectomy syndrome, not elsewhere classified Fibromyalgia Other sexual disorders Bipolar 1 disorder IBS (irritable bowel syndrome) Muscular dystrophy Chronic vertigo Chronic GERD Lipid disorder Constipation by delayed colonic transit Surgical History H/O colonoscopy Status post insertion of nerve stimulator Previous back surgery History of ankle surgery H/O mastectomy History of hip surgery Family History Father Mesothelioma Brother Mesothelioma Paternal Grandfather Mesothelioma Brother Mesothelioma Paternal Grandmother Stomach cancer Paternal Aunt Lung cancer Family/Other Breast cancer Other Mental health disorder Osteoarthritis Substance use disorder Social History Household Members: Family Housing: House Are you a primary health care facility administrator to a significant other at home: Yes (mother) Do you presently have visiting nurse or other home services: No Alcohol intake: never Patient Tobacco Use Status: Never used Tobacco Tobacco use type: Smokeless Tobacco e-Cigarette/Vaping Use: Currently Using Substance Use Type: Marijuana service: No Current occupational status: disabled Current occupational exposures/hazards: No Cognitive needs: No Hearing needs: No Vision needs: No Review of Systems Const Details: Review of Systems Constitutional: Denies fever, chills, weight loss ENT: Denies vision changes, eye pain or eye redness, dental caries, dry mouth GI: Denies nausea, vomiting, diarrhea, abdominal pain, change in BM Pulm: Denies SOB, DAVIS, hemoptysis, wheezing Cards: Denies chest pain, palpitations Skin: Denies Raynaud's, rash, nail changes, photosensitivity, HANDBELL CHOIR DIRECTOR: Denies headaches, weakness, paresthesias, recurrent falls MSK: as per HPI All other systems reviewed and are unremarkable except noted above Physical Exam Vital Signs: Last Vital Signs Pulse 90 05/13/24 12:54 BP 120/72 05/13/24 12:54 Pulse Ox 98 05/13/24 12:54 Oxygen Delivery Method Room Air 05/13/24 12:54 BMI result Body Mass Index 20.1 Vital signs reviewed Physical Examination CONSTITUITIONAL Patient alert and cooperative. Well appearing and in no apparent painful distress CHEST/RESPIRATORY SYSTEM Normal respiratory effort and able to speak in complete sentences. ?Clear to auscultation bilaterally. ?No crackles, rales, rhonchi, wheezes heard. CARDIAC SYSTEM Regular rate and rhythm. ?S1 and S2 heard no murmurs. ?Radial pulses intact bilaterally MSK Hands: ?No synovitis noted to the MCPs, PIPs or DIPs. ?No tenderness to palpation of these joints. Wrists: ?Full range of motion at the wrists without pain. ?No tenderness to palpation or synovitis noted to the wrists. Elbows: Full range of motion without pain. No tenderness, weakness, swelling, increased warmth or erythema. Shoulders: Full range of motion without pain. No tenderness, weakness, swelling, increased warmth or erythema. Hips: Full range of motion without pain. Knees: ?Full range of motion. ?No tenderness, swelling, increased warmth or erythema.?No effusion or crepitations Ankles: Minimal range of motion due to fusion Feet: ?Negative squeeze test. ?No tenderness to palpation or swelling of the MTPs. SKIN Skin intact without rashes. Right Left Neck flexion Shoulder abduction 4+ 4+ Shoulder adduction 4 4 Elbow flexion 5 5 Elbow extension 5 5 Wrist flexion 5 5 Wrist extension 5 5 Warp Scouring Vat Tender strength 5 5 Hip flexion 5 5 Knee flexion 5 5 Knee extension 5 5 Ankle dorsiflexion 5 5 Ankle plantarflexion 5 5 Results Reviewed Results Reviewed: Laboratory Tests 03/13/23 02/12/24 02/12/24 12:10 14:14 14:15 WBC 5.1 6.4 RBC 4.56 4.53 Hgb 13.2 12.9 Hct 42.2 40.4 Plt Count 419 H 484 H ESR 28 H 19 Sodium 140 136 Potassium 3.9 3.9 Chloride 107 106 Carbon Dioxide 26 25 BUN 18 H 11 Creatinine 0.96 0.81 Total Bilirubin 0.3 0.3 AST 31 38 H ALT 17 25 Alkaline Phosphatase 47 55 Total Creatine Kinase 135 97 C-Reactive Protein 0.10 0.26 PEP Interpretation alpha 1 globulin increased Aldolase 3.5 TPMT Enzyme 24.6 (Normal activity) 02/12/24 14:45 WBC RBC Hgb Hct Plt Count ESR Sodium Potassium Chloride Carbon Dioxide BUN Creatinine Total Bilirubin AST ALT Alkaline Phosphatase Total Creatine Kinase C-Reactive Protein PEP Interpretation Aldolase 4.1 TPMT Enzyme 24.6 (Normal activity) Assessment & Plan Assessment & Plan (1) Polymyositis: Code(s): M33.20 - Polymyositis, organ involvement unspecified Category: Medical Plan: #Polymyositis Patient is a 68-year-old female here today for management of polymyositis. Currently on methotrexate and low-dose Prednisone. While the exam does show improvement in her muscle strength patient does not feel any improvement. We will stop methotrexate and start azathioprine. TPMT enzyme checked at last visit with normal activity. Plan - Stop Mtx - Start azathioprine 100mg (patient is 48kg at 2mg/kg her dose for azathioprine is 100mg) - Stop folic acid - Continue prednisone 5mg daily - Labs today: CBC, CMP, ESR, CRP, CK, aldolase, hepatitis panel, T spot - RTC 4 months - Labs prior to visit: CBC, CMP, ESR, CRP, CK, aldolase (2) Sjogren syndrome with myopathy: Code(s): M35.03 - Sjogren syndrome with myopathy Category: Medical Plan: #Sjogrens Conservatively managing her dry eyes and dry mouth at this time. (3) Encounter for monitoring azathioprine therapy: Code(s): Z51.81 - Encounter for therapeutic drug level monitoring; Z79.624 - correction (current) use of inhibitors of nucleotide synthesis Plan: #Long-term use of azathioprine Discussed with patient the benefits and risks of azathioprine for the management of the rheumatic condition Benefits include: ? - Reduced pain, maintenance of remission and reduction of flares Risks include: - Bone marrow suppression, GI upset, lymphoma, hepatotoxicity, pancreatitis, hypersensitivity syndrome TPMT enzyme checked: 01/2024 Drug monitoring: CBC every 4 weeks for the 1st 3 months then CBC BMP LFTs every 3 months Avoid concomitant sulfasalazine, allopurinol or febuxostat Plan I spent 30 minutes reviewing the record and labs, seeing the patient, discussing the treatment plan and documenting in the medical record ? Orders: Orders Creatine Kinase Total Today M3.20 - Polymyositis, organ involvement unspecified Aldolase Today M3.20 - Polymyositis, organ involvement unspecified Erythrocyte Sedimentation Rate Today M3.20 - Polymyositis, organ involvement unspecified Complete Blood Count Auto Diff 4 Months .20 - Polymyositis, organ involvement unspecified Aldolase 4 Months M3.20 - Polymyositis, organ involvement unspecified Erythrocyte Sedimentation Rate 4 Months M3.20 - Polymyositis, organ involvement unspecified Complete Blood Count Auto Diff Today .20 - Polymyositis, organ involvement unspecified Comprehensive Met. Panel Today .20 - Polymyositis, organ involvement unspecified C Reactive Protein Today .20 - Polymyositis, organ involvement unspecified Comprehensive Met. Panel 4 Months .20 - Polymyositis, organ involvement unspecified C Reactive Protein 4 Months .20 - Polymyositis, organ involvement unspecified Creatine Kinase Total 4 Months .20 - Polymyositis, organ involvement unspecified Hepatitis A,B,C Profile Today .20 - Polymyositis, organ involvement unspecified, Z51.81 - Encounter for therapeutic drug level monitoring, Z79.624 - tank terminal gauger (current) use of inhibitors of nucleotide synthesis T Spot TB Today .20 - Polymyositis, organ involvement unspecified, Z51.81 - Encounter for therapeutic drug level monitoring, Z79.624 - correction (current) use of inhibitors of nucleotide synthesis Medications: New azathioprine 100 mg PO DAILY 90 tabs 1RF M33.20 - Polymyositis, organ involvement unspecified, M33.22 - Polymyositis with myopathy, M35.03 - Sjogren syndrome with myopathy Discontinued methotrexate sodium Discontinued Reason: Doctor's Order 15 mg (6 x 2.5 mg) PO QWEEK 90 days 78 tabs 1RF M33.20 - Polymyositis, organ involvement unspecified folic acid Discontinued Reason: Doctor's Order 1 mg PO DAILY 90 tabs 1RF M33.20 - Polymyositis, organ involvement unspecified Coding Level of Care Code Est Pt Level 4 (61762) Complex EM visit Add On G2211 Diagnoses Polymyositis M33.20 Sjogren syndrome with myopathy M35.03 Encounter for monitoring azathioprine therapy Z51.81; Z79.624
[2024-05-13 12:54] VITALS: BP 120/72; PULSE 90; O2SAT 98; BMI 20.1
--- OUTSIDE RECORDS SUMMARY | 2024-05-13 14:58 | XMS_ITS | Clinical Summary ---
Author Organization [facility] Address [address] [place] [address] Care Team Providers Care Regrinder Operator Name Role Phone Unavailable Primary Care Provider Unavailabl e Social History Tobacco Use Types Packs/Day Years Used Date Smoking Tobacco: Never Assessed Sex and Gender Information Value Date Recorded Sex Assigned at Not on file Gender Identity Not on file Sexual Orientation Not on file Plan of Treatment Health Maintenance Due Date Last Done Comments Hepatitis C Virus Screening 1955 DTaP/Tdap/Td Vaccines (1 - Tdap) 1976 Pneumococcal Vaccines 50+ (1 of 1 - PCV) 11/17/2007 Zoster (Shingles) Vaccine (1 of 2) 11/17/2007 COVID-19 Vaccine ( - 2023-2 5 season) 2023 RSV Vaccine 60 years and old er and Patients (1 - 1-dose 75+ series) 2032 Hepatitis B Vaccines Aged Out No long er eligible based on patient's age to complete this topic
== END 2024-05-13 13:23 | disposition home or self-care (01) ==
PROVIDERS: PCP Internal Medicine; Visit Provider Student in an Organized Health Care Education/Training Program
DX: M33.20 Polymyositis, organ involvement unspecified (principal); M35.03 Sjogren syndrome with myopathy; Z51.81 Encounter for therapeutic drug level monitoring; Z79.624 Long term (current) use of inhibitors of nucleotide synthesis
CPT/HCPCS: 99214; G2211

== ENCOUNTER 2024-05-14 11:20 | Outpatient (REF) | payer MEDICARE, MEDICAID, SELFPAY ==
--- OUTSIDE RECORDS SUMMARY | 2024-05-14 14:18 | XMS_ITS ---
Author Organization [facility] Address [address] [place] [address] Care Team Providers Care Yarrow Gatherer Name Role Phone Marito MONTALVO, [facility] Primary Care Provider Bennett Peoples [phone] REASON FOR VISIT needs r/f on linzess/ please resend MEDICATIONS Medication SIG (Take, Route, Fr equency, Duration) Notes Start Date End Date Status Linzess 290 MCG TAKE 1 CAPSULE BY [facility] AT LEAST 30 MINUTES BEFORE FIRST MEAL OF THE DAY ON AN EMPTY STOMACH Orally Once a day for 30 days Active Encounters Encounter Location Date Provider Diagnosis [facility] [address] [place] [address] 02/05/2024 Bennett Beltrán PLAN OF TREATMENT Medication Medication Name Sig Start Date Stop Date Notes Linzess 290 MCG TAKE 1 CAPSULE BY [facility] AT LEAST 30 MINUTES BEFORE FIRST MEAL OF THE DAY ON AN EMPTY STOMACH Orally Once a day for 30 days Next Appt Details Provider Name:Bennett Beltrán , 07/01/2024 02:20:00 PM, [address] [place] [address], [address], [place], [address],
--- OUTSIDE RECORDS SUMMARY | 2024-05-14 14:18 | XMS_ITS ---
Author Organization [facility] Address [address] [place] [address] Care Team Providers Care Student Services Representative Name Role Phone Marito MONTALVO, [facility] Primary Care Provider Bennett Peoples [phone] REASON FOR VISIT not feeling well Encounters Encounter Location Date Provider Diagnosis [facility] [address] [place] [address] 03/03/2024 Bennett Beltrán PLAN OF TREATMENT Next Appt Details Provider Name:Bennett Beltrán , 07/01/2024 02:20:00 PM, [address], [address], [place], [address],
--- OUTSIDE RECORDS SUMMARY | 2024-05-14 14:18 | XMS_ITS | Clinical Summary ---
Author Organization [facility] Address [address] [place] [address] Care Team Providers Care Kiss Setter Hand Name Role Phone Unavailable Primary Care Provider [...]
--- OUTSIDE RECORDS SUMMARY | 2024-05-14 14:18 | XMS_ITS | Patient Health Record ---
Author Organization [facility] Address [address] [place] [address] Care Team Providers Care Mechanical Design Technician Name Role Phone Marito MONTALVO, Asma Primary Care Provider Bennett Peoples [phone] ALLERGIES No Known Allergies REASON FOR REFERRAL No Information MEDICATIONS Medication SIG (Take, Route, Frequency, Duration) Notes Start Date End Date Status B12 Folate 800-800 MCG as directed Orally 04/13/19 Active Ferrous Sulfate 325 (65 Fe) MG 1 tablet Orally Once a day for 30 day(s) 04/13/2021 Active [place] Carbonate 300 MG 1 capsule at be dtime Orally Once a day for 30 day(s) 04/13/2021 Active Fenofibrate 160 MG 1 tablet Orally Once a day for 30 day(s) 04/13/2021 Active Linzess 290 MCG TAKE 1 CAPSULE BY [facility] AT LEAST 30 MINUTES BEFORE FIRST [...] Notes Problem Dysphagia (R13.10) Active confirmed Dysphagia (82341823) Problem Constipation, unspecified constipation type (K59.00) Active confirmed 92290968 Problem Iron deficiency anemia, unspecified iron deficiency anemia type (D50.9) Active confirmed 04397386 Problem Diverticulosis of colon (K57.30) Active confirmed Diverticulosi s of colon (659065890) Problem Esophageal dysphagia (R13.19) Active confirmed 81417582 Encounters Encounter Location Date Provider Diagnosis [facility] [address] [place] [address] 02/05/2024 Bennett Beltrán [facility] [address] [place] [address] 03/03/2024 Bennett Beltrán PLAN OF TREATMENT Pending Test Test Name Order Date IRON + IBC (FE) 04/13/2021 VITAMIN B12 AND FOLATE 04/13/2021 CBC w DIFF 04/13/2021 CELIAC PANEL #10 04/13/2021 Future Test Test Name Order Date UPPER GI ENDOSCOPY BALLOOON DILATION OF ESOPH 04/13/2021 COLONOSCOPY 04/13/2021 Next Appt Details Provider Name:Bennett Beltrán , 07/01/2024 02:20:00 PM, [address], [address], [place], [address], Insurance Providers Payer Name Payer Address Payer Phone Subscriber Number Group Number Insured Name Patient Relationship to Insured Coverage Start Date Coverage End Date MEDICARE OF [place] [address] [place] [address] [id number] CAROLYN BARNES Self - patient is the insured MEDICAID OF [facility] [address] [place] [phone] [id number] CAROLYN BARNES Self - patient is the insured MEDICAL (GENERAL) HISTORY Medical History History ICD Code Spinal stenosis Spinal cord stimulator-Dr Claus Aranda's Reportedly negative colonosc opy with Dr. Foster in approx 2016 and reportedly negative colonoscopy on [place] in approx 2004 Hyperlipidemia Gender identitiy change from female to m kim Denies [place],DM,CVA,Lung disease,renal dise ase Muscular weakness Bipolar/Depression Chronic constipation Iron deficiency anemia in July of 2020--s ees Dr. Cade Surgical History Surgery Date(Month/Year) spinal cord simulator 2019 right and left ankel fusions 2018 right and left hip 2010 decompressure back surgery 2019 bilateral mastectomy surgery for gender identitiy change purposes 2007
== END 2024-05-14 11:21 | disposition home or self-care (01) ==
LOC: HO.HMGCLDS 11:20
PROVIDERS: Visit Provider Student in an Organized Health Care Education/Training Program
DX: M33.20 Polymyositis, organ involvement unspecified (principal); Z51.81 Encounter for therapeutic drug level monitoring; Z79.624 Long term (current) use of inhibitors of nucleotide synthesis; L98.499 Non-pressure chronic ulcer of skin of other sites with unspecified severity; L10.0 Pemphigus vulgaris
CPT/HCPCS: 36415; 83520; 86481

== ENCOUNTER → 2024-06-25 13:30 | Outpatient (BNVA) | payer MEDICARE, MEDICAID, SELFPAY | PROVIDERS: PCP Internal Medicine; Visit Provider Anesthesiology ==

== ENCOUNTER 2024-07-04 12:29 | Outpatient (REF) | payer MEDICARE, MEDICAID, SELFPAY ==
--- NOTE | ~2024-07-04 | XR_ITS ---
EXAMINATION: XR THORACIC SPINE CLINICAL INFORMATION: T85.192A - Other mechanical complication of implanted electronic neurost... COMPARISON: March 24, 2022. TECHNIQUE: 3 views of the thoracic spine were obtained. FINDINGS: Multilevel marginal osteophyte formation and endplate sclerosis decreased intervertebral disc height and 30% volume loss of the vertebral bodies of the lower thoracic spine. There is incomplete ankylosis at the lower thoracic spine and upper lumbar spine region. There is a intraspinal canal stimulator electrode leads ending at T7 T9-10 levels. No lytic or blastic lesions. No acute cortical disruption. XR/XR thoracic spine 3V IMPRESSION: Multilevel moderate to severe lower thoracic and upper lumbar spondylosis. Electronically signed by: Gilmar Bragg MD 07/04/2024 01:38 PM EDT
--- OUTSIDE RECORDS SUMMARY | 2024-07-04 13:12 | XMS_ITS | Patient Health Record ---
Author Organization [facility] Address [address] [place] [address] Care Team Providers Care Ambulatory Technologist Name Role Phone Marito MONTALVO, [facility] Primary Care Provider Bennett Peoples [phone] Allergies No Known Allergies Reason For Referral No Information Medications Medication SIG (Take, Route, Frequency, Duration) Notes Start Date End Date Status B12 Folate 800-800 MCG as directed Orally 04/13/19 Active Ferrous Sulfate 325 (65 Fe) MG 1 tablet Orally Once a day for 30 day(s) 04/13/2021 Active Reeder Carbonate 300 MG 1 capsule at be dtime Orally Once a day for 30 day(s) 04/13/2021 Active Fenofibrate 160 MG 1 tablet Orally Once a day for 30 day(s) 04/13/2021 Active Linzess 290 MCG TAKE 1 CAPSULE BY [facility] AT LEAST 30 MINUTES BEFORE FIRST MEAL OF THE DAY ON AN EMPTY STOMACH Orally Once a day for 30 days Active Docusate Sodium 250 MG 1 capsule as need ed Orally Once a day for 30 day(s) 04/13/2021 Active MiraLax 17 GM/SCOOP as directed Orally 04/13/2021 Active QUEtiapine Fumarate 200 MG Oral for 30 Active Immunizations Vaccine Route Administration Date Status Comme nts Influenza Unknown 01/05/2021 Administered Social History Tobacco Use: Social History Observation Description Date Details (start date - stop date) Never Smoker NA - NA Tobacco Use/Smoking Question Answer Notes Patient is a nonsmoker Alcohol Screen Question Answer Notes Did you have a drink containing alcohol in the p ast year? No Points 0 Interpretation Negative Section Notes: Nonsmoker; Vapes marijuana; no sig. alcohol Problems Problem Type SNOMED Code ICD Code Onset Dates Problem Status W/U Status Risk Notes Problem Dysphagia (32577182) Dysphagia (R13.10) Active confirmed Problem 56959053 Constipation, unspecified constipation type (K59.00) Active confirmed Problem 53278278 Iron deficiency anemia, unspecified iron deficiency anemia type (D50.9) Active confirmed Problem Diverticulosis of colon (131977495) Diverticulosis of colon (K57.30) Active confirmed Problem 78967393 Esophageal dysphagia (R13.19) Active confirmed Encounters Encounter Location Date Provider Diagnosis [facility] [address] [place] [phone] 02/05/2024 Bennett Beltrán [facility] [address] [place] [phone] 03/03/2024 Bennett Beltrán [facility] [address] [place] [phone] 06/12/2024 Bennett Beltrán [facility] [address] [place] [phone] 06/23/2024 Bennett Beltrán Plan Of Treatment Pending Test Test Name Order Date IRON + IBC (FE) 04/13/2021 VITAMIN B12 AND FOLATE 04/13/2021 CBC w DIFF 04/13/2021 CELIAC PANEL #10 04/13/2021 Future Test Test Name Order Date UPPER GI ENDOSCOPY BALLOOON DILATION OF ESOPH 04/13/2021 COLONOSCOPY 04/13/2021 Insurance Providers Payer Name Payer Address Payer Phone Subscriber Number Group Number Insured Name Patient Relationship to Insured Coverage Start Date Coverage End Date [employer] (No Referral) [address] [address] [place] [address] [id number] CAROLYN BARNES Self - patient is the insured MEDICAID OF [facility] [address] [place] [address] [id number] CAROLYN BARNES Self - patient is the insured Medical (General) History Medical History History ICD Code Spinal stenosis Spinal cord stimulator-Dr Claus Aranda's Reportedly negative colonosc opy with Dr. Foster in approx 2016 and reportedly negative colonoscopy on [place] in approx 2004 Hyperlipidemia Gender identitiy change from female to m kim Denies IN,DM,CVA,Lung disease,renal dise ase Muscular weakness Bipolar/Depression Chronic constipation Iron deficiency anemia in July of 2020--s ees Dr. Cade Surgical History Surgery Date(Month/Year) spinal cord simulator 2019 right and left ankel fusions 2018 right and left hip 2010 decompressure back surgery 2019 bilateral mastectomy surgery for gender identitiy change purposes 2007
--- OUTSIDE RECORDS SUMMARY | 2024-07-04 13:12 | XMS_ITS ---
Author Organization [facility] Address [address] [place] [phone] Care Team Providers Care Microcomputer Technician Name Role Phone Marito MONTALVO, Sarina Primary Care Provider Bennett Peoples [phone] REASON FOR VISIT diarrhea Encounters Encounter Location Date Provider Diagnosis [facility] [address] [place] [phone] 07/01/2024 Bennett Beltrán Plan Of Treatment No Information Progress Notes * MAGALIEJOSECAROLYN BOYLE ADOB:[birth year] (68 yo F)Acc No.[id number]:07/01/2024 Progress Notes Patient:?CAROLYN BARNES Provider:?Bennett Beltrán MD :1955???Age:68 Y???Sex:Female D ate:07/01/2024 Address:[address] [place], [place] [phone] Pcp:Sarina Devi MD Subjective: * Chief Complaints: * ???1. Diarrhea. * Medical History:? Objective: * Vitals:? Assessment: Plan: * Treatment: * * The named appointment provid er may or may not be the originator of this progress note, and it is not deemed complete until electronically signed by the appointment provider. Sign off status: Pending * Provider:?Bennett Beltrán MD Date:? 025 Generated for Printi ng/Faxing/eTransmitting on:?07/04/2024 01:12 PM EDT
--- OUTSIDE RECORDS SUMMARY | 2024-07-04 13:12 | XMS_ITS ---
Author Organization [facility] Address [address] [place] [address] Care Team Providers Care Monument Carver Name Role Phone Marito MONTALVO, Asma Primary Care Provider Bennett Peoples [phone] REASON FOR VISIT FYI Encounters Encounter Location Date Provider Diagnosis [facility] [address] [place] [address] 06/23/2024 Bennett Beltrán Plan Of Treatment No Information Progress Notes * CAROLYN BARNES ADOB:[birth year] (68 yo F)Acc No.[id number]:06/23/2024 Patient:?MAGALIEJOSEMEEKRashawn CAROLYN Pavel :1955???Age:68 Y???Sex:Female Address:[address] [place] [address], [address] * true * Date:? Generated for Printi ng/Faablbirg/eTransmitting on:?07/04/2024 01:12 PM EDT
--- OUTSIDE RECORDS SUMMARY | 2024-07-04 13:12 | XMS_ITS ---
Author Organization [facility] Address [address] [place] [address] Care Team Providers Care Mobile Home Servicer Name Role Phone Marito MONTALVO, Asma Primary Care Provider Bennett Peoples [phone] Encounters Encounter Location Date Provider Diagnosis [facility] [address] [place] [address] 06/12/2024 Bennett Beltrán Plan Of Treatment No Information Progress Notes * CAROLYN BARNES ADOB:[birth year] (68 yo F)Acc No.[id number]:06/12/2024 Patient:?CAROLYN BARNES :1955???Age:68 Y???Sex:Female Address:[address] [place] [address], [address] * true * Date:? Generated for Scarlett rick/Jayson/eTransmitting on:?07/04/2024 01:12 PM EDT
--- OUTSIDE RECORDS SUMMARY | 2024-07-04 13:12 | XMS_ITS | Clinical Summary ---
Author Organization [facility] Address [address] [place] [address] Care Team Providers Care Boiler/Chiller Operator Name Role Phone Unavailable Primary Care Provider Unavailabl e Social History Tobacco Use Types Packs/Day Years Used Date Smoking Tobacco: Never Assessed Comments Unknown Sex and Gender Information Value Date Recorded Sex Assigned at Not on file Legal Sex Female 6:32 PM EST Gender Identity Not on file Sexual Orientation [...]
== END 2024-07-04 12:30 | disposition home or self-care (01) ==
LOC: HO.XRAY 12:29
PROVIDERS: PCP Internal Medicine; Visit Provider Anesthesiology
DX: T85.192A Other mechanical complication of implanted electronic neurostimulator of spinal cord electrode (lead), initial encounter (principal)
CPT/HCPCS: 72072

== ENCOUNTER → 2024-07-04 12:34 | Outpatient (BNV) | payer MEDICARE, MEDICAID, SELFPAY | PROVIDERS: PCP Internal Medicine; Visit Provider Radiology Diagnostic Radiology | DX: M47.815 Spondylosis without myelopathy or radiculopathy, thoracolumbar region (principal) | CPT/HCPCS: 72072 ==

== ENCOUNTER 2024-07-14 12:13 | Outpatient (AMB) | payer MEDICARE, MEDICAID, SELFPAY ==
[2024-07-14 12:34] VITALS: BP 108/60; PULSE 92; O2SAT 99; BMI 19.8
--- NOTE | 2024-07-14 12:34 | MHC.OFFVIS ---
Vital Signs 07/14/24 12:34 Height 5 ft 1 in Weight 104 lb 15.04 oz BMI 19.8 BP 108/60 Blood Pressure Location Lt brachial Position Sitting Pulse 92 Pulse Source Pulse Oximeter Pulse Oximetry (%) 99 Oxygen Delivery Method Room Air Intake Visit Reasons: discuss infusion Intake Note: Patient presents for follow up on polymyositis, lab review, and to discuss infusion. She was last seen in the office on 05/13/[address] Kelley. Allergies No Known Allergies Allergy (Verified 07/14/24 12:37) Medication List - Last Reconciled 07/14/24 by Abena Kelley MD buspirone 10 mg PO TID cholecalciferol (vitamin D3) 25 mcg PO DAILY fenofibrate 160 mg PO DAILY 90 days linaclotide (Linzess) 290 mcg PO DAILY 90 days lithium carbonate ER 450 mg PO DAILY lurasidone 120 mg PO DAILY pantoprazole 20 mg PO DAILY prazosin 1 mg PO DAILY prednisone 5 mg PO DAILY pregabalin (Lyrica) 300 mg PO BID 30 days quetiapine 400 mg PO BEDTIME HPI Comments Details: Patient is a 68-year-old female with bipolar 1 disorder, IBS with constipation, chronic back pain status post laminectomy & spinal cord stimulator, who presents for follow-up of polymyositis and Sjogren's syndrome. Interval History: Last seen 05/13/2024 with me. At that she had persistent muscle weakness despite methotrexate and so we decided to try azathioprine. Unfortunately azathioprine was met with intolerable side effects. Continues to complain of mainly bilateral shoulder weakness Here today with sister to discuss treatment options with regards to her muscle weakness Rheumatologic History: Patient presented 01/2023 to establish care at [facility]. Polymyositis: She states that she was diagnosed back in 2014 after presenting with progressive muscle weakness, fatigue and elevated CK and aldolase. There was no muscle biopsy at that time. She was successfully treated with prednisone. Has not been on any steroids sparing agents mostly due to the patient's reluctance of the side effects. She was lost to follow-up for several years prior to establishing care here at [facility]. At that time she was given a prednisone taper due to worsening muscle weakness and mildly elevated CK. Sjogren's syndrome: Diagnosed based on dry eyes and dry mouth. 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, lumbar region Postlaminectomy syndrome, not elsewhere classified Fibromyalgia Other sexual disorders Bipolar 1 disorder IBS (irritable bowel syndrome) Muscular dystrophy Chronic vertigo Chronic GERD Lipid disorder Constipation by delayed colonic transit Surgical History H/O colonoscopy Status post insertion of nerve stimulator Previous back surgery History of ankle surgery H/O mastectomy History of hip surgery Family History Father Mesothelioma Brother Mesothelioma Paternal Grandfather Mesothelioma Brother Mesothelioma Paternal Grandmother Stomach cancer Paternal Aunt Lung cancer Family/Other Breast cancer Other Mental health disorder Osteoarthritis Substance use disorder Social History Household Members: Family Housing: House Are you a primary small animal caretaker to a significant other at home: Yes (mother) Do you presently have visiting nurse or other home services: No Alcohol intake: never Patient Tobacco Use Status: Never used Tobacco Tobacco use type: Smokeless Tobacco e-Cigarette/Vaping Use: Currently Using Substance Use Type: Marijuana service: No Current occupational status: disabled Current occupational exposures/hazards: No Cognitive needs: No Hearing needs: No Vision needs: No Review of Systems Const Details: Review of Systems Constitutional: Denies fever, chills, weight loss ENT: Denies vision changes, eye pain or eye redness, dental caries, dry mouth GI: Denies nausea, vomiting, diarrhea, abdominal pain, change in BM Pulm: Denies SOB, DAVIS, hemoptysis, wheezing Cards: Denies chest pain, palpitations Skin: Denies Raynaud's, rash, nail changes, photosensitivity, AUTOMATIC I THREADING MACHINE FEEDER: Denies headaches, weakness, paresthesias, recurrent falls MSK: as per HPI All other systems reviewed and are unremarkable except noted above Physical Exam Vital Signs: Last Vital Signs Pulse 92 07/14/24 12:34 BP 108/60 07/14/24 12:34 Pulse Ox 99 07/14/24 12:34 Oxygen Delivery Method Room Air 07/14/24 12:34 BMI result Body Mass Index 19.8 Vital signs reviewed Physical Examination CONSTITUITIONAL Patient alert and cooperative. Well appearing and in no apparent painful distress CHEST/RESPIRATORY SYSTEM Normal respiratory effort and able to speak in complete sentences. ?Clear to auscultation bilaterally. ?No crackles, rales, rhonchi, wheezes heard. CARDIAC SYSTEM Regular rate and rhythm. ?S1 and S2 heard no murmurs. ?Radial pulses intact bilaterally MSK Hands: ?No synovitis noted to the MCPs, PIPs or DIPs. ?No tenderness to palpation of these joints. Wrists: ?Full range of motion at the wrists without pain. ?No tenderness to palpation or synovitis noted to the wrists. Elbows: Full range of motion without pain. No tenderness, weakness, swelling, increased warmth or erythema. Shoulders: Full range of motion without pain. No tenderness, weakness, swelling, increased warmth or erythema. Hips: Full range of motion without pain. Knees: ?Full range of motion. ?No tenderness, swelling, increased warmth or erythema.?No effusion or crepitations Ankles: Minimal range of motion due to fusion Feet: ?Negative squeeze test. ?No tenderness to palpation or swelling of the MTPs. SKIN Skin intact without rashes. Right Left Neck flexion Shoulder abduction 4+ 4+ Shoulder adduction 4 4 Elbow flexion 5 5 Elbow extension 5 5 Wrist flexion 5 5 Wrist extension 5 5 Commissioner Of Conciliation strength 5 5 Hip flexion 5 5 Knee flexion 5 5 Knee extension 5 5 Ankle dorsiflexion 5 5 Ankle plantarflexion 5 5 Results Reviewed Results Reviewed: Laboratory Tests 02/12/24 02/12/24 05/13/24 14:15 14:45 13:58 WBC 5.6 RBC 4.06 L Hgb 11.6 L Hct 36.0 L Plt Count 496 H ESR 39 H Sodium 139 Potassium 4.0 Chloride 108 Carbon Dioxide 24 BUN 13 Creatinine 0.86 AST 46 H ALT 31 Alkaline Phosphatase 54 Total Creatine Kinase 49 C-Reactive Protein 0.26 2.97 H Aldolase 4.1 4.2 Immunology Labs 01/19/23 10:40 Rheumatoid Factor < 13.0 Cycl Citrul Peptide IgG <16 FARIBA Screen POSITIVE A FARIBA Titer 1:160 H FARIBA Pattern Nuclear, Homogeneous A Assessment & Plan Assessment & Plan (1) Polymyositis: Code(s): M33.20 - Polymyositis, organ involvement unspecified Category: Medical Plan: #Polymyositis Patient is a 68-year-old female here today for management of polymyositis. Had a reaction to azathioprine and so this was held. Discussed with patient and sister about IVIG versus mycophenolate as next treatment patient would like to think about it Plan - Continue prednisone 5mg daily - Information given about MMF and IVIG - Follow up with patient (2) Sjogren syndrome with myopathy: Code(s): M35.03 - Sjogren syndrome with myopathy Category: Medical Plan: #Sjogrens Conservatively managing her dry eyes and dry mouth at this time. (3) correction (current) use of systemic steroids: Code(s): Z79.52 - correction (current) use of systemic steroids Plan: #Long-term Use of Steroids Discussed with patient the risks and benefits of steroid for managing the rheumatic condition Benefits include: - Reduced pain, improved mobility, increased participation in activities, and decreased progression of disease Risks include: - GI upset, potential ultrasound worsening or formation (especially in patients > 65 years old), elevated blood pressure/worsening hypertension, elevated blood sugar/worsening diabetes control, worsening of bone density, elevated lipids/worsening triglycerides, cataract formation, weight gain Recommended using proton pump inhibitors (PPIs) for the duration of steroid use to reduce the risk of gastric ulcers and vitamin-D daily to reduce the risk of osteoporosis Labs checked: ?A1c, T spot, hepatitis-B and C serologies Pneumocystis jiroveci prophylaxis: ?Patient with risk factors including steroids greater than 50 mg for more than 30 days, age greater than 60 years, and lung involvement from underlying rheumatic disease requires prophylaxis and will be given so Plan I spent 30 minutes reviewing the record and labs, seeing the patient, discussing the treatment plan and documenting in the medical record ? Coding Level of Care Code Est Pt Level 4 (13351) Complex EM visit Add On G2211 Diagnoses Polymyositis M33.20 Sjogren syndrome with myopathy M35.03 correction (current) use of systemic steroids Z79.52
--- OUTSIDE RECORDS SUMMARY | 2024-07-14 14:35 | XMS_ITS | Clinical Summary ---
Author Organization [facility] Address [address] [place] [address] Care Team Providers Care Noc Analyst Name Role Phone Unavailable Primary Care Provider [...]
== END 2024-07-14 13:02 | disposition home or self-care (01) ==
PROVIDERS: PCP Internal Medicine; Visit Provider Student in an Organized Health Care Education/Training Program
DX: M33.20 Polymyositis, organ involvement unspecified (principal); M35.03 Sjogren syndrome with myopathy; Z79.52 Long term (current) use of systemic steroids
CPT/HCPCS: 99214; G2211

== ENCOUNTER → 2024-07-14 12:13 | Outpatient (BNVA) | payer MEDICARE, MEDICAID, SELFPAY | PROVIDERS: PCP Internal Medicine; Visit Provider Student in an Organized Health Care Education/Training Program | DX: M33.20 Polymyositis, organ involvement unspecified (principal); M35.03 Sjogren syndrome with myopathy; Z79.52 Long term (current) use of systemic steroids | CPT/HCPCS: 99212 ==

== ENCOUNTER 2024-08-29 10:24 | Outpatient (AMB) | payer MEDICARE, MEDICAID, SELFPAY ==
[2024-08-29 10:26] VITALS: BP 122/76; PULSE 86; O2SAT 96; BMI 20.5
--- NOTE | 2024-08-29 10:26 | A.OFFPC_ITS ---
Vital Signs 08/29/24 10:26 Height 5 ft 1 in Weight 108 lb 6 oz BMI 20.5 BP 122/76 Blood Pressure Location Rt brachial Position Sitting Pulse 86 Pulse Source Pulse Oximeter Pulse Oximetry (%) 96 Oxygen Delivery Method Room Air Intake Visit Reasons: Bump Allergies No Known Allergies Allergy (Verified 08/29/24 10:27) Medication List - Last Reconciled 08/29/24 by Sarina Devi MD buspirone 10 mg PO TID cholecalciferol (vitamin D3) 25 mcg PO DAILY fenofibrate 160 mg PO DAILY 90 days linaclotide (Linzess) 290 mcg PO DAILY 90 days lithium carbonate ER 450 mg PO DAILY lurasidone 120 mg PO DAILY pantoprazole 20 mg PO DAILY prazosin 1 mg PO DAILY prednisone 5 mg PO DAILY pregabalin (Lyrica) 300 mg PO BID 30 days quetiapine 400 mg PO BEDTIME Tobacco use date assessed: 08/29/24 Fall risk assessment: No Falls in past year Last assessed Fall Risk: 08/29/24 Dental Screening Dental Screen Date: 08/29/24 Did you have a dental visit in the last 12 months?: Yes Did you have a dental problem in the last 6 months where you did not have access to dental care?: No Was dental information given to patient?: Patient has dentist HPI Bump HPI Details History - The patient is a 68-year-old female pr esenting with a bump on her vagina. - Reports noticing a small bump on the r ight side of the vagina (labia majora) approximately a couple of weeks ago. - Describes the bump as feeling slightly painful, but not severely so. - Notes no change in size or discomfort since onset; remains constant. - Denies associated vaginal discharge. - Reports a wound on her right leg, init ially presenting as a blister the size of a quarter. - Blister ruptured and worsened after ph ysical trauma by chair - Describes that the wound is healing wi th no signs of infection currently. Problem List - Papule on labia majora - Healing leg wound occurred after traum a Patient Instructions - Monitor the bump on the vagina for jean-claude nges. If it increases in size or does not improve in two to three weeks, seek re-evaluation. - Continue to monitor the wound on the l eg. Maintain its cleanliness and protect it from further trauma to aid healing. Return in 3 weeks for follow-up Review of Systems - General: No fever no chills - Neurological: No headaches no dizziness - Ear nose throat: No sore throat no hearing difficulty no ear pain - Cardiovascular: No syncope, no chest pain, no palpitations - Gastrointestinal: No nausea vomiting or diarrhea Physical Exam General: No acute distress HEENT: No acute findings Neck: Supple Respiratory system: Able to talk in full sentences, no audible wheeze Gastrointestinal: No pain Genitalia: Single small papule right labia majora without signs of infection or inflammation no vaginal discharge Extremities: Wound on right leone anterior medial, size of a quarter, no discharge, healing, no signs of infection TIP LENGTH CHECKER: Alert awake oriented x3 motor sensory intact PFSH Medical History Rash and other nonspecific skin eruption Primary osteoarthritis involving multiple joints Osteoporosis screening Osteoarthritis, hand 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, lumbar region Postlaminectomy syndrome, not elsewhere classified Fibromyalgia Other sexual disorders Bipolar 1 disorder IBS (irritable bowel syndrome) Muscular dystrophy Chronic vertigo Chronic GERD Lipid disorder Constipation by delayed colonic transit Surgical History H/O colonoscopy Status post insertion of nerve stimulator Previous back surgery History of ankle surgery H/O mastectomy History of hip surgery Family History Father Mesothelioma Brother Mesothelioma Paternal Grandfather Mesothelioma Brother Mesothelioma Paternal Grandmother Stomach cancer Paternal Aunt Lung cancer Family/Other Breast cancer Other Mental health disorder Osteoarthritis Substance use disorder Social History Household Members: Family Housing: House Are you a primary patient care nursing assistant to a significant other at home: Yes (mother) Do you presently have visiting nurse or other home services: No Alcohol intake: never Patient Tobacco Use Status: Never used Tobacco Tobacco use type: Smokeless Tobacco e-Cigarette/Vaping Use: Currently Using Substance Use Type: Marijuana service: No Current occupational status: disabled Current occupational exposures/hazards: No Cognitive needs: No Hearing needs: No Vision needs: No Questionnaire PHQ-9 Over the last 2 weeks, how often have you been bothered by any of the following problems? 1. Little interest or pleasure in doing things: not at all 2. Feeling down, depressed, or hopeless: not at all 3. Trouble falling or staying asleep, or sleeping too much: not at all 4. Feeling tired or having little energy: not at all 5. Poor appetite or overeating: not at all 6. Feeling bad about yourself - or that you are a failure or have let yourself or your family down: not at all 7. Trouble concentrating on things, such as reading the newspaper or watching television: not at all 8. Moving or speaking so slowly that other people could have noticed. Or the opposite - being so fidgety or restless that you have been moving around a lot more than usual: not at all 9. Thoughts that you would be better off or of hurting yourself in some way: not at all Total score: 0 Depression Screening Interpretation: Negative Depression Screening Done: Yes 10633 - PHQ-9 Billing: Yes Source: Developed by Drs. Bennett Bhagat, Alannah Steve, Terence Donato and colleagues, with an educational alejandro from [employer]. Thrive Questionnaire Date Thrive assessed: 08/29/24 I am a: Patient What is your living situation today?: I have a steady place to live Within the past 12 months, did the food you bought not last and you didn't have the money to get more?: Sometimes True Within the past 12 months, did you worry whether your food would run out before you got money to buy more?: Sometimes True Do you have trouble paying for medicines?: Yes Do you have trouble getting transportation to medical appointments?: No Do you have trouble paying your heating and electricity bill?: No Do you have trouble taking care of your child, family member or friend?: No Do you have trouble with day-to-day activities such as bathing, preparing meals, shopping, managing finances, etc.?: Yes Are you currently unemployed and looking for a job?: No Are you interested in more education?: No Please select the resources that you would like help with: None Currently or been in a relationship where the following occur: I choose not to answer THRIVE Score: 2 AUDIT C Alcohol Use Questionnaire (AUDIT-C) 1. How often do you have a drink containing alcohol?: Never 3. How often do you have six or more drinks on one occasion?: Never Total Score: 0 Score Reviewed/Action Taken: Yes KAUR-7 AMB Questionnaire KAUR-7 Date KAUR - 7 assessed: 08/29/24 Feeling nervous, anxious, or on edge: 0 = Not at all Not being able to stop or control worryin = Not at all Worrying too much about different things: 0 = Not at all Trouble relaxin = Not at all Being so restless that it is hard to sit still: 0 = Not at all Becoming easily annoyed or irritable: 0 = Not at all Feeling afraid as if something awful might happen: 0 = Not at all Total KAUR-7 score (0-4 normal; 5-9 mild; 10-14 moderate; 15-21 severe): 0 Source: Developed by Drs. Bennett Bhagat, Alannah Steve, Terence Donato and colleagues, with an educational alejandro from [employer]. KAUR-7 Assessment Billing KAUR-7 Assessment Tool: KAUR-7 Assessment 07953 Physical exam (Primary Care) Vital Signs: Last Vital Signs Pulse 86 08/29/24 10:26 BP 122/76 08/29/24 10:26 Pulse Ox 96 08/29/24 10:26 Oxygen Delivery Method Room Air 08/29/24 10:26 BMI result Body Mass Index 20.5 Tobacco/Smoking Status: Tobacco use Status Tobacco use date assessed 08/29/24 08/29/24 10:32 Patient Tobacco Use Status Never used Tobacco 08/29/24 10:32 Tobacco use type Smokeless Tobacco 08/29/24 10:32 e-Cigarette/Vaping Use Currently Using 08/29/24 10:32 PHQ-9: PHQ-9 Score PHQ-9: Total score 0 08/29/24 10:32 Depression Screening Interpretation: Negative Thrive Assessment: Date of Thrive Assessment Date Thrive assessed 08/29/24 08/29/24 10:32 Currently or been in a relationship where the following occur: I choose not to answer Coding Level of Care Code Est Pt Level 3 (10218) Diagnoses Wound of right lower extremity, initial encounter S81.801A Encounter type: initial encounter Genital lesion, female N94.9 Additional Codes KAUR-7 Assessment Billing - KAUR-7 Assessment Tool: KAUR-7 Assessment 59936 ([id number]) PHQ-9 - 82585 - PHQ-9 Billing: Yes ([id number]) Assessment & Plan Assessment & Plan (1) Wound of right lower extremity: Code(s): S81.801A - Unspecified open wound, right lower leg, initial encounter Category: Medical Qualifiers: Encounter type: initial encounter Qualified Code(s): S81.801A - Unspecified open wound, right lower leg, initial encounter (2) Genital lesion, female: Code(s): N94.9 - Unspecified condition associated with female genital organs and menstrual cycle Category: Medical Plan History - The patient is a 68-year-old female presenting with a bump on her vagina. - Reports noticing a small bump on the right side of the vagina (labia majora) approximately a couple of weeks ago. - Describes the bump as feeling slightly painful, but not severely so. - Notes no change in size or discomfort since onset; remains constant. - Denies associated vaginal discharge. - Reports a wound on her right leg, initially presenting as a blister the size of a quarter. - Blister ruptured and worsened after physical trauma by chair - Describes that the wound is healing with no signs of infection currently. Problem List - Papule on labia majora - Healing leg wound occurred after trauma Patient Instructions - Monitor the bump on the vagina for changes. If it increases in size or does not improve in two to three weeks, seek re-evaluation. - Continue to monitor the wound on the leg. Maintain its cleanliness and protect it from further trauma to aid healing. Return in 3 weeks for follow-up
--- OUTSIDE RECORDS SUMMARY | 2024-08-29 11:23 | XMS_ITS | Patient Health Record ---
Author Organization [facility] Address [address] [place] [address] Care Team Providers Care Review Analyst Name Role Phone Marito MONTALVO, [employer] Primary Care Provider Bennett Peoples [phone] Allergies No Known Allergies Reason For Referral No Information Medications Medication SIG (Take, Route, Frequency, Duration) Notes Start Date End Date Status B12 Folate 800-800 MCG as directed Orally 04/13/19 Active Ferrous Sulfate 325 (65 Fe) MG 1 tablet Orally Once a day for 30 day(s) 04/13/2021 Active [place] Carbonate 300 MG 1 capsule at be dtime Orally Once a day for 30 day(s) 04/13/2021 Active Fenofibrate 160 MG 1 tablet Orally Once a day for 30 day(s) 04/13/2021 Active Linzess 290 MCG TAKE 1 CAPSULE BY [facility] AT LEAST 30 MINUTES BEFORE FIRST MEAL [...] Status W/U Status Risk Notes Problem Dysphagia (R13.10) Active confirmed Problem 23213298 Constipation, unspecified constipation type (K59.00) Active confirmed Problem 92969788 Iron deficiency anemia, unspecified iron deficiency anemia type (D50.9) Active confirmed Problem Diverticulosis of colon (479245578) Diverticulosis of colon (K57.30) Active confirmed Problem 27530441 Esophageal dysphagia (R13.19) Active confirmed Encounters Encounter Location Date Provider Diagnosis [facility] [address] [place] [phone] 02/05/2024 Bennett Beltrán [facility] [address] [place] [phone] 03/03/2024 Bennett Beltrán [facility] [address] [place] [phone] 06/12/2024 Bennett Beltrán [facility] [address] [place] [phone] 06/23/2024 Bennett Beltrán Plan Of Treatment Pending [...] End Date [employer] (No Referral) [address] [address] [place] [address] [id number] CAROLYN BARNES Self - patient is the insured [facility] [address] [place] [address] [id number] CAROLYN BARNES Self - patient is the insured Medical (General) History Medical History History ICD Code Spinal stenosis Spinal cord stimulator-Dr Claus Aranda's Reportedly negative colonosc opy with Dr. Foster in approx 2016 and reportedly negative colonoscopy on [place] in approx 2004 Hyperlipidemia Gender identitiy change from female to m kim Denies [place],DM,CVA,Lung disease,renal dise ase Muscular weakness Bipolar/Depression Chronic constipation Iron deficiency anemia in July of 2020--s ees Dr. Cade Surgical History Surgery Date(Month/Year) spinal cord simulator 2019 right and left ankel fusions 2018 right and left hip 2010 decompressure back surgery 2018 bilateral mastectomy surgery for gender identitiy change purposes 2007
== END 2024-08-29 10:48 | disposition home or self-care (01) ==
LOC: HO.HMCC 10:25
PROVIDERS: PCP Internal Medicine; Visit Provider Internal Medicine
DX: S81.801A Unspecified open wound, right lower leg, initial encounter (principal); N94.9 Unspecified condition associated with female genital organs and menstrual cycle

== ENCOUNTER → 2024-08-29 10:24 | Outpatient (BNVA) | payer MEDICARE, MEDICAID, SELFPAY | PROVIDERS: PCP Internal Medicine; Visit Provider Internal Medicine | DX: M79.7 Fibromyalgia (principal); S81.801A Unspecified open wound, right lower leg, initial encounter; N94.9 Unspecified condition associated with female genital organs and menstrual cycle; X58.XXXA Exposure to other specified factors, initial encounter; Y93.9 Activity, unspecified; Y92.9 Unspecified place or not applicable; Y99.9 Unspecified external cause status | CPT/HCPCS: 96127; 99212 ==

== ENCOUNTER 2024-09-03 13:18 | Outpatient (AMB) | payer MEDICARE, MEDICAID, SELFPAY ==
[2024-09-03 13:25] VITALS: BP 133/67; PULSE 88; RESP 18; O2SAT 99; BMI 21.1
--- NOTE | 2024-09-03 13:25 | A.OFFVIS_ITS ---
Vital Signs 09/03/24 13:25 Height 5 ft Weight 108 lb BMI 21.1 BP 133/67 Blood Pressure Location Lt brachial Position Sitting Respiration 18 Pulse 88 Pulse Source Pulse Oximeter Pulse Oximetry (%) 99 Oxygen Delivery Method Room Air Intake Visit Reasons: Xray results patient req [employer] Required: No Allergies No Known Allergies Allergy (Verified 09/03/24 13:25) HPI Comments Details: Mart is back in my office requesting the follow-up after the x-ray of her lumb ar spine. X-ray was performed and it was recognized that the patient had her spinal cord stimulator leads dislodged. The right lead went up to bottom of T7 vertebra in the posterior epidural space and the left lead went down in the posterior epidural space to top of T9. This information was provided to the [facility] representative Sonali, she will try to adjust the stimulation accordingly. However if this will not help the patient the position of the leads indication for the revision. Prior She has negative about opioid medications they give her severe constipation. She has multiple surgeries in the past including surgery in the back and she is negative about another surgery in her back. She is suffering from fibromyalgia She reports multiple areas of pain, with her lower back being the most troublesome. She sees rheumatology currently who has prescribed her Naproxen and Lyrica, both of which provide some relief. She has also been using some CBD tincture which is also helpful. History of severe canal stenosis at L3/4, for which she had a decompression by Dr. Orta in May 2017. 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, lumbar region Postlaminectomy syndrome, not elsewhere classified Fibromyalgia Other sexual disorders Bipolar 1 disorder IBS (irritable bowel syndrome) Muscular dystrophy Chronic vertigo Chronic GERD Lipid disorder Constipation by delayed colonic transit Surgical History H/O colonoscopy Status post insertion of nerve stimulator Previous back surgery History of ankle surgery H/O mastectomy History of hip surgery Family History Father Mesothelioma Brother Mesothelioma Paternal Grandfather Mesothelioma Brother Mesothelioma Paternal Grandmother Stomach cancer Paternal Aunt Lung cancer Family/Other Breast cancer Other Mental health disorder Osteoarthritis Substance use disorder Social History Household Members: Family Housing: House Are you a primary in home caregiver to a significant other at home: Yes (mother) Do you presently have visiting nurse or other home services: No Alcohol intake: never Patient Tobacco Use Status: Never used Tobacco Tobacco use type: Smokeless Tobacco e-Cigarette/Vaping Use: Currently Using Substance Use Type: Marijuana service: No Current occupational status: disabled Current occupational exposures/hazards: No Cognitive needs: No Hearing needs: No Vision needs: No Review of Systems Const All systems reviewed & are unremarkable except as noted in HPI and below Eyes Denies photophobia Neuro Denies Sensory deficit (Neuro) Physical Exam Vital Signs: Last Vital Signs Pulse 88 09/03/24 13:25 Resp 18 09/03/24 13:25 BP 133/67 09/03/24 13:25 Pulse Ox 99 09/03/24 13:25 Oxygen Delivery Method Room Air 09/03/24 13:25 BMI result Body Mass Index 21.1 Vital signs reviewed. Constitutional: Pleasant, Well appearing. No acute distress. Well-developed and well-nourished. HEENT: Normocephalic and atraumatic. External auditory canals without erythema or edema bilaterally. Dry mucous membranes. No pharyngeal erythema or exudates. Skin: Warm and dry. No rashes or lesions noted. Neck: Full and painless range of motion. No cervical lymphadenopathy. Cardio: Regular rate and rhythm. No murmurs, gallops, or rubs. No lower extremity edema. No JVD. Pulmonary: No respiratory distress. No accessory muscle usage. Lungs CTA Musculoskeletal: Normal range of motion with some limitation in joints throughout the body. Uses crutch on the right - bilateral ankle fusion. Upper extremity 4/5, lower extremity 5/5. Neuro: Alert and oriented x4. Cranial nerves 2-12 grossly intact. No focal deficits appreciated. Const General: comfortable, no acute distress, well developed, alert, awake and Physically active Eyes Direct Ophthalmoscopy: No photophobia Chest Chest palpation & inspection: normal inspection of the chest Resp Effort & Inspection: normal respiratory effort, able to speak in complete sentences, normal respiratory pattern, no audible wheezes and no cough Cardio Jugular venous distension: no JVD GI Inspection: Yes normal to inspection Neuro Sensory Exam: No Sensory deficit (Neuro) Psych Appearance: grossly normal Mental Status: mental status grossly normal Speech and movement: Normal speech and movement present Assessment & Plan Assessment & Plan (1) Fibromyalgia: Code(s): M79.7 - Fibromyalgia Category: Medical (2) Postlaminectomy syndrome, not elsewhere classified: Code(s): M96.1 - Postlaminectomy syndrome, not elsewhere classified Category: Medical (3) Other spondylosis with radiculopathy, lumbar region: Code(s): M47.26 - Other spondylosis with radiculopathy, lumbar region Category: Medical (4) S/P insertion of spinal cord stimulator: Code(s): Z96.89 - Presence of other specified functional implants Category: Surgical (5) 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 I reported the information about dislodgement of the electrodes to the [facility] representatives as above, they will try to adjust the stimulation accordingly. However if it will not be working for the patient it is indication for the adjustment and revision of the leads. This patient is very frail her BMI is 21 kg/m2 She would need to have anesthesiology assessment before going for the procedure if she wishes to do so. 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
--- OUTSIDE RECORDS SUMMARY | 2024-09-03 15:09 | XMS_ITS | Patient Health Record ---
Author Organization [facility] Address [address] [place] [address] Care Team Providers Care Acid Filler Name Role Phone Marito MONTALVO, [facility] Primary Care Provider Bennett Peoples [phone] Allergies No Known Allergies Reason For Referral No Information Medications Medication SIG (Take, Route, Frequency, Duration) Notes Start Date End Date Status B12 Folate 800-800 MCG as directed Orally 04/13/19 Active Ferrous Sulfate 325 (65 Fe) MG 1 tablet Orally Once a day for 30 day(s) 04/13/2021 Active [place] Carbonate 300 MG 1 capsule at be dtime Orally Once a day for 30 day(s) 04/13/2021 Active Fenofibrate 160 MG 1 tablet Orally Once a day for 30 day(s) 04/13/2021 Active Linzess 290 MCG TAKE 1 CAPSULE BY [facility] AT LEAST 30 MINUTES BEFORE FIRST MEAL [...] Status W/U Status Risk Notes Problem Dysphagia (69995002) Dysphagia (R13.10) Active confirmed Problem 84983594 Constipation, unspecified constipation type (K59.00) Active confirmed Problem 32717653 Iron deficiency anemia, unspecified iron deficiency anemia type (D50.9) Active confirmed Problem Diverticulosis of colon (710922184) Diverticulosis of colon (K57.30) Active confirmed Problem 83303324 Esophageal dysphagia (R13.19) Active confirmed Encounters Encounter Location Date Provider Diagnosis [facility] [address] [place] [phone] 02/05/2024 Bennett Beltrán [facility] [address] [place] [phone] 03/03/2024 Bennett Beltrán [facility] [address] [place] [phone] 06/12/2024 Bennett Beltrán [facility] [address] [place] [phone] 06/23/2024 Bennett Beltrán Plan Of Treatment Pending [...] End Date [employer] (No Referral) [address] [address] [place] [address] [id number] CAROLYN BARNES Self - patient is the insured MEDICAID OF [employer] [address] [place] [address] [id number] CAROLYN BARNES Self - patient is the insured Medical (General) History Medical History History ICD Code Spinal stenosis Spinal cord stimulator-Dr Claus Aranda's Reportedly negative colonosc opy with Dr. Foster in approx 2016 and reportedly negative colonoscopy on [place] in approx 2004 Hyperlipidemia Gender identitiy change from female to m kim Denies [place],DM,CVA,Lung disease,renal dise ase Muscular weakness Bipolar/Depression Chronic constipation Iron deficiency anemia in July of 2020--s ees Dr. Cade Surgical History Surgery Date(Month/Year) spinal cord simulator 2019 right and left ankel fusions 2018 right and left hip 2010 decompressure back surgery 2019 bilateral mastectomy surgery for gender identitiy change purposes 2008
== END 2024-09-03 13:55 | disposition home or self-care (01) ==
LOC: HO.PMC 13:19
PROVIDERS: PCP Internal Medicine; Visit Provider Anesthesiology
DX: M79.7 Fibromyalgia (principal); M96.1 Postlaminectomy syndrome, not elsewhere classified; M47.26 Other spondylosis with radiculopathy, lumbar region; Z96.89 Presence of other specified functional implants; G58.8 Other specified mononeuropathies
CPT/HCPCS: 99213

== ENCOUNTER → 2024-09-03 13:18 | Outpatient (BNVA) | payer MEDICARE, MEDICAID, SELFPAY | PROVIDERS: PCP Internal Medicine; Visit Provider Anesthesiology | DX: M79.7 Fibromyalgia (principal); M96.1 Postlaminectomy syndrome, not elsewhere classified; M47.26 Other spondylosis with radiculopathy, lumbar region; G58.8 Other specified mononeuropathies; Z96.82 Presence of neurostimulator; T85.122A Displacement of implanted electronic neurostimulator of spinal cord electrode (lead), initial encounter | CPT/HCPCS: 99212 ==

== ENCOUNTER 2024-09-17 11:38 | Outpatient (AMB) | payer MEDICARE, MEDICAID, SELFPAY ==
[2024-09-17 11:45] VITALS: BP 132/86; PULSE 88; TEMP 36.7; O2SAT 95; BMI 20.7
--- NOTE | 2024-09-17 11:45 | A.OFFPC_ITS ---
Vital Signs 09/17/24 11:45 Height 5 ft Weight 106 lb 2 oz BMI 20.7 BP 132/86 Blood Pressure Location Rt brachial Position Sitting Pulse 88 Pulse Source Pulse Oximeter Temp 98.1 F Temp Source Oral Pulse Oximetry (%) 95 Oxygen Delivery Method Room Air Intake Visit Reasons: 3 weeks follow up Abnormal Psychology Teacher Required: No Allergies No Known Allergies Allergy (Verified 09/17/24 11:49) Medication List - Last Reconciled 09/17/24 by Sarina Devi MD buspirone 10 mg PO TID cholecalciferol (vitamin D3) 25 mcg PO DAILY fenofibrate 160 mg PO DAILY 90 days linaclotide (Linzess) 290 mcg PO DAILY 90 days lithium carbonate ER 450 mg PO DAILY lurasidone 120 mg PO DAILY pantoprazole 20 mg PO DAILY prazosin 1 mg PO DAILY prednisone 5 mg PO DAILY pregabalin (Lyrica) 300 mg PO BID 30 days quetiapine 400 mg PO BEDTIME valbenazine (Ingrezza Sprinkle) 40 mg PO DAILY Tobacco use date assessed: 09/17/24 Fall risk assessment: 1 Fall in past year Last assessed Fall Risk: 09/17/24 Dental Screening Dental Screen Date: 09/17/24 Did you have a dental visit in the last 12 months?: Yes Did you have a dental problem in the last 6 months where you did not have access to dental care?: No Was dental information given to patient?: Patient has dentist HPI 3 weeks follow up HPI Details History - The patient is a 68-year-old female pr esenting for follow-up on healing of a wound on the right leg. - The wound in the right leg has been sl ow to heal, however it is healing without any signs of infection - No discomfort or pain associated with the wound was mentioned. . - The patient also reports a resolution of a previously noted bump in the vaginal area. Suffers from lipid disorder which is being treated through PCP office Patient also have history of Sjogren's and bipolar disorder treated by different other providers Chronic constipation requiring Linzez through Gastroenterology office Diagnostic Results: - Labs from April show slight anemia. - Kidney function within normal limits. - Liver function tests are stable - No cholesterol testing done in during the last blood workup. Due for labs order placed Patient Instructions - okay to drink water and take medicatio n during fasting for labs - Coordinate blood tests with both Dr. Euniec portillo and PCP - Continue medications as prescribed. Review of Systems - General: No fever no chills - Neurological: No headaches no dizziness - Ear nose throat: No sore throat no hearing difficulty no ear pain - Cardiovascular: No syncope, no chest pain, no palpitations - Gastrointestinal: No nausea vomiting or diarrhea - Endocrine: No polyuria polydipsia no heat intolerance - Genitourinary: No dysuria , no blood in urine Physical Exam General: No acute distress HEENT: No acute findings Neck: Supple Respiratory system: Able to talk in full sentences, no audible wheeze Cardiovascular: S1-S2 regular in rate and rhythm Gastrointestinal: No pain Extremities: No new findings ANALYST: Alert awake oriented x3 motor sensory intact Skin: Healing wound on right leg, normal turgor PFSH Medical History Rash and other nonspecific skin eruption Primary osteoarthritis involving multiple joints Osteoporosis screening Osteoarthritis, hand 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, lumbar region Postlaminectomy syndrome, not elsewhere classified Fibromyalgia Other sexual disorders Bipolar 1 disorder IBS (irritable bowel syndrome) Muscular dystrophy Chronic vertigo Chronic GERD Lipid disorder Constipation by delayed colonic transit Surgical History H/O colonoscopy Status post insertion of nerve stimulator Previous back surgery History of ankle surgery H/O mastectomy History of hip surgery Family History Father Mesothelioma Brother Mesothelioma Paternal Grandfather Mesothelioma Brother Mesothelioma Paternal Grandmother Stomach cancer Paternal Aunt Lung cancer Family/Other Breast cancer Other Mental health disorder Osteoarthritis Substance use disorder Social History Household Members: Family Housing: House Are you a primary animal care service worker to a significant other at home: Yes (mother) Do you presently have visiting nurse or other home services: No Alcohol intake: never Patient Tobacco Use Status: Never used Tobacco Tobacco use type: Smokeless Tobacco e-Cigarette/Vaping Use: Currently Using Substance Use Type: Marijuana service: No Current occupational status: disabled Current occupational exposures/hazards: No Cognitive needs: No Hearing needs: No Vision needs: No Questionnaire PHQ-9 Over the last 2 weeks, how often have you been bothered by any of the following problems? 1. Little interest or pleasure in doing things: not at all 2. Feeling down, depressed, or hopeless: not at all 3. Trouble falling or staying asleep, or sleeping too much: not at all 4. Feeling tired or having little energy: not at all 5. Poor appetite or overeating: not at all 6. Feeling bad about yourself - or that you are a failure or have let yourself or your family down: not at all 7. Trouble concentrating on things, such as reading the newspaper or watching television: not at all 8. Moving or speaking so slowly that other people could have noticed. Or the opposite - being so fidgety or restless that you have been moving around a lot more than usual: not at all 9. Thoughts that you would be better off or of hurting yourself in some way: not at all Total score: 0 Depression Screening Interpretation: Negative Depression Screening Done: Yes 71149 - PHQ-9 Billing: Yes Source: Developed by Drs. Bennett Bhagat, Alannah Steve, Terence Donato and colleagues, with an educational alejandro from [employer]. Thrive Questionnaire Date Thrive assessed: 09/17/24 I am a: Patient What is your living situation today?: I have a steady place to live Within the past 12 months, did the food you bought not last and you didn't have the money to get more?: Sometimes True Within the past 12 months, did you worry whether your food would run out before you got money to buy more?: Sometimes True Do you have trouble paying for medicines?: Yes Do you have trouble getting transportation to medical appointments?: No Do you have trouble paying your heating and electricity bill?: No Do you have trouble taking care of your child, family member or friend?: No Do you have trouble with day-to-day activities such as bathing, preparing meals, shopping, managing finances, etc.?: Yes Are you currently unemployed and looking for a job?: No Are you interested in more education?: No Please select the resources that you would like help with: None Currently or been in a relationship where the following occur: I choose not to answer THRIVE Score: 2 KAUR-7 AMB Questionnaire KAUR-7 Date KAUR - 7 assessed: 08/29/24 Source: Developed by Drs. Bennett Bhagat, Alannah Steve, Terence Donato and colleagues, with an educational alejandro from [employer]. Physical exam (Primary Care) Vital Signs: Last Vital Signs Temp 98.1 F 09/17/24 11:45 Pulse 88 09/17/24 11:45 BP 132/86 09/17/24 11:45 Pulse Ox 95 09/17/24 11:45 Oxygen Delivery Method Room Air 09/17/24 11:45 BMI result Body Mass Index 20.7 Tobacco/Smoking Status: Tobacco use Status Tobacco use date assessed 09/17/24 09/17/24 11:54 Patient Tobacco Use Status Never used Tobacco 09/17/24 11:54 Tobacco use type Smokeless Tobacco 09/17/24 11:54 e-Cigarette/Vaping Use Currently Using 09/17/24 11:54 PHQ-9: PHQ-9 Score PHQ-9: Total score 0 09/17/24 12:00 Depression Screening Interpretation: Negative Thrive Assessment: Date of Thrive Assessment Date Thrive assessed 09/17/24 09/17/24 11:54 Currently or been in a relationship where the following occur: I choose not to answer Coding Level of Care Code Est Pt Level 3 (64160) Diagnoses Lipid disorder E78.9 Additional Codes PHQ-9 - 68879 - PHQ-9 Billing: Yes ([id number]) Assessment & Plan Assessment & Plan (1) Lipid disorder: Code(s): E78.9 - Disorder of lipoprotein metabolism, unspecified Category: Medical Plan History - The patient is a 68-year-old female presenting for follow-up on healing of a wound on the right leg. - The wound in the right leg has been slow to heal, however it is healing without any signs of infection - No discomfort or pain associated with the wound was mentioned. . - The patient also reports a resolution of a previously noted bump in the vaginal area. Suffers from lipid disorder which is being treated through PCP office Patient also have history of Sjogren's and bipolar disorder treated by different other providers Chronic constipation requiring Linzez through Gastroenterology office Diagnostic Results: - Labs from April show slight anemia. - Kidney function within normal limits. - Liver function tests are stable - No cholesterol testing done in April during the last blood workup. Due for labs order placed Patient Instructions - okay to drink water and take medication during fasting for labs - Coordinate blood tests with both Dr. Hanna and PCP - Continue medications as prescribed. Orders: Orders Lipid Panel Today E78.9 - Disorder of lipoprotein metabolism, unspecified
--- OUTSIDE RECORDS SUMMARY | 2024-09-17 12:27 | XMS_ITS | Clinical Summary ---
Author Organization [facility] Address [address] [place] [address] Care Team Providers Care Hot Patcher Name Role Phone Unavailable Primary Care Provider [...]
--- OUTSIDE RECORDS SUMMARY | 2024-09-17 12:27 | XMS_ITS | Patient Health Record ---
Author Organization [facility] Address [address] [place] [address] Care Team Providers Care Cheese Packer Name Role Phone Marito MONTAL[facility], [facility] Primary Care Provider Bennett Peoples [phone] Allergies No Known Allergies Reason For Referral No Information Medications Medication SIG (Take, Route, Frequency, Duration) Notes Start Date End Date Status B12 Folate 800-800 MCG as directed Orally 04/13/19 Active Ferrous Sulfate 325 (65 Fe) MG 1 tablet Orally Once a day for 30 day(s) 04/13/2021 Active [place] Carbonate 300 MG 1 capsule at be dtime Orally Once a day for 30 day(s) 04/13/2021 Active Fenofibrate 160 MG 1 tablet Orally Once a day for 30 day(s) 04/13/2021 Active Linzess 290 MCG TAKE 1 CAPSULE BY [facility] AT LEAST 30 MINUTES BEFORE FIRST MEAL [...] Notes Problem Dysphagia (R13.10) Active confirmed Problem 48974342 Constipation, unspecified constipation type (K59.00) Active confirmed Problem 12549051 Iron deficiency anemia, unspecified iron deficiency anemia type (D50.9) Active confirmed Problem Diverticulosis of colon (759305856) Diverticulosis of colon (K57.30) Active confirmed Problem 60577321 Esophageal dysphagia (R13.19) Active confirmed Encounters Encounter Location Date Provider Diagnosis [facility] [address] [place] [phone] 02/05/2024 Bennett Beltrán [facility] [address] [place] [phone] 03/03/2024 Bennett Beltrán [facility] [address] [place] [phone] 06/12/2024 Bennett Beltrán [facility] [address] [place] [phone] 06/23/2024 Bennett Beltrán Plan Of Treatment Pending [...] End Date [employer] (No Referral) [address] [address] [place] [address] [id number] CAROLYN BARNES Self - patient is the insured MEDICAID OF [facility] [address] [place] [address] [id number] CAROLYN BARNES Self - patient is the insured Medical (General) History Medical History History ICD Code Spinal stenosis Spinal cord stimulator-Dr Claus Aranda's Reportedly negative colonosc opy with Dr. Foster in approx 2016 and reportedly negative colonoscopy on [place] in approx 2004 Hyperlipidemia Gender identitiy change from female to m kim Denies [place],DM,CVA,Lung disease,renal dise ase Muscular weakness Bipolar/Depression Chronic constipation Iron deficiency anemia in July of 2020--s ees Dr. Cade Surgical History Surgery Date(Month/Year) spinal cord simulator 2019 right and left ankel fusions 2018 right and left hip 2010 decompressure back surgery 2018 bilateral mastectomy surgery for gender identitiy change purposes 2007
== END 2024-09-17 12:33 | disposition home or self-care (01) ==
LOC: HO.HMCC 11:39
PROVIDERS: PCP Internal Medicine; Visit Provider Internal Medicine
DX: E78.9 Disorder of lipoprotein metabolism, unspecified (principal)

== ENCOUNTER → 2024-09-17 11:38 | Outpatient (BNVA) | payer MEDICARE, MEDICAID, SELFPAY | PROVIDERS: PCP Internal Medicine; Visit Provider Internal Medicine | DX: M79.7 Fibromyalgia (principal); S81.801D Unspecified open wound, right lower leg, subsequent encounter; E78.9 Disorder of lipoprotein metabolism, unspecified; X58.XXXD Exposure to other specified factors, subsequent encounter | CPT/HCPCS: 96127; 99212 ==

== ENCOUNTER 2024-11-13 09:04 | Outpatient (REF) | payer MEDICARE, MEDICAID, SELFPAY ==
--- OUTSIDE RECORDS SUMMARY | 2024-07-01 10:20 | XMS_ITS ---
Author Organization [facility] Address [address] [place] [phone] Care Team Providers Care Hospice Care Consultant Name Role Phone Marito MONTALVO, Sarina Primary Care Provider Bennett Peoples [phone] REASON FOR VISIT diarrhea Encounters Encounter Location Date Provider Diagnosis [facility] [address] [place] [phone] 07/01/2024 Bennett Beltrán Plan Of Treatment No Information Progress Notes * CAROLYN BARNES ADOB:[birth year] (68 yo F)Acc No.[id number]:07/01/2024 Progress Notes Patient: CAROLYN FORD Provider: Patricia Beltrán MD :1955 A ge:68 Y S ex:Female Date:07/01/2024 Address:[address] [place], [place] [phone] Pcp:Sarina Devi MD Subjective: * Chief Complaints: [...] Date: 07/01/2024 Generated for Printi ng/Faxing/eTransmitting on: 11/13/2024 10:01 AM EDT
--- OUTSIDE RECORDS SUMMARY | 2024-11-13 10:02 | XMS_ITS | Patient Health Record ---
Author Organization [facility] Address [address] [place] [address] Care Team Providers Care Casting Room Helper Name Role Phone Marito MONTALVO, [facility] Primary Care Provider Bennett Peoples [phone] Allergies No Known Allergies Reason For Referral No Information Medications Medication SIG (Take, Route, Frequency, Duration) Notes Start Date End Date Status B12 Folate 800-800 MCG as directed Orally 04/13/19 Active Ferrous Sulfate 325 (65 Fe) MG 1 tablet Orally Once a day for 30 day(s) 04/13/2021 Active [place] Carbonate 300 MG 1 capsule at be [...] Status W/U Status Risk Notes Problem Dysphagia (31745853) Dysphagia (R13.10) Active confirmed Problem 04229265 Constipation, unspecified constipation type (K59.00) Active confirmed Problem 09849949 Iron deficiency anemia, unspecified iron deficiency anemia type (D50.9) Active confirmed Problem Diverticulosis of colon (708613026) Diverticulosis of colon (K57.30) Active confirmed Problem 56383097 Esophageal dysphagia (R13.19) Active confirmed Encounters Encounter Location Date Provider Diagnosis [facility] [address] [place] [phone] 02/05/2024 Bennett Beltrán [facility] [address] [place] [phone] 03/03/2024 Bennett Beltrán [facility] [address] [place] [phone] 06/12/2024 Bennett Beltrán [facility] [address] [place] [phone] 06/23/2024 Bennett Beltrán Plan Of Treatment Pending [...] End Date [employer] (No Referral) [address] [address] [facility] [address] [id number] CAROLYN BARNES Self - patient is the insured [place] [address] [place] [address] [id number] CAROLYN BARNES Self - patient is the insured Medical (General) History Medical History History ICD Code Spinal stenosis Spinal cord stimulator-Dr Claus Aranda's Reportedly negative colonosc opy with Dr. Foster in approx 2016 and reportedly negative colonoscopy on [place] in approx 2004 Hyperlipidemia Gender identitiy change from female to m kim Denies [place],DM,CVA,Lung disease,renal dise ase Muscular weakness Bipolar/Depression Chronic constipation Iron deficiency anemia in July of 2020--s ees Dr. Cade Surgical History Surgery Date(Month/Year) spinal cord simulator 2019 right and left ankel fusions 2018 right and left hip 2010 decompressure back surgery 2019 bilateral mastectomy surgery for gender identitiy change purposes 2008
--- OUTSIDE RECORDS SUMMARY | 2024-11-13 10:02 | XMS_ITS | Clinical Summary ---
Author Organization [facility] Address [address] [place] [address] Care Team Providers Care Internal Medicine Veterinary Technician Name Role Phone Unavailable Primary Care Provider [...]
[2024-11-13 10:25] LABS: MANUAL DIFF FLAG NO
[2024-11-13 10:31] LABS: Hematocrit 38.5 % (37.0-47.0); Hemoglobin 12.4 g/dl (12.0-16.0); Imm Gran Abs Auto 0.02 X10*3/uL (0.00-0.03); Imm Gran Pct Auto 0.3 % (0.0-0.4); Lymphocytes Absolute Auto 2.6 X10*3/uL (1.2-4.9); Mean Corpuscular HGB Conc 32.2 g/dl (31.0-35.0); Mean Corpuscular Hemoglobin 28.6 pg (27.0-33.0); Mean Corpuscular Volume 88.9 fL (80.0-98.0); NRBC Abs Auto 0.000 X10*3/uL (0.0-0.012); NRBC Pct Auto 0.0 /100WBC (0.0-0.2); Platelet Count 426 X10*3/uL (160-400); Red Blood Count 4.33 X10*6/uL (4.20-5.50); White Blood Count 6.2 X10*3/uL (4.8-10.8)
[2024-11-13 11:12] LABS: Alanine Aminotransferase 14 U/L (0-31); Albumin Level 4.1 g/dL (3.5-5.0); Alkaline Phosphatase 54 U/L (39-117); Anion Gap 8 (12-20); Aspartate Amino Transferase 35 U/L (5-31); Blood Urea Nitrogen 19 mg/dL (9-16); Calcium 9.7 mg/dL (8.4-10.2); Carbon Dioxide 26 mmol/L (22-29); Chloride 108 mmol/L (96-108); Cholesterol 203 mg/dL (<200); Estimated Glomerular Filt Rate 42; HDL Cholesterol 74 mg/dL (>40); Potassium 3.4 mmol/L (3.3-5.1); Sodium 139 mmol/L (135-145); Total Protein 7.1 g/dL (6.5-8.0); Triglycerides 65 mg/dL (<150)
== END 2024-11-13 09:05 | disposition home or self-care (01) ==
LOC: HO.HMGCLDS 09:04
PROVIDERS: PCP Internal Medicine; Referring Provider Student in an Organized Health Care Education/Training Program; Visit Provider Internal Medicine
DX: M33.20 Polymyositis, organ involvement unspecified (principal); E78.9 Disorder of lipoprotein metabolism, unspecified
CPT/HCPCS: 36415; 80053; 80061; 82085; 82550; 85025; 85652; 86140

== ENCOUNTER 2024-11-26 12:32 | Outpatient (AMB) | payer MEDICARE, MEDICAID, SELFPAY ==
--- OUTSIDE RECORDS SUMMARY | 2024-07-01 10:20 | XMS_ITS ---
Author Organization [facility] Address [address] [place] [address] Care Team Providers Care Electric Blasting Cap Assembler Name Role Phone Marito MONTALVO, Sarina Primary Care Provider Bennett Peoples [phone] REASON FOR VISIT diarrhea Encounters Encounter Location Date Provider Diagnosis [facility] [address] [place] [phone] 07/01/2024 Bennett Beltrán Plan Of Treatment No Information Progress Notes * CAROLYN BARNES ADOB:[birth year] (69 yo F)Acc No.[id number]:07/01/2024 Progress Notes Patient: CAROLYN FORD Provider: Patricia Beltrán MD :1955 A ge:68 Y S ex:Female Date:07/01/2024 Address:[address] [place], [place] [id number] Pcp:Sarina Devi MD Subjective: * Chief Complaints: * 1 . Diarrhea. * Medical History: Objective: * Vitals: Assessment: Plan: * Treatment: * * The named appointment provid er may or may not be the originator of this progress note, and it is not deemed complete until electronically signed by the appointment provider. Sign off status: Pending * Provider: Patricia Beltrán MD Date: 07/01/2024 Generated for Printi ng/Faxing/eTransmitting on: 11/26/2024 03:29 PM EDT
--- NOTE | 2024-11-26 12:39 | MHC.OFFVIS ---
Vital Signs 11/26/24 12:46 Height 5 ft Weight 106 lb 4.205 oz BMI 20.8 BP 124/72 Blood Pressure Location Rt brachial Position Sitting Pulse 86 Pulse Source Pulse Oximeter Pulse Oximetry (%) 97 Oxygen Delivery Method Room Air Intake Visit Reasons: follow up Intake Note: Patient presents for Polymyositis and Sjogren's Syndrome follow up. Allergies No Known Allergies Allergy (Verified 11/26/24 12:45) Medication List - Last Reconciled 11/26/24 by Abena Kelley MD buspirone 10 mg PO TID cholecalciferol (vitamin D3) 25 mcg PO DAILY fenofibrate 160 mg PO DAILY 90 days linaclotide (Linzess) 290 mcg PO DAILY 90 days lithium carbonate ER 450 mg PO DAILY lurasidone 120 mg PO DAILY pantoprazole 20 mg PO DAILY prazosin 1 mg PO DAILY prednisone 5 mg PO DAILY pregabalin (Lyrica) 300 mg PO BID 30 days quetiapine 400 mg PO BEDTIME valbenazine (Ingrezza Sprinkle) 40 mg PO DAILY HPI Comments Details: Patient is a 69-year-old female with bipolar 1 disorder, IBS with constipation, chronic back pain status post laminectomy & spinal cord stimulator, who presents for follow-up of polymyositis and Sjogren's syndrome. Interval History: Last seen 07/14/24 - On Prednisone 5mg daily - Persistent muscle weakness - Did not tolerate methotrexate and azathioprine - Discussed IVIG and MMF, but patient wanted to think about them before making a decision Today, - On prednisone 5mg daily - Has decided to try IVIG - Still complaining of muscle weakness Rheumatologic History: Patient presented 01/2023 to establish care at [facility]. Polymyositis: She states that she was diagnosed back in 2014 after presenting with progressive muscle weakness, fatigue and elevated CK and aldolase. There was no muscle biopsy at that time. She was successfully treated with prednisone. Has not been on any steroids sparing agents mostly due to the patient's reluctance of the side effects. She was lost to follow-up for several years prior to establishing care here at [facility]. At that time she was given a prednisone taper due to worsening muscle weakness and mildly elevated CK. Sjogren's syndrome: Diagnosed based on dry eyes and dry mouth. 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, lumbar region Postlaminectomy syndrome, not elsewhere classified Fibromyalgia Other sexual disorders Bipolar 1 disorder IBS (irritable bowel syndrome) Muscular dystrophy Chronic vertigo Chronic GERD Lipid disorder Constipation by delayed colonic transit Surgical History H/O colonoscopy Status post insertion of nerve stimulator Previous back surgery History of ankle surgery H/O mastectomy History of hip surgery Family History Father Mesothelioma Brother Mesothelioma Paternal Grandfather Mesothelioma Brother Mesothelioma Paternal Grandmother Stomach cancer Paternal Aunt Lung cancer Family/Other Breast cancer Other Mental health disorder Osteoarthritis Substance use disorder Social History Household Members: Family Housing: House Are you a primary sub acute care nurse to a significant other at home: Yes (mother) Do you presently have visiting nurse or other home services: No Alcohol intake: never Patient Tobacco Use Status: Never used Tobacco Tobacco use type: Smokeless Tobacco e-Cigarette/Vaping Use: Currently Using Substance Use Type: Marijuana service: No Current occupational status: disabled Current occupational exposures/hazards: No Cognitive needs: No Hearing needs: No Vision needs: No Review of Systems Const Details: Review of Systems Constitutional: Denies fever, chills, weight loss ENT: Denies vision changes, eye pain or eye redness, dental caries, dry mouth GI: Denies nausea, vomiting, diarrhea, abdominal pain, change in BM Pulm: Denies SOB, DAVIS, hemoptysis, wheezing Cards: Denies chest pain, palpitations Skin: Denies Raynaud's, rash, nail changes, photosensitivity, MEDICAL LAB TECH INSTRUCTOR: Denies headaches, paresthesias, recurrent falls MSK: as per HPI All other systems reviewed and are unremarkable except noted above Physical Exam Exam Exam: Vital signs reviewed Physical Examination CONSTITUITIONAL Patient alert and cooperative. Well appearing and in no apparent painful distress Examined in wheelchair MSK Hands Right Hand: Able to make a fist. No swelling or tenderness to palpation of the MCPs, PIPs or DIPs. Left Hand: Able to make a fist. No swelling or tenderness to palpation of the MCPs, PIPs or DIPs. Flexion deformities of fingers, not able to fully extend Wrists Right Wrist: Full ROM to flexion and extension. No swelling or TTP Left Wrist: Full ROM to flexion and extension. No swelling or TTP Elbows Right Elbow: Full ROM. No swelling or TTP. No TTP of the medial epicondyle. No TTP of the lateral epicondyle Left Elbow: Full ROM. No swelling or TTP. No TTP of the medial epicondyle. No TTP of the lateral epicondyle Shoulders Right shoulder: Full ROM. No swelling noted. No TTP of the AC joint. No TTP of the subacromial bursa. No TTP of the posterior shoulder Left shoulder: Full ROM. No swelling noted. No TTP of the AC joint. No TTP of the subacromial bursa. No TTP of the posterior shoulder Knees Right knee: Full ROM. No swelling noted. No TTP of the knee joint line. No TTP of pes anserine bursa Left knee: Full ROM. No swelling noted. No TTP of the knee joint line. No TTP of pes anserine bursa. Crepitations felt bilaterally Ankles Right ankle: Good ankle dorsiflexion and plantar flexion. No swelling. No TTP of the ankle joint Left ankle: Good ankle dorsiflexion and plantar flexion. No swelling. No TTP of the ankle joint Feet Right foot: Negative squeeze test Left foot: Negative squeeze test Tender points? No tenderness to palpation of the bilateral trapezius, supraspinatus, anterior costochondral junctions, bilateral suboccipital muscle insertions SKIN No rashes Right Left Hardwood Floor Sander strength 5 5 Wrist flexion 5 5 Wrist extension 5 5 Elbow extension 5 5 Elbow flexion 5 5 Shoulder abduction 4 4 Shoulder adduction 5 5 Hip flexion 5 5 Knee extension 5 5 Knee flexion 4 4 Ankle dorsiflexion 4 4 Ankle plantar flexion 4 4 Vital Signs: Last Vital Signs Pulse 86 11/26/24 12:46 BP 124/72 11/26/24 12:46 Pulse Ox 97 11/26/24 12:46 Oxygen Delivery Method Room Air 11/26/24 12:46 BMI result Body Mass Index 20.8 Results Reviewed Results Reviewed: Laboratory Tests 05/13/24 11/13/24 13:58 09:16 WBC 6.2 RBC 4.33 Hgb 12.4 Hct 38.5 Plt Count 426 H ESR 19 Sodium 139 Potassium 3.4 Chloride 108 Carbon Dioxide 26 BUN 19 H Creatinine 1.26 Total Bilirubin 0.4 AST 35 H Total Creatine Kinase 49 123 C-Reactive Protein 2.97 H 0.27 Aldolase 3.5 Laboratory Tests 01/19/23 10:40 Rheumatoid Factor < 13.0 Cycl Citrul Peptide IgG <16 FARIBA Screen POSITIVE A FARIBA Titer 1:160 H Assessment & Plan Assessment & Plan (1) Polymyositis: Comment: Azathioprine did not tolerate Mtx did not tolerate Code(s): M33.20 - Polymyositis, organ involvement unspecified Category: Medical Plan: #Polymyositis Patient is a 69-year-old female here today for management of polymyositis. Here with sister. Reviewed IVIG and MMF would like to proceed with IVIG infusions Also discussed that she would need PT to continue strenghtening her muscles in conjuction with the treatment She would prefer home PT if possible due to her muscle weakness and needing transportation Plan - Continue prednisone 5mg daily - Start IVIG 2g/kg - Home PT referral - RTC 4 months - CBC, CMP, ESR, CRP, CK and Aldolase (2) Sjogren syndrome with myopathy: Code(s): M35.03 - Sjogren syndrome with myopathy Category: Medical Plan: #Sjogrens Conservatively managing her dry eyes and dry mouth at this time. 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 Plan: #Long-term Use of Steroids Discussed with patient the risks and benefits of steroid for managing the rheumatic condition Benefits include: - Reduced pain, improved mobility, increased participation in activities, and decreased progression of disease Risks include: - GI upset, potential ultrasound worsening or formation (especially in patients > 65 years old), elevated blood pressure/worsening hypertension, elevated blood sugar/worsening diabetes control, worsening of bone density, elevated lipids/worsening triglycerides, cataract formation, weight gain Recommended using proton pump inhibitors (PPIs) for the duration of steroid use to reduce the risk of gastric ulcers and vitamin-D daily to reduce the risk of osteoporosis Labs checked: ?A1c, T spot, hepatitis-B and C serologies Pneumocystis jiroveci prophylaxis: ?Patient with risk factors including steroids greater than 50 mg for more than 30 days, age greater than 60 years, and lung involvement from underlying rheumatic disease requires prophylaxis and will be given so (4) Long-term current use of intravenous immunoglobulin (IVIG): Code(s): Z79.899 - Other intermediate (current) drug therapy Plan: #Long-term use of IVIG Discussed with this patient the risks and benefits of IVIG use to the management of the rheumatic condition Benefits include improved disease control and maintenance of remission Risks include anaphylaxis, blood clots, transfusion related acute lung injury, hemolytic reaction, fluid overload, heart problems Plan I spent 30 minutes reviewing the record and labs, seeing the patient, discussing the treatment plan and documenting in the medical record ? Orders: Orders Complete Blood Count Auto Diff 4 Months M33.20 - Polymyositis, organ involvement unspecified Comprehensive Met. Panel 4 Months M33.20 - Polymyositis, organ involvement unspecified C Reactive Protein 4 Months M33.20 - Polymyositis, organ involvement unspecified Aldolase 4 Months M33.20 - Polymyositis, organ involvement unspecified Creatine Kinase Total 4 Months M33.20 - Polymyositis, organ involvement unspecified Erythrocyte Sedimentation Rate 4 Months M33.20 - Polymyositis, organ involvement unspecified Referrals [facility] Referral M33.20 - Polymyositis, organ involvement unspecified Infusion Center Notification M33.20 - Polymyositis, organ involvement unspecified Medications: Refilled cholecalciferol (vitamin D3) 25 mcg PO DAILY 90 tabs 1RF E55.9 - Vitamin D deficiency, unspecified prednisone 5 mg PO DAILY 90 tabs 1RF M33.20 - Polymyositis, organ involvement unspecified Coding Level of Care Code Est Pt Level 4 (45412) Complex EM visit Add On G2211 Diagnoses Polymyositis M33.20 Sjogren syndrome with myopathy M35.03 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
[2024-11-26 12:46] VITALS: BP 124/72; PULSE 86; O2SAT 97; BMI 20.8
--- OUTSIDE RECORDS SUMMARY | 2024-11-26 15:29 | XMS_ITS | Patient Health Record ---
Author Organization [facility] Address [address] [place] [address] Care Team Providers Care Eating Disorder Psychologist Name Role Phone Marito MONTALVO, [facility] Primary [facility] Provider Bennett Peoples [phone] Allergies No Known Allergies Reason For Referral No Information Medications Medication SIG (Take, Route, Frequency, Duration) Notes Start Date End Date Status B12 Folate 800-800 MCG as directed Orally 04/13/19 Active Ferrous Sulfate 325 (65 Fe) MG 1 tablet Orally Once a day for 30 day(s) 04/13/2021 Active [place] Carbonate 300 MG 1 capsule at be dtime Orally Once a day for 30 day(s) 04/13/2021 Active Fenofibrate 160 MG 1 tablet Orally Once a day for 30 day(s) 04/13/2021 Active Linzess 290 MCG TAKE 1 CAPSULE BY [facility] AT LEAST 30 MINUTES [...] Status W/U Status Risk Notes Problem Dysphagia (69776391) Dysphagia (R13.10) Active confirmed Problem [id number] Constipation, unspecified constipation type (K59.00) Active confirmed Problem 68391129 Iron deficiency anemia, unspecified iron deficiency anemia type (D50.9) Active confirmed Problem Diverticulosis of colon (614518926) Diverticulosis of colon (K57.30) Active confirmed Problem 58562989 Esophageal dysphagia (R13.19) Active confirmed Encounters Encounter Location Date Provider Diagnosis [facility] [address] [place] [phone] 02/05/2024 Bennett Beltrán [facility] [address] [place] [phone] 03/03/2024 Bennett Beltrán [facility] [address] [place] [phone] 06/12/2024 Bennett Beltrán [facility] [address] [place] [phone] 06/23/2024 Bennett Beltrán Plan Of Treatment Pending [...] End Date [employer] (No Referral) [address] [address] [facility] [place] [address] [id number] CAROLYN BARNES Self - patient is the insured MEDICAID OF [id number] [address] [place] [address] [id number] CAROLYN BARNES Self - patient is the insured Medical (General) History Medical History History ICD Code Spinal stenosis Spinal cord stimulator-Dr Claus Aranda's Reportedly negative colonosc opy with Dr. Foster in approx 2016 and reportedly negative colonoscopy on [place] in approx 2004 Hyperlipidemia Gender identitiy change from female to m kim Denies CT,DM,CVA,Lung disease,renal dise ase Muscular weakness Bipolar/Depression Chronic constipation Iron deficiency anemia in July of 2020--s ees Dr. Cade Surgical History Surgery Date(Month/Year) spinal cord simulator 2019 right and left ankel fusions 2018 right and left hip 2010 decompressure back surgery 2019 bilateral mastectomy surgery for gender identitiy change purposes 2008
--- OUTSIDE RECORDS SUMMARY | 2024-11-26 15:29 | XMS_ITS | Clinical Summary ---
Author Organization [facility] Address [address] [place] [address] Care Team Providers Care Sales Operations Analyst Name Role Phone Unavailable Primary Care [...] Health Maintenance Due Date Last Done Comments Advance Care Planning 1955 Hepatitis C Virus Screening 1955 DTaP/Tdap/Td Vaccines (1 - Tdap) 1976 Pneumococcal Vaccines 50+ (1 of 1 - PCV) 11/17/2007 Zoster (Shingles) Vaccine (1 of 2) 11/17/2007 COVID-19 Vaccine ( - 2023-2 5 season) 2024 RSV Vaccine 60 years and old er and Patients (1 - 1-dose 75+ series) 2032 Hepatitis B Vaccines Aged Out No long er eligible based on patient's age to complete this topic
== END 2024-11-26 13:22 | disposition home or self-care (01) ==
LOC: HO.RHES 12:33
PROVIDERS: PCP Internal Medicine; Visit Provider Student in an Organized Health Care Education/Training Program
DX: M33.20 Polymyositis, organ involvement unspecified (principal); M35.03 Sjogren syndrome with myopathy; Z79.52 Long term (current) use of systemic steroids; Z79.899 Other long term (current) drug therapy
CPT/HCPCS: 99214; G2211

== ENCOUNTER → 2024-11-26 12:32 | Outpatient (BNVA) | payer MEDICARE, MEDICAID, SELFPAY | PROVIDERS: PCP Internal Medicine; Visit Provider Student in an Organized Health Care Education/Training Program | DX: M33.20 Polymyositis, organ involvement unspecified (principal); M35.03 Sjogren syndrome with myopathy; Z79.52 Long term (current) use of systemic steroids; Z79.899 Other long term (current) drug therapy | CPT/HCPCS: 99212 ==

== ENCOUNTER 2025-01-14 13:01 | Outpatient (AMB) | payer MEDICARE, MEDICAID, SELFPAY ==
--- OUTSIDE RECORDS SUMMARY | 2024-07-01 10:20 | XMS_ITS ---
Author Organization [facility] Address [address] [place] [phone] Care Team Providers Care Director Of Distribution Name Role Phone Marito MONTALVO, Sarina Primary Care Provider Bennett Peoples [phone] REASON FOR VISIT diarrhea Encounters Encounter Location Date Provider Diagnosis [facility] [address] [place] [phone] 07/01/2024 Bennett Beltrán Plan Of Treatment No Information Progress Notes * CAROLYN BARNES ADOB:[birth year] (69 yo F)Acc No.[id number]:07/01/2024 Progress Notes Patient: CAROLYN FORD Provider: Patricia Beltrán MD :1955 A ge:68 Y S ex:Female Date:07/01/2024 Address:[address] [place], [place] [id number] Pcp:Sarina Devi MD Subjective: * Chief Complaints: * 1 . Diarrhea. * Medical History: Objective: * Vitals: Assessment: Plan: * Treatment: * * The named appointment provid er may or may not be the originator of this progress note, and it is not deemed complete until electronically signed by the appointment provider. Sign off status: Pending * Provider: Patricia Beltrán MD Date: 0 07/01/2024 Generated for Printi ng/Faxing/eTransmitting on: 1 04:31 PM EDT
[2025-01-14 13:14] VITALS: BP 134/77; PULSE 79; RESP 16; O2SAT 99; BMI 20.5
--- NOTE | 2025-01-14 13:14 | A.OFFVIS_ITS ---
Vital Signs 01/14/25 13:14 Height 5 ft Weight 105 lb BMI 20.5 BP 134/77 Blood Pressure Location Rt brachial Position Sitting Respiration 16 Pulse 79 Pulse Source Pulse Oximeter Pulse Oximetry (%) 99 Oxygen Delivery Method Room Air Intake Visit Reasons: Medication Review Medical Services Coordinator Required: No Accompanied by: Sister Allergies No Known Allergies Allergy (Verified 01/14/25 13:19) HPI Comments Details: Mart is back in my office to discuss situation with her spinal cord stimulator as well as her lower back pain as well as her pain in bilateral feet. Unfortunately her spinal cord stimulator is malpositioned. The electrodes got dislodged. We were able to provide stimulation for this patient for awhile however she reports not much of the effect lately from the spinal cord stimulator. Revision could be done for this patient however she is very frail and this procedure my be difficult to perform after so many years of adhesions formation in the thoracic spine. If she would understand that eventually I might not able to advance the electrodes into the appropriate position and the procedure will end up with removal of spinal cord stimulator I can not go for this procedure. She also requesting me to prescribe her Lyrica. She is on maximal dose 300 mg b.i.d.. I did this prescription with 5 refills. Prior: She has negative about opioid medications they give her severe constipation. She has multiple surgeries in the past including surgery in the back and she is negative about another surgery in her back. She is suffering from fibromyalgia She reports multiple areas of pain, with her lower back being the most troublesome. She sees rheumatology currently who has prescribed her Naproxen and Lyrica, both of which provide some relief. She has also been using some CBD tincture which is also helpful. History of severe canal stenosis at L3/4, for which she had a decompression by Dr. Orta in May 2017. 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, lumbar region Postlaminectomy syndrome, not elsewhere classified Fibromyalgia Other sexual disorders Bipolar 1 disorder IBS (irritable bowel syndrome) Muscular dystrophy Chronic vertigo Chronic GERD Lipid disorder Constipation by delayed colonic transit Surgical History H/O colonoscopy Status post insertion of nerve stimulator Previous back surgery History of ankle surgery H/O mastectomy History of hip surgery Family History Father Mesothelioma Brother Mesothelioma Paternal Grandfather Mesothelioma Brother Mesothelioma Paternal Grandmother Stomach cancer Paternal Aunt Lung cancer Family/Other Breast cancer Other Mental health disorder Osteoarthritis Substance use disorder Social History Household Members: Family Housing: House Are you a primary resident care director to a significant other at home: Yes (mother) Do you presently have visiting nurse or other home services: No Alcohol intake: never Patient Tobacco Use Status: Never used Tobacco Tobacco use type: Smokeless Tobacco e-Cigarette/Vaping Use: Currently Using Substance Use Type: Marijuana service: No Current occupational status: disabled Current occupational exposures/hazards: No Cognitive needs: No Hearing needs: No Vision needs: No Review of Systems Const All systems reviewed & are unremarkable except as noted in HPI and below Eyes Denies photophobia Neuro Denies Sensory deficit (Neuro) Physical Exam Vital Signs: Last Vital Signs Pulse 79 01/14/25 13:14 Resp 16 01/14/25 13:14 BP 134/77 01/14/25 13:14 Pulse Ox 99 01/14/25 13:14 Oxygen Delivery Method Room Air 01/14/25 13:14 BMI result Body Mass Index 20.5 Vital signs reviewed. Constitutional: Pleasant, Well appearing. No acute distress. Well-developed and well-nourished. HEENT: Normocephalic and atraumatic. External auditory canals without erythema or edema bilaterally. Dry mucous membranes. No pharyngeal erythema or exudates. Skin: Warm and dry. No rashes or lesions noted. Neck: Full and painless range of motion. No cervical lymphadenopathy. Cardio: Regular rate and rhythm. No murmurs, gallops, or rubs. No lower extremit y edema. No JVD. Pulmonary: No respiratory distress. No accessory muscle usage. Lungs CTA Musculoskeletal: Normal range of motion with some limitation in joints throughout the body. Uses crutch on the right - bilateral ankle fusion. Upper extremity 4/5, lower extremity 5/5. Neuro: Alert and oriented x4. Cranial nerves 2-12 grossly intact. No focal deficits appreciated. Const General: comfortable, no acute distress, well developed, alert, awake and Physically active Eyes Direct Ophthalmoscopy: No photophobia Chest Chest palpation & inspection: normal inspection of the chest Resp Effort & Inspection: normal respiratory effort, able to speak in complete sentences, normal respiratory pattern, no audible wheezes and no cough Cardio Jugular venous distension: no JVD GI Inspection: Yes normal to inspection Neuro Sensory Exam: No Sensory deficit (Neuro) Psych Appearance: grossly normal Mental Status: mental status grossly normal Speech and movement: Normal speech and movement present Assessment & Plan Assessment & Plan (1) Fibromyalgia: Code(s): M79.7 - Fibromyalgia Category: Medical (2) Postlaminectomy syndrome, not elsewhere classified: Code(s): M96.1 - Postlaminectomy syndrome, not elsewhere classified Category: Medical (3) Other spondylosis with radiculopathy, lumbar region: Code(s): M47.26 - Other spondylosis with radiculopathy, lumbar region Category: Medical (4) S/P insertion of spinal cord stimulator: Code(s): Z96.89 - Presence of other specified functional implants Category: Surgical (5) Intercostal neuralgia: Code(s): G58.8 - Other specified mononeuropathies Category: Medical Plan Discussion of the revision of the [employer] spinal cord stimulator see as above. Unfortunately no good answer I have for the patient with a revision. She is very frail her BMI is 20.5 kg per sq meter and therefore the procedure has its own risks from anesthesia. On the other hand my ability to remove the existing electrodes and advanced new electrodes appropriately is also under question. I discussed this with the patient. I will renew her Lyrica 300 mg t.i.d.. I will see this patient for the next appointment as needed. If she decides to go for the revision we will schedule her for the procedure with the understanding of all the risks and benefits of the procedure. She would need to have anesthesiology assessment before going for the procedure if she wishes to do so. Patient Instructions: I here by testify that I spent 30 minutes in conversation with this patient as well as planning her care and organizing this note. Coding Level of Care Code Est Pt Level 4 (12968) Diagnoses Fibromyalgia M79.7 Postlaminectomy syndrome, not elsewhere classified M96.1 Other spondylosis with radiculopathy, lumbar region M47.26 S/P insertion of spinal cord stimulator Z96.89 Intercostal neuralgia G58.8
--- OUTSIDE RECORDS SUMMARY | 2025-01-14 16:32 | XMS_ITS | Patient Health Record ---
Author Organization [facility] Address [address] [place] [address] Care Team Providers Care Oil Lease Operator Name Role Phone Marito MONTALVO, Asma Primary Care Provider Bennett Peoples [phone] Allergies No Known Allergies Reason For Referral No Information Medications Medication SIG (Take, Route, Frequency, Duration) Notes Start Date End Date Status B12 Folate 800-800 MCG as directed Orally 04/13/19 Active Ferrous Sulfate 325 (65 Fe) MG 1 tablet Orally Once a day; Duration: 30 day(s) 04/13/2021 Active [place] Carbonate 300 MG 1 capsule at be dtime Orally Once a day; Duration: 30 day(s) 04/13/2021 Active Fenofibrate 160 MG 1 tablet Orally Once a day; Duration: 30 day(s) 04/13/2021 Active Linzess 290 MCG TAKE [address] [facility] AT LEAST 30 MINUTES BEFORE FIRST MEAL OF THE DAY ON AN EMPTY STOMACH Orally Once a day; Duration: 30 days Active Docusate Sodium 250 MG 1 capsule as need ed Orally Once a day; Duration: 30 day(s) 04/13/2021 Active MiraLax 17 GM/SCOOP as directed Orally 04/13/2021 Active QUEtiapine Fumarate 200 MG Oral; Duration: 30 Active Immunizations Vaccine Route Administration Date [...] Status W/U Status Risk Notes Problem Dysphagia (87849581) Dysphagia (R13.10) Active confirmed Problem Constipation (45671846) Constipation, unspecified constipation type (K59.00) Active confirmed Problem Iron deficiency anemia (89883337) Iron deficiency anemia, unspecified iron deficiency anemia type (D50.9) Active confirmed Problem Diverticulosis of colon (396807958) Diverticulosis of colon (K57.30) Active confirmed Problem Esophageal dysphagia (71549529) Esophageal dysphagia (R13.19) Active confirmed Encounters Encounter Location Date Provider Diagnosis [facility] [address] [place] [phone] 02/05/2024 Bennett Beltrán [facility] [address] [place] [phone] 03/03/2024 Bennett Beltrán [facility] [address] [place] [phone] 06/12/2024 Bennett Beltrán [facility] [address] [place] [address] 06/23/2024 Bennett Beltrán Plan Of Treatment Pending [...] End Date [employer] (No Referral) [address] [address] [facility] [place] [address] [id number] CAROLYN BARNES Self - patient is the insured MEDICAID OF [employer] [address] [place] [phone] [id number] MAGALIEJOSETAMAR CAROLYN Self - patient is the insured Medical (General) History Medical History History ICD Code Spinal stenosis Spinal cord stimulator-Dr Devlin Sjogrjanna's Reportedly negative colonosc opy with Dr. Foster in approx 2016 and reportedly negative colonoscopy on [place] in approx 2004 Hyperlipidemia Gender identitiy change from female to m kim Denies DC,DM,CVA,Lung disease,renal dise ase Muscular weakness Bipolar/Depression Chronic constipation Iron deficiency anemia in July of 2020--s ees Dr. Cade Surgical History Surgery Date(Month/Year) spinal cord simulator 2019 right and left ankel fusions 2018 right and left hip 2010 decompressure back surgery 2018 bilateral mastectomy surgery for gender identitiy change purposes 2007
--- OUTSIDE RECORDS SUMMARY | 2025-01-14 16:32 | XMS_ITS | Clinical Summary ---
Author Organization [facility] Address [address] [place] [address] Care Team Providers Care Shower Screen Installer Name Role Phone Unavailable Primary Care Provider [...] - 2023-2 5 season) 2024 RSV Vaccine 50 years and old er and Patients (1 - 1-dose 75+ series) 2032 Hepatitis B Vaccines Aged Out No long er eligible based on patient's age to complete this topic
== END 2025-01-14 13:29 | disposition home or self-care (01) ==
LOC: HO.PMC 13:02
PROVIDERS: PCP Internal Medicine; Visit Provider Anesthesiology
DX: M79.7 Fibromyalgia (principal); M96.1 Postlaminectomy syndrome, not elsewhere classified; M47.26 Other spondylosis with radiculopathy, lumbar region; Z96.89 Presence of other specified functional implants; G58.8 Other specified mononeuropathies
CPT/HCPCS: 99214

== ENCOUNTER → 2025-01-14 13:01 | Outpatient (BNVA) | payer MEDICARE, MEDICAID, SELFPAY | PROVIDERS: PCP Internal Medicine; Visit Provider Anesthesiology | DX: M79.7 Fibromyalgia (principal); M96.1 Postlaminectomy syndrome, not elsewhere classified; M47.26 Other spondylosis with radiculopathy, lumbar region; Z96.89 Presence of other specified functional implants; G58.8 Other specified mononeuropathies | CPT/HCPCS: 99212 ==

== ENCOUNTER 2025-02-18 12:50 | Outpatient (AMB) | payer MEDICARE, MEDICAID, SELFPAY ==
[2025-02-18 12:54] VITALS: BP 126/70; PULSE 82; O2SAT 97; BMI 21.7
--- NOTE | 2025-02-18 12:54 | A.OFFPC_ITS ---
Vital Signs 02/18/25 12:54 Height 5 ft Weight 111 lb BMI 21.7 BP 126/70 Blood Pressure Location Lt brachial Position Sitting Pulse 82 Pulse Source Pulse Oximeter Pulse Oximetry (%) 97 Intake Visit Reasons: f/u lipid disorder Allergies No Known Allergies Allergy (Verified 02/18/25 12:54) Medication List - Last Reconciled 02/18/25 by Sarina Devi MD buspirone 10 mg PO TID cholecalciferol (vitamin D3) 25 mcg PO DAILY fenofibrate 160 mg PO DAILY 90 days linaclotide (Linzess) 290 mcg PO DAILY 90 days lithium carbonate ER 450 mg PO DAILY lurasidone 120 mg PO DAILY pantoprazole 20 mg PO DAILY prazosin 1 mg PO DAILY prednisone 5 mg PO DAILY pregabalin (Lyrica) 300 mg PO BID 30 days quetiapine 400 mg PO BEDTIME valbenazine (Ingrezza Sprinkle) 40 mg PO DAILY Tobacco use date assessed: 09/17/24 Fall risk assessment: No Falls in past year Last assessed Fall Risk: 02/18/25 Dental Screening Dental Screen Date: 09/17/24 HPI HPI Comments History of Present Illness Details History of Present Illness The patient is a 69 year old individual presenting for a follow-up on cholesterol and a new complaint of a clitoral abnormality. Clitoral Abnormality: - The patient reports feeling a bump or thick skin on the clitoris, which was first noticed about a month ago. - The condition is reported to be non-pa inful. - The patient does not currently have an CREAM DUMPER. Abnormal Kidney Function: - Lab work from October showed slightly a ffected kidney function. - The glomerular filtration rate was 42, below the normal threshold of 60 or above. Hypercholesterolemia: - This visit serves as a follow-up for c holesterol management. - The patient is taking fenofibrate for this condition. Chronic Constipation: - The patient is prescribed Linzess for chronic constipation. Mental Health Conditions: - The patient has a history of bipolar d isorder and is established with a psychiatrist for management of depression and anxiety. Chronic Pain Syndromes: - The patient has fibromyalgia and chron ic lower back pain. Sjogren's Syndrome and Myopathy: - The patient suffers from Sjogren's syn drome and myopathy and is followed by rheumatology at [facility]. Medical History: - Hypercholesterolemia - Chronic constipation - Depression, managed by psychiatry - Anxiety, managed by psychiatry - Chronic lower back pain, managed by [facility] pain management - Sjogren's syndrome, managed by rheumat ology at [facility] - Myopathy, managed by rheumatology at 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, lumbar region Postlaminectomy syndrome, not elsewhere classified Fibromyalgia Other sexual disorders Bipolar 1 disorder IBS (irritable bowel syndrome) Muscular dystrophy Chronic vertigo Chronic GERD Lipid disorder Constipation by delayed colonic transit Surgical History H/O colonoscopy Status post insertion of nerve stimulator Previous back surgery History of ankle surgery H/O mastectomy History of hip surgery Family History Father Mesothelioma Brother Mesothelioma Paternal Grandfather Mesothelioma Brother Mesothelioma Paternal Grandmother Stomach cancer Paternal Aunt Lung cancer Family/Other Breast cancer Other Mental health disorder Osteoarthritis Substance use disorder Social History Household Members: Family Housing: House Are you a primary director career services to a significant other at home: Yes (mother) Do you presently have visiting nurse or other home services: No Alcohol intake: never Patient Tobacco Use Status: Never used Tobacco Tobacco use type: Smokeless Tobacco e-Cigarette/Vaping Use: Currently Using Substance Use Type: Marijuana service: No Current occupational status: disabled Current occupational exposures/hazards: No Cognitive needs: No Hearing needs: No Vision needs: No Questionnaire Thrive Questionnaire Date Thrive assessed: 02/11/25 I am a: Patient What is your living situation today?: I have a steady place to live Within the past 12 months, did the food you bought not last and you didn't have the money to get more?: Sometimes True Within the past 12 months, did you worry whether your food would run out before you got money to buy more?: Often true Do you have trouble paying for medicines?: No Do you have trouble getting transportation to medical appointments?: No Do you have trouble paying your heating and electricity bill?: Yes Do you have trouble taking care of your child, family member or friend?: I choose not to answer this question Do you have trouble with day-to-day activities such as bathing, preparing meals, shopping, managing finances, etc.?: No Are you currently unemployed and looking for a job?: I choose not to answer this question Are you interested in more education?: No Please select the resources that you would like help with: Food Currently or been in a relationship where the following occur: No concerns reported THRIVE Score: 3 AUDIT C Alcohol Use Questionnaire (AUDIT-C) 2. How many drinks containing alcohol do you have on a typical day when you are drinking?: 1 or 2 3. How often do you have six or more drinks on one occasion?: Never Total Score: 0 KAUR-7 AMB Questionnaire KAUR-7 Date KAUR - 7 assessed: 08/29/24 Feeling nervous, anxious, or on edge: 3 = Nearly every day Not being able to stop or control worryin = Nearly every day Worrying too much about different things: 3 = Nearly every day Trouble relaxin = More than half the days Being so restless that it is hard to sit still: 2 = More than half the days Becoming easily annoyed or irritable: 1 = Several days Feeling afraid as if something awful might happen: 3 = Nearly every day Total KAUR-7 score (0-4 normal; 5-9 mild; 10-14 moderate; 15-21 severe): 17 Source: Developed by Drs. Bennett Bhagat, Alannah Steve, Terence rasmussen nd colleagues, with an educational alejandro from [employer]. KAUR-7 Assessment Billing KAUR-7 Assessment Tool: KAUR-7 Assessment 98866 Review of Systems Narrative Review of Systems. - General: No fever no chills - Neurological: No headaches no dizziness - Ear nose throat: No sore throat no hearing difficulty no ear pain - Cardiovascular: No syncope, no chest pain, no palpitations - Gastrointestinal: No nausea vomiting or diarrhea Physical exam (Primary Care) Vital Signs: Last Vital Signs Pulse 82 02/18/25 12:54 BP 126/70 02/18/25 12:54 Pulse Ox 97 02/18/25 12:54 BMI result Body Mass Index 21.7 Tobacco/Smoking Status: Tobacco use Status Tobacco use date assessed 09/17/24 02/18/25 12:56 Patient Tobacco Use Status Never used Tobacco 02/18/25 12:56 Tobacco use type Smokeless Tobacco 02/18/25 12:56 e-Cigarette/Vaping Use Currently Using 02/18/25 12:56 Thrive Assessment: Date of Thrive Assessment Date Thrive assessed 02/11/25 02/18/25 12:56 Currently or been in a relationship where the following occur: No concerns reported Narrative Physical Exam General: No acute distress HEENT: No acute findings Neck: Supple Respiratory system: Able to talk in full sentences, no audible wheeze Cardiovascular: S1-S2 regular in rate and rhythm Gastrointestinal: No pain gentalia : no abnormality was found Extremities: No new findings FOREIGN 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 TEACHER: Alert awake oriented x3 motor intact Coding Level of Care Code Est Pt Level 4 (58710) Complex visit Add On G2211 Diagnoses Decreased GFR R94.4 Lipid disorder E78.9 Bipolar 1 disorder F31.9 Chronic GERD K21.9 Constipation by delayed colonic transit K59.01 Genital lesion, female N94.9 Sjogren syndrome with myopathy M35.03 Polymyositis M33.20 Fibromyalgia M79.7 Additional Codes KAUR-7 Assessment Billing - KAUR-7 Assessment Tool: KAUR-7 Assessment 93019 ([id number]) Assessment & Plan Assessment & Plan (1) Decreased GFR: Code(s): R94.4 - Abnormal results of kidney function studies Category: Medical (2) Lipid disorder: Code(s): E78.9 - Disorder of lipoprotein metabolism, unspecified Category: Medical (3) Bipolar 1 disorder: Code(s): F31.9 - Bipolar disorder, unspecified Category: Medical (4) Chronic GERD: Code(s): K21.9 - Gastro-esophageal reflux disease without esophagitis Category: Medical (5) Constipation by delayed colonic transit: Code(s): K59.01 - Slow transit constipation Category: Medical (6) Genital lesion, female: Code(s): N94.9 - Unspecified condition associated with female genital organs and menstrual cycle Category: Medical (7) Sjogren syndrome with myopathy: Code(s): M35.03 - Sjogren syndrome with myopathy Category: Medical (8) Polymyositis: Comment: Azathioprine did not tolerate Mtx did not tolerate Code(s): M33.20 - Polymyositis, organ involvement unspecified Category: Medical (9) Fibromyalgia: Code(s): M79.7 - Fibromyalgia Category: Medical Plan Problem List - Clitoral concern - Abnormal kidney function - Hypercholesterolemia - Chronic constipation - Depression - Anxiety - Chronic lower back pain - Sjogren's syndrome - Myopathy - Fibromyalgia - Bipolar disorder Plan - Repeat blood tests to re-evaluate kidney function. - Advised to increase water intake, especially before the upcoming blood draw. - Will contact the patient if any lab results are concerning. - For clitoral inflammation, recommended sitz baths. - If the clitoral issue is not resolved, the patient will need to see an CREAM DUMPER for further evaluation. - Recommended follow-up in six months. - continue meds
--- OUTSIDE RECORDS SUMMARY | 2025-02-18 15:12 | XMS_ITS | Patient Health Record ---
Author Organization [facility] Address [address] [place] [address] Care Team Providers Care International Trade Compliance Manager Name Role Phone Marito MONTALVO, Asma Primary Care Provider Bennett Peoples [phone] Allergies No Known Allergies Reason For Referral No Information Medications Medication SIG (Take, Route, Frequency, Duration) Notes Start Date End Date Status B12 Folate 800-800 MCG Capsule as directed Orally 04/13/2021 Active Ferrous Sulfate 325 (65 Fe) MG Tablet 1 tablet Orally Once a day; Duration: 30 day(s) 04/13/2021 Active [place] Carbonate 300 MG Capsule 1 capsule at bedtime Orally Once a day; Duration: 30 day(s) 04/13/2021 Active Fenofibrate 160 MG Tablet 1 tablet Orall y Once a day; Duration: 30 day(s) 04/13/2021 Active Linzess 290 MCG Capsule TAKE 1 CAPSULE B Y MOUTH AT LEAST 30 MINUTES BEFORE FIRST MEAL OF THE DAY ON AN EMPTY STOMACH Orally Once a day; Duration: 30 days Active Docusate Sodium 250 MG Capsule 1 capsule as needed Orally Once a day; Duration: 30 day(s) 04/13/2021 Active MiraLax 17 GM/SCOOP Powder as directed Orally 03/20 Active QUEtiapine Fumarate 200 MG Tablet Oral; Duration: 30 Active Immunizations Vaccine Route Administration Date Status Comme nts Influenza Unknown 01/05/2021 Administered Social History Tobacco Use: Social History Observation Description Date Details (start date - stop date) Never Smoker NA - NA Social History Drugs/Alcohol: Social Info Question Answer Notes Alcohol Screen Did you have a drink containing alcohol in the past year? No Points 0 Interpretation Negative Tobacco Use: Social Info Question Answer Notes Tobacco Use/Smoking Patient is a nonsmoker Additional Details Category Social Info Options Details Miscellaneous: Marital status: Single Occupation: Retired Section Notes: Nonsmoker; Vapes marijuana; no sig. alcohol Problems Problem Type SNOMED Code ICD Code Onset Dates Problem Status W/U Status Risk Notes Problem Dysphagia (28983873) Dysphagia (R13.10) Active confirmed Problem Constipation (76399728) Constipation, unspecified constipation type (K59.00) Active confirmed Problem Iron deficiency anemia (93293856) Iron deficiency anemia, unspecified iron deficiency anemia type (D50.9) Active confirmed Problem Diverticulosis of colon (540968519) Diverticulosis of colon (K57.30) Active confirmed Problem Esophageal dysphagia (22588657) Esophageal dysphagia (R13.19) Active confirmed Encounters Encounter Location Date Provider Diagnosis [facility] [address] [place] [phone] 03/03/2024 Bennett Beltrán [facility] [address] [place] [phone] 06/12/2024 Bennett Beltrán [facility] [address] [place] [phone] 06/23/2024 Bennett Beltrán Plan Of Treatment Pending [...] End Date [employer] (No Referral) [address] [address] [place] [address] [id number] CAROLYN BARNES Self - patient is the insured [facility] [address] [place] [phone] [id number] MAGALIEJOSEMEEKCAROLYN Morocho Self - patient is the insured Medical (General) History Medical History History ICD Code Spinal stenosis Spinal cord stimulator-Dr Claus Aranda's Reportedly negative colonosc opy with Dr. Foster in approx 2016 and reportedly negative colonoscopy on [place] in approx 2004 Hyperlipidemia Gender identitiy change from female to m kim Denies MD,DM,CVA,Lung disease,renal dise ase Muscular weakness Bipolar/Depression Chronic constipation Iron deficiency anemia in July of 2020--s ees Dr. Cade Surgical History Surgery Date(Month/Year) spinal cord simulator 2019 right and left ankel fusions 2018 right and left hip 2010 decompressure back surgery 2018 bilateral mastectomy surgery for gender identitiy change purposes 2007
== END 2025-02-18 13:17 | disposition home or self-care (01) ==
LOC: HO.HMCC 12:51
PROVIDERS: PCP Internal Medicine; Visit Provider Internal Medicine
DX: R94.4 Abnormal results of kidney function studies (principal); F31.9 Bipolar disorder, unspecified; M33.20 Polymyositis, organ involvement unspecified; E78.9 Disorder of lipoprotein metabolism, unspecified; K21.9 Gastro-esophageal reflux disease without esophagitis; K59.01 Slow transit constipation; N94.9 Unspecified condition associated with female genital organs and menstrual cycle; M35.03 Sjogren syndrome with myopathy; M79.7 Fibromyalgia

== ENCOUNTER → 2025-02-18 12:50 | Outpatient (BNVA) | payer MEDICARE, MEDICAID, SELFPAY | PROVIDERS: PCP Internal Medicine; Visit Provider Internal Medicine | DX: M79.7 Fibromyalgia (principal); M33.20 Polymyositis, organ involvement unspecified; M35.03 Sjogren syndrome with myopathy; N94.9 Unspecified condition associated with female genital organs and menstrual cycle; K59.01 Slow transit constipation; K21.9 Gastro-esophageal reflux disease without esophagitis; F31.9 Bipolar disorder, unspecified; E78.9 Disorder of lipoprotein metabolism, unspecified; R94.4 Abnormal results of kidney function studies | CPT/HCPCS: 96127; 99212 ==